=== PATIENT | male | born 1945 | race Two or more races ===

== ENCOUNTER 2020-04-22 12:43 | Inpatient (IN) | payer MEDICARE, OTHER ==
[~2020-04-22] VITALS: Ht 172.7 cm; Wt 71.2 kg
[2020-04-22 12:43] VITALS: BP 159/70
--- NOTE | 2020-04-22 12:43 | NUR ---
ED Nurse Note: Patient EVER [id number] from [facility] c/o SOB and low O2 level 85% started few hrs ago. Pt placed on nc @5L, 95%. Pt is tested positive for Covid, unk date. Pt is DNR. Pt is AAOx1, lethargic, non verbal. Covid isolation precaution observed. Pt placed on cardiac nurse specialist.
--- NOTE | 2020-04-22 13:14 | NUR ---
ED Nurse Note: ERMD at bedside. Pt satting at 98% on 5LPM via NC.
[2020-04-22] MEDS ORDERED: Acetaminophen 650 MG SUPP RECTAL ONE (13:45)
--- NOTE | 2020-04-22 13:49 | NUR ---
ED Nurse Note: latest rectal temp: 102.1F, notified ERMD.
[2020-04-22] MEDS ORDERED: ZINC SULFATE220 M1 ORAL (14:03)
[2020-04-22] MEDS ORDERED: METFORMIN HCL850 M1 ORAL (14:03)
[2020-04-22] MEDS ORDERED: VITAMIN D3 COM1 EACH PO (14:03)
[2020-04-22] MEDS ORDERED: DONEPEZIL HCL5 MG ORAL (14:03)
[2020-04-22] MEDS ORDERED: VITAMIN C500 M1 ORAL (14:03)
[2020-04-22] MEDS ORDERED: HEPARIN SO5000 UNIT2 SUBQ (14:03)
[2020-04-22] MEDS ORDERED: POTASSIUM CHLO20 ME2 ORAL (14:03)
[2020-04-22] MEDS ORDERED: KEPPRA500 M4 ORAL (14:03)
[2020-04-22 14:05] LABS: BASOPHILS % (AUTO) 0.9 % (0.0-2.0); HEMATOCRIT 43.5 % (42.0-52.0); HEMOGLOBIN 14.1 G/DL (14.2-18.0); LYMPHOCYTES % (AUTO) 9.8 % (20.0-45.0); MEAN CORPUSCULAR VOLUME 97 FL (80-99); MONOCYTES % (AUTO) 7.2 % (1.0-10.0); PLATELET COUNT 441 K/UL (150-450); RED CELL DISTRIBUTION WIDTH 12.4 % (11.6-14.8); WHITE BLOOD COUNT 9.9 K/UL (4.8-10.8)
[2020-04-22 14:11] LABS: ANION GAP 9 mmol/L (5-15); APPEARANCE,URINE CLEAR; BILIRUBIN, URINE NEGATIVE (NEGATIVE); BLOOD UREA NITROGEN 16 mg/dL (7-18); CALCIUM 9.2 MG/DL (8.5-10.1); CARBON DIOXIDE 31 MMOL/L (21-32); CHLORIDE 100 MMOL/L (98-107); CREATININE 0.9 MG/DL (0.55-1.30); GLUCOSE, URINE (UA) NEGATIVE (NEGATIVE); KETONES,URINE 2+ (NEGATIVE); LEUKOCYTE ESTERASE ,URINE NEGATIVE (NEGATIVE); NITRITE,URINE NEGATIVE (NEGATIVE); PH,URINE 6 (4.5-8.0); PROTEIN,URINE 2+ (NEGATIVE); SODIUM 140 MMOL/L (136-145); UROBILINOGEN,URINE 4 MG/DL (0.0-1.0)
[2020-04-22] MEDS ORDERED: Piperacillin/Tazobactam 3.375 GM in NS 110 ML IVPB ONE (14:15)
[2020-04-22 14:16] LABS: ALANINE AMINOTRANSFERASE 16 U/L (12-78); ALBUMIN 2.1 G/DL (3.4-5.0); ALBUMIN/GLOBULIN RATIO 0.3 (1.0-2.7); ALKALINE PHOSPHATASE 78 U/L (46-116); ASPARTATE AMINO TRANSFERASE 22 U/L (15-37); BILIRUBIN,TOTAL 0.5 MG/DL (0.2-1.0); COLOR,URINE YELLOW
--- NOTE | 2020-04-22 14:26 | NUR ---
ED Nurse Note: latest temp: 98.9F oral. Pt on bed, sleeping, VSS, now satting at 100% on 2LPM via NC.
[2020-04-22 14:47] VITALS: BP 145/64
--- NOTE | 2020-04-22 14:50 | Diagnostic Imaging Report ---
Indication: Chest pain Technique: One view of the chest Comparison: none Findings: There is bilateral interstitial and airspace disease in a bronchovascular distribution. The pleural spaces are clear. The heart size is normal. Impression: Bilateral infiltrates, likely pneumonia, possibly viral. Correlate with clinical findings
--- NOTE | 2020-04-22 15:02 | Emergency Room Report ---
History of Present Illness General Chief Complaint: Dyspnea/Respdistress Source: EMS Present Illness HPI Patient stays at a longterm. Patient was noted to be: Positive. Patient is DNR with selective interventions. Patient presents emergency department today with worsening shortness of breath. No other complaints are noted. Symptoms noted to be severe. Patient is unable to provide much history other history was obtained from medical records. Patient is from a longterm and patient's primary care physician does not for care at [facility] has never been admitted here before. No other modifying factors. No other associated signs and symptoms. No other complaints were noted. Allergies: Coded Allergies: No Known Allergies (Unverified , 04/22/20) COVID-19 Screening Contact w/high risk pt: Yes Experienced COVID-19 symptoms?: Yes COVID-19 Testing performed JUNIOR BUYER: Yes - unk date COVID-19 Screening: Positive COVID-19 COVID-19 Testing Source: SNF Patient History Past Medical History: DM, dementia, seizures Past Surgical History: none Pertinent Family History: none Social History Narrative Patient stays at a longterm. Reviewed Nursing Documentation: PMH: Agreed; PSxH: Agreed Nursing Documentation-PMH Hx Diabetes: Yes Review of Systems All Other Systems: negative except mentioned in HPI Physical Exam Vital Signs Date Time Temp Pulse Resp B/P (MAP) Pulse Ox O2 Delivery O2 Flow Rate FiO2 04/22/20 12:35 98.4 108 20 168/87 (114) 95 Nasal Cannula 5.0 Sp02 EP Interpretation: reviewed, normal General Appearance: moderate distress, cachetic, lethargic Head: atraumatic Eyes: bilateral eye normal inspection ENT: normal ENT inspection, moist mucus membranes Neck: normal inspection, no bony tend Respiratory: decreased breath sounds, accessory muscle use, wheezing, expiration Cardiovascular #1: regular rate, rhythm, no edema Gastrointestinal: normal inspection, normal bowel sounds, non tender, soft, no guarding, no hernia Genitourinary: deferred Musculoskeletal: normal inspection, back normal Neurologic: other - Limited due to patient's altered mental status Psychiatric: other - Limited due to altered mental status Skin: no rash Procedures Critical Care Time Critical Care Time Patient had a critical medical condition which untreated could potentially result in life or limb threatening injury. Total critical care time excluding procedures was approximately 45 minutes. Medical Decision Making Diagnostic Impression: Primary Impression: Respiratory distress Additional Impression: COVID-19 ER Course Patient presents emergency department today complaining of shortness of breath. Differential diagnoses include acute pneumonia, CHF, acute coronary syndrome, pneumothorax, asthma, COPD flare, just to name a few. Given the severity of the patient's presentation I felt this is a highly complex patient. This patient required extensive workup. Patient's laboratory work-up does not show any significant abnormality. However patient's chest x-ray shows evidence of bilateral infiltrates. Patient was hypoxic and required respiratory supplementation. Patient is DNR therefore we will not intubate the patient. However we will treat the patient aggressively still. Will admit the patient further evaluation. Patient will be admitted to telemetry. Case was discussed with Dr. Corral for admission. Labs Test 04/22/20 13:41 White Blood Count 9.9 K/UL (4.8-10.8) Red Blood Count 4.50 M/UL (4.70-6.10) Hemoglobin 14.1 G/DL (14.2-18.0) Hematocrit 43.5 % (42.0-52.0) Mean Corpuscular Volume 97 FL (80-99) Mean Corpuscular Hemoglobin 31.4 PG (27.0-31.0) Mean Corpuscular Hemoglobin Concent 32.5 G/DL (32.0-36.0) Red Cell Distribution Width 12.4 % (11.6-14.8) Platelet Count 441 K/UL (150-450) Mean Platelet Volume 5.0 FL (6.5-10.1) Neutrophils (%) (Auto) 82.0 % (45.0-75.0) Lymphocytes (%) (Auto) 9.8 % (20.0-45.0) Monocytes (%) (Auto) 7.2 % (1.0-10.0) Eosinophils (%) (Auto) 0.0 % (0.0-3.0) Basophils (%) (Auto) 0.9 % (0.0-2.0) Urine Color Yellow Urine Appearance Clear Urine pH 6 (4.5-8.0) Urine Specific [place] 1.020 (1.005-1.035) Urine Protein 2+ (NEGATIVE) Urine Glucose (UA) Negative (NEGATIVE) Urine Ketones 2+ (NEGATIVE) Urine Blood 3+ (NEGATIVE) Urine Nitrite Negative (NEGATIVE) Urine Bilirubin Negative (NEGATIVE) Urine Urobilinogen 4 MG/DL (0.0-1.0) Urine Leukocyte Esterase Negative (NEGATIVE) Urine RBC 5-10 /HPF (0 - 0) Urine WBC 0-2 /HPF (0 - 0) Urine Squamous Epithelial Cells Occasional /LPF Urine Bacteria Occasional /HPF (NONE) Sodium Level 140 MMOL/L (136-145) Potassium Level 4.0 MMOL/L (3.5-5.1) Chloride Level 100 MMOL/L (98-107) Carbon Dioxide Level 31 MMOL/L (21-32) Anion Gap 9 mmol/L (5-15) Blood Urea Nitrogen 16 mg/dL (7-18) Creatinine 0.9 MG/DL (0.55-1.30) Estimat Glomerular Filtration Rate > 60 mL/min (>60) Glucose Level 142 MG/DL (74-106) Lactic Acid Level 1.80 mmol/L (0.4-2.0) Calcium Level 9.2 MG/DL (8.5-10.1) Total Bilirubin 0.5 MG/DL (0.2-1.0) Aspartate Amino Transf (AST/SGOT) 22 U/L (15-37) Alanine Aminotransferase (ALT/SGPT) 16 U/L (12-78) Alkaline Phosphatase 78 U/L (46-116) Troponin I 0.001 ng/mL (0.000-0.056) Total Protein 8.2 G/DL (6.4-8.2) Albumin 2.1 G/DL (3.4-5.0) Globulin 6.1 g/dL Albumin/Globulin Ratio 0.3 (1.0-2.7) Lipase 47 U/L (73-393) EKG Diagnostic Results Rate: tachycardiac Rhythm: NSR ST Segments: no acute changes Rhythm Strip Diag. Results EP Interpretation: yes Rate: 120 Rhythm: NSR, no PVC's, no ectopy Chest X-Ray Diagnostic Results Chest X-Ray Diagnostic Results : Chest X-Ray Ordered: Yes # of Views/Limited/Complete: 1 View Indication: Shortness of Breath EP Interpretation: Yes Interpretation: no effusion, no pneumothorax, other - bilateral infiltrate Impression: Other Electronically Signed by: Electronically signed by Carlos Olivarez MD Last Vital Signs Date Time Temp Pulse Resp B/P (MAP) Pulse Ox O2 Delivery O2 Flow Rate FiO2 04/22/20 14:47 98.9 116 27 145/64 97 Nasal Cannula 2.0 Status: improved Disposition: ADMITTED INPATIENT Condition: Serious Referrals: NON PHYSICIAN (PCP) Carlos Olivarez MD Apr 22, 2020 15:02
[2020-04-22 15:56] VITALS: BP 124/62
--- NOTE | 2020-04-22 16:01 | NUR ---
ED Nurse Note: Report given to Sarai BOWLING.
--- NOTE | 2020-04-22 16:12 | NUR ---
TRANSFER TO FLOOR: Patient transferred to Tele as ordered via nabilroma with 1 tech and RN. Pt AAOx1, non verbal. Afebrile. IV line on left forearm 20g patent and intact. On 2L via nc. Med recon done. Swabs are sent. Pt does not have any belongings.
[2020-04-22] MEDS ORDERED: Promethazine/Codeine 5ml UD ORAL PRN (16:15)
[2020-04-22] MEDS ORDERED: Miralax 17gm pkt ORAL PRN (16:15)
[2020-04-22] MEDS ORDERED: Albuterol/Ipratropium 3ml neb HHN PRN (16:15)
--- NOTE | 2020-04-22 16:15 | NUR ---
NURSE NOTES: Patient transferred from ER to room 209-2, Asleep, non-verbal, On 2L nasal canula, saturating 93%-95%. cobol developer placed, IV on left FA patent. Patient has no belonging. Skin assessment done, Patient has Right heel DTI and Sacral stage 4, Picture taken. Fall precaution and seizure precaution measurement done. Bed in low position and locked with side rails x3. Call light within reach. Will continue plan of care.
[2020-04-22 16:25] VITALS: BP 146/68
[2020-04-22] MEDS: NovoLOG Insulin Flexpen SUBQ SCH ×2 (16:30→21:00)
[2020-04-22] MEDS ORDERED: cefTRIAXone 1 GM in D5W 55 ML IVPB SCH (18:00)
--- NOTE | 2020-04-22 19:15 | NUR ---
HAND-OFF: Report given to Chuyita/TAWNYA. Patient in stable condition. Endorsed plan of care .
--- NOTE | 2020-04-22 19:30 | NUR ---
NURSE NOTES: Received patient from TAWNYA Copeland. AOx0, nonverbal. IV site intact and flushed. On 2L nasal cannula, saturating well. With sacral stage IV and right heel DTI, will continue wound care plan. Breathing even and unlabored. Bed in lowest position, brakes engaged and bed alarm on. Call light placed within reach. Bed rails raised x2. Will continue to monitor.
[2020-04-22 20:00] VITALS: BP 120/58
[2020-04-22] MEDS: Azithromycin 250 MG in D5W 275 ML IV SCH (20:20)
[2020-04-22] MEDS: Heparin 5000 units/ml inj SUBQ SCH (20:22)
--- NOTE | 2020-04-22 21:14 | NUR ---
NURSE NOTES: Novolog not given because patient did not eat dinner nor bedtime snacks.
[2020-04-23] VITALS: BP 132/61
--- NOTE | 2020-04-23 02:50 | NUR ---
NURSE NOTES: Patient asleep, but arousable. Opens eyes spontaneously, but nonverbal. No pain per FLACC pain assessment. IV site intact and patent. Bed in lowest position, brakes engaged, bed alarm on. Bed rails raised x2. Call light placed within reach. Will continue to monitor.
[2020-04-23 04:00] VITALS: BP 109/55
[2020-04-23] MEDS: NovoLOG Insulin Flexpen SUBQ SCH ×4 (05:56→21:10)
[2020-04-23 06:35] LABS: BASOPHILS % (AUTO) 0.7 % (0.0-2.0); EOSINOPHILS % (AUTO) 0.2 % (0.0-3.0); HEMATOCRIT 34.8 % (42.0-52.0); HEMOGLOBIN 11.2 G/DL (14.2-18.0); LYMPHOCYTES % (AUTO) 12.8 % (20.0-45.0); MEAN CORPUSCULAR VOLUME 96 FL (80-99); MONOCYTES % (AUTO) 9.9 % (1.0-10.0); NEUTROPHILS % (AUTO) 76.4 % (45.0-75.0); PLATELET COUNT 442 K/UL (150-450); RED BLOOD COUNT 3.62 M/UL (4.70-6.10); RED CELL DISTRIBUTION WIDTH 12.4 % (11.6-14.8); WHITE BLOOD COUNT 8.9 K/UL (4.8-10.8)
[2020-04-23 07:18] LABS: ALANINE AMINOTRANSFERASE 15 U/L (12-78); ALBUMIN 1.9 G/DL (3.4-5.0); ALBUMIN/GLOBULIN RATIO 0.4 (1.0-2.7); ALKALINE PHOSPHATASE 75 U/L (46-116); ANION GAP 10 mmol/L (5-15); ASPARTATE AMINO TRANSFERASE 25 U/L (15-37); BILIRUBIN,TOTAL 0.3 MG/DL (0.2-1.0); BLOOD UREA NITROGEN 25 mg/dL (7-18); CALCIUM 8.3 MG/DL (8.5-10.1); CARBON DIOXIDE 29 MMOL/L (21-32); CHLORIDE 102 MMOL/L (98-107); CREATININE 0.9 MG/DL (0.55-1.30); PHOSPHORUS 3.8 MG/DL (2.5-4.9); SODIUM 141 MMOL/L (136-145)
--- NOTE | 2020-04-23 07:24 | NUR ---
HAND-OFF: Report given to TAWNYA Copeland. Plan of care endorsed. Patient stable.
--- NOTE | 2020-04-23 07:25 | NUR ---
NURSE NOTES: Received report from Chuyita/RN. Patient is sleeping, lying in bed resting comfortably. Patient is non-verbal, he is on 2L nasal cannula. No distress or SOB noted at this time. IV on left FA 20G, saline lock, clean and patent. Fall and seizures precautions measures done. Bed in lowest position and locked. Call light within reach, side rails up X3. Will continue plan of care.
[2020-04-23 08:00] VITALS: BP 123/50
[2020-04-23] MEDS: Heparin 5000 units/ml inj SUBQ SCH ×2 (08:18→21:09)
--- NOTE | 2020-04-23 10:44 | History and Physical ---
History of Present Illness General Date patient seen: Apr 23, 2020 Reason for Hospitalization: Dyspnea/Respdistress Present Illness HPI 74 year old male with hx of DM, Dementia, cachexia, brought in by paramedics with CC of worsening shortness of breath. Patient is unable to provide much history other history was obtained from medical records. His CXR showed extensive interstitial infiltrate typical for viral pneumonia. Pt is admitted for further management. Allergies: Coded Allergies: No Known Allergies (Unverified , 04/22/20) COVID-19 Screening Contact w/high risk pt: Yes Recent Travel to affected area: No Experienced COVID-19 symptoms?: Yes COVID-19 symptoms experienced: Shortness of Breath Medication History Scheduled Ascorbic Acid* (Vitamin C*), 500 MG ORAL DAILY, (Reported) Donepezil Hcl* (Donepezil Hcl*), 5 MG ORAL DAILY, (Reported) Heparin Sod (Porcine) (Heparin Sodium*), 5,000 UNITS SUBQ EVERY 12 HOURS, ( Reported) Levetiracetam (Keppra), 500 MG ORAL EVERY 12 HOURS, (Reported) Metformin Hcl* (Metformin Hcl*), 850 MG ORAL DAILY, (Reported) Mv-Mn/Iron/Fa/Herbal Cmplx#190 (Vitamin D3 Complete Caplet), 1 EACH PO DAILY, ( Reported) Potassium Chloride (Potassium Chloride), 40 MEQ ORAL DAILY, (Reported) Zinc Sulfate (Zinc Sulfate*), 220 MG ORAL DAILY, (Reported) Patient History Healthcare decision maker Resuscitation status Advanced Directive on File Past Medical/Surgical History Past Medical/Surgical History: (1) History of diabetes mellitus (2) Alzheimer's dementia Review of Systems All Other Systems: negative except mentioned in HPI Physical Exam General Appearance: cachetic, thin Lines, tubes and drains: peripheral HEENT: normocephalic, atraumatic Neck: non-tender, normal alignment, supple Respiratory/Chest: chest wall non-tender, rhonchi - left, rhonchi - right Cardiovascular/Chest: normal peripheral pulses, normal rate Abdomen: normal bowel sounds, non tender Genitourinary/Rectal: normal genital exam Extremities: normal range of motion, non-tender Skin Exam: normal pigmentation Neurologic: seo executive II-XII grossly normal Last 24 Hour Vital Signs Date Time Temp Pulse Resp B/P (MAP) Pulse Ox O2 Delivery O2 Flow Rate FiO2 04/23/20 09:00 Nasal Cannula 2.0 04/23/20 08:00 98.1 91 18 123/50 (74) 92 04/23/20 08:00 91 04/23/20 04:00 99 04/23/20 04:00 96.3 80 21 109/55 (73) 93 04/23/20 00:00 98.4 75 21 132/61 (84) 94 04/23/20 00:00 96 04/22/20 21:00 Nasal Cannula 2.0 04/22/20 20:00 98.2 62 21 120/58 (78) 94 04/22/20 20:00 107 04/22/20 16:48 Nasal Cannula 2.0 04/22/20 16:38 109 04/22/20 16:25 99.9 107 24 146/68 (94) 95 04/22/20 16:12 98.6 110 22 124/62 99 Nasal Cannula 2.0 04/22/20 15:56 98.9 110 22 124/62 99 Nasal Cannula 2.0 04/22/20 14:47 98.9 116 27 145/64 97 Nasal Cannula 2.0 04/22/20 14:21 98.9 04/22/20 12:43 98.4 129 27 159/70 98 Nasal Cannula 5.0 04/22/20 12:43 108 20 Nasal Cannula 5.0 04/22/20 12:35 98.4 108 20 168/87 (114) 95 Nasal Cannula 5.0 Intake and Output 04/22/20 04/23/20 19:00 07:00 Intake Total 110 ml 550 ml Balance 110 ml 550 ml Intake IV Total 110 ml 275 ml Other 275 ml # Voids 2 Laboratory Tests Test 04/22/20 13:41 04/22/20 17:20 04/23/20 05:15 White Blood Count 9.9 K/UL (4.8-10.8) 8.9 K/UL (4.8-10.8) Red Blood Count 4.50 M/UL (4.70-6.10) L 3.62 M/UL (4.70-6.10) L Hemoglobin 14.1 G/DL (14.2-18.0) L 11.2 G/DL (14.2-18.0) L Hematocrit 43.5 % (42.0-52.0) 34.8 % (42.0-52.0) L Mean Corpuscular Volume 97 FL (80-99) 96 FL (80-99) Mean Corpuscular Hemoglobin 31.4 PG (27.0-31.0) H 31.0 PG (27.0-31.0) Mean Corpuscular Hemoglobin Concent 32.5 G/DL (32.0-36.0) 32.3 G/DL (32.0-36.0) Red Cell Distribution Width 12.4 % (11.6-14.8) 12.4 % (11.6-14.8) Platelet Count 441 K/UL (150-450) 442 K/UL (150-450) Mean Platelet Volume 5.0 FL (6.5-10.1) L 5.1 FL (6.5-10.1) L Neutrophils (%) (Auto) 82.0 % (45.0-75.0) H 76.4 % (45.0-75.0) H Lymphocytes (%) (Auto) 9.8 % (20.0-45.0) L 12.8 % (20.0-45.0) L Monocytes (%) (Auto) 7.2 % (1.0-10.0) 9.9 % (1.0-10.0) Eosinophils (%) (Auto) 0.0 % (0.0-3.0) 0.2 % (0.0-3.0) Basophils (%) (Auto) 0.9 % (0.0-2.0) 0.7 % (0.0-2.0) Urine Color Yellow Urine Appearance Clear Urine pH 6 (4.5-8.0) Urine Specific [place] 1.020 (1.005-1.035) Urine Protein 2+ (NEGATIVE) H Urine Glucose (UA) Negative (NEGATIVE) Urine Ketones 2+ (NEGATIVE) H Urine Blood 3+ (NEGATIVE) H Urine Nitrite Negative (NEGATIVE) Urine Bilirubin Negative (NEGATIVE) Urine Urobilinogen 4 MG/DL (0.0-1.0) H Urine Leukocyte Esterase Negative (NEGATIVE) Urine RBC 5-10 /HPF (0 - 0) H Urine WBC 0-2 /HPF (0 - 0) Urine Squamous Epithelial Cells Occasional /LPF Urine Bacteria Occasional /HPF (NONE) Sodium Level 140 MMOL/L (136-145) 141 MMOL/L (136-145) Potassium Level 4.0 MMOL/L (3.5-5.1) 4.0 MMOL/L (3.5-5.1) Chloride Level 100 MMOL/L (98-107) 102 MMOL/L (98-107) Carbon Dioxide Level 31 MMOL/L (21-32) 29 MMOL/L (21-32) Anion Gap 9 mmol/L (5-15) 10 mmol/L (5-15) Blood Urea Nitrogen 16 mg/dL (7-18) 25 mg/dL (7-18) H Creatinine 0.9 MG/DL (0.55-1.30) 0.9 MG/DL (0.55-1.30) Estimat Glomerular Filtration Rate > 60 mL/min (>60) > 60 mL/min (>60) Glucose Level 142 MG/DL (74-106) H 118 MG/DL (74-106) H Lactic Acid Level 1.80 mmol/L (0.4-2.0) Calcium Level 9.2 MG/DL (8.5-10.1) 8.3 MG/DL (8.5-10.1) L Total Bilirubin 0.5 MG/DL (0.2-1.0) 0.3 MG/DL (0.2-1.0) Aspartate Amino Transf (AST/SGOT) 22 U/L (15-37) 25 U/L (15-37) Alanine Aminotransferase (ALT/SGPT) 16 U/L (12-78) 15 U/L (12-78) Alkaline Phosphatase 78 U/L (46-116) 75 U/L (46-116) Troponin I 0.001 ng/mL (0.000-0.056) Total Protein 8.2 G/DL (6.4-8.2) 6.4 G/DL (6.4-8.2) Albumin 2.1 G/DL (3.4-5.0) L 1.9 G/DL (3.4-5.0) L Globulin 6.1 g/dL 4.5 g/dL Albumin/Globulin Ratio 0.3 (1.0-2.7) L 0.4 (1.0-2.7) L Lipase 47 U/L (73-393) L POC Whole Blood Glucose 144 MG/DL (74-106) H Erythrocyte Sedimentation Rate 111 MM/HR (0-20) H Phosphorus Level 3.8 MG/DL (2.5-4.9) Magnesium Level 1.5 MG/DL (1.8-2.4) L C-Reactive Protein, Quantitative 34.7 mg/dL (0.00-0.90) H Microbiology Date/Time Source Procedure Growth Status 04/22/20 15:15 Nasopharynx SARS-CoV-2 RdRp Gene Assay - Final Complete 04/22/20 13:41 Rectum Received Height (Feet): 5 Height (Inches): 8.00 Weight (Pounds): 119 Medications Current Medications Medications (Trade) Dose Ordered Sig/Andrade Route PRN Reason Start Time Stop Time Status Last Admin Dose Admin Acetaminophen (Tylenol) 650 mg Q4H PRN ORAL FEVER 04/22/20 16:15 05/22/20 16:14 Albuterol/ Ipratropium (Combivent Respimat) 1 puff Q4H PRN INH Shortness of Breath 04/22/20 16:15 05/22/20 16:14 Azithromycin 250 mg/Dextrose 275 ml @ 275 mls/hr Q24HRS IV 04/22/20 20:00 04/27/20 19:59 04/22/20 20:20 Ceftriaxone Sodium 1 gm/ Dextrose 55 ml @ 110 mls/hr Q24H IVPB 04/22/20 18:00 04/29/20 17:59 04/22/20 18:26 Dexamethasone (Decadron) 4 mg DAILY ORAL 04/23/20 09:00 05/02/20 08:59 04/23/20 08:17 Dextrose (Dextrose 50%) 25 ml Q30M PRN IV Hypoglycemia 04/22/20 16:15 07/21/20 16:14 Dextrose (Dextrose 50%) 50 ml Q30M PRN IV Hypoglycemia 04/22/20 16:15 07/21/20 16:14 Heparin Sodium (Porcine) (Heparin 5000 units/ml) 5,000 units EVERY 12 HOURS SUBQ 04/22/20 21:00 06/06/20 20:59 04/23/20 08:18 Insulin Aspart (NovoLOG) BEFORE MEALS AND HS SUBQ 04/22/20 16:30 07/21/20 16:29 Levetiracetam (Keppra) 500 mg EVERY 12 HOURS ORAL 04/22/20 21:00 06/06/20 20:59 04/23/20 08:17 Ondansetron HCl (Zofran) 4 mg Q6H PRN IVP Nausea & Vomiting 04/22/20 16:15 05/22/20 16:14 Polyethylene Glycol (Miralax) 17 gm DAILYPRN PRN ORAL Constipation 04/22/20 16:15 05/22/20 16:14 Promethazine HCl/ Codeine (Phenergan with Codeine) 5 ml Q6H PRN ORAL cough 04/22/20 16:15 05/22/20 16:14 Assessment/Plan Problem List: (1) Pneumonia due to COVID-19 virus ICD Codes: U07.1 - COVID-19; J12.89 - Other viral pneumonia SNOMED: 209704934, 473258306 (2) At high risk for aspiration ICD Codes: Z91.89 - Other specified personal risk factors, not elsewhere classified SNOMED: 457645540 (3) Severe protein-calorie malnutrition ICD Codes: E43 - Unspecified severe protein-calorie malnutrition SNOMED: 876576276, 758206062, 061792133 (4) History of diabetes mellitus ICD Codes: Z86.39 - Personal history of other endocrine, nutritional and metabolic disease SNOMED: 132642864 (5) Alzheimer's dementia ICD Codes: G30.9 - Alzheimer's disease, unspecified; F02.80 - Dementia in other diseases classified elsewhere without behavioral disturbance SNOMED: 00447576 Assessment/Plan: COVID isolation respiratory treatment check sputum f/u inflammation markers swallow evaluation ID evaluation dvt prophylaxis Quincy Corral MD Apr 23, 2020 10:44
[2020-04-23 12:00] VITALS: BP 112/52
--- NOTE | 2020-04-23 12:55 | NUR ---
NURSE NOTES: Patient blood culture came back gram pos cocci in cluster. Dr Corral aware.
--- NOTE | 2020-04-23 13:31 | NUR ---
CASE MANAGEMENT:REVIEW 74 YR OLD MALE BIBA FROM [facility] CC: SOB. SATS 84% ON RA PMH: COVID POSITIVE SI: RESPIRATORY FAILURE. COVID 98.4 108 20 168/87 95% ON 5L/NC GLUCOSE+142 IS: IV ZOSYN TYLENOL [place] CHEST XRAY BLOOD CX RAPID COVID(+) : TO TELEMETRY DCP: FROM [facility] INTERQUAL CRITERIA MET
--- NOTE | 2020-04-23 14:24 | Consultation ---
History of Present Illness General Date patient seen: Apr 23, 2020 Chief Complaint: Dyspnea/Respdistress Present Illness HPI 74 y/o M with hx of Dementia, seizure disorder, Dm2, COVID19 positive (unknown date of diagnosis), DNR status, [place] resident ([facility]) presented to ED on 04/22/20 with worsening SOB Allergies: Coded Allergies: No Known Allergies (Unverified , 04/22/20) Medication History Scheduled Ascorbic Acid* (Vitamin C*), 500 MG ORAL DAILY, (Reported) Donepezil Hcl* (Donepezil Hcl*), 5 MG ORAL DAILY, (Reported) Heparin Sod (Porcine) (Heparin Sodium*), 5,000 UNITS SUBQ EVERY 12 HOURS, ( Reported) Levetiracetam (Keppra), 500 MG ORAL EVERY 12 HOURS, (Reported) Metformin Hcl* (Metformin Hcl*), 850 MG ORAL DAILY, (Reported) Mv-Mn/Iron/Fa/Herbal Cmplx#190 (Vitamin D3 Complete Caplet), 1 EACH PO DAILY, ( Reported) Potassium Chloride (Potassium Chloride), 40 MEQ ORAL DAILY, (Reported) Zinc Sulfate (Zinc Sulfate*), 220 MG ORAL DAILY, (Reported) Patient History Healthcare decision maker Resuscitation status Advanced Directive on File Patient History Narrative Pmhx: as above Shx: reviewed Fhx: non contributory Review of Systems All Other Systems: negative except mentioned in HPI Physical Exam Physical Exam Narrative General Appearance: cachetic, thin Lines, tubes and drains: peripheral HEENT: normocephalic, atraumatic Neck: non-tender, normal alignment, supple Respiratory/Chest: chest wall non-tender, rhonchi - left, rhonchi - right Cardiovascular/Chest: normal peripheral pulses, normal rate Abdomen: normal bowel sounds, non tender Last 24 Hour Vital Signs Date Time Temp Pulse Resp B/P (MAP) Pulse Ox O2 Delivery O2 Flow Rate FiO2 04/23/20 12:00 96 04/23/20 12:00 99.5 101 20 112/52 (72) 94 04/23/20 09:00 Nasal Cannula 2.0 04/23/20 08:00 98.1 91 18 123/50 (74) 92 04/23/20 08:00 91 04/23/20 04:00 99 04/23/20 04:00 96.3 80 21 109/55 (73) 93 04/23/20 00:00 98.4 75 21 132/61 (84) 94 04/23/20 00:00 96 04/22/20 21:00 Nasal Cannula 2.0 04/22/20 20:00 98.2 62 21 120/58 (78) 94 04/22/20 20:00 107 04/22/20 16:48 Nasal Cannula 2.0 04/22/20 16:38 109 04/22/20 16:25 99.9 107 24 146/68 (94) 95 04/22/20 16:12 98.6 110 22 124/62 99 Nasal Cannula 2.0 04/22/20 15:56 98.9 110 22 124/62 99 Nasal Cannula 2.0 04/22/20 14:47 98.9 116 27 145/64 97 Nasal Cannula 2.0 04/22/20 14:21 98.9 Intake and Output 04/22/20 04/23/20 19:00 07:00 Intake Total 110 ml 550 ml Balance 110 ml 550 ml Intake IV Total 110 ml 275 ml Other 275 ml # Voids 2 Laboratory Tests Test 04/22/20 17:20 04/23/20 05:15 POC Whole Blood Glucose 144 MG/DL (74-106) H White Blood Count 8.9 K/UL (4.8-10.8) Red Blood Count 3.62 M/UL (4.70-6.10) L Hemoglobin 11.2 G/DL (14.2-18.0) L Hematocrit 34.8 % (42.0-52.0) L Mean Corpuscular Volume 96 FL (80-99) Mean Corpuscular Hemoglobin 31.0 PG (27.0-31.0) Mean Corpuscular Hemoglobin Concent 32.3 G/DL (32.0-36.0) Red Cell Distribution Width 12.4 % (11.6-14.8) Platelet Count 442 K/UL (150-450) Mean Platelet Volume 5.1 FL (6.5-10.1) L Neutrophils (%) (Auto) 76.4 % (45.0-75.0) H Lymphocytes (%) (Auto) 12.8 % (20.0-45.0) L Monocytes (%) (Auto) 9.9 % (1.0-10.0) Eosinophils (%) (Auto) 0.2 % (0.0-3.0) Basophils (%) (Auto) 0.7 % (0.0-2.0) Erythrocyte Sedimentation Rate 111 MM/HR (0-20) H Sodium Level 141 MMOL/L (136-145) Potassium Level 4.0 MMOL/L (3.5-5.1) Chloride Level 102 MMOL/L (98-107) Carbon Dioxide Level 29 MMOL/L (21-32) Anion Gap 10 mmol/L (5-15) Blood Urea Nitrogen 25 mg/dL (7-18) H Creatinine 0.9 MG/DL (0.55-1.30) Estimat Glomerular Filtration Rate > 60 mL/min (>60) Glucose Level 118 MG/DL (74-106) H Calcium Level 8.3 MG/DL (8.5-10.1) L Phosphorus Level 3.8 MG/DL (2.5-4.9) Magnesium Level 1.5 MG/DL (1.8-2.4) L Total Bilirubin 0.3 MG/DL (0.2-1.0) Aspartate Amino Transf (AST/SGOT) 25 U/L (15-37) Alanine Aminotransferase (ALT/SGPT) 15 U/L (12-78) Alkaline Phosphatase 75 U/L (46-116) C-Reactive Protein, Quantitative 34.7 mg/dL (0.00-0.90) H Total Protein 6.4 G/DL (6.4-8.2) Albumin 1.9 G/DL (3.4-5.0) L Globulin 4.5 g/dL Albumin/Globulin Ratio 0.4 (1.0-2.7) L Microbiology Date/Time Source Procedure Growth Status 04/22/20 15:15 Nasopharynx SARS-CoV-2 RdRp Gene Assay - Final Complete Height (Feet): 5 Height (Inches): 8.00 Weight (Pounds): 119 Medications Current Medications Medications (Trade) Dose Ordered Sig/Andrade Route PRN Reason Start Time Stop Time Status Last Admin Dose Admin Acetaminophen (Tylenol) 650 mg Q4H PRN ORAL FEVER 04/22/20 16:15 05/22/20 16:14 Albuterol/ Ipratropium (Combivent Respimat) 1 puff Q4H PRN INH Shortness of Breath 04/22/20 16:15 05/22/20 16:14 Azithromycin 250 mg/Dextrose 275 ml @ 275 mls/hr Q24HRS IV 04/22/20 20:00 04/27/20 19:59 04/22/20 20:20 Ceftriaxone Sodium 1 gm/ Dextrose 55 ml @ 110 mls/hr Q24H IVPB 04/22/20 18:00 04/29/20 17:59 04/22/20 18:26 Dexamethasone (Decadron) 4 mg DAILY ORAL 04/23/20 09:00 05/02/20 08:59 04/23/20 08:17 Dextrose (Dextrose 50%) 25 ml Q30M PRN IV Hypoglycemia 04/22/20 16:15 07/21/20 16:14 Dextrose (Dextrose 50%) 50 ml Q30M PRN IV Hypoglycemia 04/22/20 16:15 07/21/20 16:14 Heparin Sodium (Porcine) (Heparin 5000 units/ml) 5,000 units EVERY 12 HOURS SUBQ 04/22/20 21:00 06/06/20 20:59 04/23/20 08:18 Insulin Aspart (NovoLOG) BEFORE MEALS AND HS SUBQ 04/22/20 16:30 07/21/20 16:29 Levetiracetam (Keppra) 500 mg EVERY 12 HOURS ORAL 04/22/20 21:00 06/06/20 20:59 04/23/20 08:17 Ondansetron HCl (Zofran) 4 mg Q6H PRN IVP Nausea & Vomiting 04/22/20 16:15 05/22/20 16:14 Polyethylene Glycol (Miralax) 17 gm DAILYPRN PRN ORAL Constipation 04/22/20 16:15 05/22/20 16:14 Promethazine HCl/ Codeine (Phenergan with Codeine) 5 ml Q6H PRN ORAL cough 04/22/20 16:15 05/22/20 16:14 Assessment/Plan Assessment/Plan: Abx: Ceftriaxone 04/22- Azithromycin 04/22- ZOsyn x 1 04/22 Assessment: Recent COVID19 positive (unknown date of diagnosis) Pneumonia -probable bacterial superimposed Acute hypoxic resp failure - s/p 5L NC- now down to 2L -04/22 Rapid COVID + CXR: Bilateral infiltrates, likely pneumonia, possibly viral. Correlate with clinical findings Gram positive bacteremia- real vs contaminant -04/22 Bcx 2/4 GPC clusters Afebrile- Tm 99.5 No leukocytosis -04/22 u/a neg Dementia seizure disorder Dm2 DNR status DC resident ([facility]) Plan: -Continue empiric Azithromycin #2 -Switch Empiric Ceftriaxone #2 to Cefepime -Add IV Vancomycin -On decadron -f/u cx -Monitor CBC/CMP, temperatures -Bcx x2, sp cx -COVID19 isolation -Will not give Remdesevir at this point given unclear date of diagnosis Thank you for this consultation. Will continue to follow along with you. Discussed with TAWNYA. Linsey Barry M.D. Apr 23, 2020 14:24
--- NOTE | 2020-04-23 15:01 | NUR ---
BEDSIDE SWALLOW EVALUATION ORDER RECEIVED, CHART REVIEWED, INTERVIEW WITH BREASTER AT [facility], CONVERSATION WITH DAUGHTER FOR BACKGROUND INFORMATION, AND RN SHANICE. DYSPHAGIA RISK FACTORS FOR THIS 74 YEAR OLD MALE: DECREASED MENTATION/DEMENTIA/DECREASED ATTENTION, RESPIRATORY DISTRESS, DECREASED STAMINA/LETHARGY/MALNUTRITION, OVERT S/S OF ASPIRATION WITH P.O. TRIALS, SWALLOW APRAXIA, DECREASED HYOLARYNGEAL ELEVATION. INITIAL IMPRESSIONS: THE PATIENT WAS POSITIONED UPRIGHT FOR P.O. TRIALS. PATIENT NON/VERBAL, NON/VISUAL TRACKING, NON/RESPONSIVE TO TACTILE/VERBAL CUES. HE IS MOUTH BREATHING, ORAL MUCOSA PRESENTS WITH XEROSTOMIA. HIS DECREASED MENTATION INCLUDED SENSORIMOTOR DEFICITS WHICH RESULTED IN POOR BOLUS ACCEPTANCE, DECREASED AWARENESS OF FOOD IN MOUTH. WHEN PRESENTED WITH 5ML OF NECTAR THICK WATER VIA SPOON, THE PATIENT DEMONSTRATED REPETITIVE LINGUAL PUMPING IN HIS ATTEMPT TO TRIGGER THE PHARYNGEAL PHASE OF THE SWALLOW. HYOLARYNGEAL ELEVATION WAS PALPATED AND DETERMINED TO BE INSUFFICIENT FOR AIRWAY PROTECTION. AFTER THE SECOND P.O. TRIAL WITH THE NTL, THE PATIENT DEMONSTRATED A PROLONGED NON/CLEARING, NON/PRODUCTIVE COUGH, WITH 3 TRIALS OF PUREE PRESENTED IN 5 ML AMOUNTS, THE PATIENT DEMONSTRATED ORAL STASIS, AND RESIDUE HAD TO BE SUCTIONED TO CLEAR HIS MOUTH. ORAL CARE WAS PROVIDED POST SUCTIONING. PHARYNGEAL PHASE OF SWALLOW SEVERELY DELAYED. CLEARLY, THIS GENTLEMAN PRESENTS WITH SEVERE OROPHARYNGEAL DYSPHAGIA, ALONG WITH A HISTORY OF SUBOPTIMAL P.O. INTAKE/LOSS OF APPETITE RECOMMENDATIONS 1. CONSIDER NON/ORAL FEEDING MANAGEMENT FOR INTERIM NUTRITION/HYDRATION 2. NPO 3. ORAL CARE TID TO REDUCE ORAL PATHOGENS 4. SKILLED ST INTERVENTION DOES NOT APPEAR TO BE NEEDED AT THIS TIME. THANK YOU FOR THIS REFERRAL.
--- NOTE | 2020-04-23 15:27 | Consultation ---
History of Present Illness General Date patient seen: Apr 23, 2020 Reason for Hospitalization: Dyspnea/Respdistress Present Illness HPI This is a very pleasant 74-year-old male multiple medical comorbidities who is a retirement resident that was identified to have shortness of breath respiratory insufficiency and presented to [facility] emergency department for evaluation. Was admitted further care and management. Abnormal labs noted with significant elevated ESR. Decubitus ulcers identified. Malnutrition. Low body weight BMI 18. Surgery called to evaluate assist with care management. Patient seen, patient evaluated, chart reviewed. Patient unable to participate examination or give history. Allergies: Coded Allergies: No Known Allergies (Unverified , 04/22/20) COVID-19 Screening Contact w/high risk pt: Yes Recent Travel to affected area: No Experienced COVID-19 symptoms?: Yes COVID-19 symptoms experienced: Shortness of Breath Medication History Scheduled Ascorbic Acid* (Vitamin C*), 500 MG ORAL DAILY, (Reported) Donepezil Hcl* (Donepezil Hcl*), 5 MG ORAL DAILY, (Reported) Heparin Sod (Porcine) (Heparin Sodium*), 5,000 UNITS SUBQ EVERY 12 HOURS, ( Reported) Levetiracetam (Keppra), 500 MG ORAL EVERY 12 HOURS, (Reported) Metformin Hcl* (Metformin Hcl*), 850 MG ORAL DAILY, (Reported) Mv-Mn/Iron/Fa/Herbal Cmplx#190 (Vitamin D3 Complete Caplet), 1 EACH PO DAILY, ( Reported) Potassium Chloride (Potassium Chloride), 40 MEQ ORAL DAILY, (Reported) Zinc Sulfate (Zinc Sulfate*), 220 MG ORAL DAILY, (Reported) Patient History Limited by: age, medical condition History Provided By: Medical Record, PMD Healthcare decision maker Resuscitation status Advanced Directive on File Past Medical/Surgical History Past Medical/Surgical History: (1) Pneumonia due to COVID-19 virus (2) Severe protein-calorie malnutrition (3) At high risk for aspiration (4) Respiratory distress (5) COVID-19 (6) History of diabetes mellitus (7) Alzheimer's dementia Review of Systems Review of Symptoms Limited given medical condition baseline general ROS: no weight loss or fever Psychological ROS: no depression or mood changes, no memory loss Ophthalmic ROS: no visual changes or eye irritation ENT ROS: no nasal congestion, hearing loss, dizziness Allergy and Immunology ROS: no allergic symptoms or urticaria Hematological and Lymphatic ROS: no swollen glands, unusual bleeding or bruising Endocrine ROS: no polyuria, polydipsia, weight changes, temperature intolerance Respiratory ROS: no cough, shortness of breath, or wheezing Cardiovascular ROS: no chest pain or dyspnea on exertion Gastrointestinal ROS: denies abdominal pain, bright red blood in stool. Musculoskeletal ROS: no myalgias or arthralgias Neurological ROS: no TIA or stroke symptoms Dermatological ROS: no new or changing skin lesions, rashes or pruritis Physical Exam Physical Exam General appearance: alert, cooperative, no distress, appears stated age Head: Normocephalic, without obvious abnormality, atraumatic Eyes: conjunctivae/corneas clear. PERRL, EOM's intact. Fundi benign Throat: Lips, mucosa, and tongue normal. Teeth and gums normal Neck: supple, symmetrical, trachea midline, no adenopathy, thyroid: not enlarged, symmetric, no tenderness/mass/nodules, no carotid bruit and no JVD Lungs: clear to auscultation bilaterally Heart: regular rate and rhythm, S1, S2 normal, no murmur, click, rub or gallop Abdomen: soft, non-tender. Bowel sounds normal. No masses, no organomegaly Extremities: extremities normal, atraumatic, no cyanosis or edema Pulses: 2+ and symmetric Skin: Skin c see below Neurologic: Grossly normal Last 24 Hour Vital Signs Date Time Temp Pulse Resp B/P (MAP) Pulse Ox O2 Delivery O2 Flow Rate FiO2 04/23/20 12:00 96 04/23/20 12:00 99.5 101 20 112/52 (72) 94 04/23/20 09:00 Nasal Cannula 2.0 04/23/20 08:00 98.1 91 18 123/50 (74) 92 04/23/20 08:00 91 04/23/20 04:00 99 04/23/20 04:00 96.3 80 21 109/55 (73) 93 04/23/20 00:00 98.4 75 21 132/61 (84) 94 04/23/20 00:00 96 04/22/20 21:00 Nasal Cannula 2.0 04/22/20 20:00 98.2 62 21 120/58 (78) 94 04/22/20 20:00 107 04/22/20 16:48 Nasal Cannula 2.0 04/22/20 16:38 109 04/22/20 16:25 99.9 107 24 146/68 (94) 95 04/22/20 16:12 98.6 110 22 124/62 99 Nasal Cannula 2.0 04/22/20 15:56 98.9 110 22 124/62 99 Nasal Cannula 2.0 Intake and Output 04/22/20 04/23/20 19:00 07:00 Intake Total 110 ml 550 ml Balance 110 ml 550 ml Intake IV Total 110 ml 275 ml Other 275 ml # Voids 2 Laboratory Tests Test 04/22/20 17:20 04/23/20 05:15 POC Whole Blood Glucose 144 MG/DL (74-106) H White Blood Count 8.9 K/UL (4.8-10.8) Red Blood Count 3.62 M/UL (4.70-6.10) L Hemoglobin 11.2 G/DL (14.2-18.0) L Hematocrit 34.8 % (42.0-52.0) L Mean Corpuscular Volume 96 FL (80-99) Mean Corpuscular Hemoglobin 31.0 PG (27.0-31.0) Mean Corpuscular Hemoglobin Concent 32.3 G/DL (32.0-36.0) Red Cell Distribution Width 12.4 % (11.6-14.8) Platelet Count 442 K/UL (150-450) Mean Platelet Volume 5.1 FL (6.5-10.1) L Neutrophils (%) (Auto) 76.4 % (45.0-75.0) H Lymphocytes (%) (Auto) 12.8 % (20.0-45.0) L Monocytes (%) (Auto) 9.9 % (1.0-10.0) Eosinophils (%) (Auto) 0.2 % (0.0-3.0) Basophils (%) (Auto) 0.7 % (0.0-2.0) Erythrocyte Sedimentation Rate 111 MM/HR (0-20) H Sodium Level 141 MMOL/L (136-145) Potassium Level 4.0 MMOL/L (3.5-5.1) Chloride Level 102 MMOL/L (98-107) Carbon Dioxide Level 29 MMOL/L (21-32) Anion Gap 10 mmol/L (5-15) Blood Urea Nitrogen 25 mg/dL (7-18) H Creatinine 0.9 MG/DL (0.55-1.30) Estimat Glomerular Filtration Rate > 60 mL/min (>60) Glucose Level 118 MG/DL (74-106) H Calcium Level 8.3 MG/DL (8.5-10.1) L Phosphorus Level 3.8 MG/DL (2.5-4.9) Magnesium Level 1.5 MG/DL (1.8-2.4) L Total Bilirubin 0.3 MG/DL (0.2-1.0) Aspartate Amino Transf (AST/SGOT) 25 U/L (15-37) Alanine Aminotransferase (ALT/SGPT) 15 U/L (12-78) Alkaline Phosphatase 75 U/L (46-116) C-Reactive Protein, Quantitative 34.7 mg/dL (0.00-0.90) H Total Protein 6.4 G/DL (6.4-8.2) Albumin 1.9 G/DL (3.4-5.0) L Globulin 4.5 g/dL Albumin/Globulin Ratio 0.4 (1.0-2.7) L Height (Feet): 5 Height (Inches): 8.00 Weight (Pounds): 119 Medications Current Medications Medications (Trade) Dose Ordered Sig/Andrade Route PRN Reason Start Time Stop Time Status Last Admin Dose Admin Acetaminophen (Tylenol) 650 mg Q4H PRN ORAL FEVER 04/22/20 16:15 05/22/20 16:14 Albuterol/ Ipratropium (Combivent Respimat) 1 puff Q4H PRN INH Shortness of Breath 04/22/20 16:15 05/22/20 16:14 Azithromycin 250 mg/Dextrose 275 ml @ 275 mls/hr Q24HRS IV 04/22/20 20:00 04/27/20 19:59 04/22/20 20:20 Cefepime HCl 1 gm/ Dextrose 55 ml @ 110 mls/hr Q24H IVPB 04/23/20 16:00 04/30/20 15:59 Dexamethasone (Decadron) 4 mg DAILY ORAL 04/23/20 09:00 05/02/20 08:59 04/23/20 08:17 Dextrose (Dextrose 50%) 25 ml Q30M PRN IV Hypoglycemia 04/22/20 16:15 07/21/20 16:14 Dextrose (Dextrose 50%) 50 ml Q30M PRN IV Hypoglycemia 04/22/20 16:15 07/21/20 16:14 Heparin Sodium (Porcine) (Heparin 5000 units/ml) 5,000 units EVERY 12 HOURS SUBQ 04/22/20 21:00 06/06/20 20:59 04/23/20 08:18 Insulin Aspart (NovoLOG) BEFORE MEALS AND HS SUBQ 04/22/20 16:30 07/21/20 16:29 Levetiracetam (Keppra) 500 mg EVERY 12 HOURS ORAL 04/22/20 21:00 06/06/20 20:59 04/23/20 08:17 Ondansetron HCl (Zofran) 4 mg Q6H PRN IVP Nausea & Vomiting 04/22/20 16:15 05/22/20 16:14 Polyethylene Glycol (Miralax) 17 gm DAILYPRN PRN ORAL Constipation 04/22/20 16:15 05/22/20 16:14 Promethazine HCl/ Codeine (Phenergan with Codeine) 5 ml Q6H PRN ORAL cough 04/22/20 16:15 05/22/20 16:14 Vancomycin HCl (Vanco pharmacy to dose) 1 ea DAILY PRN MISC Per rx protocol 04/23/20 14:45 05/23/20 14:44 Vancomycin HCl 1 gm/Sodium Chloride 275 ml @ 183.708 mls/hr Q24H IVPB 04/23/20 18:00 04/28/20 17:59 Assessment/Plan Problem List: (1) Pneumonia due to COVID-19 virus ICD Codes: U07.1 - COVID-19; J12.89 - Other viral pneumonia SNOMED: 059655953, 898955375 (2) Severe protein-calorie malnutrition Assessment & Plan: 74-year-old male with significant severe protein calorie malnutrition. BMI is 18. Albumin is low. Skin turgor is poor. On admission identified to have a deep tissue injury and decubitus skin ulcer. Air mattress ordered local wound care plan initiated. Speech therapy evaluation identified. High risk dysphasia aspiration Needs nutritional optimization to allow for wound healing and care plan. We will follow with recommendations thank you for let me participate in patient' s care Turn every 2 hours Offload pressure with pillows Wash sacral wound daily with normal saline apply Thera honey and foam dressing. Bilateral heel protectors THE PATIENT WAS POSITIONED UPRIGHT FOR P.O. TRIALS. PATIENT NON/VERBAL, NON/VISUAL TRACKING, NON/RESPONSIVE TO TACTILE/VERBAL CUES. HE IS MOUTH BREATHING, ORAL MUCOSA PRESENTS WITH XEROSTOMIA. HIS DECREASED MENTATION INCLUDED SENSORIMOTOR DEFICITS WHICH RESULTED IN POOR BOLUS ACCEPTANCE, DECREASED AWARENESS OF FOOD IN MOUTH. WHEN PRESENTED WITH 5ML OF NECTAR THICK WATER VIA SPOON, THE PATIENT DEMONSTRATED REPETITIVE LINGUAL PUMPING IN HIS ATTEMPT TO TRIGGER THE PHARYNGEAL PHASE OF THE SWALLOW. HYOLARYNGEAL ELEVATION WAS PALPATED AND DETERMINED TO BE INSUFFICIENT FOR AIRWAY PROTECTION. AFTER THE SECOND P.O. TRIAL WITH THE NTL, THE PATIENT DEMONSTRATED A PROLONGED NON/ CLEARING, NON/PRODUCTIVE COUGH, WITH 3 TRIALS OF PUREE PRESENTED IN 5 ML AMOUNTS , THE PATIENT DEMONSTRATED ORAL STASIS, AND RESIDUE HAD TO BE SUCTIONED TO CLEAR HIS MOUTH. ORAL CARE WAS PROVIDED POST SUCTIONING. PHARYNGEAL PHASE OF SWALLOW SEVERELY DELAYED. CLEARLY, THIS GENTLEMAN PRESENTS WITH SEVERE OROPHARYNGEAL DYSPHAGIA, ALONG WITH A HISTORY OF SUBOPTIMAL P.O. INTAKE/LOSS OF APPETITE RECOMMENDATIONS 1. CONSIDER NON/ORAL FEEDING MANAGEMENT FOR INTERIM NUTRITION/HYDRATION 2. NPO 3. ORAL CARE TID TO REDUCE ORAL PATHOGENS 4. SKILLED ST INTERVENTION DOES NOT APPEAR TO BE NEEDED AT THIS TIME. ICD Codes: E43 - Unspecified severe protein-calorie malnutrition SNOMED: 303567661, 822706735, 369116153 (3) At high risk for aspiration ICD Codes: Z91.89 - Other specified personal risk factors, not elsewhere classified SNOMED: 422521905 (4) Respiratory distress ICD Codes: R06.03 - Acute respiratory distress SNOMED: 832187212 (5) COVID-19 Assessment & Plan: + ICD Codes: U07.1 - COVID-19 SNOMED: 636396580 (6) History of diabetes mellitus ICD Codes: Z86.39 - Personal history of other endocrine, nutritional and metabolic disease SNOMED: 986849202 (7) Alzheimer's dementia ICD Codes: G30.9 - Alzheimer's disease, unspecified; F02.80 - Dementia in other diseases classified elsewhere without behavioral disturbance SNOMED: 84606869 Darian Ragsdale Apr 23, 2020 15:27
[2020-04-23 16:00] VITALS: BP 114/60
[2020-04-23] MEDS: Cefepime HCl 1 GM in D5W 55 ML IVPB SCH (16:00)
--- NOTE | 2020-04-23 17:00 | NUR ---
NURSE NOTES: Speech therapy suggested to have a NG tube feeding notified Dr Corral, no new order at this time.
--- NOTE | 2020-04-23 17:05 | NUR ---
NURSE NOTES: Patient has not been urinating well, output is 80ml for the past 9 hours. On a bladder scan patient only retaining 37ml. MD aware and received order for D5 1/2NS and carried out.
--- NOTE | 2020-04-23 17:18 | NUR ---
NURSE NOTES:WOUND CARE NOTES:Pt deconditioned and presents with multiple Pressure injuries on admission. Non-Blanchable erythema without fluctuance or induration noted to R elbow. Open DTPI Sacrum with full thickness Ulcer (L)9.5cm x (W)10.5cm.Wound is irregular shaped and extends to apex of anus. Base of wound is indurated and purpuric surrounding areas at base of wound with full thickness ulcer with scattered areas of soft necrosis (60%), 40% maldonado. Bony prominence is palpable at base of wound.Small amt sanguineous exudate noted . No odor noted . Periwound Skin is blanchable but Bilat trochanteric and iliac areas, including Ischial tuberosities are at high risks for pressure injuries secondary to bony protrusion and poor tissue perfusion. DTPI R Ischium. Base of pressure injury is maroon and indurated(L)3.4cm x (W)7cm. DTPI R Heel (L)4cm x (W)9cm. Base of Pressure injury is fluctuant, maroon with small purpuric area.No evidence of ski breakdown periwound. L heel is boggy with non-Blanchable erythema. Tx.Plan:Cleanse Sacral wound with Saline. Apply TheraHoney. Apply Moisture Barrier Paste periwound. Cover with Optifoam drsgs. Change Daily and prn. Apply Cavilon Skin Barrier to R ischium. Cover with Optifoam drsg. Change every 3 days and prn. Apply Cavilon Skin Barrier to At Risks Bony Prominences. Cover areas with Optifoam drsgs as needed. Apply Cavilon Skin Barrier to both heels and Malleoli. Cover each site with Optifoam drsg. Change every 7 days and Prn. Reposition at least every 2hours or as tolerated. Off-load heels with Pillow. Air Fluidized Mattress.
[2020-04-23] MEDS: Vancomycin 1 GM in NS 275 ML IVPB SCH (17:42)
[2020-04-23] MEDS: D5 1/2NS 1,000 ML IV SCH (17:43)
--- NOTE | 2020-04-23 19:15 | NUR ---
NURSE NOTES: Received report from TAWNYA Copeland. Patient AOx1, nonverbal. opens eyes spontaneously. IV site intact and asymptomatic; IVF running at a prescribed rate. 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 Wound care plan as noted. Bed locked in lowest position, brakes engaged, bed alarm on. Call light placed within reach. Bed rails raised x3. Will continue to monitor.
--- NOTE | 2020-04-23 19:15 | NUR ---
HAND-OFF: Report given to Chuyita/RN. Patient in stable condition, endorsed plan of care.
[2020-04-23 20:00] VITALS: BP 106/73
[2020-04-23] MEDS: Azithromycin 250 MG in D5W 275 ML IV SCH (21:08)
--- NOTE | 2020-04-23 22:54 | NUR ---
NURSE NOTES: Transferred patient on a RAJAT mattress. Patient stable with no injuries. Padded bed rails raised x2. SCDs on patient. Will continue to monitor.
[2020-04-24] VITALS: BP 106/56
--- NOTE | 2020-04-24 03:08 | NUR ---
NURSE NOTES: IV site noted to be leaking. New IV site inserted on left inner arm #[id number]. IVF running at a prescribed rate. Will continue t Addendum: 04/24/20 at 0309 by Chuyita Mendoza RN Will continue to monitor.
[2020-04-24 04:00] VITALS: BP 109/69
[2020-04-24] MEDS: NovoLOG Insulin Flexpen SUBQ SCH ×4 (06:07→21:13)
[2020-04-24] MEDS: D5 1/2NS 1,000 ML IV SCH ×2 (06:15→18:45)
--- NOTE | 2020-04-24 07:25 | NUR ---
HAND-OFF: Report given to TAWNYA Calhoun. Patient stable. Plan of care endorsed.
--- NOTE | 2020-04-24 07:30 | NUR ---
NURSE NOTES: Received report from Kerline BOWLING. Pt in bed awake, A&Ox0 COVID precautions/isolation in place. Bed locked and in lowest position. Call light within reach. Whiteboard updated. No signs distress at this time.
[2020-04-24 08:00] VITALS: BP 110/62
--- NOTE | 2020-04-24 09:55 | NUR ---
RD ASSESSMENT & RECOMMENDATIONS SEE CARE ACTIVITY FOR COMPLETE ASSESSMENT DAILY ESTIMATED NEEDS: Needs based on wound, underweight, 54kg 30-35 kcals/kg 5503-1628 total kcals 1.25-2 g protein/kg 68-108 g total protein 25-35ml/kcal mL/kg 5138-8381 total fluid mLs NUTRITION DIAGNOSIS: Swallowing difficulty r/t dysphagia as evidenced by [employer]SEM[employer] SUPERVISOR eval, pt not safe for oral diet, pending NGT feeds. CURRENT DIET:NPO ENTERAL NUTRITION RECOMMENDATIONS: Glucerna 1.5 goal of 45ml/hr x 24 hrs to provide 1080ml, 1620kcal, 89g pro, 820ml free H2O - Pt w/ pending NGT insertion, rec to initiate Glucerna 1.5 @25ml/hr for 6 hrs. - Advance as tolerated 10ml/hr q4-6 hrs to goal. - Flush per MD. HOB over 30 degrees. ADDITIONAL RECOMMENDATIONS: 1) Monitor BG closely w/ TF's; need for increased insulin coverage 2) wound care w/ NGT feeds: add LYNNE in 4oz H2O BID + Vit C500mg qdaily, MVI w/ min qdaily+ ZnSO4 220mg qd x10 days 3) Calibrated bed scale wts 4) Monitor lytes daily w/ TF, replete as needed
[2020-04-24 12:06] VITALS: BP 118/53
--- NOTE | 2020-04-24 12:58 | NUR ---
CASE MANAGEMENT:REVIEW 04/24/20 SI: RESPIRATORY FAILURE D/T COVID 19 97.5 76 24 110/62 94% ON 2L/NC GLUCOSE+220 IS: IV VANCOMYCIN Q24 IV CEFEPIME Q24 IV AZITHROMYCIN Q24 IVF@75/HR : TELEMETRY STATUS DCP: FROM EAST PLAN INSERT NG TUBE
--- NOTE | 2020-04-24 13:15 | Pulmonology Progress Note ---
Subjective ROS Limited/Unobtainable: No Constitutional: Reports: no symptoms HEENT: Repors: no symptoms Allergies: Coded Allergies: No Known Allergies (Unverified , 04/22/20) Objective Last 24 Hour Vital Signs Date Time Temp Pulse Resp B/P (MAP) Pulse Ox O2 Delivery O2 Flow Rate FiO2 04/24/20 12:06 97.5 76 22 118/53 (74) 93 04/24/20 12:00 75 04/24/20 08:00 97.5 77 24 110/62 (78) 94 04/24/20 08:00 76 04/24/20 04:00 80 04/24/20 04:00 96.9 84 19 109/69 (82) 96 04/24/20 00:00 86 04/24/20 00:00 97.7 89 18 106/56 (73) 95 04/23/20 21:00 Nasal Cannula 2.0 04/23/20 20:00 89 04/23/20 20:00 97.7 82 18 106/73 (84) 93 04/23/20 16:00 98.2 105 18 114/60 (78) 92 04/23/20 16:00 95 Intake and Output 04/23/20 04/24/20 19:00 07:00 Intake Total 110 ml Output Total 300 ml Balance 110 ml -300 ml Intake IV Total 110 ml Output Urine Total 300 ml General Appearance: cachetic HEENT: normocephalic, atraumatic Respiratory: chest wall non-tender, rhonchi - left, rhonchi - right Cardiovascular: normal peripheral pulses, normal rate Abdomen: normal bowel sounds, soft, non tender Genitourinary: normal external genitalia Neurologic: diagrammer II-XII grossly normal Microbiology Date/Time Source Procedure Growth Status 04/22/20 13:41 Blood Blood Culture - Preliminary Staphylococcus Sp Coag Neg Resulted 04/22/20 13:41 Blood Blood Culture - Preliminary Staphylococcus Sp Coag Neg Resulted 04/22/20 15:15 Nasopharynx SARS-CoV-2 RdRp Gene Assay - Final Complete 04/22/20 14:46 Nasal Nares MRSA Culture - Final Staphylococcus Aureus - Mrsa Complete 04/22/20 13:41 Rectum VRE Culture - Final NO VANCOMYCIN RESISTANT ENTEROCOCCUS ... Complete 04/22/20 13:41 Rectum Received Laboratory Tests 04/23/20 16:13: POC Whole Blood Glucose [Pending] 04/23/20 20:21: POC Whole Blood Glucose 173H 04/24/20 05:41: POC Whole Blood Glucose 220H Current Medications Medications (Trade) Dose Ordered Sig/Andrade Route PRN Reason Start Time Stop Time Status Last Admin Dose Admin Acetaminophen (Tylenol) 650 mg Q4H PRN ORAL FEVER 04/22/20 16:15 05/22/20 16:14 Albuterol/ Ipratropium (Combivent Respimat) 1 puff Q4H PRN INH Shortness of Breath 04/22/20 16:15 05/22/20 16:14 Azithromycin 250 mg/Dextrose 275 ml @ 275 mls/hr Q24HRS IV 04/22/20 20:00 04/27/20 19:59 04/23/20 21:08 Cefepime HCl 1 gm/ Dextrose 55 ml @ 110 mls/hr Q24H IVPB 04/23/20 16:00 04/30/20 15:59 04/23/20 16:00 Dexamethasone (Decadron) 4 mg DAILY ORAL 04/23/20 09:00 05/02/20 08:59 04/23/20 08:17 Dextrose (Dextrose 50%) 25 ml Q30M PRN IV Hypoglycemia 04/22/20 16:15 07/21/20 16:14 Dextrose (Dextrose 50%) 50 ml Q30M PRN IV Hypoglycemia 04/22/20 16:15 07/21/20 16:14 Dextrose/Sodium Chloride 1,000 ml @ 75 mls/hr [id number] IV 04/23/20 17:30 05/23/20 17:29 04/23/20 17:43 Heparin Sodium (Porcine) (Heparin 5000 units/ml) 5,000 units EVERY 12 HOURS SUBQ 04/22/20 21:00 06/06/20 20:59 04/23/20 21:09 Insulin Aspart (NovoLOG) BEFORE MEALS AND HS SUBQ 04/22/20 16:30 07/21/20 16:29 04/24/20 06:07 Levetiracetam (Keppra) 500 mg EVERY 12 HOURS ORAL 04/22/20 21:00 06/06/20 20:59 04/23/20 21:08 Ondansetron HCl (Zofran) 4 mg Q6H PRN IVP Nausea & Vomiting 04/22/20 16:15 05/22/20 16:14 Polyethylene Glycol (Miralax) 17 gm DAILYPRN PRN ORAL Constipation 04/22/20 16:15 05/22/20 16:14 Promethazine HCl/ Codeine (Phenergan with Codeine) 5 ml Q6H PRN ORAL cough 04/22/20 16:15 05/22/20 16:14 Vancomycin HCl (Vanco pharmacy to dose) 1 ea DAILY PRN MISC Per rx protocol 04/23/20 14:45 05/23/20 14:44 Vancomycin HCl 1 gm/Sodium Chloride 275 ml @ 183.708 mls/hr Q24H IVPB 04/23/20 18:00 04/28/20 17:59 04/23/20 17:42 Assessment/Plan Problems: (1) Pneumonia due to COVID-19 virus (2) At high risk for aspiration (3) Severe protein-calorie malnutrition (4) History of diabetes mellitus (5) Alzheimer's dementia Assessment/Plan continue abx NG tube for feeding respiratory treatment titrate fio2 to sat of 92% swallow study reviewed: RECOMMENDATIONS 1. CONSIDER NON/ORAL FEEDING MANAGEMENT FOR INTERIM NUTRITION/HYDRATION 2. NPO 3. ORAL CARE TID TO REDUCE ORAL PATHOGENS 4. SKILLED ST INTERVENTION DOES NOT APPEAR TO BE NEEDED AT THIS TIME. Quincy Corral MD Apr 24, 2020 13:15
--- NOTE | 2020-04-24 13:58 | Infectious Diseases Prog Note ---
Assessment/Plan Assessment: Recent COVID19 positive (unknown date of diagnosis) Pneumonia -probable bacterial superimposed Acute hypoxic resp failure - s/p 5L NC- now down to 2L -04/22 Rapid COVID + CXR: Bilateral infiltrates, likely pneumonia, possibly viral. Correlate with clinical findings Gram positive bacteremia- real vs contaminant -04/22 Bcx 2/4 CONS; 04/23 Bcx p Afebrile- Tm 99.5 No leukocytosis -04/22 u/a neg Dementia seizure disorder Dm2 DNR status [address] resident ([facility]) Plan: -Continue empiric Azithromycin #3 and Cefepime #2 (abx d #3) -COnt IV Vancomycin #2 -On decadron -04/23 SP Ceftriaxone #2 -04/22 SP ZOsyn x1 -f/u cx -Monitor CBC/CMP, temperatures -f/u Bcx x2, sp cx -COVID19 isolation -Will not give Remdesevir at this point given unclear date of diagnosis -CXR am Thank you for this consultation. Will continue to follow along with you. Discussed with RN. Subjective Allergies: Coded Allergies: No Known Allergies (Unverified , 04/22/20) afebrile at 2l NC repeast Bcx p Objective Last 24 Hour Vital Signs Date Time Temp Pulse Resp B/P (MAP) Pulse Ox O2 Delivery O2 Flow Rate FiO2 04/24/20 12:06 97.5 76 22 118/53 (74) 93 04/24/20 12:00 75 04/24/20 08:00 97.5 77 24 110/62 (78) 94 04/24/20 08:00 76 04/24/20 04:00 80 04/24/20 04:00 96.9 84 19 109/69 (82) 96 04/24/20 00:00 86 04/24/20 00:00 97.7 89 18 106/56 (73) 95 04/23/20 21:00 Nasal Cannula 2.0 04/23/20 20:00 89 04/23/20 20:00 97.7 82 18 106/73 (84) 93 04/23/20 16:00 98.2 105 18 114/60 (78) 92 04/23/20 16:00 95 Height (Feet): 5 Height (Inches): 8.00 Weight (Pounds): 119 General Appearance: cachetic, thin HEENT: normocephalic, atraumatic Neck: non-tender, normal alignment, supple Respiratory/Chest: chest wall non-tender, rhonchi - left, rhonchi - right Cardiovascular/Chest: normal peripheral pulses, normal rate Abdomen: normal bowel sounds, non tender Microbiology Date/Time Source Procedure Growth Status 04/22/20 13:41 Blood Blood Culture - Preliminary Staphylococcus Sp Coag Neg Resulted 04/22/20 13:41 Blood Blood Culture - Preliminary Staphylococcus Sp Coag Neg Resulted 04/22/20 15:15 Nasopharynx SARS-CoV-2 RdRp Gene Assay - Final Complete 04/22/20 14:46 Nasal Nares MRSA Culture - Final Staphylococcus Aureus - Mrsa Complete 04/22/20 13:41 Rectum VRE Culture - Final NO VANCOMYCIN RESISTANT ENTEROCOCCUS ... Complete 04/22/20 13:41 Rectum Received Laboratory Tests Test 04/23/20 16:13 04/23/20 20:21 04/24/20 05:41 POC Whole Blood Glucose Pending 173 MG/DL (74-106) H 220 MG/DL (74-106) H Current Medications Medications (Trade) Dose Ordered Sig/Andrade Route PRN Reason Start Time Stop Time Status Last Admin Dose Admin Acetaminophen (Tylenol) 650 mg Q4H PRN ORAL FEVER 04/22/20 16:15 05/22/20 16:14 Albuterol/ Ipratropium (Combivent Respimat) 1 puff Q4H PRN INH Shortness of Breath 04/22/20 16:15 05/22/20 16:14 Azithromycin 250 mg/Dextrose 275 ml @ 275 mls/hr Q24HRS IV 04/22/20 20:00 04/27/20 19:59 04/23/20 21:08 Cefepime HCl 1 gm/ Dextrose 55 ml @ 110 mls/hr Q24H IVPB 04/23/20 16:00 04/30/20 15:59 04/23/20 16:00 Dexamethasone (Decadron) 4 mg DAILY ORAL 04/23/20 09:00 05/02/20 08:59 04/23/20 08:17 Dextrose (Dextrose 50%) 25 ml Q30M PRN IV Hypoglycemia 04/22/20 16:15 07/21/20 16:14 Dextrose (Dextrose 50%) 50 ml Q30M PRN IV Hypoglycemia 04/22/20 16:15 07/21/20 16:14 Dextrose/Sodium Chloride 1,000 ml @ 75 mls/hr [id number] IV 04/23/20 17:30 05/23/20 17:29 04/23/20 17:43 Heparin Sodium (Porcine) (Heparin 5000 units/ml) 5,000 units EVERY 12 HOURS SUBQ 04/22/20 21:00 06/06/20 20:59 04/23/20 21:09 Insulin Aspart (NovoLOG) BEFORE MEALS AND HS SUBQ 04/22/20 16:30 07/21/20 16:29 04/24/20 06:07 Levetiracetam (Keppra) 500 mg EVERY 12 HOURS ORAL 04/22/20 21:00 06/06/20 20:59 04/23/20 21:08 Ondansetron HCl (Zofran) 4 mg Q6H PRN IVP Nausea & Vomiting 04/22/20 16:15 05/22/20 16:14 Polyethylene Glycol (Miralax) 17 gm DAILYPRN PRN ORAL Constipation 04/22/20 16:15 05/22/20 16:14 Promethazine HCl/ Codeine (Phenergan with Codeine) 5 ml Q6H PRN ORAL cough 04/22/20 16:15 05/22/20 16:14 Vancomycin HCl (Vanco pharmacy to dose) 1 ea DAILY PRN MISC Per rx protocol 04/23/20 14:45 05/23/20 14:44 Vancomycin HCl 1 gm/Sodium Chloride 275 ml @ 183.708 mls/hr Q24H IVPB 04/23/20 18:00 04/28/20 17:59 04/23/20 17:42 Linsey Barry M.D. Apr 24, 2020 13:58
--- NOTE | 2020-04-24 14:04 | Surgery Progress Note ---
Surgery Progress Note Subjective Additional Comments no acute events NG tube placed by myself at bedside kub pending comfortable Objective Last 24 Hour Vital Signs Date Time Temp Pulse Resp B/P (MAP) Pulse Ox O2 Delivery O2 Flow Rate FiO2 04/24/20 12:06 97.5 76 22 118/53 (74) 93 04/24/20 12:00 75 04/24/20 08:00 97.5 77 24 110/62 (78) 94 04/24/20 08:00 76 04/24/20 04:00 80 04/24/20 04:00 96.9 84 19 109/69 (82) 96 04/24/20 00:00 86 04/24/20 00:00 97.7 89 18 106/56 (73) 95 04/23/20 21:00 Nasal Cannula 2.0 04/23/20 20:00 89 04/23/20 20:00 97.7 82 18 106/73 (84) 93 04/23/20 16:00 98.2 105 18 114/60 (78) 92 04/23/20 16:00 95 I&O Intake and Output 04/23/20 04/24/20 19:00 07:00 Intake Total 110 ml Output Total 300 ml Balance 110 ml -300 ml Intake IV Total 110 ml Output Urine Total 300 ml Dressing: other Wound: other Drains: none Cardiovascular: RSR Respiratory: decreased breath sounds Abdomen: soft, non-tender, present bowel sounds, non-distended Extremities: no edema, no tenderness, no cyanosis Laboratory Tests Test 04/23/20 16:13 04/23/20 20:21 04/24/20 05:41 POC Whole Blood Glucose Pending 173 MG/DL (74-106) H 220 MG/DL (74-106) H Plan Problems: (1) Pneumonia due to COVID-19 virus (2) Severe protein-calorie malnutrition Assessment & Plan: 74-year-old male with significant severe protein calorie malnutrition. BMI is 18. Albumin is low. Skin turgor is poor. On admission identified to have a deep tissue injury and decubitus skin ulcer. Air mattress ordered local wound care plan initiated. Speech therapy evaluation identified. High risk dysphasia aspiration Needs nutritional optimization to allow for wound healing and care plan. We will follow with recommendations thank you for let me participate in patient' s care Turn every 2 hours Offload pressure with pillows Wash sacral wound daily with normal saline apply Thera honey and foam dressing. Bilateral heel protectors THE PATIENT WAS POSITIONED UPRIGHT FOR P.O. TRIALS. PATIENT NON/VERBAL, NON/VISUAL TRACKING, NON/RESPONSIVE TO TACTILE/VERBAL CUES. HE IS MOUTH BREATHING, ORAL MUCOSA PRESENTS WITH XEROSTOMIA. HIS DECREASED MENTATION INCLUDED SENSORIMOTOR DEFICITS WHICH RESULTED IN POOR BOLUS ACCEPTANCE, DECREASED AWARENESS OF FOOD IN MOUTH. WHEN PRESENTED WITH 5ML OF NECTAR THICK WATER VIA SPOON, THE PATIENT DEMONSTRATED REPETITIVE LINGUAL PUMPING IN HIS ATTEMPT TO TRIGGER THE PHARYNGEAL PHASE OF THE SWALLOW. HYOLARYNGEAL ELEVATION WAS PALPATED AND DETERMINED TO BE INSUFFICIENT FOR AIRWAY PROTECTION. AFTER THE SECOND P.O. TRIAL WITH THE NTL, THE PATIENT DEMONSTRATED A PROLONGED NON/ CLEARING, NON/PRODUCTIVE COUGH, WITH 3 TRIALS OF PUREE PRESENTED IN 5 ML AMOUNTS , THE PATIENT DEMONSTRATED ORAL STASIS, AND RESIDUE HAD TO BE SUCTIONED TO CLEAR HIS MOUTH. ORAL CARE WAS PROVIDED POST SUCTIONING. PHARYNGEAL PHASE OF SWALLOW SEVERELY DELAYED. CLEARLY, THIS GENTLEMAN PRESENTS WITH SEVERE OROPHARYNGEAL DYSPHAGIA, ALONG WITH A HISTORY OF SUBOPTIMAL P.O. INTAKE/LOSS OF APPETITE RECOMMENDATIONS 1. CONSIDER NON/ORAL FEEDING MANAGEMENT FOR INTERIM NUTRITION/HYDRATION 2. NPO 3. ORAL CARE TID TO REDUCE ORAL PATHOGENS 4. SKILLED ST INTERVENTION DOES NOT APPEAR TO BE NEEDED AT THIS TIME. (3) At high risk for aspiration (4) Respiratory distress (5) COVID-19 Assessment & Plan: + (6) History of diabetes mellitus (7) Alzheimer's dementia (8) Decubitus skin ulcer Assessment & Plan: Pt deconditioned and presents with multiple Pressure injuries on admission. Non-Blanchable erythema without fluctuance or induration noted to R elbow. Open DTPI Sacrum with full thickness Ulcer (L)9.5cm x (W)10.5cm.Wound is irregular shaped and extends to apex of anus. Base of wound is indurated and purpuric surrounding areas at base of wound with full thickness ulcer with scattered areas of soft necrosis (60%), 40% maldonado. Bony prominence is palpable at base of wound.Small amt sanguineous exudate noted . No odor noted . Periwound Skin is blanchable but Bilat trochanteric and iliac areas, including Ischial tuberosities are at high risks for pressure injuries secondary to bony protrusion and poor tissue perfusion. DTPI R Ischium. Base of pressure injury is maroon and indurated(L)3.4cm x (W) 7cm. DTPI R Heel (L)4cm x (W)9cm. Base of Pressure injury is fluctuant, maroon with small purpuric area.No evidence of ski breakdown periwound. L heel is boggy with non-Blanchable erythema. Tx.Plan: Cleanse Sacral wound with Saline. Apply TheraHoney. Apply Moisture Barrier Paste periwound. Cover with Optifoam drsgs. Change Daily and prn. Apply Cavilon Skin Barrier to R ischium. Cover with Optifoam drsg. Change every 3 days and prn. Apply Cavilon Skin Barrier to At Risks Bony Prominences. Cover areas with Optifoam drsgs as needed. Apply Cavilon Skin Barrier to both heels and Malleoli. Cover each site with Optifoam drsg. Change every 7 days and Prn. Reposition at least every 2hours or as tolerated. Off-load heels with Pillow. Air Fluidized Mattress. (9) Dysphagia Assessment & Plan: ng placed unlikey to pass swallow eval low bmi consider peg polst noted Darian Ragsdale Apr 24, 2020 14:04
--- NOTE | 2020-04-24 14:05 | NUR ---
NURSE NOTES: NGT placed by Dr. Ragsdale at 60cm, auscultated to confirm placement and gastric contents also present. CXR ordered stat for further confirmation.
[2020-04-24] MEDS: Heparin 5000 units/ml inj SUBQ SCH ×2 (14:14→21:14)
--- NOTE | 2020-04-24 15:57 | Diagnostic Imaging Report ---
Indication: Shortness of breath Technique: One view of the chest Comparison: 04/22/2020 Findings: Bilateral infiltrates are extensive, but appears slightly improved. The heart size is normal. Interim placement of a nasogastric tube, tip which projects at the level gastric fundus. Impression: Slightly improved bilateral infiltrates, over 2 days Interim satisfactory nasogastric intubation
[2020-04-24 16:00] VITALS: BP 128/60
[2020-04-24] MEDS: Cefepime HCl 1 GM in D5W 55 ML IVPB SCH (16:51)
[2020-04-24] MEDS: Vancomycin 1 GM in NS 275 ML IVPB SCH (17:30)
--- NOTE | 2020-04-24 17:40 | NUR ---
NURSE NOTES: Spoke to daughter Jenny, informed her about NG tube and transfer to Medsurg unit. Demonstrated understanding.
--- NOTE | 2020-04-24 18:26 | NUR ---
TRANSFER TO FLOOR: Patient transferred to . Report given to Rebeca BOWLING. No Belongings and medications. Family previously informed of transfer. Patient stable with Vancomycin running through peripheral IV and NGT feed started at 25mL/hr as ordered. No residual at this time.
[2020-04-24] MEDS ORDERED: Miralax 17gm pkt ORAL PRN (18:30)
[2020-04-24] MEDS ORDERED: Promethazine/Codeine 5ml UD ORAL PRN (18:30)
--- NOTE | 2020-04-24 18:30 | NUR ---
nurse notes received patient from tele via bed, patient resting comfortably in bed, awake, nonverbal, no sign of distress, on O2at 4 LPM via nc, on going IV atb, via left FA, dyer assistant just started the NG tube feeding Glucerna at 25ml/hour no residual noted, HOB elevated , on condom cath on special matress, wound on the sacral and right heel noted picture taken , repositioned patient for comfort and god circulation, kept clean dry and comfortable, needs met and anticipated, will endorsed to next shift nory andrade
--- NOTE | 2020-04-24 19:20 | NUR ---
HAND-OFF: Report given to TAWNYA Khalil RSTING COMFORTABLY IN BED, NO SIGN OF DISTRESS TAWNYA ORLANDO.
--- NOTE | 2020-04-24 19:40 | NUR ---
NURSE NOTES: Pt is in bed, non-verbal. Pt is on 4l n/c, no SOB noted. HOB elevated. Glucerna 1.5 running via NG-tube. Pt will be repositioned frequently. Wound dressing on the sacrum is dry and intact. Bed locked low in position,side rails up and call light within reach. Pt will be monitored.
[2020-04-24 20:00] VITALS: BP 140/69
[2020-04-24] MEDS: Azithromycin 250 MG in D5W 275 ML IV SCH (21:12)
[2020-04-25] VITALS: BP 134/70
[2020-04-25 04:00] VITALS: BP 129/70
--- NOTE | 2020-04-25 04:13 | NUR ---
NURSE NOTES: Pt is in bed, HOB elevated. No acute distress noted. NG-tube in place. No residua, NG-tube flushed. Pt is tolerating feeding well. Pt is repositioned and cleaned.
[2020-04-25] MEDS: D5 1/2NS 1,000 ML IV SCH ×2 (06:39→15:42)
[2020-04-25] MEDS: NovoLOG Insulin Flexpen SUBQ SCH ×4 (06:39→20:47)
--- NOTE | 2020-04-25 07:15 | NUR ---
HAND-OFF: Report given to Paul Desir RN.Pt is awake, non-verbal. Vitals stable.
[2020-04-25 08:00] VITALS: BP 167/76
--- NOTE | 2020-04-25 08:30 | NUR ---
NURSE NOTES: PT IS NON-VERBAL, RESTING IN BED, CALM AND IN NO APPARENT DISTRESS AT THIS TIME. NGT IN LEFT NARES AT 60CM. RUNNING GTUBE FEEDING GLUCERNA 1.5 AT GOAL RATE 45ML/HR. RESIDUAL 30ML NOTED. PT IN HIGH ESTEVES'S POSITION WITH BED IN LOWEST POSITION. BEDSIDE RAILS X3 RAISED. BED ALARM ON. WILL CONTINUE TO MONITOR.
[2020-04-25] MEDS: Heparin 5000 units/ml inj SUBQ SCH ×2 (08:54→20:46)
[2020-04-25 10:21] LABS: BASOPHILS % (AUTO) 0.7 % (0.0-2.0); EOSINOPHILS % (AUTO) 0.1 % (0.0-3.0); HEMOGLOBIN 11.5 G/DL (14.2-18.0); LYMPHOCYTES % (AUTO) 13.1 % (20.0-45.0); MEAN CORPUSCULAR VOLUME 97 FL (80-99); MONOCYTES % (AUTO) 7.2 % (1.0-10.0); NEUTROPHILS % (AUTO) 78.9 % (45.0-75.0); PLATELET COUNT 436 K/UL (150-450); RED BLOOD COUNT 3.71 M/UL (4.70-6.10); RED CELL DISTRIBUTION WIDTH 12.4 % (11.6-14.8); WHITE BLOOD COUNT 8.8 K/UL (4.8-10.8)
[2020-04-25 10:44] LABS: ALANINE AMINOTRANSFERASE 10 U/L (12-78); ALBUMIN 1.9 G/DL (3.4-5.0); ALBUMIN/GLOBULIN RATIO 0.4 (1.0-2.7); ALKALINE PHOSPHATASE 93 U/L (46-116); ANION GAP 3 mmol/L (5-15); ASPARTATE AMINO TRANSFERASE 15 U/L (15-37); BILIRUBIN,TOTAL 0.2 MG/DL (0.2-1.0); BLOOD UREA NITROGEN 22 mg/dL (7-18); CALCIUM 8.9 MG/DL (8.5-10.1); CARBON DIOXIDE 33 MMOL/L (21-32); CHLORIDE 103 MMOL/L (98-107); CREATININE 0.8 MG/DL (0.55-1.30); FERRITIN 447 NG/ML (8-388); LACTATE DEHYDROGENASE 186 U/L (81-234); PHOSPHORUS 2.6 MG/DL (2.5-4.9); POTASSIUM 3.6 MMOL/L (3.5-5.1); SODIUM 139 MMOL/L (136-145)
[2020-04-25 11:35] VITALS: BP 127/65
--- NOTE | 2020-04-25 12:34 | Surgery Progress Note ---
Surgery Progress Note Subjective Additional Comments no acute events ng in place tolerating tf nc 4L Objective Last 24 Hour Vital Signs Date Time Temp Pulse Resp B/P (MAP) Pulse Ox O2 Delivery O2 Flow Rate FiO2 04/25/20 11:35 98.2 88 20 127/65 (85) 93 04/25/20 09:00 Nasal Cannula 4.0 04/25/20 08:00 97.9 87 18 167/76 (106) 94 04/25/20 04:00 97.7 93 22 129/70 (89) 92 04/25/20 00:00 97.9 90 22 134/70 (91) 94 04/24/20 21:00 Nasal Cannula 4.0 04/24/20 20:00 97.3 91 22 140/69 (92) 97 04/24/20 16:00 97.8 91 22 128/60 (82) 94 I&O Intake and Output 04/24/20 04/25/20 19:00 07:00 Intake Total 20 ml 1475 ml Balance 20 ml 1475 ml Intake Free Water 120 ml IV Total 950 ml Tube Feeding 20 ml 405 ml Dressing: dry Wound: clean Cardiovascular: RSR Respiratory: decreased breath sounds Abdomen: soft, non-tender, present bowel sounds, other Extremities: no tenderness, no cyanosis Laboratory Tests Test 04/24/20 17:34 04/24/20 20:49 04/25/20 05:39 04/25/20 10:05 POC Whole Blood Glucose 169 MG/DL (74-106) H 161 MG/DL (74-106) H 197 MG/DL (74-106) H White Blood Count 8.8 K/UL (4.8-10.8) Red Blood Count 3.71 M/UL (4.70-6.10) L Hemoglobin 11.5 G/DL (14.2-18.0) L Hematocrit 36.0 % (42.0-52.0) L Mean Corpuscular Volume 97 FL (80-99) Mean Corpuscular Hemoglobin 31.0 PG (27.0-31.0) Mean Corpuscular Hemoglobin Concent 32.0 G/DL (32.0-36.0) Red Cell Distribution Width 12.4 % (11.6-14.8) Platelet Count 436 K/UL (150-450) Mean Platelet Volume 5.2 FL (6.5-10.1) L Neutrophils (%) (Auto) 78.9 % (45.0-75.0) H Lymphocytes (%) (Auto) 13.1 % (20.0-45.0) L Monocytes (%) (Auto) 7.2 % (1.0-10.0) Eosinophils (%) (Auto) 0.1 % (0.0-3.0) Basophils (%) (Auto) 0.7 % (0.0-2.0) Erythrocyte Sedimentation Rate 98 MM/HR (0-20) H Sodium Level 139 MMOL/L (136-145) Potassium Level 3.6 MMOL/L (3.5-5.1) Chloride Level 103 MMOL/L (98-107) Carbon Dioxide Level 33 MMOL/L (21-32) H Anion Gap 3 mmol/L (5-15) L Blood Urea Nitrogen 22 mg/dL (7-18) H Creatinine 0.8 MG/DL (0.55-1.30) Estimat Glomerular Filtration Rate > 60 mL/min (>60) Glucose Level 209 MG/DL (74-106) H Calcium Level 8.9 MG/DL (8.5-10.1) Phosphorus Level 2.6 MG/DL (2.5-4.9) Magnesium Level 1.6 MG/DL (1.8-2.4) L Ferritin 447 NG/ML (8-388) H Total Bilirubin 0.2 MG/DL (0.2-1.0) Aspartate Amino Transf (AST/SGOT) 15 U/L (15-37) Alanine Aminotransferase (ALT/SGPT) 10 U/L (12-78) L Alkaline Phosphatase 93 U/L (46-116) Lactate Dehydrogenase 186 U/L (81-234) C-Reactive Protein, Quantitative 13.2 mg/dL (0.00-0.90) H Total Protein 7.3 G/DL (6.4-8.2) Albumin 1.9 G/DL (3.4-5.0) L Globulin 5.4 g/dL Albumin/Globulin Ratio 0.4 (1.0-2.7) L Test 04/25/20 11:15 04/25/20 11:20 POC Whole Blood Glucose 191 MG/DL (74-106) H Fibrinogen 723 mg/dL (200-400) H D-Dimer 1.78 mg/L FEU (0.00-0.49) H Plan Problems: (1) Pneumonia due to COVID-19 virus (2) Severe protein-calorie malnutrition Assessment & Plan: 74-year-old male with significant severe protein calorie malnutrition. BMI is 18. Albumin is low. Skin turgor is poor. On admission identified to have a deep tissue injury and decubitus skin ulcer. Air mattress ordered local wound care plan initiated. Speech therapy evaluation identified. High risk dysphasia aspiration Needs nutritional optimization to allow for wound healing and care plan. We will follow with recommendations thank you for let me participate in patient' s care Turn every 2 hours Offload pressure with pillows Wash sacral wound daily with normal saline apply Thera honey and foam dressing. Bilateral heel protectors THE PATIENT WAS POSITIONED UPRIGHT FOR P.O. TRIALS. PATIENT NON/VERBAL, NON/VISUAL TRACKING, NON/RESPONSIVE TO TACTILE/VERBAL CUES. HE IS MOUTH BREATHING, ORAL MUCOSA PRESENTS WITH XEROSTOMIA. HIS DECREASED MENTATION INCLUDED SENSORIMOTOR DEFICITS WHICH RESULTED IN POOR BOLUS ACCEPTANCE, DECREASED AWARENESS OF FOOD IN MOUTH. WHEN PRESENTED WITH 5ML OF NECTAR THICK WATER VIA SPOON, THE PATIENT DEMONSTRATED REPETITIVE LINGUAL PUMPING IN HIS ATTEMPT TO TRIGGER THE PHARYNGEAL PHASE OF THE SWALLOW. HYOLARYNGEAL ELEVATION WAS PALPATED AND DETERMINED TO BE INSUFFICIENT FOR AIRWAY PROTECTION. AFTER THE SECOND P.O. TRIAL WITH THE NTL, THE PATIENT DEMONSTRATED A PROLONGED NON/ CLEARING, NON/PRODUCTIVE COUGH, WITH 3 TRIALS OF PUREE PRESENTED IN 5 ML AMOUNTS , THE PATIENT DEMONSTRATED ORAL STASIS, AND RESIDUE HAD TO BE SUCTIONED TO CLEAR HIS MOUTH. ORAL CARE WAS PROVIDED POST SUCTIONING. PHARYNGEAL PHASE OF SWALLOW SEVERELY DELAYED. CLEARLY, THIS GENTLEMAN PRESENTS WITH SEVERE OROPHARYNGEAL DYSPHAGIA, ALONG WITH A HISTORY OF SUBOPTIMAL P.O. INTAKE/LOSS OF APPETITE RECOMMENDATIONS 1. CONSIDER NON/ORAL FEEDING MANAGEMENT FOR INTERIM NUTRITION/HYDRATION 2. NPO 3. ORAL CARE TID TO REDUCE ORAL PATHOGENS 4. SKILLED ST INTERVENTION DOES NOT APPEAR TO BE NEEDED AT THIS TIME. (3) At high risk for aspiration (4) Respiratory distress (5) COVID-19 Assessment & Plan: + (6) History of diabetes mellitus (7) Alzheimer's dementia (8) Decubitus skin ulcer Assessment & Plan: Pt deconditioned and presents with multiple Pressure injuries on admission. Non-Blanchable erythema without fluctuance or induration noted to R elbow. Open DTPI Sacrum with full thickness Ulcer (L)9.5cm x (W)10.5cm.Wound is irregular shaped and extends to apex of anus. Base of wound is indurated and purpuric surrounding areas at base of wound with full thickness ulcer with scattered areas of soft necrosis (60%), 40% maldonado. Bony prominence is palpable at base of wound.Small amt sanguineous exudate noted . No odor noted . Periwound Skin is blanchable but Bilat trochanteric and iliac areas, including Ischial tuberosities are at high risks for pressure injuries secondary to bony protrusion and poor tissue perfusion. DTPI R Ischium. Base of pressure injury is maroon and indurated(L)3.4cm x (W) 7cm. DTPI R Heel (L)4cm x (W)9cm. Base of Pressure injury is fluctuant, maroon with small purpuric area.No evidence of ski breakdown periwound. L heel is boggy with non-Blanchable erythema. Tx.Plan: Cleanse Sacral wound with Saline. Apply TheraHoney. Apply Moisture Barrier Paste periwound. Cover with Optifoam drsgs. Change Daily and prn. Apply Cavilon Skin Barrier to R ischium. Cover with Optifoam drsg. Change every 3 days and prn. Apply Cavilon Skin Barrier to At Risks Bony Prominences. Cover areas with Optifoam drsgs as needed. Apply Cavilon Skin Barrier to both heels and Malleoli. Cover each site with Optifoam drsg. Change every 7 days and Prn. Reposition at least every 2hours or as tolerated. Off-load heels with Pillow. Air Fluidized Mattress. (9) Dysphagia Assessment & Plan: ng placed unlikey to pass swallow eval low bmi consider peg polst noted Darian Ragsdale Apr 25, 2020 12:34
--- NOTE | 2020-04-25 14:22 | NUR ---
CHARGE NURSE NOTE: Mag.1.6. notified.
[2020-04-25] MEDS: Cefepime HCl 1 GM in D5W 55 ML IVPB SCH (15:42)
[2020-04-25 16:00] VITALS: BP 153/95
[2020-04-25] MEDS: Vancomycin 1 GM in NS 275 ML IVPB SCH (17:15)
--- NOTE | 2020-04-25 19:16 | Infectious Diseases Prog Note ---
Assessment/Plan Assessment: Recent COVID19 positive (unknown date of diagnosis) Pneumonia -probable bacterial superimposed Acute hypoxic resp failure - s/p 5L NC- now down to 2L -04/22 Rapid COVID + CXR: Bilateral infiltrates, likely pneumonia, possibly viral. Correlate with clinical findings Gram positive bacteremia- real vs contaminant -04/22 Bcx 2/4 CONS; 04/23 Bcx GPC Afebrile- Tm 99.5 No leukocytosis -04/22 u/a neg Dementia seizure disorder Dm2 DNR status [place] resident ([facility]) Plan: -Continue empiric Azithromycin #4 and Cefepime #3 (abx d #4) -Cont IV Vancomycin #3 -On decadron -04/23 SP Ceftriaxone #2 -04/22 SP ZOsyn x1 -f/u cx -Monitor CBC/CMP, temperatures -f/u Bcx x2, sp cx -COVID19 isolation -Will not give Remdesevir at this point given unclear date of diagnosis -CXR am - 2DEcho Thank you for this consultation. Will continue to follow along with you. Discussed with RN. Subjective Constitutional: Denies: no symptoms, fever, chills, fatigue, anorexia, drenching sweats, other Allergies: Coded Allergies: No Known Allergies (Unverified , 04/22/20) +ve blood cx Objective Last 24 Hour Vital Signs Date Time Temp Pulse Resp B/P (MAP) Pulse Ox O2 Delivery O2 Flow Rate FiO2 04/25/20 16:00 98.2 103 20 153/95 (114) 97 04/25/20 11:35 98.2 88 20 127/65 (85) 93 04/25/20 09:00 Nasal Cannula 4.0 04/25/20 08:00 97.9 87 18 167/76 (106) 94 04/25/20 04:00 97.7 93 22 129/70 (89) 92 04/25/20 00:00 97.9 90 22 134/70 (91) 94 04/24/20 21:00 Nasal Cannula 4.0 04/24/20 20:00 97.3 91 22 140/69 (92) 97 Height (Feet): 5 Height (Inches): 8.00 Weight (Pounds): 119 HEENT: atraumatic Respiratory/Chest: normal breath sounds Cardiovascular: normal rate Abdomen: no organomegaly Microbiology Date/Time Source Procedure Growth Status 04/23/20 23:30 Blood Blood Culture - Preliminary Resulted 04/23/20 23:25 Blood Blood Culture - Preliminary Resulted Laboratory Tests Test 04/24/20 20:49 04/25/20 05:39 04/25/20 10:05 04/25/20 11:15 POC Whole Blood Glucose 161 MG/DL (74-106) H 197 MG/DL (74-106) H 191 MG/DL (74-106) H White Blood Count 8.8 K/UL (4.8-10.8) Red Blood Count 3.71 M/UL (4.70-6.10) L Hemoglobin 11.5 G/DL (14.2-18.0) L Hematocrit 36.0 % (42.0-52.0) L Mean Corpuscular Volume 97 FL (80-99) Mean Corpuscular Hemoglobin 31.0 PG (27.0-31.0) Mean Corpuscular Hemoglobin Concent 32.0 G/DL (32.0-36.0) Red Cell Distribution Width 12.4 % (11.6-14.8) Platelet Count 436 K/UL (150-450) Mean Platelet Volume 5.2 FL (6.5-10.1) L Neutrophils (%) (Auto) 78.9 % (45.0-75.0) H Lymphocytes (%) (Auto) 13.1 % (20.0-45.0) L Monocytes (%) (Auto) 7.2 % (1.0-10.0) Eosinophils (%) (Auto) 0.1 % (0.0-3.0) Basophils (%) (Auto) 0.7 % (0.0-2.0) Erythrocyte Sedimentation Rate 98 MM/HR (0-20) H Sodium Level 139 MMOL/L (136-145) Potassium Level 3.6 MMOL/L (3.5-5.1) Chloride Level 103 MMOL/L (98-107) Carbon Dioxide Level 33 MMOL/L (21-32) H Anion Gap 3 mmol/L (5-15) L Blood Urea Nitrogen 22 mg/dL (7-18) H Creatinine 0.8 MG/DL (0.55-1.30) Estimat Glomerular Filtration Rate > 60 mL/min (>60) Glucose Level 209 MG/DL (74-106) H Calcium Level 8.9 MG/DL (8.5-10.1) Phosphorus Level 2.6 MG/DL (2.5-4.9) Magnesium Level 1.6 MG/DL (1.8-2.4) L Ferritin 447 NG/ML (8-388) H Total Bilirubin 0.2 MG/DL (0.2-1.0) Aspartate Amino Transf (AST/SGOT) 15 U/L (15-37) Alanine Aminotransferase (ALT/SGPT) 10 U/L (12-78) L Alkaline Phosphatase 93 U/L (46-116) Lactate Dehydrogenase 186 U/L (81-234) C-Reactive Protein, Quantitative 13.2 mg/dL (0.00-0.90) H Total Protein 7.3 G/DL (6.4-8.2) Albumin 1.9 G/DL (3.4-5.0) L Globulin 5.4 g/dL Albumin/Globulin Ratio 0.4 (1.0-2.7) L Test 04/25/20 11:20 Fibrinogen 723 mg/dL (200-400) H D-Dimer 1.78 mg/L FEU (0.00-0.49) H Current Medications Medications (Trade) Dose Ordered Sig/Andrade Route PRN Reason Start Time Stop Time Status Last Admin Dose Admin Acetaminophen (Tylenol) 650 mg Q4H PRN ORAL FEVER 04/24/20 18:30 05/22/20 18:29 Albuterol/ Ipratropium (Combivent Respimat) 1 puff Q4H PRN INH Shortness of Breath 04/24/20 18:30 05/22/20 18:29 Azithromycin 250 mg/Dextrose 275 ml @ 275 mls/hr Q24HRS IV 04/24/20 20:00 04/27/20 19:59 04/24/20 21:12 Cefepime HCl 1 gm/ Dextrose 55 ml @ 110 mls/hr Q24H IVPB 04/25/20 16:00 04/30/20 15:59 04/25/20 15:42 Dexamethasone (Decadron) 4 mg DAILY ORAL 04/25/20 09:00 05/02/20 08:59 04/25/20 08:51 Dextrose (Dextrose 50%) 25 ml Q30M PRN IV Hypoglycemia 04/24/20 18:15 07/21/20 16:14 Dextrose (Dextrose 50%) 50 ml Q30M PRN IV Hypoglycemia 04/24/20 18:15 07/21/20 16:14 Dextrose/Sodium Chloride 1,000 ml @ 75 mls/hr [id number] IV 04/24/20 18:15 05/23/20 17:29 04/25/20 15:42 Heparin Sodium (Porcine) (Heparin 5000 units/ml) 5,000 units EVERY 12 HOURS SUBQ 04/24/20 21:00 06/06/20 20:59 04/25/20 08:54 Insulin Aspart (NovoLOG) BEFORE MEALS AND HS SUBQ 04/24/20 21:00 07/21/20 16:29 04/25/20 17:25 Levetiracetam (Keppra) 500 mg EVERY 12 HOURS ORAL 04/24/20 21:00 06/06/20 20:59 04/25/20 08:51 Ondansetron HCl (Zofran) 4 mg Q6H PRN IVP Nausea & Vomiting 04/24/20 18:30 05/22/20 18:29 Polyethylene Glycol (Miralax) 17 gm DAILYPRN PRN ORAL Constipation 04/24/20 18:30 05/24/20 18:29 Promethazine HCl/ Codeine (Phenergan with Codeine) 5 ml Q6H PRN ORAL cough 04/24/20 18:30 05/22/20 18:29 Vancomycin HCl (Vanco pharmacy to dose) 1 ea DAILY PRN MISC Per rx protocol 04/25/20 09:00 05/23/20 14:44 Vancomycin HCl 1 gm/Sodium Chloride 275 ml @ 183.708 mls/hr Q24H IVPB 04/25/20 18:00 04/28/20 17:59 04/25/20 17:15 Dominic Mireles MD Apr 25, 2020 19:16
--- NOTE | 2020-04-25 19:21 | NUR ---
HAND-OFF: Report given to Christina AMIN RN.
--- NOTE | 2020-04-25 19:40 | Pulmonology Progress Note ---
Subjective ROS Limited/Unobtainable: No Constitutional: Denies: no symptoms, fever, chills, fatigue, anorexia, drenching sweats, other HEENT: Repors: no symptoms Allergies: Coded Allergies: No Known Allergies (Unverified , 04/22/20) Objective Last 24 Hour Vital Signs Date Time Temp Pulse Resp B/P (MAP) Pulse Ox O2 Delivery O2 Flow Rate FiO2 04/25/20 16:00 98.2 103 20 153/95 (114) 97 04/25/20 11:35 98.2 88 20 127/65 (85) 93 04/25/20 09:00 Nasal Cannula 4.0 04/25/20 08:00 97.9 87 18 167/76 (106) 94 04/25/20 04:00 97.7 93 22 129/70 (89) 92 04/25/20 00:00 97.9 90 22 134/70 (91) 94 04/24/20 21:00 Nasal Cannula 4.0 04/24/20 20:00 97.3 91 22 140/69 (92) 97 Intake and Output 04/24/20 04/25/20 19:00 07:00 Intake Total 20 ml 1475 ml Balance 20 ml 1475 ml Intake Free Water 120 ml IV Total 950 ml Tube Feeding 20 ml 405 ml General Appearance: cachetic HEENT: normocephalic, atraumatic, anicteric, mucous membranes moist Respiratory: chest wall non-tender, rhonchi - left, rhonchi - right Cardiovascular: normal peripheral pulses, normal rate, regular rhythm Abdomen: normal bowel sounds, soft, non tender Genitourinary: normal external genitalia Skin: no rash 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 II-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 grossly normal Microbiology Date/Time Source Procedure Growth Status 04/23/20 23:30 Blood Blood Culture - Preliminary Resulted 04/23/20 23:25 Blood Blood Culture - Preliminary Resulted Laboratory Tests 04/24/20 20:49: POC Whole Blood Glucose 161H 04/25/20 05:39: POC Whole Blood Glucose 197H 04/25/20 10:05: White Blood Count 8.8, Red Blood Count 3.71L, Hemoglobin 11.5L, Hematocrit 36.0L , Mean Corpuscular Volume 97, Mean Corpuscular Hemoglobin 31.0, Mean Corpuscular Hemoglobin Concent 32.0, Red Cell Distribution Width 12.4, Platelet Count 436, Mean Platelet Volume 5.2L, Neutrophils (%) (Auto) 78.9H, Lymphocytes (%) (Auto) 13.1L, Monocytes (%) (Auto) 7.2, Eosinophils (%) (Auto) 0.1, Basophils (%) (Auto) 0.7, Erythrocyte Sedimentation Rate 98H, Sodium Level 139, Potassium Level 3.6, Chloride Level 103, Carbon Dioxide Level 33H, Anion Gap 3L , Blood Urea Nitrogen 22H, Creatinine 0.8, Estimat Glomerular Filtration Rate > 60, Glucose Level 209H, Calcium Level 8.9, Phosphorus Level 2.6, Magnesium Level 1.6L, Ferritin 447H, Total Bilirubin 0.2, Aspartate Amino Transf (AST/SGOT ) 15, Alanine Aminotransferase (ALT/SGPT) 10L, Alkaline Phosphatase 93, Lactate Dehydrogenase 186, C-Reactive Protein, Quantitative 13.2H, Total Protein 7.3, Albumin 1.9L, Globulin 5.4, Albumin/Globulin Ratio 0.4L 04/25/20 11:15: POC Whole Blood Glucose 191H 04/25/20 11:20: Fibrinogen 723H, D-Dimer 1.78H Current Medications Medications (Trade) Dose Ordered Sig/Andrade Route PRN Reason Start Time Stop Time Status Last Admin Dose Admin Acetaminophen (Tylenol) 650 mg Q4H PRN ORAL FEVER 04/24/20 18:30 05/22/20 18:29 Albuterol/ Ipratropium (Combivent Respimat) 1 puff Q4H PRN INH Shortness of Breath 04/24/20 18:30 05/22/20 18:29 Azithromycin 250 mg/Dextrose 275 ml @ 275 mls/hr Q24HRS IV 04/24/20 20:00 04/27/20 19:59 04/24/20 21:12 Cefepime HCl 1 gm/ Dextrose 55 ml @ 110 mls/hr Q24H IVPB 04/25/20 16:00 04/30/20 15:59 04/25/20 15:42 Dexamethasone (Decadron) 4 mg DAILY ORAL 04/25/20 09:00 05/02/20 08:59 04/25/20 08:51 Dextrose (Dextrose 50%) 25 ml Q30M PRN IV Hypoglycemia 04/24/20 18:15 07/21/20 16:14 Dextrose (Dextrose 50%) 50 ml Q30M PRN IV Hypoglycemia 04/24/20 18:15 07/21/20 16:14 Dextrose/Sodium Chloride 1,000 ml @ 75 mls/hr [id number] IV 04/24/20 18:15 05/23/20 17:29 04/25/20 15:42 Heparin Sodium (Porcine) (Heparin 5000 units/ml) 5,000 units EVERY 12 HOURS SUBQ 04/24/20 21:00 06/06/20 20:59 04/25/20 08:54 Insulin Aspart (NovoLOG) BEFORE MEALS AND HS SUBQ 04/24/20 21:00 07/21/20 16:29 04/25/20 17:25 Levetiracetam (Keppra) 500 mg EVERY 12 HOURS ORAL 04/24/20 21:00 06/06/20 20:59 04/25/20 08:51 Ondansetron HCl (Zofran) 4 mg Q6H PRN IVP Nausea & Vomiting 04/24/20 18:30 05/22/20 18:29 Polyethylene Glycol (Miralax) 17 gm DAILYPRN PRN ORAL Constipation 04/24/20 18:30 05/24/20 18:29 Promethazine HCl/ Codeine (Phenergan with Codeine) 5 ml Q6H PRN ORAL cough 04/24/20 18:30 05/22/20 18:29 Vancomycin HCl (Vanco pharmacy to dose) 1 ea DAILY PRN MISC Per rx protocol 04/25/20 09:00 05/23/20 14:44 Vancomycin HCl 1 gm/Sodium Chloride 275 ml @ 183.708 mls/hr Q24H IVPB 04/25/20 18:00 04/28/20 17:59 04/25/20 17:15 Assessment/Plan Problems: (1) Pneumonia due to COVID-19 virus (2) At high risk for aspiration (3) Severe protein-calorie malnutrition (4) History of diabetes mellitus (5) Alzheimer's dementia Assessment/Plan comfortable continue abx NG tube for feeding respiratory treatment titrate fio2 to sat of 92% swallow study reviewed: RECOMMENDATIONS 1. CONSIDER NON/ORAL FEEDING MANAGEMENT FOR INTERIM NUTRITION/HYDRATION 2. NPO 3. ORAL CARE TID TO REDUCE ORAL PATHOGENS 4. SKILLED ST INTERVENTION DOES NOT APPEAR TO BE NEEDED AT THIS TIME. Quincy Corral MD Apr 25, 2020 19:40
[2020-04-25 20:00] VITALS: BP 168/78
--- NOTE | 2020-04-25 20:18 | NUR ---
NURSE NOTES: Report received from Paul BOWLING. Patient is non verbal and not alert. This is not a new mental status for the patient. Patient is noted to be on 3 liters of oxygen via nasal canula with an oxygen saturation of 94 %. Patient does not appear to be in respiratory distress at this time. Patient is noted to have NG tube via left nare at approximately 60 cm with Glucerna 1.5 running at 30 cc / hr. This is the goal rate. Patient is noted to have left forearm 24 heriberto IV access with fluids running per MD orders. Patient was noted to have low magnesium laboratory value today. Second bag of two was hung by Tk BOWLING per MD orders. Patient is noted to be on contact and droplet isolation due to testing positive for covid 19. Most recent positive covid 19 test was on April 22, 2020. Bed is locked, alarmed, and in lowest position. Will continue to follow plan of care.
[2020-04-25] MEDS: Azithromycin 250 MG in D5W 275 ML IV SCH (20:45)
[2020-04-26] VITALS (7 sets, daily range): BP systolic 120–150; BP diastolic 65–95
[2020-04-26 05:38] LABS: ANION GAP 4 mmol/L (5-15); BLOOD UREA NITROGEN 19 mg/dL (7-18); CARBON DIOXIDE 33 MMOL/L (21-32); CHLORIDE 102 MMOL/L (98-107); CREATININE 0.7 MG/DL (0.55-1.30); SODIUM 139 MMOL/L (136-145)
[2020-04-26 05:42] LABS: BASOPHILS % (AUTO) 0.3 % (0.0-2.0); EOSINOPHILS % (AUTO) 0.1 % (0.0-3.0); HEMATOCRIT 37.2 % (42.0-52.0); HEMOGLOBIN 11.8 G/DL (14.2-18.0); LYMPHOCYTES % (AUTO) 17.7 % (20.0-45.0); MEAN CORPUSCULAR VOLUME 97 FL (80-99); MONOCYTES % (AUTO) 3.9 % (1.0-10.0); PLATELET COUNT 452 K/UL (150-450); RED BLOOD COUNT 3.83 M/UL (4.70-6.10); WHITE BLOOD COUNT 9.5 K/UL (4.8-10.8)
[2020-04-26] MEDS: NovoLOG Insulin Flexpen SUBQ SCH ×4 (06:32→23:36)
--- NOTE | 2020-04-26 07:00 | NUR ---
HAND-OFF: Report given to Paul BOWLING. Endorsed that patient is continuing to tolerate feedings well. Endorsed that wound care was done and pictures were obtained. Patient is currently in stable condition.
[2020-04-26] MEDS ORDERED: Tubing IV Secondary IV ONE (08:34)
[2020-04-26] MEDS: Heparin 5000 units/ml inj SUBQ SCH ×2 (08:35→20:42)
[2020-04-26] MEDS: D5 1/2NS 1,000 ML IV SCH (08:35)
--- NOTE | 2020-04-26 08:58 | Diagnostic Imaging Report ---
EXAM: XR Abdomen, 1 View CLINICAL HISTORY: F/U TECHNIQUE: Frontal supine view of the abdomen/pelvis. COMPARISON: No relevant prior studies available. FINDINGS: Gastrointestinal tract: Unremarkable. No dilation. Bones/joints: Degenerative changes of the spine. Soft tissues: Surgical clips left midabdomen. Tubes, lines and devices: NG tube tip in the proximal stomach. Proximal side-port is just past the GE junction. IMPRESSION: 1. NG tube tip in the proximal stomach. Proximal side-port is just past the GE junction. 2. No bowel obstruction.
--- NOTE | 2020-04-26 10:30 | NUR ---
NURSE NOTES: ON INITIAL ROUNDING, PT'S OXYGEN SATURATION AT 83-85% ON NASAL CANNULA 3-4L. RN PLACED PT ON 10L SIMPLE FACE MASK WITH OXYGEN SATURATION AT 90-91%. RN PLACED NON-REBREATHER MASK AT 15ML AND NOW SATURATION IS AT 94-96%. IN NO APPARENT DISTRESS AT THIS TIME. CRN WAS MADE AWARE. NGT IS IN PLACE AT 60CM, RUNNING GLUCERNA 1.5 AT 45ML/HR. ABD XR THIS MORNING SHOW NGT IN PROXIMAL STOMACH. PT IN HIGH ESTEVES'S POSITION WITH BED IN LOWEST POSITION. BEDSIDE RAILS X3 RAISED. BEDSIDE RAILS PADDED FOR SEIZURE PRECAUTIONS. 2D ECHO WAS DONE AT BEDSIDE, PENDING RESULTS. NO S/S PAIN USING FLACC PAIN SCALE D/T PT NON-VERBAL. WILL CONTINUE TO MONITOR.
--- NOTE | 2020-04-26 11:00 | NUR ---
NURSE NOTES: DR MCKINNON AT BEDSIDE AND MADE AWARE PT CHANGE OF CONDITION AND NOW ON NON-REBREATHER AT 15L, OXYGEN SATURATION AT 95-97%. OTHERWISE STABLE AT THIS TIME. ALSO MADE AWARE PT HAD 1 NORMAL BM TODAY. NO NEW ORDERS.
--- NOTE | 2020-04-26 12:21 | Surgery Progress Note ---
Surgery Progress Note Subjective Additional Comments kub noted comfortable tube in place tf okay Objective Last 24 Hour Vital Signs Date Time Temp Pulse Resp B/P (MAP) Pulse Ox O2 Delivery O2 Flow Rate FiO2 04/26/20 09:00 Non-Rebreather 15.0 04/26/20 08:00 22 96 04/26/20 07:30 97.9 83 20 137/69 (91) 83 04/26/20 04:00 97.9 80 20 120/66 (84) 94 04/26/20 00:00 98.1 87 20 127/65 (85) 94 04/25/20 21:00 Nasal Cannula 4.0 04/25/20 20:00 98.5 91 20 168/78 (108) 94 04/25/20 16:00 98.2 103 20 153/95 (114) 97 I&O Intake and Output 04/25/20 04/26/20 19:00 07:00 Intake Total 1740.000 ml 1710 ml Output Total 600 ml Balance 1140.000 ml 1710 ml Intake Free Water 120 ml 120 ml IV Total 1080.000 ml 1050 ml Tube Feeding 540 ml 540 ml Output Urine Total 600 ml Dressing: dry Wound: clean, dry Cardiovascular: RSR Respiratory: clear, decreased breath sounds Abdomen: soft, non-tender, present bowel sounds Extremities: no edema, no tenderness, no cyanosis Laboratory Tests Test 04/26/20 04:10 04/26/20 05:53 White Blood Count 9.5 K/UL (4.8-10.8) Red Blood Count 3.83 M/UL (4.70-6.10) L Hemoglobin 11.8 G/DL (14.2-18.0) L Hematocrit 37.2 % (42.0-52.0) L Mean Corpuscular Volume 97 FL (80-99) Mean Corpuscular Hemoglobin 30.9 PG (27.0-31.0) Mean Corpuscular Hemoglobin Concent 31.8 G/DL (32.0-36.0) L Red Cell Distribution Width 12.0 % (11.6-14.8) Platelet Count 452 K/UL (150-450) H Mean Platelet Volume 5.2 FL (6.5-10.1) L Neutrophils (%) (Auto) 78.0 % (45.0-75.0) H Lymphocytes (%) (Auto) 17.7 % (20.0-45.0) L Monocytes (%) (Auto) 3.9 % (1.0-10.0) Eosinophils (%) (Auto) 0.1 % (0.0-3.0) Basophils (%) (Auto) 0.3 % (0.0-2.0) Sodium Level 139 MMOL/L (136-145) Potassium Level 4.0 MMOL/L (3.5-5.1) Chloride Level 102 MMOL/L (98-107) Carbon Dioxide Level 33 MMOL/L (21-32) H Anion Gap 4 mmol/L (5-15) L Blood Urea Nitrogen 19 mg/dL (7-18) H Creatinine 0.7 MG/DL (0.55-1.30) Estimat Glomerular Filtration Rate > 60 mL/min (>60) Glucose Level 259 MG/DL (74-106) H Calcium Level 9.0 MG/DL (8.5-10.1) POC Whole Blood Glucose 251 MG/DL (74-106) H Plan Problems: (1) Pneumonia due to COVID-19 virus (2) Severe protein-calorie malnutrition Assessment & Plan: 74-year-old male with significant severe protein calorie malnutrition. BMI is 18. Albumin is low. Skin turgor is poor. On admission identified to have a deep tissue injury and decubitus skin ulcer. Air mattress ordered local wound care plan initiated. Speech therapy evaluation identified. High risk dysphasia aspiration Needs nutritional optimization to allow for wound healing and care plan. We will follow with recommendations thank you for let me participate in patient' s care Turn every 2 hours Offload pressure with pillows Wash sacral wound daily with normal saline apply Thera honey and foam dressing. Bilateral heel protectors THE PATIENT WAS POSITIONED UPRIGHT FOR P.O. TRIALS. PATIENT NON/VERBAL, NON/VISUAL TRACKING, NON/RESPONSIVE TO TACTILE/VERBAL CUES. HE IS MOUTH BREATHING, ORAL MUCOSA PRESENTS WITH XEROSTOMIA. HIS DECREASED MENTATION INCLUDED SENSORIMOTOR DEFICITS WHICH RESULTED IN POOR BOLUS ACCEPTANCE, DECREASED AWARENESS OF FOOD IN MOUTH. WHEN PRESENTED WITH 5ML OF NECTAR THICK WATER VIA SPOON, THE PATIENT DEMONSTRATED REPETITIVE LINGUAL PUMPING IN HIS ATTEMPT TO TRIGGER THE PHARYNGEAL PHASE OF THE SWALLOW. HYOLARYNGEAL ELEVATION WAS PALPATED AND DETERMINED TO BE INSUFFICIENT FOR AIRWAY PROTECTION. AFTER THE SECOND P.O. TRIAL WITH THE NTL, THE PATIENT DEMONSTRATED A PROLONGED NON/ CLEARING, NON/PRODUCTIVE COUGH, WITH 3 TRIALS OF PUREE PRESENTED IN 5 ML AMOUNTS , THE PATIENT DEMONSTRATED ORAL STASIS, AND RESIDUE HAD TO BE SUCTIONED TO CLEAR HIS MOUTH. ORAL CARE WAS PROVIDED POST SUCTIONING. PHARYNGEAL PHASE OF SWALLOW SEVERELY DELAYED. CLEARLY, THIS GENTLEMAN PRESENTS WITH SEVERE OROPHARYNGEAL DYSPHAGIA, ALONG WITH A HISTORY OF SUBOPTIMAL P.O. INTAKE/LOSS OF APPETITE RECOMMENDATIONS 1. CONSIDER NON/ORAL FEEDING MANAGEMENT FOR INTERIM NUTRITION/HYDRATION 2. NPO 3. ORAL CARE TID TO REDUCE ORAL PATHOGENS 4. SKILLED ST INTERVENTION DOES NOT APPEAR TO BE NEEDED AT THIS TIME. (3) At high risk for aspiration (4) Respiratory distress (5) COVID-19 Assessment & Plan: + (6) History of diabetes mellitus (7) Alzheimer's dementia (8) Decubitus skin ulcer Assessment & Plan: Pt deconditioned and presents with multiple Pressure injuries on admission. Non-Blanchable erythema without fluctuance or induration noted to R elbow. Open DTPI Sacrum with full thickness Ulcer (L)9.5cm x (W)10.5cm.Wound is irregular shaped and extends to apex of anus. Base of wound is indurated and purpuric surrounding areas at base of wound with full thickness ulcer with scattered areas of soft necrosis (60%), 40% maldonado. Bony prominence is palpable at base of wound.Small amt sanguineous exudate noted . No odor noted . Periwound Skin is blanchable but Bilat trochanteric and iliac areas, including Ischial tuberosities are at high risks for pressure injuries secondary to bony protrusion and poor tissue perfusion. DTPI R Ischium. Base of pressure injury is maroon and indurated(L)3.4cm x (W) 7cm. DTPI R Heel (L)4cm x (W)9cm. Base of Pressure injury is fluctuant, maroon with small purpuric area.No evidence of ski breakdown periwound. L heel is boggy with non-Blanchable erythema. Tx.Plan: Cleanse Sacral wound with Saline. Apply TheraHoney. Apply Moisture Barrier Paste periwound. Cover with Optifoam drsgs. Change Daily and prn. Apply Cavilon Skin Barrier to R ischium. Cover with Optifoam drsg. Change every 3 days and prn. Apply Cavilon Skin Barrier to At Risks Bony Prominences. Cover areas with Optifoam drsgs as needed. Apply Cavilon Skin Barrier to both heels and Malleoli. Cover each site with Optifoam drsg. Change every 7 days and Prn. Reposition at least every 2hours or as tolerated. Off-load heels with Pillow. Air Fluidized Mattress. (9) Dysphagia Assessment & Plan: ng placed unlikey to pass swallow eval low bmi consider peg polst noted Darian Ragsdale Apr 26, 2020 12:21
[2020-04-26] MEDS: Cefepime HCl 1 GM in D5W 55 ML IVPB SCH (15:19)
--- NOTE | 2020-04-26 16:15 | NUR ---
NURSE NOTES: PT'S OXYGENATION CONTINUES TO BE STABLE ON NON-REBREATHER MASK AT 15L. NGT IN PLACE AND TOLERATING WELL. NO NAUSEA/VOMITING. IN NO APPARENT DISTRESS AT THIS TIME. PT IN HIGH-ESTEVES'S POSITION FOR ASPIRATION PRECAUTIONS. BED IN LOWEST POSITION WITH BEDSIDE RAILS X3 RAISED. WILL CONTINUE TO MONITOR.
[2020-04-26] MEDS: Vancomycin 1 GM in NS 275 ML IVPB SCH (17:56)
--- NOTE | 2020-04-26 18:30 | NUR ---
NURSE NOTES: DR HU MADE AWARE OF ELEVATED BLOOD GLUCOSE LEVELS. PT ON GLUCERNA 1.5 CONTINUOUS FEEDINGS AND IVF D5 1/2NS. PER MD, CHANGE IVF TO 1/2NS AT 50ML/HR. ORDER ENTERED.
--- NOTE | 2020-04-26 19:34 | NUR ---
HAND-OFF: Report given to Junaid WATTS RN.
--- NOTE | 2020-04-26 19:53 | Pulmonology Progress Note ---
Subjective ROS Limited/Unobtainable: No Constitutional: Denies: no symptoms, fever, chills, fatigue, anorexia, drenching sweats, other HEENT: Repors: no symptoms Allergies: Coded Allergies: No Known Allergies (Unverified , 04/22/20) Objective Last 24 Hour Vital Signs Date Time Temp Pulse Resp B/P (MAP) Pulse Ox O2 Delivery O2 Flow Rate FiO2 04/26/20 16:00 98.1 96 20 150/95 (113) 99 04/26/20 12:00 97.9 89 19 146/82 (103) 96 04/26/20 09:00 Non-Rebreather 15.0 04/26/20 08:00 22 96 04/26/20 07:30 97.9 83 20 137/69 (91) 83 04/26/20 04:00 97.9 80 20 120/66 (84) 94 04/26/20 00:00 98.1 87 20 127/65 (85) 94 04/25/20 21:00 Nasal Cannula 4.0 04/25/20 20:00 98.5 91 20 168/78 (108) 94 Intake and Output 04/25/20 04/26/20 19:00 07:00 Intake Total 1740.000 ml 1710 ml Output Total 600 ml Balance 1140.000 ml 1710 ml Intake Free Water 120 ml 120 ml IV Total 1080.000 ml 1050 ml Tube Feeding 540 ml 540 ml Output Urine Total 600 ml General Appearance: cachetic HEENT: normocephalic, atraumatic Respiratory: chest wall non-tender, rhonchi - left, rhonchi - right Cardiovascular: normal peripheral pulses, normal rate Abdomen: normal bowel sounds, soft, non tender Genitourinary: normal external genitalia Neurologic: vice president regulatory II-XII grossly normal Microbiology Date/Time Source Procedure Growth Status 04/23/20 23:30 Blood Blood Culture - Preliminary Gram Positive Cocci Resulted 04/23/20 23:25 Blood Blood Culture - Preliminary Gram Positive Cocci Resulted Laboratory Tests 04/26/20 04:10: White Blood Count 9.5, Red Blood Count 3.83L, Hemoglobin 11.8L, Hematocrit 37.2L , Mean Corpuscular Volume 97, Mean Corpuscular Hemoglobin 30.9, Mean Corpuscular Hemoglobin Concent 31.8L, Red Cell Distribution Width 12.0, Platelet Count 452H, Mean Platelet Volume 5.2L, Neutrophils (%) (Auto) 78.0H, Lymphocytes (%) (Auto) 17.7L, Monocytes (%) (Auto) 3.9, Eosinophils (%) (Auto) 0.1, Basophils (%) (Auto) 0.3, Sodium Level 139, Potassium Level 4.0, Chloride Level 102, Carbon Dioxide Level 33H, Anion Gap 4L, Blood Urea Nitrogen 19H, Creatinine 0.7, Estimat Glomerular Filtration Rate > 60, Glucose Level 259H, Calcium Level 9.0 04/26/20 05:53: POC Whole Blood Glucose 251H 04/26/20 17:00: Vancomycin Level Trough 4.5L Current Medications Medications (Trade) Dose Ordered Sig/Andrade Route PRN Reason Start Time Stop Time Status Last Admin Dose Admin Acetaminophen (Tylenol) 650 mg Q4H PRN ORAL FEVER 04/24/20 18:30 05/22/20 18:29 Albuterol/ Ipratropium (Combivent Respimat) 1 puff Q4H PRN INH Shortness of Breath 04/24/20 18:30 05/22/20 18:29 Azithromycin 250 mg/Dextrose 275 ml @ 275 mls/hr Q24HRS IV 04/24/20 20:00 04/27/20 19:59 04/25/20 20:45 Cefepime HCl 1 gm/ Dextrose 55 ml @ 110 mls/hr Q24H IVPB 04/25/20 16:00 04/30/20 15:59 04/26/20 15:19 Dexamethasone (Decadron) 4 mg DAILY ORAL 04/25/20 09:00 05/02/20 08:59 04/26/20 08:32 Dextrose (Dextrose 50%) 25 ml Q30M PRN IV Hypoglycemia 04/24/20 18:15 07/21/20 16:14 Dextrose (Dextrose 50%) 50 ml Q30M PRN IV Hypoglycemia 04/24/20 18:15 07/21/20 16:14 Heparin Sodium (Porcine) (Heparin 5000 units/ml) 5,000 units EVERY 12 HOURS SUBQ 04/24/20 21:00 06/06/20 20:59 04/26/20 08:35 Insulin Aspart (NovoLOG) Q6HR SUBQ 04/26/20 18:00 07/21/20 16:29 04/26/20 17:54 Levetiracetam (Keppra) 500 mg EVERY 12 HOURS ORAL 04/24/20 21:00 06/06/20 20:59 04/26/20 08:32 Ondansetron HCl (Zofran) 4 mg Q6H PRN IVP Nausea & Vomiting 04/24/20 18:30 05/22/20 18:29 Polyethylene Glycol (Miralax) 17 gm DAILYPRN PRN ORAL Constipation 04/24/20 18:30 05/24/20 18:29 Promethazine HCl/ Codeine (Phenergan with Codeine) 5 ml Q6H PRN ORAL cough 04/24/20 18:30 05/22/20 18:29 Sodium Chloride 1,000 ml @ 50 mls/hr Q20H IV 04/26/20 18:22 05/26/20 18:21 04/26/20 18:24 Vancomycin HCl (Vanco pharmacy to dose) 1 ea DAILY PRN MISC Per rx protocol 04/25/20 09:00 05/23/20 14:44 Vancomycin HCl 750 mg/Dextrose 275 ml @ 183.333 mls/hr Q12H IVPB 04/27/20 06:00 05/02/20 05:59 Vancomycin HCl 1 gm/Sodium Chloride 275 ml @ 183.708 mls/hr Q24H IVPB 04/25/20 18:00 04/26/20 23:59 04/26/20 17:56 Assessment/Plan Problems: (1) Pneumonia due to COVID-19 virus (2) At high risk for aspiration (3) Severe protein-calorie malnutrition (4) History of diabetes mellitus (5) Alzheimer's dementia Assessment/Plan continue abx NG tube for feeding respiratory treatment titrate fio2 to sat of 92% swallow study reviewed: RECOMMENDATIONS 1. CONSIDER NON/ORAL FEEDING MANAGEMENT FOR INTERIM NUTRITION/HYDRATION 2. NPO 3. ORAL CARE TID TO REDUCE ORAL PATHOGENS 4. SKILLED ST INTERVENTION DOES NOT APPEAR TO BE NEEDED AT THIS TIME. Quincy Corral MD Apr 26, 2020 19:53
--- NOTE | 2020-04-26 20:00 | NUR ---
NURSE NOTES: Patient received in bed, aox3-4, Swedish speaking. IV is intact. Assisted to ambulate to the restroom .Patient had BM, and assisted back to bed safely. Call light in reach. Will continue to monitor. Addendum: 04/26/20 at 2310 by RODRICK WATTS RN RN Disregard note. Wrong patient.
--- NOTE | 2020-04-26 20:00 | NUR ---
NURSE NOTES: Patient received in bed, obtunded,nonverbal. On 100% Fio2 15L NRB mask, continuous o2 monitoring 97-100%. IV is intact and patent. NGT feeding tolerating with 30cc residual. HOB elevated, aspiration precautions. Will continue plan of care.
[2020-04-26] MEDS: Azithromycin 250 MG in D5W 275 ML IV SCH (20:33)
[2020-04-27 03:10] VITALS: BP 134/82
--- NOTE | 2020-04-27 04:55 | NUR ---
NURSE NOTES: Patient had BM. Wound care done. Blood drawn for today's labs.
[2020-04-27] MEDS: Vancomycin 750mg/D5W 275ml IVPB SCH ×4 (05:09→17:48)
[2020-04-27] MEDS: NovoLOG Insulin Flexpen SUBQ SCH ×3 (05:09→18:09)
--- NOTE | 2020-04-27 07:32 | NUR ---
HAND-OFF: Report given to Sharyn BOWLING.
[2020-04-27 07:34] LABS: BASOPHILS % (AUTO) 0.6 % (0.0-2.0); EOSINOPHILS % (AUTO) 0.1 % (0.0-3.0); HEMATOCRIT 38.8 % (42.0-52.0); HEMOGLOBIN 12.5 G/DL (14.2-18.0); LYMPHOCYTES % (AUTO) 16.2 % (20.0-45.0); MEAN CORPUSCULAR VOLUME 97 FL (80-99); MONOCYTES % (AUTO) 7.8 % (1.0-10.0); NEUTROPHILS % (AUTO) 75.3 % (45.0-75.0); PLATELET COUNT 419 K/UL (150-450); RED CELL DISTRIBUTION WIDTH 12.2 % (11.6-14.8); WHITE BLOOD COUNT 10.2 K/UL (4.8-10.8)
--- NOTE | 2020-04-27 07:51 | NUR ---
NURSE NOTES: Report received from TAWNYA Peres. Patient in bed, responsive to verbal and tactile stimuli, non verbal, no SOB, bed in lowest position with alarm on and breaks engaged, IV line on right hand patent and intact, GT feeding in place Glucerna 1.5 @ 45 cc/hr, non rebreather mask in place, on droplet and contact isolation for COVID 19, denies any pain or discomfort at this time, will continue to monitor and proceed with plan of care, call light within reach.
[2020-04-27 07:54] LABS: ALANINE AMINOTRANSFERASE 16 U/L (12-78); ALBUMIN 1.8 G/DL (3.4-5.0); ALBUMIN/GLOBULIN RATIO 0.3 (1.0-2.7); ALKALINE PHOSPHATASE 85 U/L (46-116); ANION GAP 4 mmol/L (5-15); ASPARTATE AMINO TRANSFERASE 24 U/L (15-37); BILIRUBIN,TOTAL 0.3 MG/DL (0.2-1.0); BLOOD UREA NITROGEN 16 mg/dL (7-18); CARBON DIOXIDE 34 MMOL/L (21-32); CHLORIDE 99 MMOL/L (98-107); CREATININE 0.7 MG/DL (0.55-1.30); POTASSIUM 4.7 MMOL/L (3.5-5.1); SODIUM 137 MMOL/L (136-145)
[2020-04-27 08:00] VITALS: BP 130/85
[2020-04-27] MEDS: Heparin 5000 units/ml inj SUBQ SCH ×2 (09:03→21:18)
--- NOTE | 2020-04-27 10:55 | NUR ---
RD ASSESSMENT & RECOMMENDATIONS SEE CARE ACTIVITY FOR COMPLETE ASSESSMENT DAILY ESTIMATED NEEDS: Needs based on wound, underweight, 54kg 30-35 kcals/kg 7841-0131 total kcals 1.25-2 g protein/kg 68-108 g total protein 25-35ml/kcal mL/kg 4207-5590 total fluid mLs NUTRITION DIAGNOSIS: Swallowing difficulty r/t dysphagia as evidenced by AUTOMOBILE MECHANIC ASSISTANT eval, pt not safe for oral diet, now on NGT feeds. CURRENT TF:Glucerna 1.5 @45ml/hr ENTERAL NUTRITION RECOMMENDATIONS: Glucerna 1.5 goal of 45ml/hr x 24 hrs to provide 1080ml, 1620kcal, 89g pro, 820ml free H2O - Maintain Glucerna 1.5 @45ml/hr as tolerated - Advance as tolerated 10ml/hr q4-6 hrs to goal. - Flush per MD. HOB over 30 degrees. ADDITIONAL RECOMMENDATIONS: 1) Monitor BG closely w/ TF's; need for increased insulin coverage 2) wound care w/ NGT feeds: add LYNNE in 4oz H2O BID + Vit C500mg qdaily, MVI w/ min qdaily+ ZnSO4 220mg qd x10 days 3) Calibrated bed scale wts 4) Monitor lytes daily w/ TF, replete as needed
[2020-04-27 12:00] VITALS: BP 150/87
--- NOTE | 2020-04-27 12:30 | Surgery Progress Note ---
Surgery Progress Note Subjective Additional Comments no acute events comfortable stable Objective Last 24 Hour Vital Signs Date Time Temp Pulse Resp B/P (MAP) Pulse Ox O2 Delivery O2 Flow Rate FiO2 04/27/20 09:00 Non-Rebreather 15.0 04/27/20 08:00 98.2 85 18 130/85 (100) 95 04/27/20 03:10 96.6 88 20 134/82 (99) 99 04/26/20 23:34 97.0 91 22 150/81 (104) 100 04/26/20 21:00 Non-Rebreather 15.0 04/26/20 20:00 97.5 92 24 127/69 (88) 100 04/26/20 16:00 98.1 96 20 150/95 (113) 99 I&O Intake and Output 04/26/20 04/27/20 19:00 07:00 Intake Total 1373.708 ml 1646.292 ml Output Total 1250 ml Balance 1373.708 ml 396.292 ml Intake Free Water 70 ml 90 ml IV Total 763.708 ml 1016.292 ml Tube Feeding 540 ml 540 ml Output Urine Total 1250 ml # Bowel Movements 1 1 Dressing: saturated Wound: clean Cardiovascular: RSR Respiratory: clear, decreased breath sounds Abdomen: soft, non-tender, present bowel sounds Extremities: no tenderness, no cyanosis Laboratory Tests Test 04/26/20 17:00 04/26/20 23:31 04/27/20 04:50 Vancomycin Level Trough 4.5 ug/mL (5.0-12.0) L POC Whole Blood Glucose 245 MG/DL (74-106) H White Blood Count 10.2 K/UL (4.8-10.8) Red Blood Count 4.00 M/UL (4.70-6.10) L Hemoglobin 12.5 G/DL (14.2-18.0) L Hematocrit 38.8 % (42.0-52.0) L Mean Corpuscular Volume 97 FL (80-99) Mean Corpuscular Hemoglobin 31.1 PG (27.0-31.0) H Mean Corpuscular Hemoglobin Concent 32.1 G/DL (32.0-36.0) Red Cell Distribution Width 12.2 % (11.6-14.8) Platelet Count 419 K/UL (150-450) Mean Platelet Volume 5.0 FL (6.5-10.1) L Neutrophils (%) (Auto) 75.3 % (45.0-75.0) H Lymphocytes (%) (Auto) 16.2 % (20.0-45.0) L Monocytes (%) (Auto) 7.8 % (1.0-10.0) Eosinophils (%) (Auto) 0.1 % (0.0-3.0) Basophils (%) (Auto) 0.6 % (0.0-2.0) Sodium Level 137 MMOL/L (136-145) Potassium Level 4.7 MMOL/L (3.5-5.1) Chloride Level 99 MMOL/L (98-107) Carbon Dioxide Level 34 MMOL/L (21-32) H Anion Gap 4 mmol/L (5-15) L Blood Urea Nitrogen 16 mg/dL (7-18) Creatinine 0.7 MG/DL (0.55-1.30) Estimat Glomerular Filtration Rate > 60 mL/min (>60) Glucose Level 145 MG/DL (74-106) #H Calcium Level 9.0 MG/DL (8.5-10.1) Total Bilirubin 0.3 MG/DL (0.2-1.0) Aspartate Amino Transf (AST/SGOT) 24 U/L (15-37) Alanine Aminotransferase (ALT/SGPT) 16 U/L (12-78) Alkaline Phosphatase 85 U/L (46-116) Total Protein 7.3 G/DL (6.4-8.2) Albumin 1.8 G/DL (3.4-5.0) L Globulin 5.5 g/dL Albumin/Globulin Ratio 0.3 (1.0-2.7) L Plan Problems: (1) Pneumonia due to COVID-19 virus (2) Severe protein-calorie malnutrition Assessment & Plan: 74-year-old male with significant severe protein calorie malnutrition. BMI is 18. Albumin is low. Skin turgor is poor. On admission identified to have a deep tissue injury and decubitus skin ulcer. Air mattress ordered local wound care plan initiated. Speech therapy evaluation identified. High risk dysphasia aspiration Needs nutritional optimization to allow for wound healing and care plan. We will follow with recommendations thank you for let me participate in patient' s care Turn every 2 hours Offload pressure with pillows Wash sacral wound daily with normal saline apply Thera honey and foam dressing. Bilateral heel protectors DAILY ESTIMATED NEEDS: Needs based on wound, underweight, 54kg 30-35 kcals/kg 8586-8980 total kcals 1.25-2 g protein/kg 68-108 g total protein 25-35ml/kcal mL/kg 6010-7234 total fluid mLs NUTRITION DIAGNOSIS: Swallowing difficulty r/t dysphagia as evidenced by SOFTWARE LEAD marj, pt not safe for oral diet, now on NGT feeds. CURRENT TF:Glucerna 1.5 @45ml/hr ENTERAL NUTRITION RECOMMENDATIONS: Glucerna 1.5 goal of 45ml/hr x 24 hrs to provide 1080ml, 1620kcal, 89g pro, 820ml free H2O - Maintain Glucerna 1.5 @45ml/hr as tolerated - Advance as tolerated 10ml/hr q4-6 hrs to goal. - Flush per MD. HOB over 30 degrees. ADDITIONAL RECOMMENDATIONS: 1) Monitor BG closely w/ TF's; need for increased insulin coverage 2) wound care w/ NGT feeds: add LYNNE in 4oz H2O BID + Vit C500mg qdaily, MVI w/ min qdaily+ ZnSO4 220mg qd x10 days 3) Calibrated bed scale wts 4) Monitor lytes daily w/ TF, replete as needed THE PATIENT WAS POSITIONED UPRIGHT FOR P.O. TRIALS. PATIENT NON/VERBAL, NON/VISUAL TRACKING, NON/RESPONSIVE TO TACTILE/VERBAL CUES. HE IS MOUTH BREATHING, ORAL MUCOSA PRESENTS WITH XEROSTOMIA. HIS DECREASED MENTATION INCLUDED SENSORIMOTOR DEFICITS WHICH RESULTED IN POOR BOLUS ACCEPTANCE, DECREASED AWARENESS OF FOOD IN MOUTH. WHEN PRESENTED WITH 5ML OF NECTAR THICK WATER VIA SPOON, THE PATIENT DEMONSTRATED REPETITIVE LINGUAL PUMPING IN HIS ATTEMPT TO TRIGGER THE PHARYNGEAL PHASE OF THE SWALLOW. HYOLARYNGEAL ELEVATION WAS PALPATED AND DETERMINED TO BE INSUFFICIENT FOR AIRWAY PROTECTION. AFTER THE SECOND P.O. TRIAL WITH THE NTL, THE PATIENT DEMONSTRATED A PROLONGED NON/ CLEARING, NON/PRODUCTIVE COUGH, WITH 3 TRIALS OF PUREE PRESENTED IN 5 ML AMOUNTS , THE PATIENT DEMONSTRATED ORAL STASIS, AND RESIDUE HAD TO BE SUCTIONED TO CLEAR HIS MOUTH. ORAL CARE WAS PROVIDED POST SUCTIONING. PHARYNGEAL PHASE OF SWALLOW SEVERELY DELAYED. CLEARLY, THIS GENTLEMAN PRESENTS WITH SEVERE OROPHARYNGEAL DYSPHAGIA, ALONG WITH A HISTORY OF SUBOPTIMAL P.O. INTAKE/LOSS OF APPETITE RECOMMENDATIONS 1. CONSIDER NON/ORAL FEEDING MANAGEMENT FOR INTERIM NUTRITION/HYDRATION 2. NPO 3. ORAL CARE TID TO REDUCE ORAL PATHOGENS 4. SKILLED ST INTERVENTION DOES NOT APPEAR TO BE NEEDED AT THIS TIME. (3) At high risk for aspiration (4) Respiratory distress (5) COVID-19 Assessment & Plan: + (6) History of diabetes mellitus (7) Alzheimer's dementia (8) Decubitus skin ulcer Assessment & Plan: Pt deconditioned and presents with multiple Pressure injuries on admission. Non-Blanchable erythema without fluctuance or induration noted to R elbow. Open DTPI Sacrum with full thickness Ulcer (L)9.5cm x (W)10.5cm.Wound is irregular shaped and extends to apex of anus. Base of wound is indurated and purpuric surrounding areas at base of wound with full thickness ulcer with scattered areas of soft necrosis (60%), 40% maldonado. Bony prominence is palpable at base of wound.Small amt sanguineous exudate noted . No odor noted . Periwound Skin is blanchable but Bilat trochanteric and iliac areas, including Ischial tuberosities are at high risks for pressure injuries secondary to bony protrusion and poor tissue perfusion. DTPI R Ischium. Base of pressure injury is maroon and indurated(L)3.4cm x (W) 7cm. DTPI R Heel (L)4cm x (W)9cm. Base of Pressure injury is fluctuant, maroon with small purpuric area.No evidence of ski breakdown periwound. L heel is boggy with non-Blanchable erythema. Tx.Plan: Cleanse Sacral wound with Saline. Apply TheraHoney. Apply Moisture Barrier Paste periwound. Cover with Optifoam drsgs. Change Daily and prn. Apply Cavilon Skin Barrier to R ischium. Cover with Optifoam drsg. Change every 3 days and prn. Apply Cavilon Skin Barrier to At Risks Bony Prominences. Cover areas with Optifoam drsgs as needed. Apply Cavilon Skin Barrier to both heels and Malleoli. Cover each site with Optifoam drsg. Change every 7 days and Prn. Reposition at least every 2hours or as tolerated. Off-load heels with Pillow. Air Fluidized Mattress. (9) Dysphagia Assessment & Plan: ng placed unlikey to pass swallow eval low bmi consider peg polst noted Darian Ragsdale Apr 27, 2020 12:30
--- NOTE | 2020-04-27 12:59 | Infectious Diseases Prog Note ---
Assessment/Plan Assessment: Recent COVID19 positive (unknown date of diagnosis) Pneumonia -bacterial superimposed w MRSA (pt bacteremic) Acute hypoxic resp failure - s/p NC, now on NRB -04/24 CXR: Slightly improved bilateral infiltrates, over 2 days -04/22 Rapid COVID + CXR: Bilateral infiltrates, likely pneumonia, possibly viral. Correlate with clinical findings MRSA and CONS bacteremia -04/26 2d echo(limited study): no vegetations seen -04/22 Bcx 2/4 S. epi; 04/23 Bcx 2/4 MRSA; 04/26 Bcx 1/2 GPC clusters Afebrile- Tm 99.5 No leukocytosis -04/22 u/a neg Dementia seizure disorder Dm2 DNR status [place] resident ([facility]) Plan: -empiric Cefepime #5(abx d #6/7) -Cont IV Vancomycin #5; will need mininum of 14 days from 1st neg Bcx -will dc decadron as bacteremic -04/26 SP Azithromcin #5 -04/23 SP Ceftriaxone #2 -04/22 SP ZOsyn x1 -f/u cx -Monitor CBC/CMP, temperatures -COVID19 isolation -Will not give Remdesevir at this point given unclear date of diagnosis -If improved respiratory status may need AN -Bcx x 2, Sp cx Thank you for this consultation. Will continue to follow along with you. Discussed with RN. Subjective Allergies: Coded Allergies: No Known Allergies (Unverified , 04/22/20) afebrile now on NRB remains bacteremic no leukcoytosis Objective Last 24 Hour Vital Signs Date Time Temp Pulse Resp B/P (MAP) Pulse Ox O2 Delivery O2 Flow Rate FiO2 04/27/20 09:00 Non-Rebreather 15.0 04/27/20 08:00 98.2 85 18 130/85 (100) 95 04/27/20 03:10 96.6 88 20 134/82 (99) 99 04/26/20 23:34 97.0 91 22 150/81 (104) 100 04/26/20 21:00 Non-Rebreather 15.0 04/26/20 20:00 97.5 92 24 127/69 (88) 100 04/26/20 16:00 98.1 96 20 150/95 (113) 99 Height (Feet): 5 Height (Inches): 8.00 Weight (Pounds): 119 General Appearance: cachetic, thin HEENT: normocephalic, atraumatic Neck: non-tender, normal alignment, supple Respiratory/Chest: chest wall non-tender, rhonchi - left, rhonchi - right Cardiovascular/Chest: normal peripheral pulses, normal rate Abdomen: normal bowel sounds, non tender Microbiology Date/Time Source Procedure Growth Status 04/26/20 05:30 Blood Blood Culture - Preliminary Resulted Laboratory Tests Test 04/26/20 17:00 04/26/20 23:31 04/27/20 04:50 Vancomycin Level Trough 4.5 ug/mL (5.0-12.0) L POC Whole Blood Glucose 245 MG/DL (74-106) H White Blood Count 10.2 K/UL (4.8-10.8) Red Blood Count 4.00 M/UL (4.70-6.10) L Hemoglobin 12.5 G/DL (14.2-18.0) L Hematocrit 38.8 % (42.0-52.0) L Mean Corpuscular Volume 97 FL (80-99) Mean Corpuscular Hemoglobin 31.1 PG (27.0-31.0) H Mean Corpuscular Hemoglobin Concent 32.1 G/DL (32.0-36.0) Red Cell Distribution Width 12.2 % (11.6-14.8) Platelet Count 419 K/UL (150-450) Mean Platelet Volume 5.0 FL (6.5-10.1) L Neutrophils (%) (Auto) 75.3 % (45.0-75.0) H Lymphocytes (%) (Auto) 16.2 % (20.0-45.0) L Monocytes (%) (Auto) 7.8 % (1.0-10.0) Eosinophils (%) (Auto) 0.1 % (0.0-3.0) Basophils (%) (Auto) 0.6 % (0.0-2.0) Sodium Level 137 MMOL/L (136-145) Potassium Level 4.7 MMOL/L (3.5-5.1) Chloride Level 99 MMOL/L (98-107) Carbon Dioxide Level 34 MMOL/L (21-32) H Anion Gap 4 mmol/L (5-15) L Blood Urea Nitrogen 16 mg/dL (7-18) Creatinine 0.7 MG/DL (0.55-1.30) Estimat Glomerular Filtration Rate > 60 mL/min (>60) Glucose Level 145 MG/DL (74-106) #H Calcium Level 9.0 MG/DL (8.5-10.1) Total Bilirubin 0.3 MG/DL (0.2-1.0) Aspartate Amino Transf (AST/SGOT) 24 U/L (15-37) Alanine Aminotransferase (ALT/SGPT) 16 U/L (12-78) Alkaline Phosphatase 85 U/L (46-116) Total Protein 7.3 G/DL (6.4-8.2) Albumin 1.8 G/DL (3.4-5.0) L Globulin 5.5 g/dL Albumin/Globulin Ratio 0.3 (1.0-2.7) L Current Medications Medications (Trade) Dose Ordered Sig/Andrade Route PRN Reason Start Time Stop Time Status Last Admin Dose Admin Acetaminophen (Tylenol) 650 mg Q4H PRN ORAL FEVER 04/24/20 18:30 05/22/20 18:29 Albuterol/ Ipratropium (Combivent Respimat) 1 puff Q4H PRN INH Shortness of Breath 04/24/20 18:30 05/22/20 18:29 Ascorbic Acid (Vitamin C) 500 mg DAILY ORAL 04/28/20 09:00 05/28/20 08:59 Azithromycin 250 mg/Dextrose 275 ml @ 275 mls/hr Q24HRS IV 04/24/20 20:00 04/27/20 19:59 04/26/20 20:33 Cefepime HCl 1 gm/ Dextrose 55 ml @ 110 mls/hr Q24H IVPB 04/25/20 16:00 04/30/20 15:59 04/26/20 15:19 Dexamethasone (Decadron) 4 mg DAILY ORAL 04/25/20 09:00 05/02/20 08:59 04/27/20 09:01 Dextrose (Dextrose 50%) 25 ml Q30M PRN IV Hypoglycemia 04/24/20 18:15 07/21/20 16:14 Dextrose (Dextrose 50%) 50 ml Q30M PRN IV Hypoglycemia 04/24/20 18:15 07/21/20 16:14 Heparin Sodium (Porcine) (Heparin 5000 units/ml) 5,000 units EVERY 12 HOURS SUBQ 04/24/20 21:00 06/06/20 20:59 04/27/20 09:03 Insulin Aspart (NovoLOG) Q6HR SUBQ 04/26/20 18:00 07/21/20 16:29 04/27/20 11:50 Levetiracetam (Keppra) 500 mg EVERY 12 HOURS ORAL 04/24/20 21:00 06/06/20 20:59 04/27/20 09:00 Multivitamins (Multivitamins) 1 tab DAILY ORAL 04/28/20 09:00 05/28/20 08:59 Ondansetron HCl (Zofran) 4 mg Q6H PRN IVP Nausea & Vomiting 04/24/20 18:30 05/22/20 18:29 Polyethylene Glycol (Miralax) 17 gm DAILYPRN PRN ORAL Constipation 04/24/20 18:30 05/24/20 18:29 Promethazine HCl/ Codeine (Phenergan with Codeine) 5 ml Q6H PRN ORAL cough 04/24/20 18:30 05/22/20 18:29 Sodium Chloride 1,000 ml @ 50 mls/hr Q20H IV 04/26/20 18:22 05/26/20 18:21 04/26/20 18:24 Vancomycin HCl (Vanco pharmacy to dose) 1 ea DAILY PRN MISC Per rx protocol 04/25/20 09:00 05/23/20 14:44 Vancomycin HCl 750 mg/Dextrose 275 ml @ 183.333 mls/hr Q12H IVPB 04/27/20 06:00 05/02/20 05:59 04/27/20 05:09 Zinc Sulfate (Zinc Sulfate) 220 mg DAILY ORAL 04/28/20 09:00 07/27/20 08:59 Linsey Barry M.D. Apr 27, 2020 12:59
--- NOTE | 2020-04-27 13:49 | Pulmonology Progress Note ---
Subjective ROS Limited/Unobtainable: No Constitutional: Denies: no symptoms, fever, chills, fatigue, anorexia, drenching sweats, other HEENT: Repors: no symptoms Allergies: Coded Allergies: No Known Allergies (Unverified , 04/22/20) Objective Last 24 Hour Vital Signs Date Time Temp Pulse Resp B/P (MAP) Pulse Ox O2 Delivery O2 Flow Rate FiO2 04/27/20 12:00 97.5 100 18 150/87 (108) 100 04/27/20 09:00 Non-Rebreather 15.0 04/27/20 08:00 98.2 85 18 130/85 (100) 95 04/27/20 03:10 96.6 88 20 134/82 (99) 99 04/26/20 23:34 97.0 91 22 150/81 (104) 100 04/26/20 21:00 Non-Rebreather 15.0 04/26/20 20:00 97.5 92 24 127/69 (88) 100 04/26/20 16:00 98.1 96 20 150/95 (113) 99 Intake and Output 04/26/20 04/27/20 19:00 07:00 Intake Total 1373.708 ml 1646.292 ml Output Total 1250 ml Balance 1373.708 ml 396.292 ml Intake Free Water 70 ml 90 ml IV Total 763.708 ml 1016.292 ml Tube Feeding 540 ml 540 ml Output Urine Total 1250 ml # Bowel Movements 1 1 General Appearance: cachetic HEENT: normocephalic, atraumatic, anicteric, mucous membranes moist Respiratory: chest wall non-tender, rhonchi - left, rhonchi - right Cardiovascular: normal peripheral pulses, normal rate, regular rhythm Abdomen: normal bowel sounds, soft, non tender Genitourinary: normal external genitalia Skin: no rash 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 normal Microbiology Date/Time Source Procedure Growth Status 04/26/20 05:30 Blood Blood Culture - Preliminary Resulted Laboratory Tests 04/26/20 17:00: Vancomycin Level Trough 4.5L 04/26/20 23:31: POC Whole Blood Glucose 245H 04/27/20 04:50: White Blood Count 10.2, Red Blood Count 4.00L, Hemoglobin 12.5L, Hematocrit 38.8L, Mean Corpuscular Volume 97, Mean Corpuscular Hemoglobin 31.1H, Mean Corpuscular Hemoglobin Concent 32.1, Red Cell Distribution Width 12.2, Platelet Count 419, Mean Platelet Volume 5.0L, Neutrophils (%) (Auto) 75.3H, Lymphocytes (%) (Auto) 16.2L, Monocytes (%) (Auto) 7.8, Eosinophils (%) (Auto) 0.1, Basophils (%) (Auto) 0.6, Sodium Level 137, Potassium Level 4.7, Chloride Level 99, Carbon Dioxide Level 34H, Anion Gap 4L, Blood Urea Nitrogen 16, Creatinine 0.7, Estimat Glomerular Filtration Rate > 60, Glucose Level 145#H, Calcium Level 9.0, Total Bilirubin 0.3, Aspartate Amino Transf (AST/SGOT) 24, Alanine Aminotransferase (ALT/SGPT) 16, Alkaline Phosphatase 85, Total Protein 7.3, Albumin 1.8L, Globulin 5.5, Albumin/Globulin Ratio 0.3L Current Medications Medications (Trade) Dose Ordered Sig/Andrade Route PRN Reason Start Time Stop Time Status Last Admin Dose Admin Acetaminophen (Tylenol) 650 mg Q4H PRN ORAL FEVER 04/24/20 18:30 05/22/20 18:29 Albuterol/ Ipratropium (Combivent Respimat) 1 puff Q4H PRN INH Shortness of Breath 04/24/20 18:30 05/22/20 18:29 Ascorbic Acid (Vitamin C) 500 mg DAILY ORAL 04/28/20 09:00 05/28/20 08:59 Cefepime HCl 1 gm/ Dextrose 55 ml @ 110 mls/hr Q24H IVPB 04/25/20 16:00 04/30/20 15:59 04/26/20 15:19 Dextrose (Dextrose 50%) 25 ml Q30M PRN IV Hypoglycemia 04/24/20 18:15 07/21/20 16:14 Dextrose (Dextrose 50%) 50 ml Q30M PRN IV Hypoglycemia 04/24/20 18:15 07/21/20 16:14 Heparin Sodium (Porcine) (Heparin 5000 units/ml) 5,000 units EVERY 12 HOURS SUBQ 04/24/20 21:00 06/06/20 20:59 04/27/20 09:03 Insulin Aspart (NovoLOG) Q6HR SUBQ 04/26/20 18:00 07/21/20 16:29 04/27/20 11:50 Levetiracetam (Keppra) 500 mg EVERY 12 HOURS ORAL 04/24/20 21:00 06/06/20 20:59 04/27/20 09:00 Multivitamins (Multivitamins) 1 tab DAILY ORAL 04/28/20 09:00 05/28/20 08:59 Ondansetron HCl (Zofran) 4 mg Q6H PRN IVP Nausea & Vomiting 04/24/20 18:30 05/22/20 18:29 Polyethylene Glycol (Miralax) 17 gm DAILYPRN PRN ORAL Constipation 04/24/20 18:30 05/24/20 18:29 Promethazine HCl/ Codeine (Phenergan with Codeine) 5 ml Q6H PRN ORAL cough 04/24/20 18:30 05/22/20 18:29 Sodium Chloride 1,000 ml @ 50 mls/hr Q20H IV 04/26/20 18:22 05/26/20 18:21 04/26/20 18:24 Vancomycin HCl (Vanco pharmacy to dose) 1 ea DAILY PRN MISC Per rx protocol 04/25/20 09:00 05/23/20 14:44 Vancomycin HCl 750 mg/Dextrose 275 ml @ 183.333 mls/hr Q12H IVPB 04/27/20 06:00 05/02/20 05:59 04/27/20 05:09 Zinc Sulfate (Zinc Sulfate) 220 mg DAILY ORAL 04/28/20 09:00 07/27/20 08:59 Assessment/Plan Problems: (1) Pneumonia due to COVID-19 virus (2) Bacteremia (3) At high risk for aspiration (4) Severe protein-calorie malnutrition (5) History of diabetes mellitus (6) Alzheimer's dementia Assessment/Plan all cultures reviewed. BC positive continue abx NG tube for feeding respiratory treatment titrate fio2 to sat of 92% swallow study reviewed: RECOMMENDATIONS 1. CONSIDER NON/ORAL FEEDING MANAGEMENT FOR INTERIM NUTRITION/HYDRATION 2. NPO 3. ORAL CARE TID TO REDUCE ORAL PATHOGENS 4. SKILLED ST INTERVENTION DOES NOT APPEAR TO BE NEEDED AT THIS TIME. Quincy Corral MD Apr 27, 2020 13:49
--- NOTE | 2020-04-27 14:32 | NUR ---
Social Work This SW received a consult to assist with end of life discussion. Patient is currently DNR. This SW left a message with Daughter, Priya @ [phone] (awaiting call return at this time). SW to follow.
--- NOTE | 2020-04-27 15:33 | NUR ---
CASE MANAGEMENT: REVIEW SI: COVID-19 PNA T 96.6 HR 100 RR 18 BP 150/87 SAT 95% NON-REBREATHER FLOW RATE 15.0 GLUCOSE 145 IS: NS IVF @ 50ML/HR CEFEPIME IV Q24HR VANCOMYCIN IV Q12HR NG TUBE FEEDING END OF LIFE DISCUSSION WITH FAMILY MED/SURG STATUS DCP: PATIENT IS FROM [facility]
[2020-04-27] MEDS: Cefepime HCl 1 GM in D5W 55 ML IVPB SCH (15:59)
[2020-04-27 16:00] VITALS: BP 155/82
--- NOTE | 2020-04-27 16:04 | NUR ---
Social Work This SW received call back from daughter, Priya who is confirmed DNR for patient. Daughter requesting more information from the MD regarding prognosis before making any further decisions regarding Hospice at this time. Dr. Keller informed to contact daughter at work tomorrow AM @ [phone]. After hours, daughter to be reached at [phone].
--- NOTE | 2020-04-27 19:45 | NUR ---
HAND-OFF: Report given to TAWNYA Melendez.
[2020-04-27 20:00] VITALS: BP 147/78
--- NOTE | 2020-04-27 20:00 | NUR ---
NURSE NOTES: Patient received in bed, obtunded,nonverbal, On 15L NRB mask, O2 monitoring 97 % NGT feeding tolerating with 30 ml residual, flushed, HOB elevated, aspiration precautions in place, suction at bedside. Will continue plan of care. Addendum: 04/28/20 at 0831 by Nora Valle RN Bed is locked in lowest position, locked, bed alarm on
[2020-04-28] VITALS: BP 145/78
[2020-04-28] MEDS: NovoLOG Insulin Flexpen SUBQ SCH ×4 (01:30→16:53)
[2020-04-28 04:17] VITALS: BP 140/78
[2020-04-28 08:00] VITALS: BP 155/86
[2020-04-28] MEDS: Vancomycin 1gm/D5W 275ml IVPB SCH ×4 (08:00→12:23)
--- NOTE | 2020-04-28 08:17 | NUR ---
NURSE NOTES: Received report from deandre Sheldon RN. Patient is in stable condition.
--- NOTE | 2020-04-28 08:35 | NUR ---
RADIOLOGY DEPT., CHEST X-RAY DONE.-P.DYE
[2020-04-28] MEDS: Zinc Sulfate 220mg ORAL SCH (09:36)
[2020-04-28] MEDS: Ascorbic Acid 500mg tab ORAL SCH (09:36)
[2020-04-28] MEDS: Heparin 5000 units/ml inj SUBQ SCH ×2 (09:40→21:24)
--- NOTE | 2020-04-28 11:00 | Surgery Progress Note ---
Surgery Progress Note Subjective Additional Comments ill appearing no n/v/f/c On 15L NRB mask, NGT feeding tolerating Objective Last 24 Hour Vital Signs Date Time Temp Pulse Resp B/P (MAP) Pulse Ox O2 Delivery O2 Flow Rate FiO2 04/28/20 04:17 98.1 113 26 140/78 (98) 98 04/28/20 00:00 98.2 100 28 145/78 (100) 100 04/27/20 21:00 Non-Rebreather 15.0 04/27/20 20:00 98.2 96 28 147/78 (101) 99 04/27/20 16:00 98.0 99 18 155/82 (106) 100 04/27/20 12:00 97.5 100 18 150/87 (108) 100 I&O Intake and Output 04/27/20 04/28/20 19:00 07:00 Intake Total 615 ml Output Total 701 ml Balance 615 ml -701 ml Intake Free Water 10 ml IV Total 110 ml Tube Feeding 495 ml Output Urine Total 700 ml Stool Total 1 ml # Voids 3 # Bowel Movements 1 Dressing: saturated Cardiovascular: RSR Respiratory: decreased breath sounds Abdomen: soft, non-tender, present bowel sounds Extremities: no tenderness, no cyanosis, other Laboratory Tests Test 04/28/20 04:50 Vancomycin Level Trough 12.4 ug/mL (5.0-12.0) H Plan Problems: (1) Pneumonia due to COVID-19 virus (2) Severe protein-calorie malnutrition Assessment & Plan: 74-year-old male with significant severe protein calorie malnutrition. BMI is 18. Albumin is low. Skin turgor is poor. On admission identified to have a deep tissue injury and decubitus skin ulcer. Air mattress ordered local wound care plan initiated. Speech therapy evaluation identified. High risk dysphasia aspiration Needs nutritional optimization to allow for wound healing and care plan. We will follow with recommendations thank you for let me participate in patient' s care Turn every 2 hours Offload pressure with pillows Wash sacral wound daily with normal saline apply Thera honey and foam dressing. Bilateral heel protectors DAILY ESTIMATED NEEDS: Needs based on wound, underweight, 54kg 30-35 kcals/kg 4995-6278 total kcals 1.25-2 g protein/kg 68-108 g total protein 25-35ml/kcal mL/kg 4763-0271 total fluid mLs NUTRITION DIAGNOSIS: Swallowing difficulty r/t dysphagia as evidenced by BOILER CLEANER marj pt not safe for oral diet, now on NGT feeds. CURRENT TF:Glucerna 1.5 @45ml/hr ENTERAL NUTRITION RECOMMENDATIONS: Glucerna 1.5 goal of 45ml/hr x 24 hrs to provide 1080ml, 1620kcal, 89g pro, 820ml free H2O - Maintain Glucerna 1.5 @45ml/hr as tolerated - Advance as tolerated 10ml/hr q4-6 hrs to goal. - Flush per MD. HOB over 30 degrees. ADDITIONAL RECOMMENDATIONS: 1) Monitor BG closely w/ TF's; need for increased insulin coverage 2) wound care w/ NGT feeds: add LYNNE in 4oz H2O BID + Vit C500mg qdaily, MVI w/ min qdaily+ ZnSO4 220mg qd x10 days 3) Calibrated bed scale wts 4) Monitor lytes daily w/ TF, replete as needed THE PATIENT WAS POSITIONED UPRIGHT FOR P.O. TRIALS. PATIENT NON/VERBAL, NON/VISUAL TRACKING, NON/RESPONSIVE TO TACTILE/VERBAL CUES. HE IS MOUTH BREATHING, ORAL MUCOSA PRESENTS WITH XEROSTOMIA. HIS DECREASED MENTATION INCLUDED SENSORIMOTOR DEFICITS WHICH RESULTED IN POOR BOLUS ACCEPTANCE, DECREASED AWARENESS OF FOOD IN MOUTH. WHEN PRESENTED WITH 5ML OF NECTAR THICK WATER VIA SPOON, THE PATIENT DEMONSTRATED REPETITIVE LINGUAL PUMPING IN HIS ATTEMPT TO TRIGGER THE PHARYNGEAL PHASE OF THE SWALLOW. HYOLARYNGEAL ELEVATION WAS PALPATED AND DETERMINED TO BE INSUFFICIENT FOR AIRWAY PROTECTION. AFTER THE SECOND P.O. TRIAL WITH THE NTL, THE PATIENT DEMONSTRATED A PROLONGED NON/ CLEARING, NON/PRODUCTIVE COUGH, WITH 3 TRIALS OF PUREE PRESENTED IN 5 ML AMOUNTS , THE PATIENT DEMONSTRATED ORAL STASIS, AND RESIDUE HAD TO BE SUCTIONED TO CLEAR HIS MOUTH. ORAL CARE WAS PROVIDED POST SUCTIONING. PHARYNGEAL PHASE OF SWALLOW SEVERELY DELAYED. CLEARLY, THIS GENTLEMAN PRESENTS WITH SEVERE OROPHARYNGEAL DYSPHAGIA, ALONG WITH A HISTORY OF SUBOPTIMAL P.O. INTAKE/LOSS OF APPETITE RECOMMENDATIONS 1. CONSIDER NON/ORAL FEEDING MANAGEMENT FOR INTERIM NUTRITION/HYDRATION 2. NPO 3. ORAL CARE TID TO REDUCE ORAL PATHOGENS 4. SKILLED ST INTERVENTION DOES NOT APPEAR TO BE NEEDED AT THIS TIME. (3) At high risk for aspiration (4) Respiratory distress (5) COVID-19 Assessment & Plan: + (6) History of diabetes mellitus (7) Alzheimer's dementia (8) Decubitus skin ulcer Assessment & Plan: Pt deconditioned and presents with multiple Pressure injuries on admission. Non-Blanchable erythema without fluctuance or induration noted to R elbow. Open DTPI Sacrum with full thickness Ulcer (L)9.5cm x (W)10.5cm.Wound is irregular shaped and extends to apex of anus. Base of wound is indurated and purpuric surrounding areas at base of wound with full thickness ulcer with scattered areas of soft necrosis (60%), 40% maldonado. Bony prominence is palpable at base of wound.Small amt sanguineous exudate noted . No odor noted . Periwound Skin is blanchable but Bilat trochanteric and iliac areas, including Ischial tuberosities are at high risks for pressure injuries secondary to bony protrusion and poor tissue perfusion. DTPI R Ischium. Base of pressure injury is maroon and indurated(L)3.4cm x (W) 7cm. DTPI R Heel (L)4cm x (W)9cm. Base of Pressure injury is fluctuant, maroon with small purpuric area.No evidence of ski breakdown periwound. L heel is boggy with non-Blanchable erythema. Tx.Plan: Cleanse Sacral wound with Saline. Apply TheraHoney. Apply Moisture Barrier Paste periwound. Cover with Optifoam drsgs. Change Daily and prn. Apply Cavilon Skin Barrier to R ischium. Cover with Optifoam drsg. Change every 3 days and prn. Apply Cavilon Skin Barrier to At Risks Bony Prominences. Cover areas with Optifoam drsgs as needed. Apply Cavilon Skin Barrier to both heels and Malleoli. Cover each site with Optifoam drsg. Change every 7 days and Prn. Reposition at least every 2hours or as tolerated. Off-load heels with Pillow. Air Fluidized Mattress. (9) Dysphagia Assessment & Plan: ng placed unlikey to pass swallow eval low bmi consider peg polst noted Darian Ragsdale Apr 28, 2020 11:00
--- NOTE | 2020-04-28 11:05 | Pulmonology Progress Note ---
Subjective ROS Limited/Unobtainable: No Constitutional: Denies: no symptoms, fever, chills, fatigue, anorexia, drenching sweats, other HEENT: Repors: no symptoms Allergies: Coded Allergies: No Known Allergies (Unverified , 04/22/20) Subjective on 100% NRM afebrile Objective Last 24 Hour Vital Signs Date Time Temp Pulse Resp B/P (MAP) Pulse Ox O2 Delivery O2 Flow Rate FiO2 04/28/20 04:17 98.1 113 26 140/78 (98) 98 04/28/20 00:00 98.2 100 28 145/78 (100) 100 04/27/20 21:00 Non-Rebreather 15.0 04/27/20 20:00 98.2 96 28 147/78 (101) 99 04/27/20 16:00 98.0 99 18 155/82 (106) 100 04/27/20 12:00 97.5 100 18 150/87 (108) 100 Intake and Output 04/27/20 04/28/20 19:00 07:00 Intake Total 615 ml Output Total 701 ml Balance 615 ml -701 ml Intake Free Water 10 ml IV Total 110 ml Tube Feeding 495 ml Output Urine Total 700 ml Stool Total 1 ml # Voids 3 # Bowel Movements 1 General Appearance: no acute distress, cachetic - bedridden, poorly responsive , other HEENT: normocephalic, atraumatic, anicteric, other - OP with 100% NRM, NGT Respiratory: rhonchi - left, rhonchi - right Cardiovascular: normal peripheral pulses, normal rate Abdomen: normal bowel sounds, soft, non tender Genitourinary: normal external genitalia Skin: no rash Neurologic: abnormal gait, other - poorly responsive Musculoskeletal: atrophy - BLE Microbiology Date/Time Source Procedure Growth Status 04/26/20 05:30 Blood Blood Culture - Preliminary NO GROWTH AFTER 24 HOURS Resulted 04/26/20 05:30 Blood Blood Culture - Preliminary Resulted Laboratory Tests 04/28/20 04:50: Vancomycin Level Trough 12.4H Current Medications Medications (Trade) Dose Ordered Sig/Andrade Route PRN Reason Start Time Stop Time Status Last Admin Dose Admin Acetaminophen (Tylenol) 650 mg Q4H PRN ORAL FEVER 04/24/20 18:30 05/22/20 18:29 Albuterol/ Ipratropium (Combivent Respimat) 1 puff Q4H PRN INH Shortness of Breath 04/24/20 18:30 05/22/20 18:29 Ascorbic Acid (Vitamin C) 500 mg DAILY ORAL 04/28/20 09:00 05/28/20 08:59 04/28/20 09:36 Cefepime HCl 1 gm/ Dextrose 55 ml @ 110 mls/hr Q24H IVPB 04/25/20 16:00 04/30/20 15:59 04/27/20 15:59 Dextrose (Dextrose 50%) 25 ml Q30M PRN IV Hypoglycemia 04/24/20 18:15 07/21/20 16:14 Dextrose (Dextrose 50%) 50 ml Q30M PRN IV Hypoglycemia 04/24/20 18:15 07/21/20 16:14 Heparin Sodium (Porcine) (Heparin 5000 units/ml) 5,000 units EVERY 12 HOURS SUBQ 04/24/20 21:00 06/06/20 20:59 04/28/20 09:40 Insulin Aspart (NovoLOG) Q6HR SUBQ 04/26/20 18:00 07/21/20 16:29 04/28/20 08:03 Levetiracetam (Keppra) 500 mg EVERY 12 HOURS ORAL 04/24/20 21:00 06/06/20 20:59 04/28/20 09:36 Multivitamins (Multivitamins) 1 tab DAILY ORAL 04/28/20 09:00 05/28/20 08:59 04/28/20 09:36 Ondansetron HCl (Zofran) 4 mg Q6H PRN IVP Nausea & Vomiting 04/24/20 18:30 05/22/20 18:29 Polyethylene Glycol (Miralax) 17 gm DAILYPRN PRN ORAL Constipation 04/24/20 18:30 05/24/20 18:29 Promethazine HCl/ Codeine (Phenergan with Codeine) 5 ml Q6H PRN ORAL cough 04/24/20 18:30 05/22/20 18:29 Sodium Chloride 1,000 ml @ 50 mls/hr Q20H IV 04/26/20 18:22 05/26/20 18:21 04/27/20 15:10 Vancomycin HCl (Vanco pharmacy to dose) 1 ea DAILY PRN MISC Per rx protocol 04/25/20 09:00 05/23/20 14:44 Vancomycin HCl 1 gm/Dextrose 275 ml @ 183.708 mls/hr Q12H IVPB 04/28/20 08:00 05/03/20 07:59 Zinc Sulfate (Zinc Sulfate) 220 mg DAILY ORAL 04/28/20 09:00 07/27/20 08:59 04/28/20 09:36 Assessment/Plan Assessment/Plan ASSESSMENT Acute hypoxemic respiratory failure requiring 100% NRM Pneumonia Recent diagnosis of COVID-19 / unknown date MRSA and CONS bacteremia Seizure disorder Diabetes mellitus Dementia DNR status PLAN OF CARE MS floor isolation ( although date of diagnosis unknown) O2 titrate to keep sat above 92%, currently on 100% NRM MDI s/p steroids BCX + persistent MRSA ( and initial CONS) last BCX 04/26 10/03 [facility] fup with BCX for clearance -per ID abx as per ID recs, will need at least 14 days of Vanco after 1 st NGT BCX ECHO with limited study, no vegetation CXR for this am pending a/tussive prn supportive care , vit C, Zn gentle IVF DVT prophylaxis asp precautions, NGT feeding seizure precautions, continue Keppra BS management with SSI DNR/DNI status discussed with dr Powers patient's condition this am , all questions answered , possible hospice services explained case discussed and evaluated by supervising physician Sarai Rod NP Apr 28, 2020 11:05
[2020-04-28 12:00] VITALS: BP 131/74
--- NOTE | 2020-04-28 12:52 | Infectious Diseases Prog Note ---
Assessment/Plan Assessment: Recent COVID19 positive (unknown date of diagnosis) Pneumonia -bacterial superimposed w MRSA (pt bacteremic) Acute hypoxic resp failure - s/p NC, now on NRB -04/24 CXR: Slightly improved bilateral infiltrates, over 2 days -04/22 Rapid COVID + CXR: Bilateral infiltrates, likely pneumonia, possibly viral. Correlate with clinical findings MRSA and CONS bacteremia; persistent bacteremia -04/26 2d echo(limited study): no vegetations seen -04/22 Bcx 2/4 S. epi; 04/23 Bcx 2/4 MRSA; 04/26 Bcx 1/2 GPC clusters Afebrile- Tm 99.5 No leukocytosis -04/22 u/a neg Dementia seizure disorder Dm2 DNR status [facility] resident ([facility]) Plan: -empiric Cefepime #6(abx d #04/07) -Cont IV Vancomycin #6; will need mininum of 14 days from 1st neg Bcx -04/27 SP Decadron #5 -04/26 SP Azithromcin #5 -04/23 SP Ceftriaxone #2 -04/22 SP ZOsyn x1 -f/u cx -Monitor CBC/CMP, temperatures -COVID19 isolation -Will not give Remdesevir at this point given unclear date of diagnosis -If improved respiratory status may need AN -f/u Bcx x 2, Sp cx -f/u CXR Thank you for this consultation. Will continue to follow along with you. Discussed with RN. Subjective Allergies: Coded Allergies: No Known Allergies (Unverified , 04/22/20) afebrile remains on NRB remains bacteremic no leukcoytosis Objective Last 24 Hour Vital Signs Date Time Temp Pulse Resp B/P (MAP) Pulse Ox O2 Delivery O2 Flow Rate FiO2 04/28/20 09:00 Non-Rebreather 15.0 04/28/20 08:00 98.2 96 18 155/86 (109) 98 04/28/20 04:17 98.1 113 26 140/78 (98) 98 04/28/20 00:00 98.2 100 28 145/78 (100) 100 04/27/20 21:00 Non-Rebreather 15.0 04/27/20 20:00 98.2 96 28 147/78 (101) 99 04/27/20 16:00 98.0 99 18 155/82 (106) 100 Height (Feet): 5 Height (Inches): 8.00 Weight (Pounds): 119 General Appearance: cachetic, thin HEENT: normocephalic, atraumatic Neck: non-tender, normal alignment, supple Respiratory/Chest: chest wall non-tender, rhonchi - left, rhonchi - right Cardiovascular/Chest: normal peripheral pulses, normal rate Abdomen: normal bowel sounds, non tender Microbiology Date/Time Source Procedure Growth Status 04/26/20 05:30 Blood Blood Culture - Preliminary NO GROWTH AFTER 24 HOURS Resulted 04/26/20 05:30 Blood Blood Culture - Preliminary Resulted Laboratory Tests Test 04/28/20 04:50 Vancomycin Level Trough 12.4 ug/mL (5.0-12.0) H Current Medications Medications (Trade) Dose Ordered Sig/Andrade Route PRN Reason Start Time Stop Time Status Last Admin Dose Admin Acetaminophen (Tylenol) 650 mg Q4H PRN ORAL FEVER 04/24/20 18:30 05/22/20 18:29 Albuterol/ Ipratropium (Combivent Respimat) 1 puff Q4H PRN INH Shortness of Breath 04/24/20 18:30 05/22/20 18:29 Ascorbic Acid (Vitamin C) 500 mg DAILY ORAL 04/28/20 09:00 05/28/20 08:59 04/28/20 09:36 Cefepime HCl 1 gm/ Dextrose 55 ml @ 110 mls/hr Q24H IVPB 04/25/20 16:00 04/30/20 15:59 04/27/20 15:59 Dextrose (Dextrose 50%) 25 ml Q30M PRN IV Hypoglycemia 04/24/20 18:15 07/21/20 16:14 Dextrose (Dextrose 50%) 50 ml Q30M PRN IV Hypoglycemia 04/24/20 18:15 07/21/20 16:14 Heparin Sodium (Porcine) (Heparin 5000 units/ml) 5,000 units EVERY 12 HOURS SUBQ 04/24/20 21:00 06/06/20 20:59 04/28/20 09:40 Insulin Aspart (NovoLOG) Q6HR SUBQ 04/26/20 18:00 07/21/20 16:29 04/28/20 12:28 Levetiracetam (Keppra) 500 mg EVERY 12 HOURS ORAL 04/24/20 21:00 06/06/20 20:59 04/28/20 09:36 Multivitamins (Multivitamins) 1 tab DAILY ORAL 04/28/20 09:00 05/28/20 08:59 04/28/20 09:36 Ondansetron HCl (Zofran) 4 mg Q6H PRN IVP Nausea & Vomiting 04/24/20 18:30 05/22/20 18:29 Polyethylene Glycol (Miralax) 17 gm DAILYPRN PRN ORAL Constipation 04/24/20 18:30 05/24/20 18:29 Promethazine HCl/ Codeine (Phenergan with Codeine) 5 ml Q6H PRN ORAL cough 04/24/20 18:30 05/22/20 18:29 Sodium Chloride 1,000 ml @ 50 mls/hr Q20H IV 04/26/20 18:22 05/26/20 18:21 04/28/20 12:24 Vancomycin HCl (Vanco pharmacy to dose) 1 ea DAILY PRN MISC Per rx protocol 04/25/20 09:00 05/23/20 14:44 Vancomycin HCl 1 gm/Dextrose 275 ml @ 183.708 mls/hr Q12H IVPB 04/28/20 08:00 05/03/20 07:59 04/28/20 12:23 Zinc Sulfate (Zinc Sulfate) 220 mg DAILY ORAL 04/28/20 09:00 07/27/20 08:59 04/28/20 09:36 Linsey Barry M.D. Apr 28, 2020 12:52
--- NOTE | 2020-04-28 14:03 | Diagnostic Imaging Report ---
Procedure: XRAY Chest 1v Reason for study: Reason For Exam: COUGH Comparison films: 04/24/2020. FINDINGS: NG tube remains in place. Vascularity is normal. There are bibasilar infiltrates again noted. Slight worsening noted in the right medial lung base. Cardiac and mediastinal silhouette are within normal limits. CP angles are sharp. The bony thorax appear unremarkable. IMPRESSION: Bibasilar infiltrates with slight worsening on right side.
--- NOTE | 2020-04-28 14:43 | NUR ---
MANAGER GAMES NOTE SW F/U'ed w/ the daughter, Priya Stewart [phone] (office number). Priya informed this SW that she spoke w/ HEMMER CHAINSTITCH and discussed the prognosis. Priya will relay all information and discuss w/ her two brothers and the sister, Jenny Medrano [phone] who is POA. Priya will let the team know of the decision.
--- NOTE | 2020-04-28 15:15 | NUR ---
CASE MANAGEMENT: REVIEW SI: COVID-19 PNA T 96.6 HR 85 RR 28 BP 155/86 SAT 97% NON-REBREATHER FLOW RATE 15.0 VANCOMYCIN TROUGH 12.4 IS: NS IVF @ 50ML/HR CEFEPIME IV Q24HR VANCOMYCIN IV Q12HR NG TUBE FEEDING END OF LIFE DISCUSSION WITH FAMILY PENDING MED/SURG STATUS DCP: PATIENT IS FROM [facility]
--- NOTE | 2020-04-28 15:35 | NUR ---
NURSE NOTES: Unable to collect sputum, patient is not coughing. Md aware.
[2020-04-28 16:00] VITALS: BP 115/74
[2020-04-28] MEDS: Cefepime HCl 1 GM in D5W 55 ML IVPB SCH (16:47)
--- NOTE | 2020-04-28 19:39 | NUR ---
HAND-OFF: Report given to TAWNYA Gutierrez. Patient is in stable condition.
[2020-04-28 20:00] VITALS: BP 118/64
[2020-04-29] VITALS: BP 144/82
[2020-04-29] MEDS: NovoLOG Insulin Flexpen SUBQ SCH ×4 (00:05→19:32)
[2020-04-29 04:00] VITALS: BP 109/61
[2020-04-29 06:09] LABS: BASOPHILS % (AUTO) 0.7 % (0.0-2.0); EOSINOPHILS % (AUTO) 0.2 % (0.0-3.0); HEMATOCRIT 38.5 % (42.0-52.0); HEMOGLOBIN 12.2 G/DL (14.2-18.0); LYMPHOCYTES % (AUTO) 15.6 % (20.0-45.0); MEAN CORPUSCULAR VOLUME 97 FL (80-99); MONOCYTES % (AUTO) 6.9 % (1.0-10.0); NEUTROPHILS % (AUTO) 76.6 % (45.0-75.0); PLATELET COUNT 391 K/UL (150-450); RED BLOOD COUNT 3.98 M/UL (4.70-6.10); RED CELL DISTRIBUTION WIDTH 12.4 % (11.6-14.8); WHITE BLOOD COUNT 12.5 K/UL (4.8-10.8)
[2020-04-29 06:42] LABS: BLOOD UREA NITROGEN 26 mg/dL (7-18); CALCIUM 9.7 MG/DL (8.5-10.1); CREATININE 0.7 MG/DL (0.55-1.30)
[2020-04-29 07:17] LABS: ANION GAP 4 mmol/L (5-15); CARBON DIOXIDE 35 MMOL/L (21-32); CHLORIDE 97 MMOL/L (98-107); POTASSIUM 4.3 MMOL/L (3.5-5.1); SODIUM 136 MMOL/L (136-145)
--- NOTE | 2020-04-29 07:50 | NUR ---
NURSE NOTES: Patient attempts to open eyes ,responds to touch,02 on via Nonrebreather [id number],respirations unlabored.IV fluids infusing as ordered.N/G tube feedings as ordered.checked for placements through auscultation,not heard,noted N/G tube not at the 60 jessica . checked with charge NursePito to verify N/G should be at the 60 jessica,N/G tube advanced to the 60 marked,Now able to hear through ausculation .feedings stopped,will notify DR Nuno greenberg verify N/G tube placement .HOB is elevted.Call light within reach.
[2020-04-29 08:00] VITALS: BP 110/62
--- NOTE | 2020-04-29 08:05 | NUR ---
NURSE NOTES: Patient's ng tube appeared to be at less than 60 which ws the original palcement. Feeding stopped and MD Corral notified. Stat chest Xray ordered.
[2020-04-29] MEDS: Vancomycin 1gm/D5W 275ml IVPB SCH ×2 (08:58)
--- NOTE | 2020-04-29 11:06 | NUR ---
RADIOLOGY DEPT., ABDOMEN X-RAY FOR N/GT PLCMT DONE.-P.DYE
[2020-04-29] MEDS: Heparin 5000 units/ml inj SUBQ SCH ×2 (11:15→20:32)
--- NOTE | 2020-04-29 11:40 | NUR ---
NURSE NOTES: Waiting on results regarding N/G tube placement.
[2020-04-29 12:00] VITALS: BP 115/65
--- NOTE | 2020-04-29 12:00 | NUR ---
NURSE NOTES: DR Mendoza called and verified that N/G tube is in place after being advanced this morning ,Dr tan can advance another 5cm,no need ot get another X-ray.
--- NOTE | 2020-04-29 12:01 | Diagnostic Imaging Report ---
Indication: Post nasogastric tube placement Technique: One view of the upper abdomen Comparison: none Findings: There is a nasogastric tube in place, tip projected at the level gastric fundus, proximal port just beyond the expected level of the gastroesophageal junction. The included lung bases demonstrate bilateral infiltrates. The bowel gas pattern is unremarkable. Impression: Satisfactory nasogastric intubation. Is nurse notified at the time of interpretation Other findings as noted
--- NOTE | 2020-04-29 12:04 | Pulmonology Progress Note ---
Subjective ROS Limited/Unobtainable: No Constitutional: Denies: no symptoms, fever, chills, fatigue, anorexia, drenching sweats, other HEENT: Repors: no symptoms Allergies: Coded Allergies: No Known Allergies (Unverified , 04/22/20) Subjective on 100% NRM afebrile mild leukocytosis today CXR 04/28 -> Bibasilar infiltrates with slight worsening on right side. Objective Last 24 Hour Vital Signs Date Time Temp Pulse Resp B/P (MAP) Pulse Ox O2 Delivery O2 Flow Rate FiO2 04/29/20 08:00 98.2 65 18 110/62 (78) 97 04/29/20 04:00 98.2 107 22 109/61 (77) 97 04/29/20 00:00 98.2 106 20 144/82 (102) 99 04/28/20 21:00 Non-Rebreather 15.0 04/28/20 20:00 98.4 106 20 118/64 (82) 98 04/28/20 16:00 98.4 62 20 115/74 (88) 100 Intake and Output 04/28/20 04/29/20 19:00 07:00 Output Total 600 ml 700 ml Balance -600 ml -700 ml Output Urine Total 600 ml 700 ml # Bowel Movements 2 2 General Appearance: no acute distress, cachetic - bedridden, poorly responsive , other HEENT: normocephalic, atraumatic, anicteric, other - OP with 100% NRM, NGT Respiratory: rhonchi - left, rhonchi - right Cardiovascular: normal peripheral pulses, normal rate Abdomen: normal bowel sounds, soft, non tender Genitourinary: normal external genitalia Skin: no rash Neurologic: abnormal gait, other - poorly responsive Musculoskeletal: atrophy - BLE Microbiology Date/Time Source Procedure Growth Status 04/27/20 15:30 Blood Blood Culture - Preliminary NO GROWTH AFTER 24 HOURS Resulted 04/27/20 15:15 Blood Blood Culture - Preliminary NO GROWTH AFTER 24 HOURS Resulted Laboratory Tests 04/28/20 12:25: POC Whole Blood Glucose [Pending] 04/28/20 16:50: POC Whole Blood Glucose [Pending] 04/29/20 05:27: White Blood Count 12.5H, Red Blood Count 3.98L, Hemoglobin 12.2L, Hematocrit 38.5L, Mean Corpuscular Volume 97, Mean Corpuscular Hemoglobin 30.7, Mean Corpuscular Hemoglobin Concent 31.6L, Red Cell Distribution Width 12.4, Platelet Count 391, Mean Platelet Volume 5.8L, Neutrophils (%) (Auto) 76.6H, Lymphocytes (%) (Auto) 15.6L, Monocytes (%) (Auto) 6.9, Eosinophils (%) (Auto) 0.2, Basophils (%) (Auto) 0.7, Sodium Level 136, Potassium Level 4.3, Chloride Level 97L, Carbon Dioxide Level 35H, Anion Gap 4L, Blood Urea Nitrogen 26H, Creatinine 0.7, Estimat Glomerular Filtration Rate > 60, Glucose Level 175H, Calcium Level 9.7 Current Medications Medications (Trade) Dose Ordered Sig/Andrade Route PRN Reason Start Time Stop Time Status Last Admin Dose Admin Acetaminophen (Tylenol) 650 mg Q4H PRN ORAL FEVER 04/24/20 18:30 05/22/20 18:29 Albuterol/ Ipratropium (Combivent Respimat) 1 puff Q4H PRN INH Shortness of Breath 04/24/20 18:30 05/22/20 18:29 Ascorbic Acid (Vitamin C) 500 mg DAILY ORAL 04/28/20 09:00 05/28/20 08:59 04/28/20 09:36 Cefepime HCl 1 gm/ Dextrose 55 ml @ 110 mls/hr Q24H IVPB 04/25/20 16:00 04/30/20 15:59 04/28/20 16:47 Dextrose (Dextrose 50%) 25 ml Q30M PRN IV Hypoglycemia 04/24/20 18:15 07/21/20 16:14 Dextrose (Dextrose 50%) 50 ml Q30M PRN IV Hypoglycemia 04/24/20 18:15 07/21/20 16:14 Heparin Sodium (Porcine) (Heparin 5000 units/ml) 5,000 units EVERY 12 HOURS SUBQ 04/24/20 21:00 06/06/20 20:59 04/29/20 11:15 Insulin Aspart (NovoLOG) Q6HR SUBQ 04/26/20 18:00 07/21/20 16:29 04/29/20 06:03 Levetiracetam (Keppra) 500 mg EVERY 12 HOURS ORAL 04/24/20 21:00 06/06/20 20:59 04/28/20 21:17 Multivitamins (Multivitamins) 1 tab DAILY ORAL 04/28/20 09:00 05/28/20 08:59 04/28/20 09:36 Ondansetron HCl (Zofran) 4 mg Q6H PRN IVP Nausea & Vomiting 04/24/20 18:30 05/22/20 18:29 Polyethylene Glycol (Miralax) 17 gm DAILYPRN PRN ORAL Constipation 04/24/20 18:30 05/24/20 18:29 Promethazine HCl/ Codeine (Phenergan with Codeine) 5 ml Q6H PRN ORAL cough 04/24/20 18:30 05/22/20 18:29 Sodium Chloride 1,000 ml @ 50 mls/hr Q20H IV 04/26/20 18:22 05/26/20 18:21 04/29/20 06:05 Vancomycin HCl (Vanco pharmacy to dose) 1 ea DAILY PRN MISC Per rx protocol 04/25/20 09:00 05/23/20 14:44 Vancomycin HCl 1 gm/Dextrose 275 ml @ 183.708 mls/hr Q12H IVPB 04/28/20 08:00 05/03/20 07:59 04/29/20 08:58 Zinc Sulfate (Zinc Sulfate) 220 mg DAILY ORAL 04/28/20 09:00 07/27/20 08:59 04/28/20 09:36 Assessment/Plan Assessment/Plan ASSESSMENT Acute hypoxemic respiratory failure requiring 100% NRM mask Pneumonia Recent diagnosis of COVID-19 r/unknown date MRSA and cons bacteremia Seizure disorder Diabetes mellitus Dementia DNR status PLAN OF CARE MS floor isolation ( although date of diagnosis unknown) O2 titrate to keep sat above 92%, currently on 100% NRM MDI s/p steroids BCX + persistent MRSA ( and initial CONS) last BCX 04/26 10/03 [facility], BCX 04/27 NGTD fup with BCX for clearance -per ID abx as per ID recs, will need at least 14 days of Vanco after 1 st NGT BCX ECHO with limited study, no vegetation CXR 04/28 -> Bibasilar infiltrates with slight worsening on right side. a/tussive prn supportive care , vit C, Zn gentle IVF DVT prophylaxis asp precautions, NGT feeding seizure precautions, continue Keppra BS management with SSI DNR/DNI status discussed with dr Powers on 04/28 about patient's condition ; all questions answered , possible hospice services explained case discussed and evaluated by supervising physician Sarai Rod NP Apr 29, 2020 12:04
--- NOTE | 2020-04-29 14:02 | Infectious Diseases Prog Note ---
Assessment/Plan Assessment: Recent COVID19 positive (unknown date of diagnosis) Pneumonia -bacterial superimposed w MRSA (pt bacteremic) Acute hypoxic resp failure - s/p NC, now on NRB -04/28 CXR: Bibasilar infiltrates with slight worsening on right side. -04/24 CXR: Slightly improved bilateral infiltrates, over 2 days -04/22 Rapid COVID + CXR: Bilateral infiltrates, likely pneumonia, possibly viral. Correlate with clinical findings MRSA and CONS bacteremia; persistent bacteremia -04/26 2d echo(limited study): no vegetations seen -04/22 Bcx 2/4 S. epi; 04/23 Bcx 2/4 MRSA; 04/26 Bcx 1/2 GPC clusters; 04/27 Bcx NTD Afebrile- Tm 99.5 Mild leukocytosis -04/22 u/a neg Dementia seizure disorder Dm2 DNR status [place] ([facility]) Plan: -empiric Cefepime 7(abx d #05/11) -Cont IV Vancomycin #6; will need mininum of 14 days from 1st neg Bcx -04/27 SP Decadron #5 -04/26 SP Azithromcin #5 -04/23 SP Ceftriaxone #2 -04/22 SP ZOsyn x1 -f/u cx -Monitor CBC/CMP, temperatures -COVID19 isolation -Will not give Remdesevir at this point given unclear date of diagnosis -If improved respiratory status may need AN -f/u Bcx x 2, Sp cx Thank you for this consultation. Will continue to follow along with you. Discussed with RN. Subjective Allergies: Coded Allergies: No Known Allergies (Unverified , 04/22/20) afebrile remains on NRB latest Bcx NTD mild leukocytosis Objective Last 24 Hour Vital Signs Date Time Temp Pulse Resp B/P (MAP) Pulse Ox O2 Delivery O2 Flow Rate FiO2 04/29/20 08:00 98.2 65 18 110/62 (78) 97 04/29/20 04:00 98.2 107 22 109/61 (77) 97 04/29/20 00:00 98.2 106 20 144/82 (102) 99 04/28/20 21:00 Non-Rebreather 15.0 04/28/20 20:00 98.4 106 20 118/64 (82) 98 04/28/20 16:00 98.4 62 20 115/74 (88) 100 Height (Feet): 5 Height (Inches): 8.00 Weight (Pounds): 120 General Appearance: cachetic, thin HEENT: normocephalic, atraumatic, NRB mask in place Neck: non-tender, normal alignment, supple Respiratory/Chest: chest wall non-tender, rhonchi - left, rhonchi - right Cardiovascular/Chest: normal peripheral pulses, normal rate Abdomen: normal bowel sounds, non tender Microbiology Date/Time Source Procedure Growth Status 04/27/20 15:30 Blood Blood Culture - Preliminary NO GROWTH AFTER 24 HOURS Resulted 04/27/20 15:15 Blood Blood Culture - Preliminary NO GROWTH AFTER 24 HOURS Resulted Laboratory Tests Test 04/28/20 16:50 04/29/20 05:27 04/29/20 12:47 POC Whole Blood Glucose Pending Pending White Blood Count 12.5 K/UL (4.8-10.8) H Red Blood Count 3.98 M/UL (4.70-6.10) L Hemoglobin 12.2 G/DL (14.2-18.0) L Hematocrit 38.5 % (42.0-52.0) L Mean Corpuscular Volume 97 FL (80-99) Mean Corpuscular Hemoglobin 30.7 PG (27.0-31.0) Mean Corpuscular Hemoglobin Concent 31.6 G/DL (32.0-36.0) L Red Cell Distribution Width 12.4 % (11.6-14.8) Platelet Count 391 K/UL (150-450) Mean Platelet Volume 5.8 FL (6.5-10.1) L Neutrophils (%) (Auto) 76.6 % (45.0-75.0) H Lymphocytes (%) (Auto) 15.6 % (20.0-45.0) L Monocytes (%) (Auto) 6.9 % (1.0-10.0) Eosinophils (%) (Auto) 0.2 % (0.0-3.0) Basophils (%) (Auto) 0.7 % (0.0-2.0) Sodium Level 136 MMOL/L (136-145) Potassium Level 4.3 MMOL/L (3.5-5.1) Chloride Level 97 MMOL/L (98-107) L Carbon Dioxide Level 35 MMOL/L (21-32) H Anion Gap 4 mmol/L (5-15) L Blood Urea Nitrogen 26 mg/dL (7-18) H Creatinine 0.7 MG/DL (0.55-1.30) Estimat Glomerular Filtration Rate > 60 mL/min (>60) Glucose Level 175 MG/DL (74-106) H Calcium Level 9.7 MG/DL (8.5-10.1) Current Medications Medications (Trade) Dose Ordered Sig/Andrade Route PRN Reason Start Time Stop Time Status Last Admin Dose Admin Acetaminophen (Tylenol) 650 mg Q4H PRN ORAL FEVER 04/24/20 18:30 05/22/20 18:29 Albuterol/ Ipratropium (Combivent Respimat) 1 puff Q4H PRN INH Shortness of Breath 04/24/20 18:30 05/22/20 18:29 Ascorbic Acid (Vitamin C) 500 mg DAILY ORAL 04/28/20 09:00 05/28/20 08:59 04/28/20 09:36 Cefepime HCl 1 gm/ Dextrose 55 ml @ 110 mls/hr Q24H IVPB 04/25/20 16:00 04/30/20 15:59 04/28/20 16:47 Dextrose (Dextrose 50%) 25 ml Q30M PRN IV Hypoglycemia 04/24/20 18:15 07/21/20 16:14 Dextrose (Dextrose 50%) 50 ml Q30M PRN IV Hypoglycemia 04/24/20 18:15 07/21/20 16:14 Heparin Sodium (Porcine) (Heparin 5000 units/ml) 5,000 units EVERY 12 HOURS SUBQ 04/24/20 21:00 06/06/20 20:59 04/29/20 11:15 Insulin Aspart (NovoLOG) Q6HR SUBQ 04/26/20 18:00 07/21/20 16:29 04/29/20 13:30 Levetiracetam (Keppra) 500 mg EVERY 12 HOURS ORAL 04/24/20 21:00 06/06/20 20:59 04/28/20 21:17 Multivitamins (Multivitamins) 1 tab DAILY ORAL 04/28/20 09:00 05/28/20 08:59 04/28/20 09:36 Ondansetron HCl (Zofran) 4 mg Q6H PRN IVP Nausea & Vomiting 04/24/20 18:30 05/22/20 18:29 Polyethylene Glycol (Miralax) 17 gm DAILYPRN PRN ORAL Constipation 04/24/20 18:30 05/24/20 18:29 Promethazine HCl/ Codeine (Phenergan with Codeine) 5 ml Q6H PRN ORAL cough 04/24/20 18:30 05/22/20 18:29 Sodium Chloride 1,000 ml @ 50 mls/hr Q20H IV 04/26/20 18:22 05/26/20 18:21 04/29/20 06:05 Vancomycin HCl (Vanco pharmacy to dose) 1 ea DAILY PRN MISC Per rx protocol 04/25/20 09:00 05/23/20 14:44 Vancomycin HCl 1 gm/Dextrose 275 ml @ 183.708 mls/hr Q12H IVPB 04/28/20 08:00 05/03/20 07:59 04/29/20 08:58 Zinc Sulfate (Zinc Sulfate) 220 mg DAILY ORAL 04/28/20 09:00 07/27/20 08:59 04/28/20 09:36 Linsey Barry M.D. Apr 29, 2020 14:02
--- NOTE | 2020-04-29 14:04 | Surgery Progress Note ---
Surgery Progress Note Subjective Additional Comments ng tube in good position no n/v/f/c tolerating feeds kub noted Objective Last 24 Hour Vital Signs Date Time Temp Pulse Resp B/P (MAP) Pulse Ox O2 Delivery O2 Flow Rate FiO2 04/29/20 08:00 98.2 65 18 110/62 (78) 97 04/29/20 04:00 98.2 107 22 109/61 (77) 97 04/29/20 00:00 98.2 106 20 144/82 (102) 99 04/28/20 21:00 Non-Rebreather 15.0 04/28/20 20:00 98.4 106 20 118/64 (82) 98 04/28/20 16:00 98.4 62 20 115/74 (88) 100 I&O Intake and Output 04/28/20 04/29/20 19:00 07:00 Output Total 600 ml 700 ml Balance -600 ml -700 ml Output Urine Total 600 ml 700 ml # Bowel Movements 2 2 Dressing: other Wound: other Cardiovascular: RSR Respiratory: decreased breath sounds Abdomen: soft, non-tender, present bowel sounds Extremities: no tenderness, no cyanosis Laboratory Tests Test 04/28/20 16:50 04/29/20 05:27 04/29/20 12:47 POC Whole Blood Glucose Pending Pending White Blood Count 12.5 K/UL (4.8-10.8) H Red Blood Count 3.98 M/UL (4.70-6.10) L Hemoglobin 12.2 G/DL (14.2-18.0) L Hematocrit 38.5 % (42.0-52.0) L Mean Corpuscular Volume 97 FL (80-99) Mean Corpuscular Hemoglobin 30.7 PG (27.0-31.0) Mean Corpuscular Hemoglobin Concent 31.6 G/DL (32.0-36.0) L Red Cell Distribution Width 12.4 % (11.6-14.8) Platelet Count 391 K/UL (150-450) Mean Platelet Volume 5.8 FL (6.5-10.1) L Neutrophils (%) (Auto) 76.6 % (45.0-75.0) H Lymphocytes (%) (Auto) 15.6 % (20.0-45.0) L Monocytes (%) (Auto) 6.9 % (1.0-10.0) Eosinophils (%) (Auto) 0.2 % (0.0-3.0) Basophils (%) (Auto) 0.7 % (0.0-2.0) Sodium Level 136 MMOL/L (136-145) Potassium Level 4.3 MMOL/L (3.5-5.1) Chloride Level 97 MMOL/L (98-107) L Carbon Dioxide Level 35 MMOL/L (21-32) H Anion Gap 4 mmol/L (5-15) L Blood Urea Nitrogen 26 mg/dL (7-18) H Creatinine 0.7 MG/DL (0.55-1.30) Estimat Glomerular Filtration Rate > 60 mL/min (>60) Glucose Level 175 MG/DL (74-106) H Calcium Level 9.7 MG/DL (8.5-10.1) Plan Problems: (1) Pneumonia due to COVID-19 virus (2) Severe protein-calorie malnutrition Assessment & Plan: 74-year-old male with significant severe protein calorie malnutrition. BMI is 18. Albumin is low. Skin turgor is poor. On admission identified to have a deep tissue injury and decubitus skin ulcer. Air mattress ordered local wound care plan initiated. Speech therapy evaluation identified. High risk dysphasia aspiration Needs nutritional optimization to allow for wound healing and care plan. We will follow with recommendations thank you for let me participate in patient' s care Turn every 2 hours Offload pressure with pillows Wash sacral wound daily with normal saline apply Thera honey and foam dressing. Bilateral heel protectors DAILY ESTIMATED NEEDS: Needs based on wound, underweight, 54kg 30-35 kcals/kg 4455-4088 total kcals 1.25-2 g protein/kg 68-108 g total protein 25-35ml/kcal mL/kg 8064-0471 total fluid mLs NUTRITION DIAGNOSIS: Swallowing difficulty r/t dysphagia as evidenced by STOCK FITTER marj pt not safe for oral diet, now on NGT feeds. CURRENT TF:Glucerna 1.5 @45ml/hr ENTERAL NUTRITION RECOMMENDATIONS: Glucerna 1.5 goal of 45ml/hr x 24 hrs to provide 1080ml, 1620kcal, 89g pro, 820ml free H2O - Maintain Glucerna 1.5 @45ml/hr as tolerated - Advance as tolerated 10ml/hr q4-6 hrs to goal. - Flush per MD. HOB over 30 degrees. ADDITIONAL RECOMMENDATIONS: 1) Monitor BG closely w/ TF's; need for increased insulin coverage 2) wound care w/ NGT feeds: add LYNNE in 4oz H2O BID + Vit C500mg qdaily, MVI w/ min qdaily+ ZnSO4 220mg qd x10 days 3) Calibrated bed scale wts 4) Monitor lytes daily w/ TF, replete as needed THE PATIENT WAS POSITIONED UPRIGHT FOR P.O. TRIALS. PATIENT NON/VERBAL, NON/VISUAL TRACKING, NON/RESPONSIVE TO TACTILE/VERBAL CUES. HE IS MOUTH BREATHING, ORAL MUCOSA PRESENTS WITH XEROSTOMIA. HIS DECREASED MENTATION INCLUDED SENSORIMOTOR DEFICITS WHICH RESULTED IN POOR BOLUS ACCEPTANCE, DECREASED AWARENESS OF FOOD IN MOUTH. WHEN PRESENTED WITH 5ML OF NECTAR THICK WATER VIA SPOON, THE PATIENT DEMONSTRATED REPETITIVE LINGUAL PUMPING IN HIS ATTEMPT TO TRIGGER THE PHARYNGEAL PHASE OF THE SWALLOW. HYOLARYNGEAL ELEVATION WAS PALPATED AND DETERMINED TO BE INSUFFICIENT FOR AIRWAY PROTECTION. AFTER THE SECOND P.O. TRIAL WITH THE NTL, THE PATIENT DEMONSTRATED A PROLONGED NON/ CLEARING, NON/PRODUCTIVE COUGH, WITH 3 TRIALS OF PUREE PRESENTED IN 5 ML AMOUNTS , THE PATIENT DEMONSTRATED ORAL STASIS, AND RESIDUE HAD TO BE SUCTIONED TO CLEAR HIS MOUTH. ORAL CARE WAS PROVIDED POST SUCTIONING. PHARYNGEAL PHASE OF SWALLOW SEVERELY DELAYED. CLEARLY, THIS GENTLEMAN PRESENTS WITH SEVERE OROPHARYNGEAL DYSPHAGIA, ALONG WITH A HISTORY OF SUBOPTIMAL P.O. INTAKE/LOSS OF APPETITE RECOMMENDATIONS 1. CONSIDER NON/ORAL FEEDING MANAGEMENT FOR INTERIM NUTRITION/HYDRATION 2. NPO 3. ORAL CARE TID TO REDUCE ORAL PATHOGENS 4. SKILLED ST INTERVENTION DOES NOT APPEAR TO BE NEEDED AT THIS TIME. (3) At high risk for aspiration (4) Respiratory distress (5) COVID-19 Assessment & Plan: + (6) History of diabetes mellitus (7) Alzheimer's dementia (8) Decubitus skin ulcer Assessment & Plan: Pt deconditioned and presents with multiple Pressure injuries on admission. Non-Blanchable erythema without fluctuance or induration noted to R elbow. Open DTPI Sacrum with full thickness Ulcer (L)9.5cm x (W)10.5cm.Wound is irregular shaped and extends to apex of anus. Base of wound is indurated and purpuric surrounding areas at base of wound with full thickness ulcer with scattered areas of soft necrosis (60%), 40% maldonado. Bony prominence is palpable at base of wound.Small amt sanguineous exudate noted . No odor noted . Periwound Skin is blanchable but Bilat trochanteric and iliac areas, including Ischial tuberosities are at high risks for pressure injuries secondary to bony protrusion and poor tissue perfusion. DTPI R Ischium. Base of pressure injury is maroon and indurated(L)3.4cm x (W) 7cm. DTPI R Heel (L)4cm x (W)9cm. Base of Pressure injury is fluctuant, maroon with small purpuric area.No evidence of ski breakdown periwound. L heel is boggy with non-Blanchable erythema. Tx.Plan: Cleanse Sacral wound with Saline. Apply TheraHoney. Apply Moisture Barrier Paste periwound. Cover with Optifoam drsgs. Change Daily and prn. Apply Cavilon Skin Barrier to R ischium. Cover with Optifoam drsg. Change every 3 days and prn. Apply Cavilon Skin Barrier to At Risks Bony Prominences. Cover areas with Optifoam drsgs as needed. Apply Cavilon Skin Barrier to both heels and Malleoli. Cover each site with Optifoam drsg. Change every 7 days and Prn. Reposition at least every 2hours or as tolerated. Off-load heels with Pillow. Air Fluidized Mattress. (9) Dysphagia Assessment & Plan: ng placed unlikey to pass swallow eval low bmi consider peg polst noted Darian Ragsdale Apr 29, 2020 14:04
[2020-04-29] MEDS: Ascorbic Acid 500mg tab ORAL SCH (15:19)
[2020-04-29] MEDS: Zinc Sulfate 220mg ORAL SCH (15:20)
[2020-04-29 16:00] VITALS: BP 130/67
[2020-04-29] MEDS: Cefepime HCl 1 GM in D5W 55 ML IVPB SCH (16:18)
--- NOTE | 2020-04-29 17:02 | NUR ---
CASE MANAGEMENT: REVIEW SI: COVID-19 PNA T 98.2 HR 107 RR 22 BP 144/82 SAT 97% NON-REBREATHER 15.0 WBC 12.5 GLUCOSE 175 IS: NS IVF @ 50ML/HR CEFEPIME IV Q24HR VANCOMYCIN IV Q12HR NG TUBE FEEDING END OF LIFE DISCUSSION WITH FAMILY PENDING MED/SURG STATUS DCP: PATIENT IS FROM [facility]
--- NOTE | 2020-04-29 17:07 | NUR ---
CASE MANAGEMENT: DCP PATIENT IS FROM [facility]. PATIENT CANNOT RETURN TO THE FACILITY WITH NGT. PENDING FAMILY MEETING TO DISCUSS GOALS OF CARE
--- NOTE | 2020-04-29 18:23 | NUR ---
NURSE NOTES: I spoke with the pharmacist Kennedy regarding Vitamin C tablets ,the count for vitamin c,count was 20,I took out 2 .but only needed 1 ,medication was crushed in the packet ,unable to return the one packet,Pito charge nurse verify Medication in the packet and the cycle count verified.Vitamin C extra packet waste.Charge Nurse witness.
--- NOTE | 2020-04-29 19:00 | NUR ---
NURSE NOTES: Patient tolerating N/ G tube feeding,N/G tube in place ,checked by auscultation HOB is elevated.Bed alarm on. .
--- NOTE | 2020-04-29 19:30 | NUR ---
HAND-OFF: Report given to Siri BOWLING. Addendum: 04/29/20 at 2016 by SULEMA MURPHY RN RN aware of fall risk
--- NOTE | 2020-04-29 19:40 | NUR ---
NURSE NOTES: Patient in bed, on 15LPM via non rebreather mask, with IV access on right arm. With NGT intact and connected to feeding. Call light in reach. Bed in lowest position, lock engaged and alarm on. Will continue plan of care.
[2020-04-29 20:00] VITALS: BP 132/74
[2020-04-29] MEDS: Vancomycin 1.25gm/NS Premix q24h IVPB SCH (20:17)
[2020-04-30] VITALS: BP 156/83
[2020-04-30] MEDS: NovoLOG Insulin Flexpen SUBQ SCH ×4 (00:04→17:43)
[2020-04-30 04:00] VITALS: BP 155/70
[2020-04-30 06:45] LABS: ANION GAP 3 mmol/L (5-15); BLOOD UREA NITROGEN 22 mg/dL (7-18); CALCIUM 9.6 MG/DL (8.5-10.1); CARBON DIOXIDE 36 MMOL/L (21-32); CHLORIDE 100 MMOL/L (98-107); CREATININE 0.8 MG/DL (0.55-1.30); POTASSIUM 4.5 MMOL/L (3.5-5.1); SODIUM 139 MMOL/L (136-145)
[2020-04-30 06:56] LABS: BASOPHILS % (AUTO) 0.4 % (0.0-2.0); EOSINOPHILS % (AUTO) 0.5 % (0.0-3.0); HEMATOCRIT 40.3 % (42.0-52.0); HEMOGLOBIN 12.6 G/DL (14.2-18.0); LYMPHOCYTES % (AUTO) 15.7 % (20.0-45.0); MEAN CORPUSCULAR VOLUME 98 FL (80-99); MONOCYTES % (AUTO) 7.4 % (1.0-10.0); PLATELET COUNT 399 K/UL (150-450); RED BLOOD COUNT 4.13 M/UL (4.70-6.10); RED CELL DISTRIBUTION WIDTH 12.8 % (11.6-14.8); WHITE BLOOD COUNT 11.5 K/UL (4.8-10.8)
--- NOTE | 2020-04-30 07:19 | NUR ---
RD ASSESSMENT & RECOMMENDATIONS SEE CARE ACTIVITY FOR COMPLETE ASSESSMENT DAILY ESTIMATED NEEDS: Needs based on wound, underweight, 54kg 30-35 kcals/kg 2140-9897 total kcals 1.25-2 g protein/kg 68-108 g total protein 25-35ml/kcal mL/kg 0530-2941 total fluid mLs NUTRITION DIAGNOSIS: Swallowing difficulty r/t dysphagia as evidenced by RESIDENCE DIRECTOR eval, pt not safe for oral diet, now on NGT feeds. CURRENT TF:Glucerna 1.5 @45ml/hr ENTERAL NUTRITION RECOMMENDATIONS: Glucerna 1.5 @ 45ml/hr x 24 hrs to provide 1080ml, 1620kcal, 89g pro, 820ml free H2O - Maintain Glucerna 1.5 @45ml/hr as tolerated - Flush per MD. HOB over 30 degrees. ADDITIONAL RECOMMENDATIONS: 1) Monitor BG closely w/ TF's; need for increased insulin coverage 2) wound care w/ NGT feeds: add LYNNE in 4oz H2O BID continue Vit C, ZnSO4 3) Calibrated bed scale wts 4) Monitor lytes daily w/ TF, replete as needed
--- NOTE | 2020-04-30 07:38 | NUR ---
HAND-OFF: Report given to Papo Valdivia RN.
--- NOTE | 2020-04-30 07:42 | NUR ---
NURSE NOTES: Received report from Siri Rubio RN. Patients eyes open, television on for stimulation, bed in lowest position, call light within reach, side rails up x 3, rails padded for seizure precautions, 1/2NS at 50cc/hr running into right forearm, non-rebreather mask at 15 liters oxygen, NG tube in place running Glucerna 1.5@45cc/hour, in no apparent distress.
[2020-04-30 08:00] VITALS: BP 155/87
[2020-04-30] MEDS: Zinc Sulfate 220mg ORAL SCH (09:39)
[2020-04-30] MEDS: Ascorbic Acid 500mg tab ORAL SCH (09:40)
[2020-04-30] MEDS: Heparin 5000 units/ml inj SUBQ SCH ×2 (09:41→21:11)
[2020-04-30] MEDS: Vancomycin 1.25gm/NS Premix q24h IVPB SCH ×2 (09:44→21:09)
--- NOTE | 2020-04-30 11:18 | Pulmonology Progress Note ---
Subjective ROS Limited/Unobtainable: No Allergies: Coded Allergies: No Known Allergies (Unverified , 04/22/20) Subjective on 100% NRM afebrile mild leukocytosis today CXR 04/28 -> Bibasilar infiltrates with slight worsening on right side. Objective Last 24 Hour Vital Signs Date Time Temp Pulse Resp B/P (MAP) Pulse Ox O2 Delivery O2 Flow Rate FiO2 04/30/20 08:00 97.9 104 17 155/87 (109) 92 04/30/20 04:00 97.9 82 24 155/70 (98) 99 04/30/20 00:00 97.9 28 156/83 (107) 100 04/29/20 21:00 Non-Rebreather 15.0 04/29/20 20:00 98.4 101 32 132/74 (93) 99 04/29/20 16:00 98.2 98 18 130/67 (88) 100 04/29/20 12:00 98.0 66 18 115/65 (82) 93 Intake and Output 04/29/20 04/30/20 19:00 07:00 Intake Total 870 ml 1220.000 ml Output Total 400 ml Balance 470 ml 1220.000 ml Intake Free Water 30 ml IV Total 525 ml 725.000 ml Tube Feeding 315 ml 495 ml Output Urine Total 400 ml # Voids 1 2 # Bowel Movements 1 General Appearance: no acute distress, cachetic - bedridden, poorly responsive , other HEENT: normocephalic, atraumatic, anicteric, other - OP with 100% NRM, NGT Respiratory: rhonchi - left, rhonchi - right Cardiovascular: normal peripheral pulses, normal rate Abdomen: normal bowel sounds, soft, non tender Genitourinary: normal external genitalia Skin: no rash Neurologic: abnormal gait, other - poorly responsive Musculoskeletal: atrophy - BLE Microbiology Date/Time Source Procedure Growth Status 04/27/20 15:30 Blood Blood Culture - Preliminary NO GROWTH AFTER 48 HOURS Resulted 04/27/20 15:15 Blood Blood Culture - Preliminary NO GROWTH AFTER 48 HOURS Resulted Laboratory Tests 04/29/20 12:47: POC Whole Blood Glucose [Pending] 04/29/20 18:50: Vancomycin Level Trough 12.9H 04/29/20 19:26: POC Whole Blood Glucose [Pending] 04/29/20 23:46: POC Whole Blood Glucose [Pending] 04/30/20 05:20: White Blood Count 11.5H, Red Blood Count 4.13L, Hemoglobin 12.6L, Hematocrit 40.3L, Mean Corpuscular Volume 98, Mean Corpuscular Hemoglobin 30.5, Mean Corpuscular Hemoglobin Concent 31.3L, Red Cell Distribution Width 12.8, Platelet Count 399, Mean Platelet Volume 5.7L, Neutrophils (%) (Auto) 76.0H, Lymphocytes (%) (Auto) 15.7L, Monocytes (%) (Auto) 7.4, Eosinophils (%) (Auto) 0.5, Basophils (%) (Auto) 0.4, Sodium Level 139, Potassium Level 4.5, Chloride Level 100, Carbon Dioxide Level 36H, Anion Gap 3L, Blood Urea Nitrogen 22H, Creatinine 0.8, Estimat Glomerular Filtration Rate > 60, Glucose Level 180H, Calcium Level 9.6 Current Medications Medications (Trade) Dose Ordered Sig/Andrade Route PRN Reason Start Time Stop Time Status Last Admin Dose Admin Acetaminophen (Tylenol) 650 mg Q4H PRN ORAL FEVER 04/24/20 18:30 05/22/20 18:29 Albuterol/ Ipratropium (Combivent Respimat) 1 puff Q4H PRN INH Shortness of Breath 04/24/20 18:30 05/22/20 18:29 Ascorbic Acid (Vitamin C) 500 mg DAILY ORAL 04/28/20 09:00 05/28/20 08:59 04/30/20 09:40 Cefepime HCl 1 gm/ Dextrose 55 ml @ 110 mls/hr Q24H IVPB 04/25/20 16:00 05/01/20 23:59 04/29/20 16:18 Dextrose (Dextrose 50%) 25 ml Q30M PRN IV Hypoglycemia 04/24/20 18:15 07/21/20 16:14 Dextrose (Dextrose 50%) 50 ml Q30M PRN IV Hypoglycemia 04/24/20 18:15 07/21/20 16:14 Heparin Sodium (Porcine) (Heparin 5000 units/ml) 5,000 units EVERY 12 HOURS SUBQ 04/24/20 21:00 06/06/20 20:59 04/30/20 09:41 Insulin Aspart (NovoLOG) Q6HR SUBQ 04/26/20 18:00 07/21/20 16:29 04/30/20 05:43 Levetiracetam (Keppra) 500 mg EVERY 12 HOURS ORAL 04/24/20 21:00 06/06/20 20:59 04/30/20 09:40 Multivitamins (Multivitamins) 1 tab DAILY ORAL 04/28/20 09:00 05/28/20 08:59 04/30/20 09:40 Ondansetron HCl (Zofran) 4 mg Q6H PRN IVP Nausea & Vomiting 04/24/20 18:30 05/22/20 18:29 Polyethylene Glycol (Miralax) 17 gm DAILYPRN PRN ORAL Constipation 04/24/20 18:30 05/24/20 18:29 Promethazine HCl/ Codeine (Phenergan with Codeine) 5 ml Q6H PRN ORAL cough 04/24/20 18:30 05/22/20 18:29 Sodium Chloride 1,000 ml @ 50 mls/hr Q20H IV 04/26/20 18:22 05/26/20 18:21 04/30/20 04:55 Vancomycin HCl (Vanco pharmacy to dose) 1 ea DAILY PRN MISC Per rx protocol 04/25/20 09:00 05/23/20 14:44 Vancomycin/Sodium Chloride 275 ml @ 183.333 mls/hr Q12HR IVPB 04/29/20 21:00 05/04/20 20:59 04/30/20 09:44 Zinc Sulfate (Zinc Sulfate) 220 mg DAILY ORAL 04/28/20 09:00 07/27/20 08:59 04/30/20 09:39 Assessment/Plan Assessment/Plan ASSESSMENT Acute hypoxemic respiratory failure requiring 100% NRM Pneumonia Recent diagnosis of COVID-19 / unknown date MRSA and CONS bacteremia Seizure disorder Diabetes mellitus Dementia DNR status PLAN OF CARE MS floor isolation ( although date of diagnosis unknown) O2 titrate to keep sat above 92%, currently on 100% NRM MDI s/p steroids BCX + persistent MRSA ( and initial CONS) BCX 04/26 1/2 Staph hominis BCX 04/27 NGTD fup with BCX for clearance -per ID abx as per ID recs, will need at least 14 days of Vanco after 1 st NGT BCX ECHO with limited study, no vegetation fup with CXR repeat inflamm markers in am a/tussive prn supportive care , vit C, Zn gentle IVF DVT prophylaxis asp precautions, NGT feeding seizure precautions, continue Keppra BS management with SSI DNR/DNI status discussed with daughter Priya patient's condition 04/28 , all questions answered , possible hospice services explained case discussed and evaluated by supervising physician Sarai Rod NP Apr 30, 2020 11:18
[2020-04-30 12:00] VITALS: BP 153/93
--- NOTE | 2020-04-30 13:42 | Surgery Progress Note ---
Surgery Progress Note Subjective Additional Comments ill appearing prognosis guarded comfort Objective Last 24 Hour Vital Signs Date Time Temp Pulse Resp B/P (MAP) Pulse Ox O2 Delivery O2 Flow Rate FiO2 04/30/20 12:00 97.2 99 19 153/93 (113) 98 04/30/20 09:00 Non-Rebreather 15.0 04/30/20 08:00 97.9 104 17 155/87 (109) 92 04/30/20 04:00 97.9 82 24 155/70 (98) 99 04/30/20 00:00 97.9 28 156/83 (107) 100 04/29/20 21:00 Non-Rebreather 15.0 04/29/20 20:00 98.4 101 32 132/74 (93) 99 04/29/20 16:00 98.2 98 18 130/67 (88) 100 I&O Intake and Output 04/29/20 04/30/20 19:00 07:00 Intake Total 870 ml 1220.000 ml Output Total 400 ml Balance 470 ml 1220.000 ml Intake Free Water 30 ml IV Total 525 ml 725.000 ml Tube Feeding 315 ml 495 ml Output Urine Total 400 ml # Voids 1 2 # Bowel Movements 1 Dressing: saturated Cardiovascular: RSR Respiratory: decreased breath sounds Abdomen: soft, non-tender, present bowel sounds Extremities: no cyanosis Laboratory Tests Test 04/29/20 18:50 04/29/20 19:26 04/29/20 23:46 04/30/20 05:20 Vancomycin Level Trough 12.9 ug/mL (5.0-12.0) H POC Whole Blood Glucose Pending Pending White Blood Count 11.5 K/UL (4.8-10.8) H Red Blood Count 4.13 M/UL (4.70-6.10) L Hemoglobin 12.6 G/DL (14.2-18.0) L Hematocrit 40.3 % (42.0-52.0) L Mean Corpuscular Volume 98 FL (80-99) Mean Corpuscular Hemoglobin 30.5 PG (27.0-31.0) Mean Corpuscular Hemoglobin Concent 31.3 G/DL (32.0-36.0) L Red Cell Distribution Width 12.8 % (11.6-14.8) Platelet Count 399 K/UL (150-450) Mean Platelet Volume 5.7 FL (6.5-10.1) L Neutrophils (%) (Auto) 76.0 % (45.0-75.0) H Lymphocytes (%) (Auto) 15.7 % (20.0-45.0) L Monocytes (%) (Auto) 7.4 % (1.0-10.0) Eosinophils (%) (Auto) 0.5 % (0.0-3.0) Basophils (%) (Auto) 0.4 % (0.0-2.0) Sodium Level 139 MMOL/L (136-145) Potassium Level 4.5 MMOL/L (3.5-5.1) Chloride Level 100 MMOL/L (98-107) Carbon Dioxide Level 36 MMOL/L (21-32) H Anion Gap 3 mmol/L (5-15) L Blood Urea Nitrogen 22 mg/dL (7-18) H Creatinine 0.8 MG/DL (0.55-1.30) Estimat Glomerular Filtration Rate > 60 mL/min (>60) Glucose Level 180 MG/DL (74-106) H Calcium Level 9.6 MG/DL (8.5-10.1) Test 04/30/20 11:52 POC Whole Blood Glucose 219 MG/DL (74-106) H Plan Problems: (1) Pneumonia due to COVID-19 virus (2) Severe protein-calorie malnutrition Assessment & Plan: 74-year-old male with significant severe protein calorie malnutrition. BMI is 18. Albumin is low. Skin turgor is poor. On admission identified to have a deep tissue injury and decubitus skin ulcer. Air mattress ordered local wound care plan initiated. Speech therapy evaluation identified. High risk dysphasia aspiration Needs nutritional optimization to allow for wound healing and care plan. We will follow with recommendations thank you for let me participate in patient' s care Turn every 2 hours Offload pressure with pillows Wash sacral wound daily with normal saline apply Thera honey and foam dressing. Bilateral heel protectors DAILY ESTIMATED NEEDS: Needs based on wound, underweight, 54kg 30-35 kcals/kg 9425-4556 total kcals 1.25-2 g protein/kg 68-108 g total protein 25-35ml/kcal mL/kg 5378-2656 total fluid mLs NUTRITION DIAGNOSIS: Swallowing difficulty r/t dysphagia as evidenced by TELECOMMUNICATION ENGINEER marj pt not safe for oral diet, now on NGT feeds. CURRENT TF:Glucerna 1.5 @45ml/hr ENTERAL NUTRITION RECOMMENDATIONS: Glucerna 1.5 goal of 45ml/hr x 24 hrs to provide 1080ml, 1620kcal, 89g pro, 820ml free H2O - Maintain Glucerna 1.5 @45ml/hr as tolerated - Advance as tolerated 10ml/hr q4-6 hrs to goal. - Flush per MD. HOB over 30 degrees. ADDITIONAL RECOMMENDATIONS: 1) Monitor BG closely w/ TF's; need for increased insulin coverage 2) wound care w/ NGT feeds: add LYNNE in 4oz H2O BID + Vit C500mg qdaily, MVI w/ min qdaily+ ZnSO4 220mg qd x10 days 3) Calibrated bed scale wts 4) Monitor lytes daily w/ TF, replete as needed THE PATIENT WAS POSITIONED UPRIGHT FOR P.O. TRIALS. PATIENT NON/VERBAL, NON/VISUAL TRACKING, NON/RESPONSIVE TO TACTILE/VERBAL CUES. HE IS MOUTH BREATHING, ORAL MUCOSA PRESENTS WITH XEROSTOMIA. HIS DECREASED MENTATION INCLUDED SENSORIMOTOR DEFICITS WHICH RESULTED IN POOR BOLUS ACCEPTANCE, DECREASED AWARENESS OF FOOD IN MOUTH. WHEN PRESENTED WITH 5ML OF NECTAR THICK WATER VIA SPOON, THE PATIENT DEMONSTRATED REPETITIVE LINGUAL PUMPING IN HIS ATTEMPT TO TRIGGER THE PHARYNGEAL PHASE OF THE SWALLOW. HYOLARYNGEAL ELEVATION WAS PALPATED AND DETERMINED TO BE INSUFFICIENT FOR AIRWAY PROTECTION. AFTER THE SECOND P.O. TRIAL WITH THE NTL, THE PATIENT DEMONSTRATED A PROLONGED NON/ CLEARING, NON/PRODUCTIVE COUGH, WITH 3 TRIALS OF PUREE PRESENTED IN 5 ML AMOUNTS , THE PATIENT DEMONSTRATED ORAL STASIS, AND RESIDUE HAD TO BE SUCTIONED TO CLEAR HIS MOUTH. ORAL CARE WAS PROVIDED POST SUCTIONING. PHARYNGEAL PHASE OF SWALLOW SEVERELY DELAYED. CLEARLY, THIS GENTLEMAN PRESENTS WITH SEVERE OROPHARYNGEAL DYSPHAGIA, ALONG WITH A HISTORY OF SUBOPTIMAL P.O. INTAKE/LOSS OF APPETITE RECOMMENDATIONS 1. CONSIDER NON/ORAL FEEDING MANAGEMENT FOR INTERIM NUTRITION/HYDRATION 2. NPO 3. ORAL CARE TID TO REDUCE ORAL PATHOGENS 4. SKILLED ST INTERVENTION DOES NOT APPEAR TO BE NEEDED AT THIS TIME. (3) At high risk for aspiration (4) Respiratory distress (5) COVID-19 Assessment & Plan: + (6) History of diabetes mellitus (7) Alzheimer's dementia (8) Decubitus skin ulcer Assessment & Plan: Pt deconditioned and presents with multiple Pressure injuries on admission. Non-Blanchable erythema without fluctuance or induration noted to R elbow. Open DTPI Sacrum with full thickness Ulcer (L)9.5cm x (W)10.5cm.Wound is irregular shaped and extends to apex of anus. Base of wound is indurated and purpuric surrounding areas at base of wound with full thickness ulcer with scattered areas of soft necrosis (60%), 40% maldonado. Bony prominence is palpable at base of wound.Small amt sanguineous exudate noted . No odor noted . Periwound Skin is blanchable but Bilat trochanteric and iliac areas, including Ischial tuberosities are at high risks for pressure injuries secondary to bony protrusion and poor tissue perfusion. DTPI R Ischium. Base of pressure injury is maroon and indurated(L)3.4cm x (W) 7cm. DTPI R Heel (L)4cm x (W)9cm. Base of Pressure injury is fluctuant, maroon with small purpuric area.No evidence of ski breakdown periwound. L heel is boggy with non-Blanchable erythema. Tx.Plan: Cleanse Sacral wound with Saline. Apply TheraHoney. Apply Moisture Barrier Paste periwound. Cover with Optifoam drsgs. Change Daily and prn. Apply Cavilon Skin Barrier to R ischium. Cover with Optifoam drsg. Change every 3 days and prn. Apply Cavilon Skin Barrier to At Risks Bony Prominences. Cover areas with Optifoam drsgs as needed. Apply Cavilon Skin Barrier to both heels and Malleoli. Cover each site with Optifoam drsg. Change every 7 days and Prn. Reposition at least every 2hours or as tolerated. Off-load heels with Pillow. Air Fluidized Mattress. (9) Dysphagia Assessment & Plan: ng placed unlikey to pass swallow eval low bmi consider peg polst noted Darian Ragsdale Apr 30, 2020 13:42
--- NOTE | 2020-04-30 14:09 | Infectious Diseases Prog Note ---
Assessment/Plan Assessment: Recent COVID19 positive (unknown date of diagnosis) Pneumonia -bacterial superimposed w MRSA (pt bacteremic) Acute hypoxic resp failure - s/p NC, now on NRB -04/28 CXR: Bibasilar infiltrates with slight worsening on right side. -04/24 CXR: Slightly improved bilateral infiltrates, over 2 days -04/22 Rapid COVID + CXR: Bilateral infiltrates, likely pneumonia, possibly viral. Correlate with clinical findings MRSA and CONS bacteremia; persistent bacteremia -04/26 2d echo(limited study): no vegetations seen -04/22 Bcx 2/4 S. epi; 04/23 Bcx 2/4 MRSA; 04/26 Bcx 1/2 S. hominis; 04/27 Bcx NTD Afebrile- Tm 99.5 Mild leukocytosis; improving -04/22 u/a neg Dementia seizure disorder Dm2 DNR status [place] resident ([facility]) Plan: -empiric Cefepime #8(abx d #9/10) -Cont IV Vancomycin #7; will need mininum of 14 days from 1st neg Bcx -04/27 SP Decadron #5 -04/26 SP Azithromcin #5 -04/23 SP Ceftriaxone #2 -04/22 SP ZOsyn x1 -f/u cx -Monitor CBC/CMP, temperatures -COVID19 isolation -Will not give Remdesevir at this point given unclear date of diagnosis -If improved respiratory status may need AN -f/u Bcx x 2, Sp cx Thank you for this consultation. Will continue to follow along with you. Discussed with RN. Subjective Allergies: Coded Allergies: No Known Allergies (Unverified , 04/22/20) afebrile remains on NRB latest Bcx NTD mild leukocytosis improving Objective Last 24 Hour Vital Signs Date Time Temp Pulse Resp B/P (MAP) Pulse Ox O2 Delivery O2 Flow Rate FiO2 04/30/20 12:00 97.2 99 19 153/93 (113) 98 04/30/20 09:00 Non-Rebreather 15.0 04/30/20 08:00 97.9 104 17 155/87 (109) 92 04/30/20 04:00 97.9 82 24 155/70 (98) 99 04/30/20 00:00 97.9 28 156/83 (107) 100 04/29/20 21:00 Non-Rebreather 15.0 04/29/20 20:00 98.4 101 32 132/74 (93) 99 04/29/20 16:00 98.2 98 18 130/67 (88) 100 Height (Feet): 5 Height (Inches): 8.00 Weight (Pounds): 120 General Appearance: cachetic, thin HEENT: normocephalic, atraumatic, NRB mask in place Neck: supple Respiratory/Chest: chest wall non-tender, rhonchi - left, rhonchi - right Cardiovascular/Chest: normal peripheral pulses, normal rate Abdomen: normal bowel sounds, non tender Microbiology Date/Time Source Procedure Growth Status 04/27/20 15:30 Blood Blood Culture - Preliminary NO GROWTH AFTER 48 HOURS Resulted 04/27/20 15:15 Blood Blood Culture - Preliminary NO GROWTH AFTER 48 HOURS Resulted Laboratory Tests Test 04/29/20 18:50 04/29/20 19:26 04/29/20 23:46 04/30/20 05:20 Vancomycin Level Trough 12.9 ug/mL (5.0-12.0) H POC Whole Blood Glucose Pending Pending White Blood Count 11.5 K/UL (4.8-10.8) H Red Blood Count 4.13 M/UL (4.70-6.10) L Hemoglobin 12.6 G/DL (14.2-18.0) L Hematocrit 40.3 % (42.0-52.0) L Mean Corpuscular Volume 98 FL (80-99) Mean Corpuscular Hemoglobin 30.5 PG (27.0-31.0) Mean Corpuscular Hemoglobin Concent 31.3 G/DL (32.0-36.0) L Red Cell Distribution Width 12.8 % (11.6-14.8) Platelet Count 399 K/UL (150-450) Mean Platelet Volume 5.7 FL (6.5-10.1) L Neutrophils (%) (Auto) 76.0 % (45.0-75.0) H Lymphocytes (%) (Auto) 15.7 % (20.0-45.0) L Monocytes (%) (Auto) 7.4 % (1.0-10.0) Eosinophils (%) (Auto) 0.5 % (0.0-3.0) Basophils (%) (Auto) 0.4 % (0.0-2.0) Sodium Level 139 MMOL/L (136-145) Potassium Level 4.5 MMOL/L (3.5-5.1) Chloride Level 100 MMOL/L (98-107) Carbon Dioxide Level 36 MMOL/L (21-32) H Anion Gap 3 mmol/L (5-15) L Blood Urea Nitrogen 22 mg/dL (7-18) H Creatinine 0.8 MG/DL (0.55-1.30) Estimat Glomerular Filtration Rate > 60 mL/min (>60) Glucose Level 180 MG/DL (74-106) H Calcium Level 9.6 MG/DL (8.5-10.1) Test 04/30/20 11:52 POC Whole Blood Glucose 219 MG/DL (74-106) H Current Medications Medications (Trade) Dose Ordered Sig/Andrade Route PRN Reason Start Time Stop Time Status Last Admin Dose Admin Acetaminophen (Tylenol) 650 mg Q4H PRN ORAL FEVER 04/24/20 18:30 05/22/20 18:29 Albuterol/ Ipratropium (Combivent Respimat) 1 puff Q4H PRN INH Shortness of Breath 04/24/20 18:30 05/22/20 18:29 Ascorbic Acid (Vitamin C) 500 mg DAILY ORAL 04/28/20 09:00 05/28/20 08:59 04/30/20 09:40 Cefepime HCl 1 gm/ Dextrose 55 ml @ 110 mls/hr Q24H IVPB 04/25/20 16:00 05/01/20 23:59 04/29/20 16:18 Dextrose (Dextrose 50%) 25 ml Q30M PRN IV Hypoglycemia 04/24/20 18:15 07/21/20 16:14 Dextrose (Dextrose 50%) 50 ml Q30M PRN IV Hypoglycemia 04/24/20 18:15 07/21/20 16:14 Heparin Sodium (Porcine) (Heparin 5000 units/ml) 5,000 units EVERY 12 HOURS SUBQ 04/24/20 21:00 06/06/20 20:59 04/30/20 09:41 Insulin Aspart (NovoLOG) Q6HR SUBQ 04/26/20 18:00 07/21/20 16:29 04/30/20 13:13 Levetiracetam (Keppra) 500 mg EVERY 12 HOURS ORAL 04/24/20 21:00 06/06/20 20:59 04/30/20 09:40 Multivitamins (Multivitamins) 1 tab DAILY ORAL 04/28/20 09:00 05/28/20 08:59 04/30/20 09:40 Ondansetron HCl (Zofran) 4 mg Q6H PRN IVP Nausea & Vomiting 04/24/20 18:30 05/22/20 18:29 Polyethylene Glycol (Miralax) 17 gm DAILYPRN PRN ORAL Constipation 04/24/20 18:30 05/24/20 18:29 Promethazine HCl/ Codeine (Phenergan with Codeine) 5 ml Q6H PRN ORAL cough 04/24/20 18:30 05/22/20 18:29 Sodium Chloride 1,000 ml @ 50 mls/hr Q20H IV 04/26/20 18:22 05/26/20 18:21 04/30/20 04:55 Vancomycin HCl (Vanco pharmacy to dose) 1 ea DAILY PRN MISC Per rx protocol 04/25/20 09:00 05/23/20 14:44 Vancomycin/Sodium Chloride 275 ml @ 183.333 mls/hr Q12HR IVPB 04/29/20 21:00 05/04/20 20:59 04/30/20 09:44 Zinc Sulfate (Zinc Sulfate) 220 mg DAILY ORAL 04/28/20 09:00 07/27/20 08:59 04/30/20 09:39 Linsey Barry M.D. Apr 30, 2020 14:09
[2020-04-30 16:00] VITALS: BP 120/101
[2020-04-30] MEDS: Cefepime HCl 1 GM in D5W 55 ML IVPB SCH (17:00)
--- NOTE | 2020-04-30 19:02 | NUR ---
HAND-OFF: Report given to Gordon Blum RN. Patients eyes closed, television on for stimulation, bed in lowest position, call light within reach, side rails up x 3, rails padded for seizure precautions, 1/2NS at 50cc/hr running into right forearm, non-rebreather mask at 15 liters oxygen, NG tube in place running Glucerna 1.5@45cc/hour, in no apparent distress.
--- NOTE | 2020-04-30 19:30 | NUR ---
NURSE NOTES: Received patient in bed. A&OX0, non verbal. On 15L with non rebreather mask, 100% o2sat. IV site patent and intact. NGT in place, running Glucerna 1.5, 45cc/hr, 0cc residual noted. flushed, elevated HOB. Bed in lowest position. Call light within reach. Will continue to monitor.
[2020-04-30 20:00] VITALS: BP 130/69
[2020-05-01] VITALS: BP 148/73
[2020-05-01] MEDS: NovoLOG Insulin Flexpen SUBQ SCH ×4 (00:18→18:33)
[2020-05-01 04:00] VITALS: BP 139/70
--- NOTE | 2020-05-01 05:30 | NUR ---
NURSE NOTES: Sacral dressing was changed as ordered.
[2020-05-01 06:33] LABS: HEMATOCRIT 36.9 % (42.0-52.0); HEMOGLOBIN 11.7 G/DL (14.2-18.0); MEAN CORPUSCULAR VOLUME 98 FL (80-99); PLATELET COUNT 361 K/UL (150-450); RED BLOOD COUNT 3.77 M/UL (4.70-6.10); RED CELL DISTRIBUTION WIDTH 12.9 % (11.6-14.8); WHITE BLOOD COUNT 15.2 K/UL (4.8-10.8)
--- NOTE | 2020-05-01 07:17 | NUR ---
HAND-OFF: Report given to Jos BOWLING. Endorse collect [phone] blood lab draw. Patient remain stable. Will continue to monitor.
--- NOTE | 2020-05-01 07:17 | NUR ---
NURSE NOTES: Received report from TAWNYA Leyva. Received patient lying in hospital bed in p200 mattress with side rails padded on high dixon position. Pt is arousable to name, nonverbal, unable to make needs known, and bedbound. Pt is on 15L O2 via NRB mask, open mouth breathing, using accessory muscles for support. Pt has a NGT via L nostril receiving feeding of Glucerna 1.5 at goal rate of 45 ml/hr. LBM on 04/30/20. Condom catheter in place. Incontinent to bowel fx. Sacral pressure injury dressing was changed this AM as ordered. Bony prominences with optifoam for protection. Pt has pIV to R FA 22g running 1/2 NS at 50ml/hr. Pending discussion of GOC with family. Bed on lowest position, alarm on. Will continue POC.
[2020-05-01 08:00] VITALS: BP 108/56
[2020-05-01] MEDS: Ascorbic Acid 500mg tab ORAL SCH (09:17)
[2020-05-01] MEDS: Zinc Sulfate 220mg ORAL SCH (09:17)
[2020-05-01] MEDS: Heparin 5000 units/ml inj SUBQ SCH ×2 (09:19→20:31)
--- NOTE | 2020-05-01 09:39 | NUR ---
RADIOLOGY DEPT., CHEST X-RAY DONE-P.DYE
--- NOTE | 2020-05-01 11:04 | Surgery Progress Note ---
Surgery Progress Note Subjective Additional Comments leukocytosis 15k exam stable ill appearing respiratory Objective Last 24 Hour Vital Signs Date Time Temp Pulse Resp B/P (MAP) Pulse Ox O2 Delivery O2 Flow Rate FiO2 05/01/20 09:00 Non-Rebreather 15.0 05/01/20 08:00 98.2 102 21 108/56 (73) 96 05/01/20 04:00 98.1 104 22 139/70 (93) 99 05/01/20 00:00 98.4 101 22 148/73 (98) 98 04/30/20 20:23 Non-Rebreather 15.0 04/30/20 20:00 98.2 100 22 130/69 (89) 100 04/30/20 16:00 98.1 100 20 120/101 (107) 100 04/30/20 12:00 97.2 99 19 153/93 (113) 98 I&O Intake and Output 04/30/20 05/01/20 19:00 07:00 Intake Total 1370 ml 1420.000 ml Balance 1370 ml 1420.000 ml Intake Free Water 150 ml IV Total 830 ml 775.000 ml Tube Feeding 540 ml 495 ml # Voids 2 # Bowel Movements 1 Dressing: saturated Cardiovascular: RSR Respiratory: decreased breath sounds Abdomen: soft, non-tender, present bowel sounds Extremities: no cyanosis Laboratory Tests Test 04/30/20 11:52 05/01/20 05:30 05/01/20 08:00 POC Whole Blood Glucose 219 MG/DL (74-106) H White Blood Count 15.2 K/UL (4.8-10.8) H Red Blood Count 3.77 M/UL (4.70-6.10) L Hemoglobin 11.7 G/DL (14.2-18.0) L Hematocrit 36.9 % (42.0-52.0) L Mean Corpuscular Volume 98 FL (80-99) Mean Corpuscular Hemoglobin 30.9 PG (27.0-31.0) Mean Corpuscular Hemoglobin Concent 31.6 G/DL (32.0-36.0) L Red Cell Distribution Width 12.9 % (11.6-14.8) Platelet Count 361 K/UL (150-450) Mean Platelet Volume 6.1 FL (6.5-10.1) L Neutrophils (%) (Auto) % (45.0-75.0) Lymphocytes (%) (Auto) % (20.0-45.0) Monocytes (%) (Auto) % (1.0-10.0) Eosinophils (%) (Auto) % (0.0-3.0) Basophils (%) (Auto) % (0.0-2.0) Differential Total Cells Counted 100 Neutrophils % (Manual) 87 % (45-75) H Lymphocytes % (Manual) 11 % (20-45) L Monocytes % (Manual) 2 % (1-10) Eosinophils % (Manual) 0 % (0-3) Basophils % (Manual) 0 % (0-2) Band Neutrophils 0 % (0-8) Platelet Estimate Adequate Platelet Morphology Normal Red Blood Cell Morphology Normal Ferritin 293 NG/ML (8-388) Lactate Dehydrogenase 315 U/L (81-234) H C-Reactive Protein, Quantitative 8.7 mg/dL (0.00-0.90) H Vancomycin Level Trough 24.8 ug/mL (5.0-12.0) H Plan Problems: (1) Pneumonia due to COVID-19 virus (2) Severe protein-calorie malnutrition Assessment & Plan: 74-year-old male with significant severe protein calorie malnutrition. BMI is 18. Albumin is low. Skin turgor is poor. On admission identified to have a deep tissue injury and decubitus skin ulcer. Air mattress ordered local wound care plan initiated. Speech therapy evaluation identified. High risk dysphasia aspiration Needs nutritional optimization to allow for wound healing and care plan. We will follow with recommendations thank you for let me participate in patient' s care Turn every 2 hours Offload pressure with pillows Wash sacral wound daily with normal saline apply Thera honey and foam dressing. Bilateral heel protectors DAILY ESTIMATED NEEDS: Needs based on wound, underweight, 54kg 30-35 kcals/kg 7860-0677 total kcals 1.25-2 g protein/kg 68-108 g total protein 25-35ml/kcal mL/kg 0478-2598 total fluid mLs NUTRITION DIAGNOSIS: Swallowing difficulty r/t dysphagia as evidenced by PROGRAMMING DIRECTOR eval, pt not safe for oral diet, now on NGT feeds. CURRENT TF:Glucerna 1.5 @45ml/hr ENTERAL NUTRITION RECOMMENDATIONS: Glucerna 1.5 goal of 45ml/hr x 24 hrs to provide 1080ml, 1620kcal, 89g pro, 820ml free H2O - Maintain Glucerna 1.5 @45ml/hr as tolerated - Advance as tolerated 10ml/hr q4-6 hrs to goal. - Flush per MD. HOB over 30 degrees. ADDITIONAL RECOMMENDATIONS: 1) Monitor BG closely w/ TF's; need for increased insulin coverage 2) wound care w/ NGT feeds: add LYNNE in 4oz H2O BID + Vit C500mg qdaily, MVI w/ min qdaily+ ZnSO4 220mg qd x10 days 3) Calibrated bed scale wts 4) Monitor lytes daily w/ TF, replete as needed THE PATIENT WAS POSITIONED UPRIGHT FOR P.O. TRIALS. PATIENT NON/VERBAL, NON/VISUAL TRACKING, NON/RESPONSIVE TO TACTILE/VERBAL CUES. HE IS MOUTH BREATHING, ORAL MUCOSA PRESENTS WITH XEROSTOMIA. HIS DECREASED MENTATION INCLUDED SENSORIMOTOR DEFICITS WHICH RESULTED IN POOR BOLUS ACCEPTANCE, DECREASED AWARENESS OF FOOD IN MOUTH. WHEN PRESENTED WITH 5ML OF NECTAR THICK WATER VIA SPOON, THE PATIENT DEMONSTRATED REPETITIVE LINGUAL PUMPING IN HIS ATTEMPT TO TRIGGER THE PHARYNGEAL PHASE OF THE SWALLOW. HYOLARYNGEAL ELEVATION WAS PALPATED AND DETERMINED TO BE INSUFFICIENT FOR AIRWAY PROTECTION. AFTER THE SECOND P.O. TRIAL WITH THE NTL, THE PATIENT DEMONSTRATED A PROLONGED NON/ CLEARING, NON/PRODUCTIVE COUGH, WITH 3 TRIALS OF PUREE PRESENTED IN 5 ML AMOUNTS , THE PATIENT DEMONSTRATED ORAL STASIS, AND RESIDUE HAD TO BE SUCTIONED TO CLEAR HIS MOUTH. ORAL CARE WAS PROVIDED POST SUCTIONING. PHARYNGEAL PHASE OF SWALLOW SEVERELY DELAYED. CLEARLY, THIS GENTLEMAN PRESENTS WITH SEVERE OROPHARYNGEAL DYSPHAGIA, ALONG WITH A HISTORY OF SUBOPTIMAL P.O. INTAKE/LOSS OF APPETITE RECOMMENDATIONS 1. CONSIDER NON/ORAL FEEDING MANAGEMENT FOR INTERIM NUTRITION/HYDRATION 2. NPO 3. ORAL CARE TID TO REDUCE ORAL PATHOGENS 4. SKILLED ST INTERVENTION DOES NOT APPEAR TO BE NEEDED AT THIS TIME. (3) At high risk for aspiration (4) Respiratory distress (5) COVID-19 Assessment & Plan: + (6) History of diabetes mellitus (7) Alzheimer's dementia (8) Decubitus skin ulcer Assessment & Plan: Pt deconditioned and presents with multiple Pressure injuries on admission. Non-Blanchable erythema without fluctuance or induration noted to R elbow. Open DTPI Sacrum with full thickness Ulcer (L)9.5cm x (W)10.5cm.Wound is irregular shaped and extends to apex of anus. Base of wound is indurated and purpuric surrounding areas at base of wound with full thickness ulcer with scattered areas of soft necrosis (60%), 40% maldonado. Bony prominence is palpable at base of wound.Small amt sanguineous exudate noted . No odor noted . Periwound Skin is blanchable but Bilat trochanteric and iliac areas, including Ischial tuberosities are at high risks for pressure injuries secondary to bony protrusion and poor tissue perfusion. DTPI R Ischium. Base of pressure injury is maroon and indurated(L)3.4cm x (W) 7cm. DTPI R Heel (L)4cm x (W)9cm. Base of Pressure injury is fluctuant, maroon with small purpuric area.No evidence of ski breakdown periwound. L heel is boggy with non-Blanchable erythema. Tx.Plan: Cleanse Sacral wound with Saline. Apply TheraHoney. Apply Moisture Barrier Paste periwound. Cover with Optifoam drsgs. Change Daily and prn. Apply Cavilon Skin Barrier to R ischium. Cover with Optifoam drsg. Change every 3 days and prn. Apply Cavilon Skin Barrier to At Risks Bony Prominences. Cover areas with Optifoam drsgs as needed. Apply Cavilon Skin Barrier to both heels and Malleoli. Cover each site with Optifoam drsg. Change every 7 days and Prn. Reposition at least every 2hours or as tolerated. Off-load heels with Pillow. Air Fluidized Mattress. (9) Dysphagia Assessment & Plan: ng placed unlikey to pass swallow eval low bmi consider peg polst noted Darian Ragsdale May 01, 2020 11:04
[2020-05-01 12:00] VITALS: BP 138/68
--- NOTE | 2020-05-01 12:09 | Infectious Diseases Prog Note ---
Assessment/Plan Assessment: Recent COVID19 positive (unknown date of diagnosis) Pneumonia -bacterial superimposed w MRSA (pt bacteremic) Acute hypoxic resp failure - s/p NC, now on NRB -04/28 CXR: Bibasilar infiltrates with slight worsening on right side. -04/24 CXR: Slightly improved bilateral infiltrates, over 2 days -04/22 Rapid COVID + CXR: Bilateral infiltrates, likely pneumonia, possibly viral. Correlate with clinical findings MRSA and CONS bacteremia; persistent bacteremia -04/26 2d echo(limited study): no vegetations seen -04/22 Bcx 2/4 S. epi; 04/23 Bcx 2/4 MRSA; 04/26 Bcx 1/2 S. hominis; 04/27 Bcx NTD Afebrile- Tm 99.5 Mild leukocytosis; increased -04/22 u/a neg Dementia seizure disorder Dm2 DNR status [place] resident ([facility]) Plan: -empiric Cefepime #9(abx d #07/11) -Cont IV Vancomycin #8; will need mininum of 14 days from 1st neg Bcx -04/27 SP Decadron #5 -04/26 SP Azithromcin #5 -04/23 SP Ceftriaxone #2 -04/22 SP ZOsyn x1 -f/u cx -Monitor CBC/CMP, temperatures -COVID19 isolation -Will not give Remdesevir at this point given unclear date of diagnosis -If improved respiratory status may need AN -f/u Bcx x 2, -Cdiff if diarreha -u/a w/ reflex , CXR Thank you for this consultation. Will continue to follow along with you. Discussed with RN. Subjective Allergies: Coded Allergies: No Known Allergies (Unverified , 04/22/20) afebrile remains on NRB latest Bcx NTD leukocytosis increasing Objective Last 24 Hour Vital Signs Date Time Temp Pulse Resp B/P (MAP) Pulse Ox O2 Delivery O2 Flow Rate FiO2 05/01/20 09:00 Non-Rebreather 15.0 05/01/20 08:00 98.2 102 21 108/56 (73) 96 05/01/20 04:00 98.1 104 22 139/70 (93) 99 05/01/20 00:00 98.4 101 22 148/73 (98) 98 04/30/20 20:23 Non-Rebreather 15.0 04/30/20 20:00 98.2 100 22 130/69 (89) 100 04/30/20 16:00 98.1 100 20 120/101 (107) 100 04/30/20 12:00 97.2 99 19 153/93 (113) 98 Height (Feet): 5 Height (Inches): 8.00 Weight (Pounds): 120 General Appearance: cachetic, thin HEENT: normocephalic, atraumatic, NRB mask in place Neck: supple Respiratory/Chest: chest wall non-tender, rhonchi - left, rhonchi - right Cardiovascular/Chest: normal peripheral pulses, normal rate Abdomen: normal bowel sounds, non tender Laboratory Tests Test 04/30/20 11:52 05/01/20 05:30 05/01/20 08:00 POC Whole Blood Glucose 219 MG/DL (74-106) H White Blood Count 15.2 K/UL (4.8-10.8) H Red Blood Count 3.77 M/UL (4.70-6.10) L Hemoglobin 11.7 G/DL (14.2-18.0) L Hematocrit 36.9 % (42.0-52.0) L Mean Corpuscular Volume 98 FL (80-99) Mean Corpuscular Hemoglobin 30.9 PG (27.0-31.0) Mean Corpuscular Hemoglobin Concent 31.6 G/DL (32.0-36.0) L Red Cell Distribution Width 12.9 % (11.6-14.8) Platelet Count 361 K/UL (150-450) Mean Platelet Volume 6.1 FL (6.5-10.1) L Neutrophils (%) (Auto) % (45.0-75.0) Lymphocytes (%) (Auto) % (20.0-45.0) Monocytes (%) (Auto) % (1.0-10.0) Eosinophils (%) (Auto) % (0.0-3.0) Basophils (%) (Auto) % (0.0-2.0) Differential Total Cells Counted 100 Neutrophils % (Manual) 87 % (45-75) H Lymphocytes % (Manual) 11 % (20-45) L Monocytes % (Manual) 2 % (1-10) Eosinophils % (Manual) 0 % (0-3) Basophils % (Manual) 0 % (0-2) Band Neutrophils 0 % (0-8) Platelet Estimate Adequate Platelet Morphology Normal Red Blood Cell Morphology Normal Ferritin 293 NG/ML (8-388) Lactate Dehydrogenase 315 U/L (81-234) H C-Reactive Protein, Quantitative 8.7 mg/dL (0.00-0.90) H Vancomycin Level Trough 24.8 ug/mL (5.0-12.0) H Current Medications Medications (Trade) Dose Ordered Sig/Andrade Route PRN Reason Start Time Stop Time Status Last Admin Dose Admin Acetaminophen (Tylenol) 650 mg Q4H PRN ORAL FEVER 04/24/20 18:30 05/22/20 18:29 Albuterol/ Ipratropium (Combivent Respimat) 1 puff Q4H PRN INH Shortness of Breath 04/24/20 18:30 05/22/20 18:29 Ascorbic Acid (Vitamin C) 500 mg DAILY ORAL 04/28/20 09:00 05/28/20 08:59 05/01/20 09:17 Cefepime HCl 1 gm/ Dextrose 55 ml @ 110 mls/hr Q24H IVPB 04/25/20 16:00 05/01/20 23:59 04/30/20 17:00 Dextrose (Dextrose 50%) 25 ml Q30M PRN IV Hypoglycemia 04/24/20 18:15 07/21/20 16:14 Dextrose (Dextrose 50%) 50 ml Q30M PRN IV Hypoglycemia 04/24/20 18:15 07/21/20 16:14 Heparin Sodium (Porcine) (Heparin 5000 units/ml) 5,000 units EVERY 12 HOURS SUBQ 04/24/20 21:00 06/06/20 20:59 05/01/20 09:19 Insulin Aspart (NovoLOG) Q6HR SUBQ 04/26/20 18:00 07/21/20 16:29 05/01/20 05:40 Levetiracetam (Keppra) 500 mg EVERY 12 HOURS ORAL 04/24/20 21:00 06/06/20 20:59 05/01/20 09:17 Multivitamins (Multivitamins) 1 tab DAILY ORAL 04/28/20 09:00 8/27/20 08:59 05/01/20 09:17 Ondansetron HCl (Zofran) 4 mg Q6H PRN IVP Nausea & Vomiting 04/24/20 18:30 05/22/20 18:29 Polyethylene Glycol (Miralax) 17 gm DAILYPRN PRN ORAL Constipation 04/24/20 18:30 05/24/20 18:29 Promethazine HCl/ Codeine (Phenergan with Codeine) 5 ml Q6H PRN ORAL cough 04/24/20 18:30 05/22/20 18:29 Sodium Chloride 1,000 ml @ 50 mls/hr Q20H IV 04/26/20 18:22 05/26/20 18:21 04/30/20 21:09 Vancomycin HCl (Vanco pharmacy to dose) 1 ea DAILY PRN MISC Per rx protocol 04/25/20 09:00 05/23/20 14:44 Vancomycin HCl 1 gm/Dextrose 275 ml @ 183.708 mls/hr Q12HR@0100,1300 IVPB 05/01/20 13:00 05/06/20 12:59 Zinc Sulfate (Zinc Sulfate) 220 mg DAILY ORAL 04/28/20 09:00 07/27/20 08:59 05/01/20 09:17 Linsey Barry M.D. May 01, 2020 12:09
[2020-05-01] MEDS: Vancomycin 1gm/D5W 275ml IVPB SCH ×2 (12:57)
--- NOTE | 2020-05-01 13:17 | NUR ---
CASE MANAGEMENT:REVIEW SI;COVID-19 PNA. RESPIRATORY FAILURE. BACTEREMIA. 98.6 104 22 148/73 96% 15L NRBM WBC 15.2 LDH 315 CRP 8.7 IS;VANCOMYCIN IV Q12 IVF NS @ 50 ML/HR CEFEPIME IV Q24 KEPPRA NGT Q12 HEPARIN SUBQ Q12 MED SURG STATUS DCP;FROM CV EAST PLAN; TITRATE O2 SUPPORTIVE CARE
--- NOTE | 2020-05-01 13:24 | Diagnostic Imaging Report ---
Procedure: XRAY Chest 1v Reason for study: Reason For Exam: SOB Comparison films: 04/28/2020. FINDINGS: NG tube remains in place. Bilateral alveolar infiltrates not significantly changed. Cardiac and mediastinal silhouette are within normal limits. CP angles are sharp. The bony thorax appear unremarkable. IMPRESSION: NO SIGNIFICANT CHANGE COMPARED TO PREVIOUS EXAM.
--- NOTE | 2020-05-01 13:43 | NUR ---
NURSE NOTES: Called RT to ask for sputum collection per MD order. Per RT department, they need patient to be in a negative pressure room in order to induce sputum collection as procedure is considered aerosolizing procedure.
--- NOTE | 2020-05-01 14:20 | Pulmonology Progress Note ---
Subjective ROS Limited/Unobtainable: No Constitutional: Reports: no symptoms HEENT: Repors: no symptoms Respiratory: Reports: no symptoms Allergies: Coded Allergies: No Known Allergies (Unverified , 04/22/20) Objective Last 24 Hour Vital Signs Date Time Temp Pulse Resp B/P (MAP) Pulse Ox O2 Delivery O2 Flow Rate FiO2 05/01/20 12:00 98.6 97 20 138/68 (91) 99 05/01/20 09:00 Non-Rebreather 15.0 05/01/20 08:00 98.2 102 21 108/56 (73) 96 05/01/20 04:00 98.1 104 22 139/70 (93) 99 05/01/20 00:00 98.4 101 22 148/73 (98) 98 04/30/20 20:23 Non-Rebreather 15.0 04/30/20 20:00 98.2 100 22 130/69 (89) 100 04/30/20 16:00 98.1 100 20 120/101 (107) 100 Intake and Output 04/30/20 05/01/20 19:00 07:00 Intake Total 1370 ml 1420.000 ml Balance 1370 ml 1420.000 ml Intake Free Water 150 ml IV Total 830 ml 775.000 ml Tube Feeding 540 ml 495 ml # Voids 2 # Bowel Movements 1 General Appearance: no acute distress, cachetic - bedridden, poorly responsive , other HEENT: normocephalic, atraumatic, anicteric, other - OP with 100% NRM, NGT Respiratory: rhonchi - left, rhonchi - right Cardiovascular: normal peripheral pulses, normal rate Abdomen: normal bowel sounds, soft, non tender Genitourinary: normal external genitalia Skin: no rash Neurologic: abnormal gait, other - poorly responsive Musculoskeletal: atrophy - BLE Laboratory Tests 05/01/20 05:30: White Blood Count 15.2H, Red Blood Count 3.77L, Hemoglobin 11.7L, Hematocrit 36.9L, Mean Corpuscular Volume 98, Mean Corpuscular Hemoglobin 30.9, Mean Corpuscular Hemoglobin Concent 31.6L, Red Cell Distribution Width 12.9, Platelet Count 361, Mean Platelet Volume 6.1L, Neutrophils (%) (Auto) , Lymphocytes (%) (Auto) , Monocytes (%) (Auto) , Eosinophils (%) (Auto) , Basophils (%) (Auto) , Differential Total Cells Counted 100, Neutrophils % ( Manual) 87H, Lymphocytes % (Manual) 11L, Monocytes % (Manual) 2, Eosinophils % ( Manual) 0, Basophils % (Manual) 0, Band Neutrophils 0, Platelet Estimate Adequate, Platelet Morphology Normal, Red Blood Cell Morphology Normal, Ferritin 293, Lactate Dehydrogenase 315H, C-Reactive Protein, Quantitative 8.7H 05/01/20 08:00: Vancomycin Level Trough 24.8H Current Medications Medications (Trade) Dose Ordered Sig/Andrade Route PRN Reason Start Time Stop Time Status Last Admin Dose Admin Acetaminophen (Tylenol) 650 mg Q4H PRN ORAL FEVER 04/24/20 18:30 05/22/20 18:29 Albuterol/ Ipratropium (Combivent Respimat) 1 puff Q4H PRN INH Shortness of Breath 04/24/20 18:30 05/22/20 18:29 Ascorbic Acid (Vitamin C) 500 mg DAILY ORAL 04/28/20 09:00 05/28/20 08:59 05/01/20 09:17 Cefepime HCl 1 gm/ Dextrose 55 ml @ 110 mls/hr Q24H IVPB 04/25/20 16:00 05/01/20 23:59 04/30/20 17:00 Dextrose (Dextrose 50%) 25 ml Q30M PRN IV Hypoglycemia 04/24/20 18:15 07/21/20 16:14 Dextrose (Dextrose 50%) 50 ml Q30M PRN IV Hypoglycemia 04/24/20 18:15 07/21/20 16:14 Heparin Sodium (Porcine) (Heparin 5000 units/ml) 5,000 units EVERY 12 HOURS SUBQ 04/24/20 21:00 06/06/20 20:59 05/01/20 09:19 Insulin Aspart (NovoLOG) Q6HR SUBQ 04/26/20 18:00 07/21/20 16:29 05/01/20 13:04 Levetiracetam (Keppra) 500 mg EVERY 12 HOURS ORAL 04/24/20 21:00 06/06/20 20:59 05/01/20 09:17 Multivitamins (Multivitamins) 1 tab DAILY ORAL 04/28/20 09:00 05/28/20 08:59 05/01/20 09:17 Ondansetron HCl (Zofran) 4 mg Q6H PRN IVP Nausea & Vomiting 04/24/20 18:30 05/22/20 18:29 Polyethylene Glycol (Miralax) 17 gm DAILYPRN PRN ORAL Constipation 04/24/20 18:30 05/24/20 18:29 Promethazine HCl/ Codeine (Phenergan with Codeine) 5 ml Q6H PRN ORAL cough 04/24/20 18:30 05/22/20 18:29 Sodium Chloride 1,000 ml @ 50 mls/hr Q20H IV 04/26/20 18:22 05/26/20 18:21 04/30/20 21:09 Vancomycin HCl (Vanco pharmacy to dose) 1 ea DAILY PRN MISC Per rx protocol 04/25/20 09:00 05/23/20 14:44 Vancomycin HCl 1 gm/Dextrose 275 ml @ 183.708 mls/hr Q12HR@0100,1300 IVPB 05/01/20 13:00 05/06/20 12:59 05/01/20 12:57 Zinc Sulfate (Zinc Sulfate) 220 mg DAILY ORAL 04/28/20 09:00 07/27/20 08:59 05/01/20 09:17 Assessment/Plan Problems: (1) Pneumonia due to COVID-19 virus (2) Bacteremia (3) At high risk for aspiration (4) Severe protein-calorie malnutrition (5) History of diabetes mellitus (6) Alzheimer's dementia Assessment/Plan on 100% NRM, all cultures reviewed. continue abx NG tube for feeding, tolerating well respiratory treatment titrate fio2 to sat of 92% family members will make a decision soon about plan and goal of care. Quincy Corral MD May 01, 2020 14:20
[2020-05-01 16:00] VITALS: BP 129/72
[2020-05-01] MEDS: Cefepime HCl 1 GM in D5W 55 ML IVPB SCH (16:20)
--- NOTE | 2020-05-01 19:10 | NUR ---
HAND-OFF: Report given to TAWNYA Leyva. Endorsed POC.
[2020-05-01 20:00] VITALS: BP 139/64
[2020-05-01 20:35] LABS: APPEARANCE,URINE SLIGHTLY CLOUDY; BILIRUBIN, URINE NEGATIVE (NEGATIVE); GLUCOSE, URINE (UA) NEGATIVE (NEGATIVE); KETONES,URINE NEGATIVE (NEGATIVE); LEUKOCYTE ESTERASE ,URINE 1+ (NEGATIVE); NITRITE,URINE NEGATIVE (NEGATIVE); PH,URINE 6 (4.5-8.0); PROTEIN,URINE 2+ (NEGATIVE); UROBILINOGEN,URINE NORMAL MG/DL (0.0-1.0)
[2020-05-01 20:36] LABS: COLOR,URINE YELLOW
[2020-05-02] VITALS: BP 110/49
[2020-05-02] MEDS: Vancomycin 1gm/D5W 275ml IVPB SCH ×2 (00:18)
[2020-05-02] MEDS: NovoLOG Insulin Flexpen SUBQ SCH ×5 (00:27→23:50)
[2020-05-02 04:00] VITALS: BP 127/59
--- NOTE | 2020-05-02 05:41 | NUR ---
NURSE NOTES: Sacral dressing was changed as ordered.
[2020-05-02 07:05] LABS: HEMATOCRIT 35.8 % (42.0-52.0); HEMOGLOBIN 11.7 G/DL (14.2-18.0); MEAN CORPUSCULAR VOLUME 96 FL (80-99); PLATELET COUNT 364 K/UL (150-450); RED BLOOD COUNT 3.72 M/UL (4.70-6.10); RED CELL DISTRIBUTION WIDTH 13.3 % (11.6-14.8)
--- NOTE | 2020-05-02 07:17 | NUR ---
HAND-OFF: Report given to Jos BOWLING. Bed in lowest position. Call light within reach. Will continue to monitor.
--- NOTE | 2020-05-02 07:17 | NUR ---
NURSE NOTES: Received report from TAWNYA Leyva. Received patient lying in hospital bed in p200 mattress with side rails padded on high dixon position. Pt is arousable to shaking, nonverbal, unable to make needs known, and bedbound. Pt is on 15L O2 via NRB mask, open mouth breathing, using accessory muscles for support. Pt has a NGT via L nostril receiving feeding of Glucerna 1.5 at goal rate of 45 ml/hr. LBM on 04/30/20. Condom catheter in place. Incontinent to bowel fx. Sacral pressure injury dressing was changed this AM per report as ordered. Bony prominences with optifoam for protection. Pt has pIV to L FA 22g running 1/2 NS at 50ml/hr. Vanco trough to be drawn at 1200. Pending discussion of GOC with family. Bed on lowest position, alarm on. Will continue POC.
[2020-05-02 07:20] LABS: WHITE BLOOD COUNT 25.9 K/UL (4.8-10.8)
[2020-05-02 07:31] LABS: PHOSPHORUS 3.2 MG/DL (2.5-4.9)
[2020-05-02 07:56] LABS: ALANINE AMINOTRANSFERASE 14 U/L (12-78); ALBUMIN/GLOBULIN RATIO 0.3 (1.0-2.7); ALKALINE PHOSPHATASE 88 U/L (46-116); ANION GAP 6 mmol/L (5-15); ASPARTATE AMINO TRANSFERASE 23 U/L (15-37); BILIRUBIN,TOTAL 0.3 MG/DL (0.2-1.0); BLOOD UREA NITROGEN 29 mg/dL (7-18); CALCIUM 9.8 MG/DL (8.5-10.1); CARBON DIOXIDE 33 MMOL/L (21-32); CHLORIDE 99 MMOL/L (98-107); CREATININE 0.9 MG/DL (0.55-1.30); POTASSIUM 4.2 MMOL/L (3.5-5.1); SODIUM 138 MMOL/L (136-145)
[2020-05-02 08:00] VITALS: BP 121/57
[2020-05-02] MEDS: Ascorbic Acid 500mg tab ORAL SCH (08:46)
[2020-05-02] MEDS: Zinc Sulfate 220mg ORAL SCH (08:46)
[2020-05-02] MEDS: Heparin 5000 units/ml inj SUBQ SCH ×2 (08:48→21:35)
--- NOTE | 2020-05-02 08:50 | NUR ---
NURSE NOTES: Notified Dr. Corral re patient's current VS. Pt is rapid breathing using accessory muscles. Low grade fever. Desatting to between 83-88% on 15L NRB mask. Awaiting further orders. Will continue to f/u.
--- NOTE | 2020-05-02 09:12 | Surgery Progress Note ---
Surgery Progress Note Subjective Symptoms: tolerating diet, passing flatus, BM Objective Last 24 Hour Vital Signs Date Time Temp Pulse Resp B/P (MAP) Pulse Ox O2 Delivery O2 Flow Rate FiO2 05/02/20 04:00 98.9 104 25 127/59 (81) 95 05/02/20 00:00 99.0 106 24 110/49 (69) 96 05/01/20 21:00 Non-Rebreather 15.0 05/01/20 20:00 98.9 99 22 139/64 (89) 97 05/01/20 16:00 98.2 95 20 129/72 (91) 99 05/01/20 12:00 98.6 97 20 138/68 (91) 99 I&O Intake and Output 05/01/20 05/02/20 19:00 07:00 Intake Total 1470.000 ml 1420.000 ml Output Total 700 ml 500 ml Balance 770.000 ml 920.000 ml Intake Free Water 150 ml IV Total 930.000 ml 775.000 ml Tube Feeding 540 ml 495 ml Output Urine Total 700 ml 500 ml # Voids 1 Dressing: saturated Cardiovascular: RSR Respiratory: decreased breath sounds Abdomen: soft, non-tender, present bowel sounds Extremities: edema, no cyanosis Laboratory Tests Test 05/01/20 19:30 05/02/20 05:20 Urine Color Yellow Urine Appearance Slightly cloudy Urine pH 6 (4.5-8.0) Urine Specific [place] 1.020 (1.005-1.035) Urine Protein 2+ (NEGATIVE) H Urine Glucose (UA) Negative (NEGATIVE) Urine Ketones Negative (NEGATIVE) Urine Blood Negative (NEGATIVE) Urine Nitrite Negative (NEGATIVE) Urine Bilirubin Negative (NEGATIVE) Urine Urobilinogen Normal MG/DL (0.0-1.0) Urine Leukocyte Esterase 1+ (NEGATIVE) H Urine RBC 0-2 /HPF (0 - 0) H Urine WBC 2-4 /HPF (0 - 0) Urine Squamous Epithelial Cells Few /LPF (NONE/OCC) Urine Bacteria Few /HPF (NONE) Urine Yeast Moderate /HPF (NONE) H White Blood Count 25.9 K/UL (4.8-10.8) #*H Red Blood Count 3.72 M/UL (4.70-6.10) L Hemoglobin 11.7 G/DL (14.2-18.0) L Hematocrit 35.8 % (42.0-52.0) L Mean Corpuscular Volume 96 FL (80-99) Mean Corpuscular Hemoglobin 31.4 PG (27.0-31.0) H Mean Corpuscular Hemoglobin Concent 32.6 G/DL (32.0-36.0) Red Cell Distribution Width 13.3 % (11.6-14.8) Platelet Count 364 K/UL (150-450) Mean Platelet Volume 6.3 FL (6.5-10.1) L Neutrophils (%) (Auto) % (45.0-75.0) Lymphocytes (%) (Auto) % (20.0-45.0) Monocytes (%) (Auto) % (1.0-10.0) Eosinophils (%) (Auto) % (0.0-3.0) Basophils (%) (Auto) % (0.0-2.0) Neutrophils % (Manual) Pending Lymphocytes % (Manual) Pending Platelet Estimate Pending Platelet Morphology Pending Erythrocyte Sedimentation Rate 104 MM/HR (0-20) H Sodium Level 138 MMOL/L (136-145) Potassium Level 4.2 MMOL/L (3.5-5.1) Chloride Level 99 MMOL/L (98-107) Carbon Dioxide Level 33 MMOL/L (21-32) H Anion Gap 6 mmol/L (5-15) Blood Urea Nitrogen 29 mg/dL (7-18) H Creatinine 0.9 MG/DL (0.55-1.30) Estimat Glomerular Filtration Rate > 60 mL/min (>60) Glucose Level 229 MG/DL (74-106) H Calcium Level 9.8 MG/DL (8.5-10.1) Phosphorus Level 3.2 MG/DL (2.5-4.9) Magnesium Level 2.0 MG/DL (1.8-2.4) Total Bilirubin 0.3 MG/DL (0.2-1.0) Aspartate Amino Transf (AST/SGOT) 23 U/L (15-37) Alanine Aminotransferase (ALT/SGPT) 14 U/L (12-78) Alkaline Phosphatase 88 U/L (46-116) C-Reactive Protein, Quantitative 13.9 mg/dL (0.00-0.90) H Total Protein 7.8 G/DL (6.4-8.2) Albumin 2.0 G/DL (3.4-5.0) L Globulin 5.8 g/dL Albumin/Globulin Ratio 0.3 (1.0-2.7) L Plan Problems: (1) Pneumonia due to COVID-19 virus (2) Severe protein-calorie malnutrition Assessment & Plan: 74-year-old male with significant severe protein calorie malnutrition. BMI is 18. Albumin is low. Skin turgor is poor. On admission identified to have a deep tissue injury and decubitus skin ulcer. Air mattress ordered local wound care plan initiated. Speech therapy evaluation identified. High risk dysphasia aspiration Needs nutritional optimization to allow for wound healing and care plan. We will follow with recommendations thank you for let me participate in patient' s care Turn every 2 hours Offload pressure with pillows Wash sacral wound daily with normal saline apply Thera honey and foam dressing. Bilateral heel protectors DAILY ESTIMATED NEEDS: Needs based on wound, underweight, 54kg 30-35 kcals/kg 6490-8208 total kcals 1.25-2 g protein/kg 68-108 g total protein 25-35ml/kcal mL/kg 8118-5766 total fluid mLs NUTRITION DIAGNOSIS: Swallowing difficulty r/t dysphagia as evidenced by FORMULA BOTTLER marj, pt not safe for oral diet, now on NGT feeds. CURRENT TF:Glucerna 1.5 @45ml/hr ENTERAL NUTRITION RECOMMENDATIONS: Glucerna 1.5 goal of 45ml/hr x 24 hrs to provide 1080ml, 1620kcal, 89g pro, 820ml free H2O - Maintain Glucerna 1.5 @45ml/hr as tolerated - Advance as tolerated 10ml/hr q4-6 hrs to goal. - Flush per . HOB over 30 degrees. ADDITIONAL RECOMMENDATIONS: 1) Monitor BG closely w/ TF's; need for increased insulin coverage 2) wound care w/ NGT feeds: add LYNNE in 4oz H2O BID + Vit C500mg qdaily, MVI w/ min qdaily+ ZnSO4 220mg qd x10 days 3) Calibrated bed scale wts 4) Monitor lytes daily w/ TF, replete as needed THE PATIENT WAS POSITIONED UPRIGHT FOR P.O. TRIALS. PATIENT NON/VERBAL, NON/VISUAL TRACKING, NON/RESPONSIVE TO TACTILE/VERBAL CUES. HE IS MOUTH BREATHING, ORAL MUCOSA PRESENTS WITH XEROSTOMIA. HIS DECREASED MENTATION INCLUDED SENSORIMOTOR DEFICITS WHICH RESULTED IN POOR BOLUS ACCEPTANCE, DECREASED AWARENESS OF FOOD IN MOUTH. WHEN PRESENTED WITH 5ML OF NECTAR THICK WATER VIA SPOON, THE PATIENT DEMONSTRATED REPETITIVE LINGUAL PUMPING IN HIS ATTEMPT TO TRIGGER THE PHARYNGEAL PHASE OF THE SWALLOW. HYOLARYNGEAL ELEVATION WAS PALPATED AND DETERMINED TO BE INSUFFICIENT FOR AIRWAY PROTECTION. AFTER THE SECOND P.O. TRIAL WITH THE NTL, THE PATIENT DEMONSTRATED A PROLONGED NON/ CLEARING, NON/PRODUCTIVE COUGH, WITH 3 TRIALS OF PUREE PRESENTED IN 5 ML AMOUNTS , THE PATIENT DEMONSTRATED ORAL STASIS, AND RESIDUE HAD TO BE SUCTIONED TO CLEAR HIS MOUTH. ORAL CARE WAS PROVIDED POST SUCTIONING. PHARYNGEAL PHASE OF SWALLOW SEVERELY DELAYED. CLEARLY, THIS GENTLEMAN PRESENTS WITH SEVERE OROPHARYNGEAL DYSPHAGIA, ALONG WITH A HISTORY OF SUBOPTIMAL P.O. INTAKE/LOSS OF APPETITE RECOMMENDATIONS 1. CONSIDER NON/ORAL FEEDING MANAGEMENT FOR INTERIM NUTRITION/HYDRATION 2. NPO 3. ORAL CARE TID TO REDUCE ORAL PATHOGENS 4. SKILLED ST INTERVENTION DOES NOT APPEAR TO BE NEEDED AT THIS TIME. (3) At high risk for aspiration (4) Respiratory distress (5) COVID-19 Assessment & Plan: + (6) History of diabetes mellitus (7) Alzheimer's dementia (8) Decubitus skin ulcer Assessment & Plan: Pt deconditioned and presents with multiple Pressure injuries on admission. Non-Blanchable erythema without fluctuance or induration noted to R elbow. Open DTPI Sacrum with full thickness Ulcer (L)9.5cm x (W)10.5cm.Wound is irregular shaped and extends to apex of anus. Base of wound is indurated and purpuric surrounding areas at base of wound with full thickness ulcer with scattered areas of soft necrosis (60%), 40% maldonado. Bony prominence is palpable at base of wound.Small amt sanguineous exudate noted . No odor noted . Periwound Skin is blanchable but Bilat trochanteric and iliac areas, including Ischial tuberosities are at high risks for pressure injuries secondary to bony protrusion and poor tissue perfusion. DTPI R Ischium. Base of pressure injury is maroon and indurated(L)3.4cm x (W) 7cm. DTPI R Heel (L)4cm x (W)9cm. Base of Pressure injury is fluctuant, maroon with small purpuric area.No evidence of ski breakdown periwound. L heel is boggy with non-Blanchable erythema. Tx.Plan: Cleanse Sacral wound with Saline. Apply TheraHoney. Apply Moisture Barrier Paste periwound. Cover with Optifoam drsgs. Change Daily and prn. Apply Cavilon Skin Barrier to R ischium. Cover with Optifoam drsg. Change every 3 days and prn. Apply Cavilon Skin Barrier to At Risks Bony Prominences. Cover areas with Optifoam drsgs as needed. Apply Cavilon Skin Barrier to both heels and Malleoli. Cover each site with Optifoam drsg. Change every 7 days and Prn. Reposition at least every 2hours or as tolerated. Off-load heels with Pillow. Air Fluidized Mattress. (9) Dysphagia Assessment & Plan: ng placed unlikey to pass swallow eval low bmi consider peg polst noted Darian Ragsdale May 02, 2020 09:12
--- NOTE | 2020-05-02 11:25 | NUR ---
HAND-OFF: Report given to TAWNYA Stanton for patient's transfer to SDU. Endorsed POC.
--- NOTE | 2020-05-02 11:31 | NUR ---
NURSE NOTES: Received report from Jos BOWLING from [facility]E. Pt. (+) Covid19.
[2020-05-02 12:00] VITALS: BP 115/57
[2020-05-02] MEDS ORDERED: Miralax 17gm pkt ORAL PRN (13:00)
[2020-05-02] MEDS ORDERED: Promethazine/Codeine 5ml UD ORAL PRN (13:00)
[2020-05-02] MEDS ORDERED: Vancomycin 1 GM in D5W 275 ML IVPB SCH (13:00)
--- NOTE | 2020-05-02 14:51 | Pulmonolgy Critical Care Note ---
Critical Care - Asmt/Plan Problems: (1) Acute respiratory failure due to COVID-19 (2) Pneumonia due to COVID-19 virus (3) Severe protein-calorie malnutrition (4) At high risk for aspiration (5) History of diabetes mellitus (6) Alzheimer's dementia Respiratory: monitor respiratory rate, adjust FIO2, CXR Cardiac: continue to monitor HR/BP Renal: F/U I&O, keep IV fluid, check electrolytes Infectious Disease: check cultures, continue antibiotics Gastrointestinal: continue feedings/current rate Endocrine: monitor blood sugar, continue sliding scale insulin Hematologic: monitor H/H, transfuse if hgb<8.5 Neurologic: keep patient comfortable Affect: PRN ativan Prophylaxis: Protonix Notes Reviewed: supervisor last model department, cardio Discussed with: nurses, consultants, spring encaserqual field manager - Objective Last 24 Hour Vital Signs Date Time Temp Pulse Resp B/P (MAP) Pulse Ox O2 Delivery O2 Flow Rate FiO2 05/02/20 09:00 Non-Rebreather 15.0 05/02/20 08:00 99.5 124 37 121/57 (78) 88 05/02/20 04:00 98.9 104 25 127/59 (81) 95 05/02/20 00:00 99.0 106 24 110/49 (69) 96 05/01/20 21:00 Non-Rebreather 15.0 05/01/20 20:00 98.9 99 22 139/64 (89) 97 05/01/20 16:00 98.2 95 20 129/72 (91) 99 Status: sedated Condition: critical HEENT: normocephalic Lungs: rales, rhonchi Heart: HR/BP stable Abdomen: soft, non-tender Extremities: no C/C/E Micro: Microbiology Date/Time Source Procedure Growth Status 05/01/20 19:30 Urine,Clean Catch Urine Culture - Preliminary NO GROWTH Resulted Accucheck: 269 Critical Care - Subjective Interval Events: pt transferred to [facility] because of desaturation. on NRM saturating at88 % Tube Feeding Amount: 45 I&O: Intake and Output 05/01/20 05/02/20 19:00 07:00 Intake Total 1470.000 ml 1420.000 ml Output Total 700 ml 500 ml Balance 770.000 ml 920.000 ml Intake Free Water 150 ml IV Total 930.000 ml 775.000 ml Tube Feeding 540 ml 495 ml Output Urine Total 700 ml 500 ml # Voids 1 Labs: Laboratory Tests Test 05/01/20 19:30 05/02/20 05:20 05/02/20 11:50 05/02/20 12:11 Urine Color Yellow Urine Appearance Slightly cloudy Urine pH 6 (4.5-8.0) Urine Specific [place] 1.020 (1.005-1.035) Urine Protein 2+ (NEGATIVE) H Urine Glucose (UA) Negative (NEGATIVE) Urine Ketones Negative (NEGATIVE) Urine Blood Negative (NEGATIVE) Urine Nitrite Negative (NEGATIVE) Urine Bilirubin Negative (NEGATIVE) Urine Urobilinogen Normal MG/DL (0.0-1.0) Urine Leukocyte Esterase 1+ (NEGATIVE) H Urine RBC 0-2 /HPF (0 - 0) H Urine WBC 2-4 /HPF (0 - 0) Urine Squamous Epithelial Cells Few /LPF (NONE/OCC) Urine Bacteria Few /HPF (NONE) Urine Yeast Moderate /HPF (NONE) H White Blood Count 25.9 K/UL (4.8-10.8) #*H Red Blood Count 3.72 M/UL (4.70-6.10) L Hemoglobin 11.7 G/DL (14.2-18.0) L Hematocrit 35.8 % (42.0-52.0) L Mean Corpuscular Volume 96 FL (80-99) Mean Corpuscular Hemoglobin 31.4 PG (27.0-31.0) H Mean Corpuscular Hemoglobin Concent 32.6 G/DL (32.0-36.0) Red Cell Distribution Width 13.3 % (11.6-14.8) Platelet Count 364 K/UL (150-450) Mean Platelet Volume 6.3 FL (6.5-10.1) L Neutrophils (%) (Auto) % (45.0-75.0) Lymphocytes (%) (Auto) % (20.0-45.0) Monocytes (%) (Auto) % (1.0-10.0) Eosinophils (%) (Auto) % (0.0-3.0) Basophils (%) (Auto) % (0.0-2.0) Differential Total Cells Counted 100 Neutrophils % (Manual) 91 % (45-75) H Lymphocytes % (Manual) 3 % (20-45) L Monocytes % (Manual) 6 % (1-10) Eosinophils % (Manual) 0 % (0-3) Basophils % (Manual) 0 % (0-2) Band Neutrophils 0 % (0-8) Platelet Estimate Adequate Platelet Morphology Normal Red Blood Cell Morphology Normal Erythrocyte Sedimentation Rate 104 MM/HR (0-20) H Sodium Level 138 MMOL/L (136-145) Potassium Level 4.2 MMOL/L (3.5-5.1) Chloride Level 99 MMOL/L (98-107) Carbon Dioxide Level 33 MMOL/L (21-32) H Anion Gap 6 mmol/L (5-15) Blood Urea Nitrogen 29 mg/dL (7-18) H Creatinine 0.9 MG/DL (0.55-1.30) Estimat Glomerular Filtration Rate > 60 mL/min (>60) Glucose Level 229 MG/DL (74-106) H Calcium Level 9.8 MG/DL (8.5-10.1) Phosphorus Level 3.2 MG/DL (2.5-4.9) Magnesium Level 2.0 MG/DL (1.8-2.4) Total Bilirubin 0.3 MG/DL (0.2-1.0) Aspartate Amino Transf (AST/SGOT) 23 U/L (15-37) Alanine Aminotransferase (ALT/SGPT) 14 U/L (12-78) Alkaline Phosphatase 88 U/L (46-116) C-Reactive Protein, Quantitative 13.9 mg/dL (0.00-0.90) H Total Protein 7.8 G/DL (6.4-8.2) Albumin 2.0 G/DL (3.4-5.0) L Globulin 5.8 g/dL Albumin/Globulin Ratio 0.3 (1.0-2.7) L Vancomycin Level Trough 20.9 ug/mL (5.0-12.0) H POC Whole Blood Glucose 269 MG/DL (74-106) H Quincy Corral MD May 02, 2020 14:51
[2020-05-02] MEDS ORDERED: Vancomycin 750mg/NS 275ml IVPB SCH ×2 (15:00)
--- NOTE | 2020-05-02 15:44 | NUR ---
NURSE NOTES:WOUND CARE FOLLOW-UP NOTES:Pt deconditioned . Receiving Oxygen via Non-rebreather mask. Both ears assessed for skin breakdown and no erythema noted. Elastic band wrapped with Gauze to minimize friction. Poor skin perfusion noted, pt develops erythema on bony prominence after being positioned on bony prominences for short periods Pt Bony Prominences such as shoulders Spine. Both shoulders, both elbows, Spine, Both hips and both knees covered with Optifoam drsgs to minimize friction. Full Thickness sacral Pressure with irregular borders that extends into L ischial tuberosity. Base of wound is maldonado with scattered slough. Marginal erythema along borders which are adherent to base of wound. No odor or exudate noted. Periwound without erythema or further skin breakdown. Both heels are boggy but blanchable. No new skin concerns noted. Wound Tx are effective and continued as ordered. All wound preventions protocols continued as care-planned. Pt has an APM/RAJAT Mattress overlay on his bed and is being positioned as per tolerance ,and within protocols.
[2020-05-02 16:00] VITALS: BP 110/72
--- NOTE | 2020-05-02 19:30 | NUR ---
NURSE NOTES: Received report from TAWNYA Stanton Patient obtunded On Non rebreather mask 15L, O2 Sat 97% No IV. Per AMRN, 1830, IV malfunction and couldn't get new IV. 1/2 NS and Jaleno need to re-start JERRY NGT in place, running Glucerna 1.5, 45mL/hr, no residual Safety measure observed Will continue to monitor
--- NOTE | 2020-05-02 19:31 | NUR ---
HAND-OFF: Report given to Sharmin BOWLING. Pt. remain stable.
[2020-05-02 20:00] VITALS: BP 124/71
--- NOTE | 2020-05-02 22:00 | NUR ---
NURSE NOTES: Pt remains obtunded and contracted 3 RNs tried IV, not successful. Notified to battery charger conveyor line. Non breather mask remains 15L Feeding remains Glucerna 1.5 45mL/hr via NGT, no residual PM meds given Safety measure observed Will continue to monitor
--- NOTE | 2020-05-02 22:53 | NUR ---
NURSE NOTES: IV successful inserted. Vanco resumed. Pt is afebrile and VSS Safety measure observed Will continue to monitor
--- NOTE | 2020-05-02 23:30 | NUR ---
NURSE NOTES: Repositioned and turned Oral care provided Will continue to monitor
[2020-05-03] VITALS: BP 129/77
--- NOTE | 2020-05-03 | NUR ---
NURSE NOTES: Since Vanco delayed, 0300 order needs to be adjusted. Notified to [employer].
--- NOTE | 2020-05-03 02:00 | NUR ---
NURSE NOTES: Pt remains obtunded IV site is CDI; 1/2 NS 50mL/hr is running Non rebreather remains 15L O2 Sats above 97% Repositioned and turned Oral care provided Safety measure observed Will continue to monitor
[2020-05-03 04:00] VITALS: BP 125/61
--- NOTE | 2020-05-03 04:00 | NUR ---
NURSE NOTES: AM care given Changed soiled gown, linen, and slider Afebrile and VSS IV site CDI Safety measure observed Will continue to monitor
[2020-05-03] MEDS: NovoLOG Insulin Flexpen SUBQ SCH ×3 (05:09→18:37)
[2020-05-03 06:15] LABS: HEMOGLOBIN 11.8 G/DL (14.2-18.0); MEAN CORPUSCULAR VOLUME 99 FL (80-99); PLATELET COUNT 321 K/UL (150-450); RED BLOOD COUNT 3.83 M/UL (4.70-6.10); RED CELL DISTRIBUTION WIDTH 13.6 % (11.6-14.8)
[2020-05-03 06:33] LABS: WHITE BLOOD COUNT 23.6 K/UL (4.8-10.8)
--- NOTE | 2020-05-03 06:43 | NUR ---
NURSE NOTES: WBC 23.6 also Vanco couldn't start until 2300. Called Dr. Barry's office ([phone]) and left a message with service secretary.
--- NOTE | 2020-05-03 07:00 | NUR ---
NURSE NOTES: Received report from TAWNYA Finney. The patient is resting on the bed but has mild facial grimacing. The patient is responding to tactile stimuli. Communication made by facial expression and body movement. ST with HR of 100s on the service and repair supervisor. The patient is on 15L non-rebreather and oxygen saturation is 88%. Adjusted non-rebreather mask and oxygen saturation upto 100%. L NGT @ 65 that is intact and patent and running Glucerna 1.5 @ 45mL/hr but was turned off upon initial rounding. Rechecked the residual, and residual of 50mL noted. Resumed the tube feeding per order. The patient's condom cath intact and draining per gravity. The patient has L FA 22G that is intact and patent and running 1/2NS @50mL/hr. Skin issue noted and dressing intact. History of seizure noted but no side rail padded and no suction at the bedside. The primary nurse immediately applied seizure precaution with side rail pad and application of suction. The patient's bed in the lowest position, call light in reach, and fall, aspiration, and seizure precaution reinforced. Will follow up the order and lab. Will closely monitor the patient. Will continue plan of care.
[2020-05-03 07:20] VITALS: BP 120/66
--- NOTE | 2020-05-03 07:30 | NUR ---
NURSE NOTES: Initial vital signs taken. Vital signs stable. Initial nursing assessment done. Will closely monitor the patient. Will continue plan of care.
--- NOTE | 2020-05-03 08:00 | NUR ---
NURSE NOTES: Dr. Barry was notified regarding abnormal lab including elevated WBC. Dr. Corral was notified regarding abnormal lab. No new order yet. Will closely monitor the patient. Will continue plan of care.
[2020-05-03 08:08] LABS: ALANINE AMINOTRANSFERASE 14 U/L (12-78); ALBUMIN 1.8 G/DL (3.4-5.0); ALBUMIN/GLOBULIN RATIO 0.3 (1.0-2.7); ALKALINE PHOSPHATASE 92 U/L (46-116); ANION GAP 5 mmol/L (5-15); ASPARTATE AMINO TRANSFERASE 24 U/L (15-37); BILIRUBIN,TOTAL 0.3 MG/DL (0.2-1.0); BLOOD UREA NITROGEN 32 mg/dL (7-18); CALCIUM 9.9 MG/DL (8.5-10.1); CARBON DIOXIDE 34 MMOL/L (21-32); CHLORIDE 101 MMOL/L (98-107); PHOSPHORUS 3.5 MG/DL (2.5-4.9); POTASSIUM 4.9 MMOL/L (3.5-5.1); SODIUM 140 MMOL/L (136-145)
[2020-05-03] MEDS: Heparin 5000 units/ml inj SUBQ SCH ×2 (08:33→20:52)
[2020-05-03] MEDS: Zinc Sulfate 220mg ORAL SCH (08:43)
[2020-05-03] MEDS: Ascorbic Acid 500mg tab ORAL SCH (08:43)
--- NOTE | 2020-05-03 09:00 | NUR ---
NURSE NOTES: Morning medications administered per order. Tolerated well. Will closely monitor the patient. Will continue plan of care.
--- NOTE | 2020-05-03 09:45 | Infectious Diseases Prog Note ---
Assessment/Plan Assessment: Recent COVID19 positive (unknown date of diagnosis) Pneumonia -bacterial superimposed w MRSA (pt bacteremic) Acute hypoxic resp failure - s/p NC, now on NRB -04/28 CXR: Bibasilar infiltrates with slight worsening on right side. -04/24 CXR: Slightly improved bilateral infiltrates, over 2 days -04/22 Rapid COVID + CXR: Bilateral infiltrates, likely pneumonia, possibly viral. Correlate with clinical findings MRSA and CONS bacteremia; persistent bacteremia -04/26 2d echo(limited study): no vegetations seen -04/22 Bcx 2/4 S. epi; 04/23 Bcx 2/4 MRSA; 04/26 Bcx 1/2 S. hominis; 04/27 Bcx NTD Afebrile- Tm 99.5 Mild leukocytosis; increased -04/22 u/a neg Dementia Seizure disorder Dm2 DNR status [facility] resident ([facility]) Plan: -Cont IV Vancomycin #10; will need minimum of 14 days from 1st neg Bcx -05/01 SP cefepime #10 -04/27 SP Decadron #5 -04/26 SP Azithromcin #5 -04/23 SP Ceftriaxone #2 -04/22 SP ZOsyn x1 Trend WBC, improving -f/u cx -Monitor CBC/CMP, temperatures -COVID19 isolation -Will not give Remdesevir at this point given unclear date of diagnosis -If improved respiratory status may need AN Thank you for this consultation. Will continue to follow along with you. Discussed with RN. Subjective Allergies: Coded Allergies: No Known Allergies (Unverified , 04/22/20) AF Remains on 15L NRB Calm WBC 23 from 25 Objective Last 24 Hour Vital Signs Date Time Temp Pulse Resp B/P (MAP) Pulse Ox O2 Delivery O2 Flow Rate FiO2 05/03/20 09:09 112 05/03/20 07:20 98.3 106 23 120/66 (84) 93 05/03/20 04:00 97.6 106 27 125/61 (82) 95 05/03/20 04:00 106 05/03/20 03:31 103 05/03/20 00:00 97.6 108 27 129/77 (94) 95 05/03/20 00:00 107 05/02/20 21:00 Non-Rebreather 15.0 05/02/20 20:00 86 05/02/20 20:00 97.6 86 27 124/71 (88) 98 05/02/20 16:00 116 05/02/20 16:00 97.7 120 27 110/72 (85) 99 05/02/20 12:00 97.6 119 30 115/57 (76) 91 05/02/20 12:00 123 05/02/20 11:40 123 Height (Feet): 5 Height (Inches): 8.00 Weight (Pounds): 120 Gen: Older man, laying in bed, NAD Pulm: BL chest rise on NRB Abd: Non-distended Ext: No c/c/e Microbiology Date/Time Source Procedure Growth Status 05/01/20 19:30 Urine,Clean Catch Urine Culture - Preliminary YEAST Resulted Laboratory Tests Test 05/02/20 11:50 05/02/20 12:11 05/03/20 03:47 Vancomycin Level Trough 20.9 ug/mL (5.0-12.0) H POC Whole Blood Glucose 269 MG/DL (74-106) H White Blood Count 23.6 K/UL (4.8-10.8) *H Red Blood Count 3.83 M/UL (4.70-6.10) L Hemoglobin 11.8 G/DL (14.2-18.0) L Hematocrit 38.0 % (42.0-52.0) L Mean Corpuscular Volume 99 FL (80-99) Mean Corpuscular Hemoglobin 30.6 PG (27.0-31.0) Mean Corpuscular Hemoglobin Concent 31.0 G/DL (32.0-36.0) L Red Cell Distribution Width 13.6 % (11.6-14.8) Platelet Count 321 K/UL (150-450) Mean Platelet Volume 6.1 FL (6.5-10.1) L Neutrophils (%) (Auto) % (45.0-75.0) Lymphocytes (%) (Auto) % (20.0-45.0) Monocytes (%) (Auto) % (1.0-10.0) Eosinophils (%) (Auto) % (0.0-3.0) Basophils (%) (Auto) % (0.0-2.0) Neutrophils % (Manual) Pending Lymphocytes % (Manual) Pending Platelet Estimate Pending Platelet Morphology Pending Erythrocyte Sedimentation Rate 54 MM/HR (0-20) H Sodium Level 140 MMOL/L (136-145) Potassium Level 4.9 MMOL/L (3.5-5.1) Chloride Level 101 MMOL/L (98-107) Carbon Dioxide Level 34 MMOL/L (21-32) H Anion Gap 5 mmol/L (5-15) Blood Urea Nitrogen 32 mg/dL (7-18) H Creatinine 1.0 MG/DL (0.55-1.30) Estimat Glomerular Filtration Rate > 60 mL/min (>60) Glucose Level 237 MG/DL (74-106) H Calcium Level 9.9 MG/DL (8.5-10.1) Phosphorus Level 3.5 MG/DL (2.5-4.9) Magnesium Level 2.0 MG/DL (1.8-2.4) Total Bilirubin 0.3 MG/DL (0.2-1.0) Aspartate Amino Transf (AST/SGOT) 24 U/L (15-37) Alanine Aminotransferase (ALT/SGPT) 14 U/L (12-78) Alkaline Phosphatase 92 U/L (46-116) C-Reactive Protein, Quantitative 31.6 mg/dL (0.00-0.90) H Total Protein 7.7 G/DL (6.4-8.2) Albumin 1.8 G/DL (3.4-5.0) L Globulin 5.9 g/dL Albumin/Globulin Ratio 0.3 (1.0-2.7) L Current Medications Medications (Trade) Dose Ordered Sig/Andrade Route PRN Reason Start Time Stop Time Status Last Admin Dose Admin Acetaminophen (Tylenol) 650 mg Q4H PRN ORAL FEVER 05/02/20 13:00 05/22/20 12:59 Albuterol/ Ipratropium (Combivent Respimat) 1 puff Q4H PRN INH Shortness of Breath 05/02/20 13:00 05/22/20 12:59 Ascorbic Acid (Vitamin C) 500 mg DAILY ORAL 05/03/20 09:00 05/28/20 08:59 05/03/20 08:43 Dextrose (Dextrose 50%) 25 ml Q30M PRN IV Hypoglycemia 05/02/20 12:45 07/21/20 16:14 Dextrose (Dextrose 50%) 50 ml Q30M PRN IV Hypoglycemia 05/02/20 12:45 07/21/20 16:14 Heparin Sodium (Porcine) (Heparin 5000 units/ml) 5,000 units EVERY 12 HOURS SUBQ 05/02/20 21:00 06/06/20 20:59 05/03/20 08:33 Insulin Aspart (NovoLOG) Q6HR SUBQ 05/02/20 18:00 07/21/20 16:29 05/03/20 05:09 Levetiracetam (Keppra) 500 mg EVERY 12 HOURS ORAL 05/02/20 21:00 06/06/20 20:59 05/03/20 08:43 Multivitamins (Multivitamins) 1 tab DAILY ORAL 05/03/20 09:00 05/28/20 08:59 05/03/20 08:43 Ondansetron HCl (Zofran) 4 mg Q6H PRN IVP Nausea & Vomiting 05/02/20 13:00 05/22/20 12:59 Polyethylene Glycol (Miralax) 17 gm DAILYPRN PRN ORAL Constipation 05/02/20 13:00 05/24/20 12:59 Promethazine HCl/ Codeine (Phenergan with Codeine) 5 ml Q6H PRN ORAL cough 05/02/20 13:00 05/22/20 12:59 Sodium Chloride 1,000 ml @ 50 mls/hr Q20H IV 05/02/20 12:30 05/26/20 18:21 05/03/20 07:38 Vancomycin HCl (Vanco pharmacy to dose) 1 ea DAILY PRN MISC Per rx protocol 05/03/20 09:00 05/23/20 14:44 Vancomycin HCl 750 mg/Sodium Chloride 275 ml @ 183.333 mls/hr Q12HR@1100,2300 IVPB 05/03/20 11:00 05/08/20 10:59 Zinc Sulfate (Zinc Sulfate) 220 mg DAILY ORAL 05/03/20 09:00 07/27/20 08:59 05/03/20 08:43 Juliet Shah M.D. May 03, 2020 09:45
--- NOTE | 2020-05-03 10:31 | Diagnostic Imaging Report ---
EXAM: XR Chest, 1 View CLINICAL HISTORY: DYSPNEA TECHNIQUE: Frontal view of the chest. COMPARISON: Chest radiograph on 05/01/2020 FINDINGS: Hardware: Enteric tube terminates in the region of the proximal stomach. Lungs/pleura: Significantly increased consolidation throughout the left lung. Probable left pleural effusion as well. Similar right basilar opacity. Elevation of left hemidiaphragm. Heart/mediastinum: Atherosclerotic calcifications aorta. Cardiac silhouette is partially obscured by the left lung consolidations. Soft tissues: Unremarkable. Bones: No acute fracture. Degenerative changes of the spine and glenohumeral joints. Upper abdomen: Postsurgical material in the left upper quadrant. IMPRESSION: 1. Enteric tube terminates in the region of the proximal stomach. 2. Significantly increased complete consolidation throughout the left lung. Probable left pleural effusion as well. Similar right basilar opacity.
[2020-05-03 11:00] VITALS: BP 110/63
--- NOTE | 2020-05-03 11:00 | NUR ---
NURSE NOTES: The patient is stable without acute distress or shortness of breath. NGT TF residual of 50mL noted. The patient is still on 15L non-rebreather. Will closely monitor the patient. Will continue plan of care.
[2020-05-03] MEDS: Vancomycin 750mg/NS 275ml IVPB SCH ×4 (11:31→23:00)
--- NOTE | 2020-05-03 12:30 | NUR ---
NURSE NOTES: Administered medications per order. BS of 195 noted. Novolog administered per order. Will closely monitor the patient. Will continue plan of care.
--- NOTE | 2020-05-03 12:47 | Surgery Progress Note ---
Surgery Progress Note Subjective Additional Comments no acute events ill appearing lab noted NGT TF residual of 50mL noted. 15L non-rebreather. Objective Last 24 Hour Vital Signs Date Time Temp Pulse Resp B/P (MAP) Pulse Ox O2 Delivery O2 Flow Rate FiO2 05/03/20 12:26 106 05/03/20 12:00 Non-Rebreather 15.0 05/03/20 11:00 99.0 107 22 110/63 (79) 97 05/03/20 09:09 112 05/03/20 08:00 Non-Rebreather 15.0 05/03/20 07:20 98.3 106 23 120/66 (84) 93 05/03/20 04:00 97.6 106 27 125/61 (82) 95 05/03/20 04:00 106 05/03/20 03:31 103 05/03/20 00:00 97.6 108 27 129/77 (94) 95 05/03/20 00:00 107 05/02/20 21:00 Non-Rebreather 15.0 05/02/20 20:00 86 05/02/20 20:00 97.6 86 27 124/71 (88) 98 05/02/20 16:00 116 05/02/20 16:00 97.7 120 27 110/72 (85) 99 I&O Intake and Output 05/02/20 05/03/20 19:00 07:00 Intake Total 505 ml 845 ml Output Total 250 ml 400 ml Balance 255 ml 445 ml Intake Free Water 100 ml IV Total 350 ml Tube Feeding 405 ml 495 ml Output Urine Total 250 ml 400 ml # Voids 1 Dressing: saturated Cardiovascular: RSR Respiratory: decreased breath sounds Abdomen: soft, non-tender, present bowel sounds Extremities: no tenderness, no cyanosis, other Laboratory Tests Test 05/03/20 03:47 05/03/20 11:30 White Blood Count 23.6 K/UL (4.8-10.8) *H Red Blood Count 3.83 M/UL (4.70-6.10) L Hemoglobin 11.8 G/DL (14.2-18.0) L Hematocrit 38.0 % (42.0-52.0) L Mean Corpuscular Volume 99 FL (80-99) Mean Corpuscular Hemoglobin 30.6 PG (27.0-31.0) Mean Corpuscular Hemoglobin Concent 31.0 G/DL (32.0-36.0) L Red Cell Distribution Width 13.6 % (11.6-14.8) Platelet Count 321 K/UL (150-450) Mean Platelet Volume 6.1 FL (6.5-10.1) L Neutrophils (%) (Auto) % (45.0-75.0) Lymphocytes (%) (Auto) % (20.0-45.0) Monocytes (%) (Auto) % (1.0-10.0) Eosinophils (%) (Auto) % (0.0-3.0) Basophils (%) (Auto) % (0.0-2.0) Differential Total Cells Counted 100 Neutrophils % (Manual) 98 % (45-75) H Lymphocytes % (Manual) 1 % (20-45) L Monocytes % (Manual) 1 % (1-10) Eosinophils % (Manual) 0 % (0-3) Basophils % (Manual) 0 % (0-2) Band Neutrophils 0 % (0-8) Platelet Estimate Adequate Platelet Morphology Normal Hypochromasia 1+ Anisocytosis 1+ Erythrocyte Sedimentation Rate 54 MM/HR (0-20) H Sodium Level 140 MMOL/L (136-145) Potassium Level 4.9 MMOL/L (3.5-5.1) Chloride Level 101 MMOL/L (98-107) Carbon Dioxide Level 34 MMOL/L (21-32) H Anion Gap 5 mmol/L (5-15) Blood Urea Nitrogen 32 mg/dL (7-18) H Creatinine 1.0 MG/DL (0.55-1.30) Estimat Glomerular Filtration Rate > 60 mL/min (>60) Glucose Level 237 MG/DL (74-106) H Calcium Level 9.9 MG/DL (8.5-10.1) Phosphorus Level 3.5 MG/DL (2.5-4.9) Magnesium Level 2.0 MG/DL (1.8-2.4) Total Bilirubin 0.3 MG/DL (0.2-1.0) Aspartate Amino Transf (AST/SGOT) 24 U/L (15-37) Alanine Aminotransferase (ALT/SGPT) 14 U/L (12-78) Alkaline Phosphatase 92 U/L (46-116) C-Reactive Protein, Quantitative 31.6 mg/dL (0.00-0.90) H Total Protein 7.7 G/DL (6.4-8.2) Albumin 1.8 G/DL (3.4-5.0) L Globulin 5.9 g/dL Albumin/Globulin Ratio 0.3 (1.0-2.7) L POC Whole Blood Glucose Pending Plan Problems: (1) Pneumonia due to COVID-19 virus (2) Severe protein-calorie malnutrition Assessment & Plan: 74-year-old male with significant severe protein calorie malnutrition. BMI is 18. Albumin is low. Skin turgor is poor. On admission identified to have a deep tissue injury and decubitus skin ulcer. Air mattress ordered local wound care plan initiated. Speech therapy evaluation identified. High risk dysphasia aspiration Needs nutritional optimization to allow for wound healing and care plan. We will follow with recommendations thank you for let me participate in patient' s care Turn every 2 hours Offload pressure with pillows Wash sacral wound daily with normal saline apply Thera honey and foam dressing. Bilateral heel protectors DAILY ESTIMATED NEEDS: Needs based on wound, underweight, 54kg 30-35 kcals/kg 7552-4700 total kcals 1.25-2 g protein/kg 68-108 g total protein 25-35ml/kcal mL/kg 8516-2911 total fluid mLs NUTRITION DIAGNOSIS: Swallowing difficulty r/t dysphagia as evidenced by TRAFFIC OPERATIONS ENGINEER eval, pt not safe for oral diet, now on NGT feeds. CURRENT TF:Glucerna 1.5 @45ml/hr ENTERAL NUTRITION RECOMMENDATIONS: Glucerna 1.5 goal of 45ml/hr x 24 hrs to provide 1080ml, 1620kcal, 89g pro, 820ml free H2O - Maintain Glucerna 1.5 @45ml/hr as tolerated - Advance as tolerated 10ml/hr q4-6 hrs to goal. - Flush per . HOB over 30 degrees. ADDITIONAL RECOMMENDATIONS: 1) Monitor BG closely w/ TF's; need for increased insulin coverage 2) wound care w/ NGT feeds: add LYNNE in 4oz H2O BID + Vit C500mg qdaily, MVI w/ min qdaily+ ZnSO4 220mg qd x10 days 3) Calibrated bed scale wts 4) Monitor lytes daily w/ TF, replete as needed THE PATIENT WAS POSITIONED UPRIGHT FOR P.O. TRIALS. PATIENT NON/VERBAL, NON/VISUAL TRACKING, NON/RESPONSIVE TO TACTILE/VERBAL CUES. HE IS MOUTH BREATHING, ORAL MUCOSA PRESENTS WITH XEROSTOMIA. HIS DECREASED MENTATION INCLUDED SENSORIMOTOR DEFICITS WHICH RESULTED IN POOR BOLUS ACCEPTANCE, DECREASED AWARENESS OF FOOD IN MOUTH. WHEN PRESENTED WITH 5ML OF NECTAR THICK WATER VIA SPOON, THE PATIENT DEMONSTRATED REPETITIVE LINGUAL PUMPING IN HIS ATTEMPT TO TRIGGER THE PHARYNGEAL PHASE OF THE SWALLOW. HYOLARYNGEAL ELEVATION WAS PALPATED AND DETERMINED TO BE INSUFFICIENT FOR AIRWAY PROTECTION. AFTER THE SECOND P.O. TRIAL WITH THE NTL, THE PATIENT DEMONSTRATED A PROLONGED NON/ CLEARING, NON/PRODUCTIVE COUGH, WITH 3 TRIALS OF PUREE PRESENTED IN 5 ML AMOUNTS , THE PATIENT DEMONSTRATED ORAL STASIS, AND RESIDUE HAD TO BE SUCTIONED TO CLEAR HIS MOUTH. ORAL CARE WAS PROVIDED POST SUCTIONING. PHARYNGEAL PHASE OF SWALLOW SEVERELY DELAYED. CLEARLY, THIS GENTLEMAN PRESENTS WITH SEVERE OROPHARYNGEAL DYSPHAGIA, ALONG WITH A HISTORY OF SUBOPTIMAL P.O. INTAKE/LOSS OF APPETITE RECOMMENDATIONS 1. CONSIDER NON/ORAL FEEDING MANAGEMENT FOR INTERIM NUTRITION/HYDRATION 2. NPO 3. ORAL CARE TID TO REDUCE ORAL PATHOGENS 4. SKILLED ST INTERVENTION DOES NOT APPEAR TO BE NEEDED AT THIS TIME. (3) At high risk for aspiration (4) Respiratory distress (5) COVID-19 Assessment & Plan: + (6) History of diabetes mellitus (7) Alzheimer's dementia (8) Decubitus skin ulcer Assessment & Plan: Pt deconditioned and presents with multiple Pressure injuries on admission. Non-Blanchable erythema without fluctuance or induration noted to R elbow. Open DTPI Sacrum with full thickness Ulcer (L)9.5cm x (W)10.5cm.Wound is irregular shaped and extends to apex of anus. Base of wound is indurated and purpuric surrounding areas at base of wound with full thickness ulcer with scattered areas of soft necrosis (60%), 40% maldonado. Bony prominence is palpable at base of wound.Small amt sanguineous exudate noted . No odor noted . Periwound Skin is blanchable but Bilat trochanteric and iliac areas, including Ischial tuberosities are at high risks for pressure injuries secondary to bony protrusion and poor tissue perfusion. DTPI R Ischium. Base of pressure injury is maroon and indurated(L)3.4cm x (W) 7cm. DTPI R Heel (L)4cm x (W)9cm. Base of Pressure injury is fluctuant, maroon with small purpuric area.No evidence of ski breakdown periwound. L heel is boggy with non-Blanchable erythema. Tx.Plan: Cleanse Sacral wound with Saline. Apply TheraHoney. Apply Moisture Barrier Paste periwound. Cover with Optifoam drsgs. Change Daily and prn. Apply Cavilon Skin Barrier to R ischium. Cover with Optifoam drsg. Change every 3 days and prn. Apply Cavilon Skin Barrier to At Risks Bony Prominences. Cover areas with Optifoam drsgs as needed. Apply Cavilon Skin Barrier to both heels and Malleoli. Cover each site with Optifoam drsg. Change every 7 days and Prn. Reposition at least every 2hours or as tolerated. Off-load heels with Pillow. Air Fluidized Mattress. (9) Dysphagia Assessment & Plan: ng placed unlikey to pass swallow eval low bmi consider peg polst noted Darian Ragsdale May 03, 2020 12:47
[2020-05-03] MEDS ORDERED: LORazepam Inj 2mg/ml 1ml IM SCH (13:45)
--- NOTE | 2020-05-03 14:00 | NUR ---
NURSE NOTES: The patient is stable without acute distress or shortness of breath. Tolerating TF and NRBM well. Will closely monitor the patient. Will continue plan of care.
--- NOTE | 2020-05-03 15:10 | Pulmonolgy Critical Care Note ---
Critical Care - Asmt/Plan Problems: (1) Acute respiratory failure due to COVID-19 (2) Pneumonia due to COVID-19 virus (3) Severe protein-calorie malnutrition (4) At high risk for aspiration (5) History of diabetes mellitus (6) Alzheimer's dementia Respiratory: monitor respiratory rate, adjust FIO2 Cardiac: continue to monitor HR/BP Renal: F/U I&O, keep IV fluid, check electrolytes Infectious Disease: check cultures, continue antibiotics Gastrointestinal: continue feedings/current rate Endocrine: monitor blood sugar, continue sliding scale insulin Hematologic: monitor H/H, transfuse if hgb<8.5 Neurologic: keep patient comfortable Affect: PRN ativan Prophylaxis: Protonix, Heparin Time Spent (Minutes): 40 Notes Reviewed: survey research professor, cardio, renal Discussed with: nurses, consultants, foster care case managersenior online marketing manager - Objective Last 24 Hour Vital Signs Date Time Temp Pulse Resp B/P (MAP) Pulse Ox O2 Delivery O2 Flow Rate FiO2 05/03/20 12:26 106 05/03/20 12:00 Non-Rebreather 15.0 05/03/20 11:00 99.0 107 22 110/63 (79) 97 05/03/20 09:09 112 05/03/20 08:00 Non-Rebreather 15.0 05/03/20 07:20 98.3 106 23 120/66 (84) 93 05/03/20 04:00 97.6 106 27 125/61 (82) 95 05/03/20 04:00 106 05/03/20 03:31 103 05/03/20 00:00 97.6 108 27 129/77 (94) 95 05/03/20 00:00 107 05/02/20 21:00 Non-Rebreather 15.0 05/02/20 20:00 86 05/02/20 20:00 97.6 86 27 124/71 (88) 98 05/02/20 16:00 116 05/02/20 16:00 97.7 120 27 110/72 (85) 99 Status: sedated Condition: critical HEENT: atraumatic Neck: full ROM Lungs: rales, rhonchi Heart: HR/BP stable Abdomen: soft, non-tender, feeding tube Extremities: edema Decubiti: location Micro: Microbiology Date/Time Source Procedure Growth Status 05/01/20 19:30 Urine,Clean Catch Urine Culture - Preliminary YEAST Resulted Accucheck: 195 Critical Care - Subjective ROS Limited/Unobtainable: Yes Condition: critical EKG Rhythm: Sinus Rhythm Tube Feeding Amount: 45 I&O: Intake and Output 05/02/20 05/03/20 19:00 07:00 Intake Total 505 ml 845 ml Output Total 250 ml 400 ml Balance 255 ml 445 ml Intake Free Water 100 ml IV Total 350 ml Tube Feeding 405 ml 495 ml Output Urine Total 250 ml 400 ml # Voids 1 CXR: left lung collapse Labs: Laboratory Tests Test 05/03/20 03:47 05/03/20 11:30 White Blood Count 23.6 K/UL (4.8-10.8) *H Red Blood Count 3.83 M/UL (4.70-6.10) L Hemoglobin 11.8 G/DL (14.2-18.0) L Hematocrit 38.0 % (42.0-52.0) L Mean Corpuscular Volume 99 FL (80-99) Mean Corpuscular Hemoglobin 30.6 PG (27.0-31.0) Mean Corpuscular Hemoglobin Concent 31.0 G/DL (32.0-36.0) L Red Cell Distribution Width 13.6 % (11.6-14.8) Platelet Count 321 K/UL (150-450) Mean Platelet Volume 6.1 FL (6.5-10.1) L Neutrophils (%) (Auto) % (45.0-75.0) Lymphocytes (%) (Auto) % (20.0-45.0) Monocytes (%) (Auto) % (1.0-10.0) Eosinophils (%) (Auto) % (0.0-3.0) Basophils (%) (Auto) % (0.0-2.0) Differential Total Cells Counted 100 Neutrophils % (Manual) 98 % (45-75) H Lymphocytes % (Manual) 1 % (20-45) L Monocytes % (Manual) 1 % (1-10) Eosinophils % (Manual) 0 % (0-3) Basophils % (Manual) 0 % (0-2) Band Neutrophils 0 % (0-8) Platelet Estimate Adequate Platelet Morphology Normal Hypochromasia 1+ Anisocytosis 1+ Erythrocyte Sedimentation Rate 54 MM/HR (0-20) H Sodium Level 140 MMOL/L (136-145) Potassium Level 4.9 MMOL/L (3.5-5.1) Chloride Level 101 MMOL/L (98-107) Carbon Dioxide Level 34 MMOL/L (21-32) H Anion Gap 5 mmol/L (5-15) Blood Urea Nitrogen 32 mg/dL (7-18) H Creatinine 1.0 MG/DL (0.55-1.30) Estimat Glomerular Filtration Rate > 60 mL/min (>60) Glucose Level 237 MG/DL (74-106) H Calcium Level 9.9 MG/DL (8.5-10.1) Phosphorus Level 3.5 MG/DL (2.5-4.9) Magnesium Level 2.0 MG/DL (1.8-2.4) Total Bilirubin 0.3 MG/DL (0.2-1.0) Aspartate Amino Transf (AST/SGOT) 24 U/L (15-37) Alanine Aminotransferase (ALT/SGPT) 14 U/L (12-78) Alkaline Phosphatase 92 U/L (46-116) C-Reactive Protein, Quantitative 31.6 mg/dL (0.00-0.90) H Total Protein 7.7 G/DL (6.4-8.2) Albumin 1.8 G/DL (3.4-5.0) L Globulin 5.9 g/dL Albumin/Globulin Ratio 0.3 (1.0-2.7) L POC Whole Blood Glucose Pending Quincy Corral MD May 03, 2020 15:10
[2020-05-03 15:30] VITALS: BP 129/62
--- NOTE | 2020-05-03 16:00 | NUR ---
NURSE NOTES: Bed bath given. Tolerated well. L lung elevated position per Dr. Corral's order. Will continue plan of care.
--- NOTE | 2020-05-03 18:00 | NUR ---
NURSE NOTES: The patient is stable without acute distress or shortness of breath. BL lung sound diminished and has crackles. Will closely monitor the patient. Will continue plan of care.
[2020-05-03] MEDS ORDERED: 1/2 NS 1000ml IV ONE (18:31)
--- NOTE | 2020-05-03 18:40 | NUR ---
NURSE NOTES: BS 215 noted. Novolog administered per order. The patient is on 15L non-rebreather and tolerating well. The patient's tube feeing infusing @ 25mL/hr due to residual. Will closely monitor the patient. Will continue plan of care.
--- NOTE | 2020-05-03 19:30 | NUR ---
HAND-OFF: Report given to TAWNYA Leon. The patient is stable at this time. Endorsed plan of care.
--- NOTE | 2020-05-03 19:32 | NUR ---
NURSE NOTES: Received report from Meme BOWLING. Pt resting in bed but has mild facial grimacing noted and responds to touch. Facial expression and body movement noted. Pt running ST on the monitor (low 100s). The patient is on 15L non-rebreather and sating 97%. NGT at 65 intact running Glucerna 1.5 @ 25mL/hr. Residual of 40mL noted. Pt has condom cath intact and draining by gravity. Pt has L FA 22g intact and running 1/2NS @50mL/hr. Skin issue noted and dressing intact. History of seizure noted siderails padded and suction at bedside noted. Bed in low and locked position, call light within reach. Fall, aspiration, and seizure precaution noted. Continue to monitor and continue plan of care.
[2020-05-03 20:00] VITALS: BP 140/68
[2020-05-04] VITALS: BP 146/60
[2020-05-04] MEDS: NovoLOG Insulin Flexpen SUBQ SCH ×5 (00:17→23:46)
[2020-05-04 04:00] VITALS: BP 148/61
[2020-05-04 06:03] LABS: HEMATOCRIT 34.3 % (42.0-52.0); MEAN CORPUSCULAR VOLUME 98 FL (80-99); PLATELET COUNT 324 K/UL (150-450); RED CELL DISTRIBUTION WIDTH 13.4 % (11.6-14.8); WHITE BLOOD COUNT 17.1 K/UL (4.8-10.8)
[2020-05-04 06:22] LABS: ALANINE AMINOTRANSFERASE 18 U/L (12-78); ALBUMIN 1.5 G/DL (3.4-5.0); ALBUMIN/GLOBULIN RATIO 0.2 (1.0-2.7); ALKALINE PHOSPHATASE 89 U/L (46-116); ANION GAP 1 mmol/L (5-15); ASPARTATE AMINO TRANSFERASE 21 U/L (15-37); BILIRUBIN,TOTAL 0.4 MG/DL (0.2-1.0); BLOOD UREA NITROGEN 26 mg/dL (7-18); CALCIUM 9.1 MG/DL (8.5-10.1); CARBON DIOXIDE 36 MMOL/L (21-32); CHLORIDE 105 MMOL/L (98-107); CREATININE 0.9 MG/DL (0.55-1.30); PHOSPHORUS 3.1 MG/DL (2.5-4.9); POTASSIUM 4.1 MMOL/L (3.5-5.1); SODIUM 142 MMOL/L (136-145)
--- NOTE | 2020-05-04 07:15 | NUR ---
HAND-OFF: Report given to Ilene Mckinley RN.
[2020-05-04 08:00] VITALS: BP 145/75
[2020-05-04] MEDS: Ascorbic Acid 500mg tab ORAL SCH (08:17)
[2020-05-04] MEDS: Zinc Sulfate 220mg ORAL SCH (08:17)
[2020-05-04] MEDS: Heparin 5000 units/ml inj SUBQ SCH ×2 (08:18→21:06)
--- NOTE | 2020-05-04 11:37 | Pulmonolgy Critical Care Note ---
Critical Care - Asmt/Plan Problems: (1) Collapse of left lung (2) Acute respiratory failure due to COVID-19 (3) Pneumonia due to COVID-19 virus (4) Severe protein-calorie malnutrition (5) At high risk for aspiration (6) History of diabetes mellitus (7) Alzheimer's dementia Respiratory: monitor respiratory rate, adjust FIO2, CXR, other - keep left chest elevated Renal: F/U I&O, keep IV fluid, check electrolytes Infectious Disease: check cultures, continue antibiotics Gastrointestinal: continue feedings/current rate Endocrine: monitor blood sugar, continue sliding scale insulin Hematologic: monitor H/H, transfuse if hgb<8.5 Neurologic: PRN Ativan, keep patient comfortable Affect: PRN ativan Prophylaxis: Protonix Disposition: keep in ICU Time Spent (Minutes): 40 Notes Reviewed: vulcan crewmember, cardio, renal Discussed with: nurses, consultants, outsole caserclub manager - Objective Last 24 Hour Vital Signs Date Time Temp Pulse Resp B/P (MAP) Pulse Ox O2 Delivery O2 Flow Rate FiO2 05/04/20 09:00 Non-Rebreather 15.0 05/04/20 08:00 98.1 99 23 145/75 (98) 100 05/04/20 08:00 103 05/04/20 04:00 97.7 101 20 148/61 (90) 100 05/04/20 04:00 103 05/04/20 00:00 98.1 100 20 146/60 (88) 100 05/04/20 00:00 102 05/03/20 21:00 Non-Rebreather 15.0 05/03/20 20:00 107 05/03/20 20:00 98.2 104 20 140/68 (92) 97 05/03/20 17:00 101 05/03/20 16:00 Non-Rebreather 15.0 05/03/20 15:30 98.7 104 20 129/62 (84) 99 05/03/20 12:26 106 05/03/20 12:00 Non-Rebreather 15.0 Status: somnolent Condition: critical HEENT: atraumatic Neck: full ROM Lungs: chest wall tender Heart: HR/BP stable Abdomen: soft, active bowel sounds Extremities: no C/C/E Micro: Microbiology Date/Time Source Procedure Growth Status 05/01/20 19:30 Urine,Clean Catch Urine Culture - Final Atmi Famata Complete Accucheck: 169 Critical Care - Subjective ROS Limited/Unobtainable: Yes Condition: critical EKG Rhythm: Sinus Rhythm Tube Feeding Amount: 25 I&O: Intake and Output 05/03/20 05/04/20 19:00 07:00 Intake Total 365 ml 725.000 ml Output Total 500 ml 350 ml Balance -135 ml 375.000 ml Intake Free Water 40 ml IV Total 50 ml 725.000 ml Tube Feeding 275 ml Output Urine Total 500 ml 350 ml CXR: cxr pending Labs: Laboratory Tests Test 05/03/20 18:25 05/04/20 04:00 POC Whole Blood Glucose Pending White Blood Count 17.1 K/UL (4.8-10.8) H Red Blood Count 3.50 M/UL (4.70-6.10) L Hemoglobin 11.0 G/DL (14.2-18.0) L Hematocrit 34.3 % (42.0-52.0) L Mean Corpuscular Volume 98 FL (80-99) Mean Corpuscular Hemoglobin 31.4 PG (27.0-31.0) H Mean Corpuscular Hemoglobin Concent 32.1 G/DL (32.0-36.0) Red Cell Distribution Width 13.4 % (11.6-14.8) Platelet Count 324 K/UL (150-450) Mean Platelet Volume 6.9 FL (6.5-10.1) Neutrophils (%) (Auto) % (45.0-75.0) Lymphocytes (%) (Auto) % (20.0-45.0) Monocytes (%) (Auto) % (1.0-10.0) Eosinophils (%) (Auto) % (0.0-3.0) Basophils (%) (Auto) % (0.0-2.0) Differential Total Cells Counted 100 Neutrophils % (Manual) 84 % (45-75) H Lymphocytes % (Manual) 11 % (20-45) L Monocytes % (Manual) 4 % (1-10) Eosinophils % (Manual) 0 % (0-3) Basophils % (Manual) 1 % (0-2) Band Neutrophils 0 % (0-8) Platelet Estimate Adequate Platelet Morphology Normal Hypochromasia 1+ Anisocytosis 1+ Erythrocyte Sedimentation Rate 70 MM/HR (0-20) H Sodium Level 142 MMOL/L (136-145) Potassium Level 4.1 MMOL/L (3.5-5.1) Chloride Level 105 MMOL/L (98-107) Carbon Dioxide Level 36 MMOL/L (21-32) H Anion Gap 1 mmol/L (5-15) L Blood Urea Nitrogen 26 mg/dL (7-18) H Creatinine 0.9 MG/DL (0.55-1.30) Estimat Glomerular Filtration Rate > 60 mL/min (>60) Glucose Level 166 MG/DL (74-106) H Calcium Level 9.1 MG/DL (8.5-10.1) Phosphorus Level 3.1 MG/DL (2.5-4.9) Magnesium Level 1.8 MG/DL (1.8-2.4) Total Bilirubin 0.4 MG/DL (0.2-1.0) Aspartate Amino Transf (AST/SGOT) 21 U/L (15-37) Alanine Aminotransferase (ALT/SGPT) 18 U/L (12-78) Alkaline Phosphatase 89 U/L (46-116) C-Reactive Protein, Quantitative 31.2 mg/dL (0.00-0.90) H Total Protein 7.8 G/DL (6.4-8.2) Albumin 1.5 G/DL (3.4-5.0) L Globulin 6.3 g/dL Albumin/Globulin Ratio 0.2 (1.0-2.7) L Quincy Corral MD May 04, 2020 11:36
[2020-05-04] MEDS: Vancomycin 750mg/NS 275ml IVPB SCH ×4 (11:52→22:37)
--- NOTE | 2020-05-04 11:58 | Surgery Progress Note ---
Surgery Progress Note Subjective Additional Comments tolerating tf at 25cc will plan adv as tolerated labs noted grimacing face residuals low Objective Last 24 Hour Vital Signs Date Time Temp Pulse Resp B/P (MAP) Pulse Ox O2 Delivery O2 Flow Rate FiO2 05/04/20 09:00 Non-Rebreather 15.0 05/04/20 08:00 98.1 99 23 145/75 (98) 100 05/04/20 08:00 103 05/04/20 04:00 97.7 101 20 148/61 (90) 100 05/04/20 04:00 103 05/04/20 00:00 98.1 100 20 146/60 (88) 100 05/04/20 00:00 102 05/03/20 21:00 Non-Rebreather 15.0 05/03/20 20:00 107 05/03/20 20:00 98.2 104 20 140/68 (92) 97 05/03/20 17:00 101 05/03/20 16:00 Non-Rebreather 15.0 05/03/20 15:30 98.7 104 20 129/62 (84) 99 05/03/20 12:26 106 05/03/20 12:00 Non-Rebreather 15.0 I&O Intake and Output 05/03/20 05/04/20 19:00 07:00 Intake Total 365 ml 725.000 ml Output Total 500 ml 350 ml Balance -135 ml 375.000 ml Intake Free Water 40 ml IV Total 50 ml 725.000 ml Tube Feeding 275 ml Output Urine Total 500 ml 350 ml Dressing: other Wound: other Drains: other Cardiovascular: RSR Respiratory: decreased breath sounds Abdomen: soft, non-tender, present bowel sounds Extremities: no edema, no tenderness, no cyanosis Laboratory Tests Test 05/03/20 18:25 05/04/20 04:00 05/04/20 11:38 POC Whole Blood Glucose Pending 145 MG/DL (74-106) H White Blood Count 17.1 K/UL (4.8-10.8) H Red Blood Count 3.50 M/UL (4.70-6.10) L Hemoglobin 11.0 G/DL (14.2-18.0) L Hematocrit 34.3 % (42.0-52.0) L Mean Corpuscular Volume 98 FL (80-99) Mean Corpuscular Hemoglobin 31.4 PG (27.0-31.0) H Mean Corpuscular Hemoglobin Concent 32.1 G/DL (32.0-36.0) Red Cell Distribution Width 13.4 % (11.6-14.8) Platelet Count 324 K/UL (150-450) Mean Platelet Volume 6.9 FL (6.5-10.1) Neutrophils (%) (Auto) % (45.0-75.0) Lymphocytes (%) (Auto) % (20.0-45.0) Monocytes (%) (Auto) % (1.0-10.0) Eosinophils (%) (Auto) % (0.0-3.0) Basophils (%) (Auto) % (0.0-2.0) Differential Total Cells Counted 100 Neutrophils % (Manual) 84 % (45-75) H Lymphocytes % (Manual) 11 % (20-45) L Monocytes % (Manual) 4 % (1-10) Eosinophils % (Manual) 0 % (0-3) Basophils % (Manual) 1 % (0-2) Band Neutrophils 0 % (0-8) Platelet Estimate Adequate Platelet Morphology Normal Hypochromasia 1+ Anisocytosis 1+ Erythrocyte Sedimentation Rate 70 MM/HR (0-20) H Sodium Level 142 MMOL/L (136-145) Potassium Level 4.1 MMOL/L (3.5-5.1) Chloride Level 105 MMOL/L (98-107) Carbon Dioxide Level 36 MMOL/L (21-32) H Anion Gap 1 mmol/L (5-15) L Blood Urea Nitrogen 26 mg/dL (7-18) H Creatinine 0.9 MG/DL (0.55-1.30) Estimat Glomerular Filtration Rate > 60 mL/min (>60) Glucose Level 166 MG/DL (74-106) H Calcium Level 9.1 MG/DL (8.5-10.1) Phosphorus Level 3.1 MG/DL (2.5-4.9) Magnesium Level 1.8 MG/DL (1.8-2.4) Total Bilirubin 0.4 MG/DL (0.2-1.0) Aspartate Amino Transf (AST/SGOT) 21 U/L (15-37) Alanine Aminotransferase (ALT/SGPT) 18 U/L (12-78) Alkaline Phosphatase 89 U/L (46-116) C-Reactive Protein, Quantitative 31.2 mg/dL (0.00-0.90) H Total Protein 7.8 G/DL (6.4-8.2) Albumin 1.5 G/DL (3.4-5.0) L Globulin 6.3 g/dL Albumin/Globulin Ratio 0.2 (1.0-2.7) L Plan Problems: (1) Pneumonia due to COVID-19 virus (2) Severe protein-calorie malnutrition Assessment & Plan: 74-year-old male with significant severe protein calorie malnutrition. BMI is 18. Albumin is low. Skin turgor is poor. On admission identified to have a deep tissue injury and decubitus skin ulcer. Air mattress ordered local wound care plan initiated. Speech therapy evaluation identified. High risk dysphasia aspiration Needs nutritional optimization to allow for wound healing and care plan. We will follow with recommendations thank you for let me participate in patient' s care Turn every 2 hours Offload pressure with pillows Wash sacral wound daily with normal saline apply Thera honey and foam dressing. Bilateral heel protectors DAILY ESTIMATED NEEDS: Needs based on wound, underweight, 54kg 30-35 kcals/kg 7773-4666 total kcals 1.25-2 g protein/kg 68-108 g total protein 25-35ml/kcal mL/kg 6240-9259 total fluid mLs NUTRITION DIAGNOSIS: Swallowing difficulty r/t dysphagia as evidenced by DIRECTOR OF MEDICAL EDUCATION evulises, pt not safe for oral diet, now on NGT feeds. CURRENT TF:Glucerna 1.5 @45ml/hr ENTERAL NUTRITION RECOMMENDATIONS: Glucerna 1.5 goal of 45ml/hr x 24 hrs to provide 1080ml, 1620kcal, 89g pro, 820ml free H2O - Maintain Glucerna 1.5 @45ml/hr as tolerated - Advance as tolerated 10ml/hr q4-6 hrs to goal. - Flush per MD. ENGLE over 30 degrees. ADDITIONAL RECOMMENDATIONS: 1) Monitor BG closely w/ TF's; need for increased insulin coverage 2) wound care w/ NGT feeds: add LYNNE in 4oz H2O BID + Vit C500mg qdaily, MVI w/ min qdaily+ ZnSO4 220mg qd x10 days 3) Calibrated bed scale wts 4) Monitor lytes daily w/ TF, replete as needed THE PATIENT WAS POSITIONED UPRIGHT FOR P.O. TRIALS. PATIENT NON/VERBAL, NON/VISUAL TRACKING, NON/RESPONSIVE TO TACTILE/VERBAL CUES. HE IS MOUTH BREATHING, ORAL MUCOSA PRESENTS WITH XEROSTOMIA. HIS DECREASED MENTATION INCLUDED SENSORIMOTOR DEFICITS WHICH RESULTED IN POOR BOLUS ACCEPTANCE, DECREASED AWARENESS OF FOOD IN MOUTH. WHEN PRESENTED WITH 5ML OF NECTAR THICK WATER VIA SPOON, THE PATIENT DEMONSTRATED REPETITIVE LINGUAL PUMPING IN HIS ATTEMPT TO TRIGGER THE PHARYNGEAL PHASE OF THE SWALLOW. HYOLARYNGEAL ELEVATION WAS PALPATED AND DETERMINED TO BE INSUFFICIENT FOR AIRWAY PROTECTION. AFTER THE SECOND P.O. TRIAL WITH THE NTL, THE PATIENT DEMONSTRATED A PROLONGED NON/ CLEARING, NON/PRODUCTIVE COUGH, WITH 3 TRIALS OF PUREE PRESENTED IN 5 ML AMOUNTS , THE PATIENT DEMONSTRATED ORAL STASIS, AND RESIDUE HAD TO BE SUCTIONED TO CLEAR HIS MOUTH. ORAL CARE WAS PROVIDED POST SUCTIONING. PHARYNGEAL PHASE OF SWALLOW SEVERELY DELAYED. CLEARLY, THIS GENTLEMAN PRESENTS WITH SEVERE OROPHARYNGEAL DYSPHAGIA, ALONG WITH A HISTORY OF SUBOPTIMAL P.O. INTAKE/LOSS OF APPETITE RECOMMENDATIONS 1. CONSIDER NON/ORAL FEEDING MANAGEMENT FOR INTERIM NUTRITION/HYDRATION 2. NPO 3. ORAL CARE TID TO REDUCE ORAL PATHOGENS 4. SKILLED ST INTERVENTION DOES NOT APPEAR TO BE NEEDED AT THIS TIME. (3) At high risk for aspiration (4) Respiratory distress (5) COVID-19 Assessment & Plan: + (6) History of diabetes mellitus (7) Alzheimer's dementia (8) Decubitus skin ulcer Assessment & Plan: Pt deconditioned and presents with multiple Pressure injuries on admission. Non-Blanchable erythema without fluctuance or induration noted to R elbow. Open DTPI Sacrum with full thickness Ulcer (L)9.5cm x (W)10.5cm.Wound is irregular shaped and extends to apex of anus. Base of wound is indurated and purpuric surrounding areas at base of wound with full thickness ulcer with scattered areas of soft necrosis (60%), 40% maldonado. Bony prominence is palpable at base of wound.Small amt sanguineous exudate noted . No odor noted . Periwound Skin is blanchable but Bilat trochanteric and iliac areas, including Ischial tuberosities are at high risks for pressure injuries secondary to bony protrusion and poor tissue perfusion. DTPI R Ischium. Base of pressure injury is maroon and indurated(L)3.4cm x (W) 7cm. DTPI R Heel (L)4cm x (W)9cm. Base of Pressure injury is fluctuant, maroon with small purpuric area.No evidence of ski breakdown periwound. L heel is boggy with non-Blanchable erythema. Tx.Plan: Cleanse Sacral wound with Saline. Apply TheraHoney. Apply Moisture Barrier Paste periwound. Cover with Optifoam drsgs. Change Daily and prn. Apply Cavilon Skin Barrier to R ischium. Cover with Optifoam drsg. Change every 3 days and prn. Apply Cavilon Skin Barrier to At Risks Bony Prominences. Cover areas with Optifoam drsgs as needed. Apply Cavilon Skin Barrier to both heels and Malleoli. Cover each site with Optifoam drsg. Change every 7 days and Prn. Reposition at least every 2hours or as tolerated. Off-load heels with Pillow. Air Fluidized Mattress. (9) Dysphagia Assessment & Plan: ng placed unlikey to pass swallow eval low bmi consider peg polst noted Darian Ragsdale May 04, 2020 11:58
[2020-05-04 12:00] VITALS: BP 145/67
--- NOTE | 2020-05-04 12:21 | NUR ---
RD ASSESSMENT & RECOMMENDATIONS SEE CARE ACTIVITY FOR COMPLETE ASSESSMENT DAILY ESTIMATED NEEDS: Needs based on wound, underweight, 54kg 30-35 kcals/kg 2842-0552 total kcals 1.25-2 g protein/kg 68-108 g total protein 25-35ml/kcal mL/kg 1860-5385 total fluid mLs NUTRITION DIAGNOSIS: Swallowing difficulty r/t dysphagia as evidenced by INVESTMENT OFFICER eval, pt not safe for oral diet, now on NGT feeds. (CURRENT TF: Glucerna 1.5 @45ml/hr) ENTERAL NUTRITION RECOMMENDATIONS: Glucerna 1.5 @45ml/hr x 24 hrs to provide 1080ml, 1620kcal, 89g pro, 820ml free H2O - Maintain Glucerna 1.5 @45ml/hr as tolerated - Flush per MD. HOB over 30 degrees. ADDITIONAL RECOMMENDATIONS: 1) Monitor BG closely w/ TF's; need for increased insulin coverage 2) wound care w/ NGT feeds: add LYNNE in 4oz H2O BID continue Vit C, ZnSO4 3) Calibrated bed scale wts 4) Monitor lytes daily w/ TF, replete as needed 5) Add Prokinetic agent for improved TF tolerance
--- NOTE | 2020-05-04 13:00 | NUR ---
NURSE NOTES: Radiology in room. Chest x-ray taken as ordered. Will continue to monitor patient. Patient's left chest elevated as per instructions of Dr. Corral, SpO2 99%, no SOB noted.
--- NOTE | 2020-05-04 13:02 | NUR ---
RADIOLOGY DEPT., CHEST X-RAY DONE.-P.DYE
--- NOTE | 2020-05-04 13:59 | Infectious Diseases Prog Note ---
Assessment/Plan Assessment: Recent COVID19 positive (unknown date of diagnosis) Pneumonia -bacterial superimposed w MRSA (pt bacteremic) Acute hypoxic resp failure - s/p NC, now on NRB -05/03 CXR: Significantly increased complete consolidation throughout the left lung. Probable left pleural effusion as well. Similar right basilar opacity. -04/28 CXR: Bibasilar infiltrates with slight worsening on right side. -04/24 CXR: Slightly improved bilateral infiltrates, over 2 days -04/22 Rapid COVID + CXR: Bilateral infiltrates, likely pneumonia, possibly viral. Correlate with clinical findings MRSA and CONS bacteremia; persistent bacteremia -04/26 2d echo(limited study): no vegetations seen -04/22 Bcx 2/4 S. epi; 04/23 Bcx / MRSA; 04/26 Bcx 1/2 S. hominis; 04/27 Bcx Neg Afebrile- Tm 99.5 Mild leukocytosis; increased, now improving -05/01 u/a eng; ucx Tami sp -04/22 u/a neg Dementia Seizure disorder Dm2 DNR status [place] resident ([facility]) Plan: -Cont IV Vancomycin #11; will need minimum of 14 days from 1st neg Bcx; expected end date 05/11/20 -05/01 SP cefepime #10 -04/27 SP Decadron #5 -04/26 SP Azithromcin #5 -04/23 SP Ceftriaxone #2 -04/22 SP ZOsyn x1 Trend WBC, improving -f/u cx -Monitor CBC/CMP, temperatures -COVID19 isolation -Will not give Remdesevir at this point given unclear date of diagnosis -If improved respiratory status may need AN Thank you for this consultation. Will continue to follow along with you. Discussed with RN. Subjective Allergies: Coded Allergies: No Known Allergies (Unverified , 04/22/20) afebrile remains on NRB latest Bcx NTD leukocytosis increasing Objective Last 24 Hour Vital Signs Date Time Temp Pulse Resp B/P (MAP) Pulse Ox O2 Delivery O2 Flow Rate FiO2 05/04/20 12:00 98 05/04/20 12:00 98.6 98 23 145/67 (93) 95 05/04/20 09:00 Non-Rebreather 15.0 05/04/20 08:00 98.1 99 23 145/75 (98) 100 05/04/20 08:00 103 05/04/20 04:00 97.7 101 20 148/61 (90) 100 05/04/20 04:00 103 05/04/20 00:00 98.1 100 20 146/60 (88) 100 05/04/20 00:00 102 05/03/20 21:00 Non-Rebreather 15.0 05/03/20 20:00 107 05/03/20 20:00 98.2 104 20 140/68 (92) 97 05/03/20 17:00 101 05/03/20 16:00 Non-Rebreather 15.0 05/03/20 15:30 98.7 104 20 129/62 (84) 99 Height (Feet): 5 Height (Inches): 8.00 Weight (Pounds): 120 General Appearance: cachetic, thin HEENT: normocephalic, atraumatic, NRB mask in place Neck: supple Respiratory/Chest: chest wall non-tender, rhonchi - left, rhonchi - right Cardiovascular/Chest: normal peripheral pulses, normal rate Abdomen: normal bowel sounds, non tender Microbiology Date/Time Source Procedure Growth Status 05/01/20 19:30 Urine,Clean Catch Urine Culture - Final Tami Famata Complete Laboratory Tests Test 05/03/20 18:25 05/04/20 04:00 05/04/20 11:38 POC Whole Blood Glucose Pending 145 MG/DL (74-106) H White Blood Count 17.1 K/UL (4.8-10.8) H Red Blood Count 3.50 M/UL (4.70-6.10) L Hemoglobin 11.0 G/DL (14.2-18.0) L Hematocrit 34.3 % (42.0-52.0) L Mean Corpuscular Volume 98 FL (80-99) Mean Corpuscular Hemoglobin 31.4 PG (27.0-31.0) H Mean Corpuscular Hemoglobin Concent 32.1 G/DL (32.0-36.0) Red Cell Distribution Width 13.4 % (11.6-14.8) Platelet Count 324 K/UL (150-450) Mean Platelet Volume 6.9 FL (6.5-10.1) Neutrophils (%) (Auto) % (45.0-75.0) Lymphocytes (%) (Auto) % (20.0-45.0) Monocytes (%) (Auto) % (1.0-10.0) Eosinophils (%) (Auto) % (0.0-3.0) Basophils (%) (Auto) % (0.0-2.0) Differential Total Cells Counted 100 Neutrophils % (Manual) 84 % (45-75) H Lymphocytes % (Manual) 11 % (20-45) L Monocytes % (Manual) 4 % (1-10) Eosinophils % (Manual) 0 % (0-3) Basophils % (Manual) 1 % (0-2) Band Neutrophils 0 % (0-8) Platelet Estimate Adequate Platelet Morphology Normal Hypochromasia 1+ Anisocytosis 1+ Erythrocyte Sedimentation Rate 70 MM/HR (0-20) H Sodium Level 142 MMOL/L (136-145) Potassium Level 4.1 MMOL/L (3.5-5.1) Chloride Level 105 MMOL/L (98-107) Carbon Dioxide Level 36 MMOL/L (21-32) H Anion Gap 1 mmol/L (5-15) L Blood Urea Nitrogen 26 mg/dL (7-18) H Creatinine 0.9 MG/DL (0.55-1.30) Estimat Glomerular Filtration Rate > 60 mL/min (>60) Glucose Level 166 MG/DL (74-106) H Calcium Level 9.1 MG/DL (8.5-10.1) Phosphorus Level 3.1 MG/DL (2.5-4.9) Magnesium Level 1.8 MG/DL (1.8-2.4) Total Bilirubin 0.4 MG/DL (0.2-1.0) Aspartate Amino Transf (AST/SGOT) 21 U/L (15-37) Alanine Aminotransferase (ALT/SGPT) 18 U/L (12-78) Alkaline Phosphatase 89 U/L (46-116) C-Reactive Protein, Quantitative 31.2 mg/dL (0.00-0.90) H Total Protein 7.8 G/DL (6.4-8.2) Albumin 1.5 G/DL (3.4-5.0) L Globulin 6.3 g/dL Albumin/Globulin Ratio 0.2 (1.0-2.7) L Current Medications Medications (Trade) Dose Ordered Sig/Andrade Route PRN Reason Start Time Stop Time Status Last Admin Dose Admin Acetaminophen (Tylenol) 650 mg Q4H PRN ORAL FEVER 05/02/20 13:00 05/22/20 12:59 Albuterol/ Ipratropium (Combivent Respimat) 1 puff Q4H PRN INH Shortness of Breath 05/02/20 13:00 05/22/20 12:59 Ascorbic Acid (Vitamin C) 500 mg DAILY ORAL 05/03/20 09:00 05/28/20 08:59 05/04/20 08:17 Dextrose (Dextrose 50%) 25 ml Q30M PRN IV Hypoglycemia 05/02/20 12:45 07/21/20 16:14 Dextrose (Dextrose 50%) 50 ml Q30M PRN IV Hypoglycemia 05/02/20 12:45 07/21/20 16:14 Heparin Sodium (Porcine) (Heparin 5000 units/ml) 5,000 units EVERY 12 HOURS SUBQ 05/02/20 21:00 06/06/20 20:59 05/04/20 08:18 Insulin Aspart (NovoLOG) Q6HR SUBQ 05/02/20 18:00 07/21/20 16:29 05/04/20 12:06 Levetiracetam (Keppra) 500 mg EVERY 12 HOURS ORAL 05/02/20 21:00 06/06/20 20:59 05/04/20 08:17 Multivitamins (Multivitamins) 1 tab DAILY ORAL 05/03/20 09:00 05/28/20 08:59 05/04/20 08:17 Ondansetron HCl (Zofran) 4 mg Q6H PRN IVP Nausea & Vomiting 05/02/20 13:00 05/22/20 12:59 Polyethylene Glycol (Miralax) 17 gm DAILYPRN PRN ORAL Constipation 05/02/20 13:00 05/24/20 12:59 Promethazine HCl/ Codeine (Phenergan with Codeine) 5 ml Q6H PRN ORAL cough 05/02/20 13:00 05/22/20 12:59 Sodium Chloride 1,000 ml @ 50 mls/hr Q20H IV 05/02/20 12:30 05/26/20 18:21 05/03/20 07:38 Vancomycin HCl (Vanco pharmacy to dose) 1 ea DAILY PRN MISC Per rx protocol 05/03/20 09:00 05/23/20 14:44 Vancomycin HCl 750 mg/Sodium Chloride 275 ml @ 183.333 mls/hr Q12HR@1100,2300 IVPB 05/03/20 11:00 05/08/20 10:59 05/04/20 11:52 Zinc Sulfate (Zinc Sulfate) 220 mg DAILY ORAL 05/03/20 09:00 07/27/20 08:59 05/04/20 08:17 Linsey Barry M.D. May 04, 2020 13:59
--- NOTE | 2020-05-04 15:43 | NUR ---
NURSE NOTES: Called radiology department, 0835, to follow up on chest x-ray results. Spoke with x-ray department personnel, per personnel will follow up with radiology doctor. Noted. Will continue to monitor patient.
[2020-05-04 16:00] VITALS: BP 153/89
--- NOTE | 2020-05-04 16:16 | Diagnostic Imaging Report ---
Indication: Dyspnea Technique: XRAY Chest 1v Comparison: 05/03/2020 Findings: There is improved aeration with decreased atelectasis/consolidation in the left lung. Significant persistent interstitial and patchy bilateral airspace disease. Trace bilateral pleural effusions not excluded. No pneumothorax. There are degenerative changes in the spine. Surgical clips noted in the upper abdomen. Osseous structures are stable. NG tube remains in place with the tip in the proximal stomach. Heart size is stable. IMPRESSION: Extensive interstitial and patchy bilateral airspace disease with slight improved aeration of the left mid and upper lung compared to one day prior. There is worsening of aeration in the right lung compared to one day prior however.
[2020-05-04] MEDS ORDERED: Tubing IV Secondary IV ONE (17:14)
--- NOTE | 2020-05-04 17:33 | NUR ---
NURSE NOTES: Contacted and informed Dr. Corral of new chest x-ray results, Dr. Corral acknowledged and gave now new orders at this time. Will continue to monitor patient. Addendum: 05/04/20 at 1735 by GABE GIL RN NURSE NOTES: Correction: "No new orders at this time".
--- NOTE | 2020-05-04 18:00 | NUR ---
NURSE NOTES: Patient's provided with dalia-care, condom catheter changed. Will continue to monitor patient.
--- NOTE | 2020-05-04 19:10 | NUR ---
NURSE NOTES: Pt report received from KACY Pedro RN Day shift. pt remains stable. pt is obtunded neuro huffman, however no acute abnormalities to mentation. pt is on 15 L non rebreather, sating 98% O2, no acute resp distress noted. pt is on quality assurance monitor body showing NSR, no acute abnormalities cardiac huffman. bed low, locked, armed, bed rails up times 3, call light within reach. will follow plan of care.
--- NOTE | 2020-05-04 19:26 | NUR ---
HAND-OFF: Report given to TAWNYA Leahy.
[2020-05-04 20:00] VITALS: BP 152/87
[2020-05-05] VITALS: BP 147/74
[2020-05-05 04:00] VITALS: BP 102/51
[2020-05-05] MEDS: NovoLOG Insulin Flexpen SUBQ SCH ×3 (05:25→17:51)
--- NOTE | 2020-05-05 07:10 | NUR ---
HAND-OFF: Report given to SALO Riggs RN. Pt remains stable.
--- NOTE | 2020-05-05 07:11 | NUR ---
NURSE NOTES: Received patient from TAWNYA Mckinley. Patient is in bed, aaox 0, vss, on teletypesetter monitor, and no sign of distress. Patient is clean, cooperative and on 15L non-rebreather. NG-tube feeding running Glucerna 1.5 at goal. NG-tube is at 65cm. Skin issues noted. IV site left upper arm 22g running NS at 50ml/hr. Bed is at its lowest position, call light in reach, and x3 bed rails are up. Will continue to monitor patient.
[2020-05-05 08:00] VITALS: BP 92/52
[2020-05-05] MEDS: Heparin 5000 units/ml inj SUBQ SCH ×2 (09:34→21:20)
[2020-05-05] MEDS: Ascorbic Acid 500mg tab ORAL SCH (09:34)
[2020-05-05] MEDS: Zinc Sulfate 220mg ORAL SCH (09:34)
--- NOTE | 2020-05-05 10:51 | NUR ---
NURSE NOTES: Patient is resting with no complications at this time.
--- NOTE | 2020-05-05 11:25 | Pulmonolgy Critical Care Note ---
Critical Care - Asmt/Plan Problems: (1) Acute respiratory failure due to COVID-19 (2) Collapse of left lung Assessment & Plan: resolved (3) Pneumonia due to COVID-19 virus (4) Severe protein-calorie malnutrition (5) At high risk for aspiration (6) History of diabetes mellitus (7) Alzheimer's dementia Respiratory: monitor respiratory rate, adjust FIO2, CXR Cardiac: continue to monitor HR/BP Renal: F/U I&O, keep IV fluid, other - NS bolus for hypotension Infectious Disease: check cultures, continue antibiotics Gastrointestinal: continue feedings/current rate, abdominal imaging Endocrine: monitor blood sugar Hematologic: transfuse if hgb<8.5 Neurologic: PRN Ativan, keep patient comfortable Affect: PRN ativan Prophylaxis: Protonix Disposition: keep in ICU Notes Reviewed: production miner, cardio, renal Discussed with: nurses, consultants, case coordinatorcredit office manager - Objective Last 24 Hour Vital Signs Date Time Temp Pulse Resp B/P (MAP) Pulse Ox O2 Delivery O2 Flow Rate FiO2 05/05/20 09:00 Non-Rebreather 15.0 05/05/20 08:00 98.0 91 26 92/52 (65) 99 05/05/20 08:00 89 05/05/20 04:00 98.1 94 24 102/51 (68) 99 05/05/20 04:00 107 05/05/20 00:00 98.6 103 24 147/74 (98) 100 05/05/20 00:00 102 05/04/20 21:00 Non-Rebreather 15.0 05/04/20 20:00 98.9 112 25 152/87 (108) 99 05/04/20 20:00 110 05/04/20 16:00 113 05/04/20 16:00 98.1 109 23 153/89 (110) 100 05/04/20 12:00 98 05/04/20 12:00 98.6 98 23 145/67 (93) 95 Status: sedated Condition: critical HEENT: atraumatic, normocephalic Neck: full ROM Lungs: rales, rhonchi Heart: HR/BP stable Abdomen: soft, non-tender, active bowel sounds Extremities: no C/C/E Accucheck: 150 Critical Care - Subjective ROS Limited/Unobtainable: Yes Interval Events: episode of hypotension Condition: critical Tube Feeding Amount: 45 I&O: Intake and Output 05/04/20 05/05/20 19:00 07:00 Intake Total 910.000 ml 1320.00 ml Output Total 600 ml 800 ml Balance 310.000 ml 520.00 ml Intake Free Water 200 ml IV Total 325.000 ml 825.00 ml Tube Feeding 385 ml 495 ml Output Urine Total 600 ml 800 ml CXR: increasing LLL infiltrate/ s/p Left lung collapse Labs: Laboratory Tests Test 05/04/20 11:38 05/04/20 16:26 05/04/20 23:42 05/05/20 05:19 POC Whole Blood Glucose 145 MG/DL (74-106) H 156 MG/DL (74-106) H Pending Pending Quincy Corral MD May 05, 2020 11:25
[2020-05-05] MEDS: Vancomycin 750mg/NS 275ml IVPB SCH ×4 (11:27→23:44)
[2020-05-05] MEDS ORDERED: NS 500 ML IVPB ONE (11:30)
--- NOTE | 2020-05-05 11:49 | NUR ---
NURSE NOTES: Patient BP was 59/30 HR 68. Patient repositioned, feeding turned off and Dr Corral ordered 500NS bolus. bp 78/44, HR 92 O2 saturation of 100%. Will continue to monitor.
[2020-05-05 11:54] VITALS: BP 77/42
--- NOTE | 2020-05-05 13:09 | Infectious Diseases Prog Note ---
Assessment/Plan Assessment: Hypotension 05/05 Recent COVID19 positive (unknown date of diagnosis) Pneumonia -bacterial superimposed w MRSA (pt bacteremic) Acute hypoxic resp failure - s/p NC, now on NRB -05/04 CXR: Extensive interstitial and patchy bilateral airspace disease with slight improved aeration of the left mid and upper lung compared to one day prior. There is worsening of aeration in the right lung compared to one day prior however. -05/03 CXR: Significantly increased complete consolidation throughout the left lung. Probable left pleural effusion as well. Similar right basilar opacity. -04/28 CXR: Bibasilar infiltrates with slight worsening on right side. -04/24 CXR: Slightly improved bilateral infiltrates, over 2 days -04/22 Rapid COVID + CXR: Bilateral infiltrates, likely pneumonia, possibly viral. Correlate with clinical findings MRSA and CONS bacteremia; persistent bacteremia -04/26 2d echo(limited study): no vegetations seen -04/22 Bcx 2/ S. epi; 04/23 Bcx / MRSA; 04/26 Bcx 1/2 S. hominis; 04/27 Bcx Neg Afebrile- Tm 99.5 Mild leukocytosis; increased, now improving -05/01 u/a eng; ucx Tami sp -04/22 u/a neg Dementia Seizure disorder Dm2 DNR status [place] resident ([facility]) Plan: -Cont IV Vancomycin #12; will need minimum of 14 days from 1st neg Bcx; expected end date 05/11/20 -Start empiric MEropenem and Micafungin given hypotension and pending repeat cultures -05/01 SP cefepime #10 -04/27 SP Decadron #5 -04/26 SP Azithromcin #5 -04/23 SP Ceftriaxone #2 -04/22 SP ZOsyn x1 Trend WBC, improving -f/u cx -Monitor CBC/CMP, temperatures -COVID19 isolation -Will not give Remdesevir at this point given unclear date of diagnosis -If improved respiratory status may need AN -repeat cultures Thank you for this consultation. Will continue to follow along with you. Discussed with RN. Subjective Allergies: Coded Allergies: No Known Allergies (Unverified , 04/22/20) afebrile remains on NRB 100% now hypotensive to rc 70s SBP wbc improving Objective Last 24 Hour Vital Signs Date Time Temp Pulse Resp B/P (MAP) Pulse Ox O2 Delivery O2 Flow Rate FiO2 05/05/20 11:54 98.1 94 28 77/42 (54) 100 05/05/20 09:00 Non-Rebreather 15.0 05/05/20 08:00 98.0 91 26 92/52 (65) 99 05/05/20 08:00 89 05/05/20 04:00 98.1 94 24 102/51 (68) 99 05/05/20 04:00 107 05/05/20 00:00 98.6 103 24 147/74 (98) 100 05/05/20 00:00 102 05/04/20 21:00 Non-Rebreather 15.0 05/04/20 20:00 98.9 112 25 152/87 (108) 99 05/04/20 20:00 110 05/04/20 16:00 113 05/04/20 16:00 98.1 109 23 153/89 (110) 100 Height (Feet): 5 Height (Inches): 8.00 Weight (Pounds): 120 General Appearance: cachetic, thin HEENT: normocephalic, atraumatic, NRB mask in place Neck: supple Respiratory/Chest: chest wall non-tender, rhonchi - left, rhonchi - right Cardiovascular/Chest: normal peripheral pulses, normal rate Abdomen: normal bowel sounds, non tender Laboratory Tests Test 05/04/20 16:26 05/04/20 23:42 05/05/20 05:19 05/05/20 11:31 POC Whole Blood Glucose 156 MG/DL (74-106) H Pending Pending 150 MG/DL (74-106) H Current Medications Medications (Trade) Dose Ordered Sig/Andrade Route PRN Reason Start Time Stop Time Status Last Admin Dose Admin Acetaminophen (Tylenol) 650 mg Q4H PRN ORAL FEVER 05/02/20 13:00 05/22/20 12:59 Albuterol/ Ipratropium (Combivent Respimat) 1 puff Q4H PRN INH Shortness of Breath 05/02/20 13:00 05/22/20 12:59 Ascorbic Acid (Vitamin C) 500 mg DAILY ORAL 05/03/20 09:00 05/28/20 08:59 05/05/20 09:34 Dextrose (Dextrose 50%) 25 ml Q30M PRN IV Hypoglycemia 05/02/20 12:45 07/21/20 16:14 Dextrose (Dextrose 50%) 50 ml Q30M PRN IV Hypoglycemia 05/02/20 12:45 07/21/20 16:14 Heparin Sodium (Porcine) (Heparin 5000 units/ml) 5,000 units EVERY 12 HOURS SUBQ 05/02/20 21:00 06/06/20 20:59 05/05/20 09:34 Insulin Aspart (NovoLOG) Q6HR SUBQ 05/02/20 18:00 07/21/20 16:29 05/05/20 11:33 Levetiracetam (Keppra) 500 mg EVERY 12 HOURS ORAL 05/02/20 21:00 06/06/20 20:59 05/05/20 09:34 Multivitamins (Multivitamins) 1 tab DAILY ORAL 05/03/20 09:00 05/28/20 08:59 05/05/20 09:34 Ondansetron HCl (Zofran) 4 mg Q6H PRN IVP Nausea & Vomiting 05/02/20 13:00 05/22/20 12:59 Polyethylene Glycol (Miralax) 17 gm DAILYPRN PRN ORAL Constipation 05/02/20 13:00 05/24/20 12:59 Promethazine HCl/ Codeine (Phenergan with Codeine) 5 ml Q6H PRN ORAL cough 05/02/20 13:00 05/22/20 12:59 Sodium Chloride 1,000 ml @ 50 mls/hr Q20H IV 05/02/20 12:30 05/26/20 18:21 05/04/20 15:06 Vancomycin HCl (Vanco pharmacy to dose) 1 ea DAILY PRN MISC Per rx protocol 05/03/20 09:00 05/23/20 14:44 Vancomycin HCl 750 mg/Sodium Chloride 275 ml @ 183.333 mls/hr Q12HR@1100,2300 IVPB 05/03/20 11:00 05/11/20 23:59 05/05/20 11:27 Zinc Sulfate (Zinc Sulfate) 220 mg DAILY ORAL 05/03/20 09:00 07/27/20 08:59 05/05/20 09:34 Linsey Barry M.D. May 05, 2020 13:08
--- NOTE | 2020-05-05 13:30 | NUR ---
NURSE NOTES: Patient too unstable to give bed bath. Patient started aspirating despite tube feeding being turned off then desaturated during bath. Rt was called and bath wash prematurely terminated. Residual checked throughout the day produces no more then 3cc of residue from NG-tube. No previous indication of aspiration or posable aspiration prior to bed bath.
--- NOTE | 2020-05-05 14:14 | Surgery Progress Note ---
Surgery Progress Note Subjective Additional Comments resting ill appearing labs noted imaging reviewed Objective Last 24 Hour Vital Signs Date Time Temp Pulse Resp B/P (MAP) Pulse Ox O2 Delivery O2 Flow Rate FiO2 05/05/20 11:54 98.1 94 28 77/42 (54) 100 05/05/20 09:00 Non-Rebreather 15.0 05/05/20 08:00 98.0 91 26 92/52 (65) 99 05/05/20 08:00 89 05/05/20 04:00 98.1 94 24 102/51 (68) 99 05/05/20 04:00 107 05/05/20 00:00 98.6 103 24 147/74 (98) 100 05/05/20 00:00 102 05/04/20 21:00 Non-Rebreather 15.0 05/04/20 20:00 98.9 112 25 152/87 (108) 99 05/04/20 20:00 110 05/04/20 16:00 113 05/04/20 16:00 98.1 109 23 153/89 (110) 100 I&O Intake and Output 05/04/20 05/05/20 19:00 07:00 Intake Total 910.000 ml 1320.00 ml Output Total 600 ml 800 ml Balance 310.000 ml 520.00 ml Intake Free Water 200 ml IV Total 325.000 ml 825.00 ml Tube Feeding 385 ml 495 ml Output Urine Total 600 ml 800 ml Dressing: other Wound: other Drains: other Cardiovascular: RSR Respiratory: decreased breath sounds Abdomen: soft, non-tender, present bowel sounds Extremities: no cyanosis Laboratory Tests Test 05/04/20 16:26 05/04/20 23:42 05/05/20 05:19 05/05/20 11:31 POC Whole Blood Glucose 156 MG/DL (74-106) H Pending Pending 150 MG/DL (74-106) H Plan Problems: (1) Pneumonia due to COVID-19 virus (2) Severe protein-calorie malnutrition Assessment & Plan: 74-year-old male with significant severe protein calorie malnutrition. BMI is 18. Albumin is low. Skin turgor is poor. On admission identified to have a deep tissue injury and decubitus skin ulcer. Air mattress ordered local wound care plan initiated. Speech therapy evaluation identified. High risk dysphasia aspiration Needs nutritional optimization to allow for wound healing and care plan. We will follow with recommendations thank you for let me participate in patient' s care Turn every 2 hours Offload pressure with pillows Wash sacral wound daily with normal saline apply Thera honey and foam dressing. Bilateral heel protectors DAILY ESTIMATED NEEDS: Needs based on wound, underweight, 54kg 30-35 kcals/kg 1206-6567 total kcals 1.25-2 g protein/kg 68-108 g total protein 25-35ml/kcal mL/kg 2684-8480 total fluid mLs NUTRITION DIAGNOSIS: Swallowing difficulty r/t dysphagia as evidenced by MISSION WORKER marj, pt not safe for oral diet, now on NGT feeds. CURRENT TF:Glucerna 1.5 @45ml/hr ENTERAL NUTRITION RECOMMENDATIONS: Glucerna 1.5 goal of 45ml/hr x 24 hrs to provide 1080ml, 1620kcal, 89g pro, 820ml free H2O - Maintain Glucerna 1.5 @45ml/hr as tolerated - Advance as tolerated 10ml/hr q4-6 hrs to goal. - Flush per MD. HOB over 30 degrees. ADDITIONAL RECOMMENDATIONS: 1) Monitor BG closely w/ TF's; need for increased insulin coverage 2) wound care w/ NGT feeds: add LYNNE in 4oz H2O BID + Vit C500mg qdaily, MVI w/ min qdaily+ ZnSO4 220mg qd x10 days 3) Calibrated bed scale wts 4) Monitor lytes daily w/ TF, replete as needed THE PATIENT WAS POSITIONED UPRIGHT FOR P.O. TRIALS. PATIENT NON/VERBAL, NON/VISUAL TRACKING, NON/RESPONSIVE TO TACTILE/VERBAL CUES. HE IS MOUTH BREATHING, ORAL MUCOSA PRESENTS WITH XEROSTOMIA. HIS DECREASED MENTATION INCLUDED SENSORIMOTOR DEFICITS WHICH RESULTED IN POOR BOLUS ACCEPTANCE, DECREASED AWARENESS OF FOOD IN MOUTH. WHEN PRESENTED WITH 5ML OF NECTAR THICK WATER VIA SPOON, THE PATIENT DEMONSTRATED REPETITIVE LINGUAL PUMPING IN HIS ATTEMPT TO TRIGGER THE PHARYNGEAL PHASE OF THE SWALLOW. HYOLARYNGEAL ELEVATION WAS PALPATED AND DETERMINED TO BE INSUFFICIENT FOR AIRWAY PROTECTION. AFTER THE SECOND P.O. TRIAL WITH THE NTL, THE PATIENT DEMONSTRATED A PROLONGED NON/ CLEARING, NON/PRODUCTIVE COUGH, WITH 3 TRIALS OF PUREE PRESENTED IN 5 ML AMOUNTS , THE PATIENT DEMONSTRATED ORAL STASIS, AND RESIDUE HAD TO BE SUCTIONED TO CLEAR HIS MOUTH. ORAL CARE WAS PROVIDED POST SUCTIONING. PHARYNGEAL PHASE OF SWALLOW SEVERELY DELAYED. CLEARLY, THIS GENTLEMAN PRESENTS WITH SEVERE OROPHARYNGEAL DYSPHAGIA, ALONG WITH A HISTORY OF SUBOPTIMAL P.O. INTAKE/LOSS OF APPETITE RECOMMENDATIONS 1. CONSIDER NON/ORAL FEEDING MANAGEMENT FOR INTERIM NUTRITION/HYDRATION 2. NPO 3. ORAL CARE TID TO REDUCE ORAL PATHOGENS 4. SKILLED ST INTERVENTION DOES NOT APPEAR TO BE NEEDED AT THIS TIME. (3) At high risk for aspiration (4) Respiratory distress (5) COVID-19 Assessment & Plan: + (6) History of diabetes mellitus (7) Alzheimer's dementia (8) Decubitus skin ulcer Assessment & Plan: Pt deconditioned and presents with multiple Pressure injuries on admission. Non-Blanchable erythema without fluctuance or induration noted to R elbow. Open DTPI Sacrum with full thickness Ulcer (L)9.5cm x (W)10.5cm.Wound is irregular shaped and extends to apex of anus. Base of wound is indurated and purpuric surrounding areas at base of wound with full thickness ulcer with scattered areas of soft necrosis (60%), 40% maldonado. Bony prominence is palpable at base of wound.Small amt sanguineous exudate noted . No odor noted . Periwound Skin is blanchable but Bilat trochanteric and iliac areas, including Ischial tuberosities are at high risks for pressure injuries secondary to bony protrusion and poor tissue perfusion. DTPI R Ischium. Base of pressure injury is maroon and indurated(L)3.4cm x (W) 7cm. DTPI R Heel (L)4cm x (W)9cm. Base of Pressure injury is fluctuant, maroon with small purpuric area.No evidence of ski breakdown periwound. L heel is boggy with non-Blanchable erythema. Tx.Plan: Cleanse Sacral wound with Saline. Apply TheraHoney. Apply Moisture Barrier Paste periwound. Cover with Optifoam drsgs. Change Daily and prn. Apply Cavilon Skin Barrier to R ischium. Cover with Optifoam drsg. Change every 3 days and prn. Apply Cavilon Skin Barrier to At Risks Bony Prominences. Cover areas with Optifoam drsgs as needed. Apply Cavilon Skin Barrier to both heels and Malleoli. Cover each site with Optifoam drsg. Change every 7 days and Prn. Reposition at least every 2hours or as tolerated. Off-load heels with Pillow. Air Fluidized Mattress. (9) Dysphagia Assessment & Plan: ng placed unlikey to pass swallow eval low bmi consider peg polst noted Darian Ragsdale May 05, 2020 14:14
[2020-05-05] MEDS: Meropenem 1 GM in NS 55 ML IVPB SCH ×2 (15:29→21:21)
[2020-05-05] MEDS ORDERED: 1/2 NS 1000ml IV ONE (15:42)
[2020-05-05 16:00] VITALS: BP 88/41
--- NOTE | 2020-05-05 16:22 | NUR ---
CASE MANAGEMENT: REVIEW SI: COVID-19 PNA T 98.1 HR 112 RR 28 BP 77/42 SAT 99% NON-REBREATHER FLOW RATE 15.0 WBC 17.1 H/H 11.0/34.3 GLUCOSE 150 IS: MICAFUNGIN IV Q24HR MEROPENEM IV Q8HR VANCOMYCIN IV Q12HR NS IVF @ 50ML/HR NGT FEEDING STEP DOWN UNIT STATUS DCP: PATIENT IS FROM [facility]
--- NOTE | 2020-05-05 16:41 | NUR ---
GEOLOGICAL E LOGGER NOTE SW spoke w/ pt's daughter, Priya Stewart [phone], confirmed the family is in agreement w/ hospice care and PEG placement. SUZY relayed such information to assigned CM.
[2020-05-05] MEDS: Micafungin 100 MG in NS 110 ML IVPB SCH (17:50)
--- NOTE | 2020-05-05 18:00 | NUR ---
NURSE NOTES:Late entry Patient's urine output reduced. Bladder scan results 200ml retained with no bladder distention. Slade needed. Will endorse to cnc machinist 2nd shift.
--- NOTE | 2020-05-05 19:15 | NUR ---
HAND-OFF: Report given to TAWNYA Rose.
--- NOTE | 2020-05-05 19:36 | NUR ---
NURSE NOTES: Received pt from TAWNYA Hernandez. Pt asleep. Bed in lowest position. Call light within reach. Will continue to monitor.
[2020-05-05 20:00] VITALS: BP 98/57
[2020-05-06] VITALS (7 sets, daily range): BP systolic 101–126; BP diastolic 41–55
[2020-05-06 03:15] LABS: APPEARANCE,URINE SLIGHTLY CLOUDY; BILIRUBIN, URINE NEGATIVE (NEGATIVE); GLUCOSE, URINE (UA) NEGATIVE (NEGATIVE); KETONES,URINE NEGATIVE (NEGATIVE); LEUKOCYTE ESTERASE ,URINE NEGATIVE (NEGATIVE); NITRITE,URINE NEGATIVE (NEGATIVE); PH,URINE 5 (4.5-8.0); UROBILINOGEN,URINE NORMAL MG/DL (0.0-1.0)
[2020-05-06 03:32] LABS: COLOR,URINE YELLOW; PROTEIN,URINE NEGATIVE (NEGATIVE)
[2020-05-06 04:48] LABS: HEMATOCRIT 31.9 % (42.0-52.0); HEMOGLOBIN 9.7 G/DL (14.2-18.0); MEAN CORPUSCULAR VOLUME 101 FL (80-99); PLATELET COUNT 280 K/UL (150-450); RED BLOOD COUNT 3.16 M/UL (4.70-6.10); RED CELL DISTRIBUTION WIDTH 13.8 % (11.6-14.8)
--- NOTE | 2020-05-06 04:52 | NUR ---
NURSE NOTES: Called and left a message with Dr. Corral regarding pts low output. Awaiting call back.
[2020-05-06 05:04] LABS: WHITE BLOOD COUNT 31.9 K/UL (4.8-10.8)
[2020-05-06] MEDS: Meropenem 1 GM in NS 55 ML IVPB SCH (05:12)
[2020-05-06 05:18] LABS: ALANINE AMINOTRANSFERASE 25 U/L (12-78); ALBUMIN 1.3 G/DL (3.4-5.0); ALBUMIN/GLOBULIN RATIO 0.2 (1.0-2.7); ALKALINE PHOSPHATASE 138 U/L (46-116); ANION GAP 6 mmol/L (5-15); ASPARTATE AMINO TRANSFERASE 34 U/L (15-37); BILIRUBIN,TOTAL 0.2 MG/DL (0.2-1.0); BLOOD UREA NITROGEN 50 mg/dL (7-18); CALCIUM 9.6 MG/DL (8.5-10.1); CARBON DIOXIDE 31 MMOL/L (21-32); CHLORIDE 103 MMOL/L (98-107); CREATININE 1.7 MG/DL (0.55-1.30); PHOSPHORUS 4.9 MG/DL (2.5-4.9); POTASSIUM 4.6 MMOL/L (3.5-5.1); SODIUM 140 MMOL/L (136-145)
[2020-05-06] MEDS: NovoLOG Insulin Flexpen SUBQ SCH ×5 (05:20→23:15)
--- NOTE | 2020-05-06 06:05 | NUR ---
NURSE NOTES: Called and left a message with Dr. Barry regarding pts wbc. Awaiting call back.
--- NOTE | 2020-05-06 06:34 | NUR ---
NURSE NOTES: Dr. Corral gave orders to put a [place]. Will input orders and will continue to monitor.
--- NOTE | 2020-05-06 07:18 | NUR ---
NURSE NOTES: Received report from TAWNYA Rose. Pt in bed awake, open his eyes spontaneously but responsive to pain stimuli. IV site in left forearm 22G 1/2ns @50m/hr patent and asymptomatic. NG tube feeding running Glucerna 1.5@45ml/hr. 5cc of residual noted. HOB elevated 30 degree. Call light within easy reach. Side railsx3 up for safety. Bed in lowest position and locked. On O2 15LPM via non-rebreather mask and sating 94-96%. Will continue plan of care.
--- NOTE | 2020-05-06 07:18 | NUR ---
HAND-OFF: Report given to TAWNYA Mccloud. Pt stable.
--- NOTE | 2020-05-06 08:00 | NUR ---
NURSE NOTES: F/C 16fr/10cc inserted and drained 150cc yellow colored urine
[2020-05-06] MEDS: Ascorbic Acid 500mg tab ORAL SCH (08:06)
[2020-05-06] MEDS: Zinc Sulfate 220mg ORAL SCH (08:06)
[2020-05-06] MEDS: Heparin 5000 units/ml inj SUBQ SCH ×3 (09:00→21:05)
--- NOTE | 2020-05-06 09:24 | Surgery Progress Note ---
Surgery Progress Note Subjective Additional Comments acute leukocytosis low uop bs 200 plan [place] hospice care plan Objective Last 24 Hour Vital Signs Date Time Temp Pulse Resp B/P (MAP) Pulse Ox O2 Delivery O2 Flow Rate FiO2 05/06/20 08:18 98.5 97 20 111/48 (69) 96 05/06/20 04:00 97.6 90 26 105/51 (69) 96 05/06/20 03:29 90 05/06/20 00:00 94 24 101/48 (65) 100 05/06/20 00:00 81 05/05/20 21:00 Non-Rebreather 15.0 05/05/20 20:00 87 05/05/20 20:00 97.6 89 20 98/57 (71) 100 05/05/20 16:00 98.4 90 22 88/41 (57) 100 05/05/20 15:38 88 05/05/20 12:00 87 05/05/20 11:54 98.1 94 28 77/42 (54) 100 I&O Intake and Output 05/05/20 05/06/20 19:00 07:00 Intake Total 1059.166 ml 450 ml Output Total 25 ml 30 ml Balance 1034.166 ml 420 ml Intake Free Water 100 ml IV Total 464.166 ml Tube Feeding 495 ml 450 ml Output Urine Total 25 ml 30 ml # Voids 1 Dressing: other Wound: other Drains: other Cardiovascular: RSR Respiratory: decreased breath sounds Abdomen: soft, non-tender Extremities: no cyanosis Laboratory Tests Test 05/05/20 11:31 05/05/20 17:48 05/05/20 23:53 05/06/20 02:00 POC Whole Blood Glucose 150 MG/DL (74-106) H 121 MG/DL (74-106) H Pending Urine Color Yellow Urine Appearance Slightly cloudy Urine pH 5 (4.5-8.0) Urine Specific [place] 1.025 (1.005-1.035) Urine Protein Negative (NEGATIVE) Urine Glucose (UA) Negative (NEGATIVE) Urine Ketones Negative (NEGATIVE) Urine Blood Negative (NEGATIVE) Urine Nitrite Negative (NEGATIVE) Urine Bilirubin Negative (NEGATIVE) Urine Urobilinogen Normal MG/DL (0.0-1.0) Urine Leukocyte Esterase Negative (NEGATIVE) Test 05/06/20 04:00 05/06/20 05:08 White Blood Count 31.9 K/UL (4.8-10.8) *H Red Blood Count 3.16 M/UL (4.70-6.10) L Hemoglobin 9.7 G/DL (14.2-18.0) L Hematocrit 31.9 % (42.0-52.0) L Mean Corpuscular Volume 101 FL (80-99) H Mean Corpuscular Hemoglobin 30.8 PG (27.0-31.0) Mean Corpuscular Hemoglobin Concent 30.5 G/DL (32.0-36.0) L Red Cell Distribution Width 13.8 % (11.6-14.8) Platelet Count 280 K/UL (150-450) Mean Platelet Volume 7.1 FL (6.5-10.1) Neutrophils (%) (Auto) % (45.0-75.0) Lymphocytes (%) (Auto) % (20.0-45.0) Monocytes (%) (Auto) % (1.0-10.0) Eosinophils (%) (Auto) % (0.0-3.0) Basophils (%) (Auto) % (0.0-2.0) Differential Total Cells Counted 100 Neutrophils % (Manual) 93 % (45-75) H Lymphocytes % (Manual) 3 % (20-45) L Monocytes % (Manual) 4 % (1-10) Eosinophils % (Manual) 0 % (0-3) Basophils % (Manual) 0 % (0-2) Band Neutrophils 0 % (0-8) Platelet Estimate Adequate Platelet Morphology Normal Hypochromasia 2+ Anisocytosis 1+ Macrocytosis 1+ Erythrocyte Sedimentation Rate 120 MM/HR (0-20) H Sodium Level 140 MMOL/L (136-145) Potassium Level 4.6 MMOL/L (3.5-5.1) Chloride Level 103 MMOL/L (98-107) Carbon Dioxide Level 31 MMOL/L (21-32) Anion Gap 6 mmol/L (5-15) Blood Urea Nitrogen 50 mg/dL (7-18) H Creatinine 1.7 MG/DL (0.55-1.30) H Estimat Glomerular Filtration Rate 39.6 mL/min (>60) Glucose Level 210 MG/DL (74-106) H Calcium Level 9.6 MG/DL (8.5-10.1) Phosphorus Level 4.9 MG/DL (2.5-4.9) Magnesium Level 2.1 MG/DL (1.8-2.4) Total Bilirubin 0.2 MG/DL (0.2-1.0) Aspartate Amino Transf (AST/SGOT) 34 U/L (15-37) Alanine Aminotransferase (ALT/SGPT) 25 U/L (12-78) Alkaline Phosphatase 138 U/L (46-116) H C-Reactive Protein, Quantitative 41.1 mg/dL (0.00-0.90) H Total Protein 6.8 G/DL (6.4-8.2) Albumin 1.3 G/DL (3.4-5.0) L Globulin 5.5 g/dL Albumin/Globulin Ratio 0.2 (1.0-2.7) L POC Whole Blood Glucose Pending Plan Problems: (1) Pneumonia due to COVID-19 virus (2) Severe protein-calorie malnutrition Assessment & Plan: 74-year-old male with significant severe protein calorie malnutrition. BMI is 18. Albumin is low. Skin turgor is poor. On admission identified to have a deep tissue injury and decubitus skin ulcer. Air mattress ordered local wound care plan initiated. Speech therapy evaluation identified. High risk dysphasia aspiration Needs nutritional optimization to allow for wound healing and care plan. We will follow with recommendations thank you for let me participate in patient' s care Turn every 2 hours Offload pressure with pillows Wash sacral wound daily with normal saline apply Thera honey and foam dressing. Bilateral heel protectors DAILY ESTIMATED NEEDS: Needs based on wound, underweight, 54kg 30-35 kcals/kg 4841-5016 total kcals 1.25-2 g protein/kg 68-108 g total protein 25-35ml/kcal mL/kg 3369-0511 total fluid mLs NUTRITION DIAGNOSIS: Swallowing difficulty r/t dysphagia as evidenced by LEAD AUDITOR marj, pt not safe for oral diet, now on NGT feeds. CURRENT TF:Glucerna 1.5 @45ml/hr ENTERAL NUTRITION RECOMMENDATIONS: Glucerna 1.5 goal of 45ml/hr x 24 hrs to provide 1080ml, 1620kcal, 89g pro, 820ml free H2O - Maintain Glucerna 1.5 @45ml/hr as tolerated - Advance as tolerated 10ml/hr q4-6 hrs to goal. - Flush per MD. HOB over 30 degrees. ADDITIONAL RECOMMENDATIONS: 1) Monitor BG closely w/ TF's; need for increased insulin coverage 2) wound care w/ NGT feeds: add LYNNE in 4oz H2O BID + Vit C500mg qdaily, MVI w/ min qdaily+ ZnSO4 220mg qd x10 days 3) Calibrated bed scale wts 4) Monitor lytes daily w/ TF, replete as needed THE PATIENT WAS POSITIONED UPRIGHT FOR P.O. TRIALS. PATIENT NON/VERBAL, NON/VISUAL TRACKING, NON/RESPONSIVE TO TACTILE/VERBAL CUES. HE IS MOUTH BREATHING, ORAL MUCOSA PRESENTS WITH XEROSTOMIA. HIS DECREASED MENTATION INCLUDED SENSORIMOTOR DEFICITS WHICH RESULTED IN POOR BOLUS ACCEPTANCE, DECREASED AWARENESS OF FOOD IN MOUTH. WHEN PRESENTED WITH 5ML OF NECTAR THICK WATER VIA SPOON, THE PATIENT DEMONSTRATED REPETITIVE LINGUAL PUMPING IN HIS ATTEMPT TO TRIGGER THE PHARYNGEAL PHASE OF THE SWALLOW. HYOLARYNGEAL ELEVATION WAS PALPATED AND DETERMINED TO BE INSUFFICIENT FOR AIRWAY PROTECTION. AFTER THE SECOND P.O. TRIAL WITH THE NTL, THE PATIENT DEMONSTRATED A PROLONGED NON/ CLEARING, NON/PRODUCTIVE COUGH, WITH 3 TRIALS OF PUREE PRESENTED IN 5 ML AMOUNTS , THE PATIENT DEMONSTRATED ORAL STASIS, AND RESIDUE HAD TO BE SUCTIONED TO CLEAR HIS MOUTH. ORAL CARE WAS PROVIDED POST SUCTIONING. PHARYNGEAL PHASE OF SWALLOW SEVERELY DELAYED. CLEARLY, THIS GENTLEMAN PRESENTS WITH SEVERE OROPHARYNGEAL DYSPHAGIA, ALONG WITH A HISTORY OF SUBOPTIMAL P.O. INTAKE/LOSS OF APPETITE RECOMMENDATIONS 1. CONSIDER NON/ORAL FEEDING MANAGEMENT FOR INTERIM NUTRITION/HYDRATION 2. NPO 3. ORAL CARE TID TO REDUCE ORAL PATHOGENS 4. SKILLED ST INTERVENTION DOES NOT APPEAR TO BE NEEDED AT THIS TIME. (3) At high risk for aspiration (4) Respiratory distress (5) COVID-19 Assessment & Plan: + (6) History of diabetes mellitus (7) Alzheimer's dementia (8) Decubitus skin ulcer Assessment & Plan: Pt deconditioned and presents with multiple Pressure injuries on admission. Non-Blanchable erythema without fluctuance or induration noted to R elbow. Open DTPI Sacrum with full thickness Ulcer (L)9.5cm x (W)10.5cm.Wound is irregular shaped and extends to apex of anus. Base of wound is indurated and purpuric surrounding areas at base of wound with full thickness ulcer with scattered areas of soft necrosis (60%), 40% maldonado. Bony prominence is palpable at base of wound.Small amt sanguineous exudate noted . No odor noted . Periwound Skin is blanchable but Bilat trochanteric and iliac areas, including Ischial tuberosities are at high risks for pressure injuries secondary to bony protrusion and poor tissue perfusion. DTPI R Ischium. Base of pressure injury is maroon and indurated(L)3.4cm x (W) 7cm. DTPI R Heel (L)4cm x (W)9cm. Base of Pressure injury is fluctuant, maroon with small purpuric area.No evidence of ski breakdown periwound. L heel is boggy with non-Blanchable erythema. Tx.Plan: Cleanse Sacral wound with Saline. Apply TheraHoney. Apply Moisture Barrier Paste periwound. Cover with Optifoam drsgs. Change Daily and prn. Apply Cavilon Skin Barrier to R ischium. Cover with Optifoam drsg. Change every 3 days and prn. Apply Cavilon Skin Barrier to At Risks Bony Prominences. Cover areas with Optifoam drsgs as needed. Apply Cavilon Skin Barrier to both heels and Malleoli. Cover each site with Optifoam drsg. Change every 7 days and Prn. Reposition at least every 2hours or as tolerated. Off-load heels with Pillow. Air Fluidized Mattress. (9) Dysphagia Assessment & Plan: ng placed unlikey to pass swallow eval low bmi consider peg polst noted PEG Hospice Darian Ragsdale May 06, 2020 09:24
--- NOTE | 2020-05-06 11:18 | Pulmonolgy Critical Care Note ---
Critical Care - Asmt/Plan Problems: (1) Acute respiratory failure due to COVID-19 (2) Collapse of left lung Assessment & Plan: resolved (3) Pneumonia due to COVID-19 virus (4) Severe protein-calorie malnutrition (5) At high risk for aspiration (6) History of diabetes mellitus (7) Alzheimer's dementia Respiratory: adjust tidal volume, monitor respiratory rate, adjust FIO2 Cardiac: continue to monitor HR/BP Renal: F/U I&O, keep IV fluid Gastrointestinal: continue feedings/current rate - 45 cc of Gluceran, tolerating well, abdominal imaging Neurologic: PRN Ativan Affect: PRN ativan Prophylaxis: Protonix Disposition: keep in ICU Notes Reviewed: counter help, cardio, renal Discussed with: nurses, consultants, case monitorengineering manager - Objective Last 24 Hour Vital Signs Date Time Temp Pulse Resp B/P (MAP) Pulse Ox O2 Delivery O2 Flow Rate FiO2 05/06/20 11:06 97.7 103 20 109/55 (73) 97 05/06/20 08:18 98.5 97 20 111/48 (69) 96 05/06/20 08:00 97 05/06/20 04:00 97.6 90 26 105/51 (69) 96 05/06/20 03:29 90 05/06/20 00:00 94 24 101/48 (65) 100 05/06/20 00:00 81 05/05/20 21:00 Non-Rebreather 15.0 05/05/20 20:00 87 05/05/20 20:00 97.6 89 20 98/57 (71) 100 05/05/20 16:00 98.4 90 22 88/41 (57) 100 05/05/20 15:38 88 05/05/20 12:00 87 05/05/20 11:54 98.1 94 28 77/42 (54) 100 Status: sedated, obtunded Condition: critical, grave HEENT: atraumatic, normocephalic Neck: full ROM Lungs: rales, rhonchi Heart: HR/BP stable Abdomen: soft, non-tender Extremities: no C/C/E Accucheck: 220 Critical Care - Subjective ROS Limited/Unobtainable: Yes Condition: critical EKG Rhythm: Sinus Rhythm Tube Feeding Amount: 450 I&O: Intake and Output 05/05/20 05/06/20 19:00 07:00 Intake Total 1059.166 ml 450 ml Output Total 25 ml 30 ml Balance 1034.166 ml 420 ml Intake Free Water 100 ml IV Total 464.166 ml Tube Feeding 495 ml 450 ml Output Urine Total 25 ml 30 ml # Voids 1 CXR: no change Labs: Laboratory Tests Test 05/05/20 11:31 05/05/20 17:48 05/05/20 23:53 05/06/20 02:00 POC Whole Blood Glucose 150 MG/DL (74-106) H 121 MG/DL (74-106) H Pending Urine Color Yellow Urine Appearance Slightly cloudy Urine pH 5 (4.5-8.0) Urine Specific [place] 1.025 (1.005-1.035) Urine Protein Negative (NEGATIVE) Urine Glucose (UA) Negative (NEGATIVE) Urine Ketones Negative (NEGATIVE) Urine Blood Negative (NEGATIVE) Urine Nitrite Negative (NEGATIVE) Urine Bilirubin Negative (NEGATIVE) Urine Urobilinogen Normal MG/DL (0.0-1.0) Urine Leukocyte Esterase Negative (NEGATIVE) Test 05/06/20 04:00 05/06/20 05:08 05/06/20 10:56 White Blood Count 31.9 K/UL (4.8-10.8) *H Red Blood Count 3.16 M/UL (4.70-6.10) L Hemoglobin 9.7 G/DL (14.2-18.0) L Hematocrit 31.9 % (42.0-52.0) L Mean Corpuscular Volume 101 FL (80-99) H Mean Corpuscular Hemoglobin 30.8 PG (27.0-31.0) Mean Corpuscular Hemoglobin Concent 30.5 G/DL (32.0-36.0) L Red Cell Distribution Width 13.8 % (11.6-14.8) Platelet Count 280 K/UL (150-450) Mean Platelet Volume 7.1 FL (6.5-10.1) Neutrophils (%) (Auto) % (45.0-75.0) Lymphocytes (%) (Auto) % (20.0-45.0) Monocytes (%) (Auto) % (1.0-10.0) Eosinophils (%) (Auto) % (0.0-3.0) Basophils (%) (Auto) % (0.0-2.0) Differential Total Cells Counted 100 Neutrophils % (Manual) 93 % (45-75) H Lymphocytes % (Manual) 3 % (20-45) L Monocytes % (Manual) 4 % (1-10) Eosinophils % (Manual) 0 % (0-3) Basophils % (Manual) 0 % (0-2) Band Neutrophils 0 % (0-8) Platelet Estimate Adequate Platelet Morphology Normal Hypochromasia 2+ Anisocytosis 1+ Macrocytosis 1+ Erythrocyte Sedimentation Rate 120 MM/HR (0-20) H Sodium Level 140 MMOL/L (136-145) Potassium Level 4.6 MMOL/L (3.5-5.1) Chloride Level 103 MMOL/L (98-107) Carbon Dioxide Level 31 MMOL/L (21-32) Anion Gap 6 mmol/L (5-15) Blood Urea Nitrogen 50 mg/dL (7-18) H Creatinine 1.7 MG/DL (0.55-1.30) H Estimat Glomerular Filtration Rate 39.6 mL/min (>60) Glucose Level 210 MG/DL (74-106) H Calcium Level 9.6 MG/DL (8.5-10.1) Phosphorus Level 4.9 MG/DL (2.5-4.9) Magnesium Level 2.1 MG/DL (1.8-2.4) Total Bilirubin 0.2 MG/DL (0.2-1.0) Aspartate Amino Transf (AST/SGOT) 34 U/L (15-37) Alanine Aminotransferase (ALT/SGPT) 25 U/L (12-78) Alkaline Phosphatase 138 U/L (46-116) H C-Reactive Protein, Quantitative 41.1 mg/dL (0.00-0.90) H Total Protein 6.8 G/DL (6.4-8.2) Albumin 1.3 G/DL (3.4-5.0) L Globulin 5.5 g/dL Albumin/Globulin Ratio 0.2 (1.0-2.7) L POC Whole Blood Glucose Pending 220 MG/DL (74-106) H Quincy Corral MD May 06, 2020 11:18
--- NOTE | 2020-05-06 13:42 | NUR ---
CASE MANAGEMENT: DCP PER ORDER PATIENT REFERRED TO [facility]. WILL FOLLOW UP WITH [facility]I. [phone] FAX [phone] Addendum: 05/06/20 at 1639 by SHIRA HILTON CM CORRECTION: PATIENT REFERRED TO [facility] PER BRITTNEY THEY HAVE CONTACTED THE FAMILY TO SIGN CONSENT
--- NOTE | 2020-05-06 14:42 | Infectious Diseases Prog Note ---
Assessment/Plan Assessment: Hypotension 05/05 Recent COVID19 positive (unknown date of diagnosis) Pneumonia -bacterial superimposed w MRSA (pt bacteremic) Acute hypoxic resp failure - s/p NC, now on NRB -05/04 CXR: Extensive interstitial and patchy bilateral airspace disease with slight improved aeration of the left mid and upper lung compared to one day prior. There is worsening of aeration in the right lung compared to one day prior however. -05/03 CXR: Significantly increased complete consolidation throughout the left lung. Probable left pleural effusion as well. Similar right basilar opacity. -04/28 CXR: Bibasilar infiltrates with slight worsening on right side. -04/24 CXR: Slightly improved bilateral infiltrates, over 2 days -04/22 Rapid COVID + CXR: Bilateral infiltrates, likely pneumonia, possibly viral. Correlate with clinical findings MRSA and CONS bacteremia; persistent bacteremia -04/26 2d echo(limited study): no vegetations seen -04/22 Bcx 2/ S. epi; 04/23 Bcx / MRSA; 04/26 Bcx 1/2 S. hominis; 04/27 Bcx Neg Afebrile- Tm 99.5 Leukocytosis; fluctuating- increased to 30s 05/06 -05/05 u/a neg Bcx, sp cx p -05/01 u/a eng; ucx Tami sp -04/22 u/a neg KENIA- supratherapeutic vanco levels Dementia Seizure disorder Dm2 DNR status [place] resident ([facility]) Plan: -Switch empiric IV Vancomycin #13 to Daptomycin given KENIA and supratherapeutic levles; will need minimum of 14 days from 1st neg Bcx; expected end date 05/11/20 -monitor CPK -Cont empiric MEropenem and Micafungin #2 given hypotension, leukocytosis and pending repeat cultures -05/01 SP cefepime #10 -04/27 SP Decadron #5 -04/26 SP Azithromcin #5 -04/23 SP Ceftriaxone #2 -04/22 SP ZOsyn x1 -f/u cx -Monitor CBC/CMP, temperatures -COVID19 isolation -Will not give Remdesevir at this point given unclear date of diagnosis -If improved respiratory status may need AN -f/u repeat cultures Thank you for this consultation. Will continue to follow along with you. Discussed with RN. Subjective Allergies: Coded Allergies: No Known Allergies (Unverified , 04/22/20) afebrile remains on NRB 100% wbc increased again, now on the 30s Cr increased, supratherapeutic vanco levels Objective Last 24 Hour Vital Signs Date Time Temp Pulse Resp B/P (MAP) Pulse Ox O2 Delivery O2 Flow Rate FiO2 05/06/20 12:00 Non-Rebreather 15.0 05/06/20 12:00 97 05/06/20 11:06 97.7 103 20 109/55 (73) 97 05/06/20 08:18 98.5 97 20 111/48 (69) 96 05/06/20 08:00 97 05/06/20 08:00 Non-Rebreather 15.0 05/06/20 04:00 97.6 90 26 105/51 (69) 96 05/06/20 03:29 90 05/06/20 00:00 94 24 101/48 (65) 100 05/06/20 00:00 81 05/05/20 21:00 Non-Rebreather 15.0 05/05/20 20:00 87 05/05/20 20:00 97.6 89 20 98/57 (71) 100 05/05/20 16:00 98.4 90 22 88/41 (57) 100 05/05/20 15:38 88 Height (Feet): 5 Height (Inches): 8.00 Weight (Pounds): 120 General Appearance: cachetic, thin HEENT: normocephalic, atraumatic, NRB mask in place Neck: supple Respiratory/Chest: chest wall non-tender, rhonchi - left, rhonchi - right Cardiovascular/Chest: normal peripheral pulses, normal rate Abdomen: normal bowel sounds, non tender Laboratory Tests Test 05/05/20 17:48 05/05/20 23:53 05/06/20 02:00 05/06/20 04:00 POC Whole Blood Glucose 121 MG/DL (74-106) H Pending Urine Color Yellow Urine Appearance Slightly cloudy Urine pH 5 (4.5-8.0) Urine Specific [place] 1.025 (1.005-1.035) Urine Protein Negative (NEGATIVE) Urine Glucose (UA) Negative (NEGATIVE) Urine Ketones Negative (NEGATIVE) Urine Blood Negative (NEGATIVE) Urine Nitrite Negative (NEGATIVE) Urine Bilirubin Negative (NEGATIVE) Urine Urobilinogen Normal MG/DL (0.0-1.0) Urine Leukocyte Esterase Negative (NEGATIVE) White Blood Count 31.9 K/UL (4.8-10.8) *H Red Blood Count 3.16 M/UL (4.70-6.10) L Hemoglobin 9.7 G/DL (14.2-18.0) L Hematocrit 31.9 % (42.0-52.0) L Mean Corpuscular Volume 101 FL (80-99) H Mean Corpuscular Hemoglobin 30.8 PG (27.0-31.0) Mean Corpuscular Hemoglobin Concent 30.5 G/DL (32.0-36.0) L Red Cell Distribution Width 13.8 % (11.6-14.8) Platelet Count 280 K/UL (150-450) Mean Platelet Volume 7.1 FL (6.5-10.1) Neutrophils (%) (Auto) % (45.0-75.0) Lymphocytes (%) (Auto) % (20.0-45.0) Monocytes (%) (Auto) % (1.0-10.0) Eosinophils (%) (Auto) % (0.0-3.0) Basophils (%) (Auto) % (0.0-2.0) Differential Total Cells Counted 100 Neutrophils % (Manual) 93 % (45-75) H Lymphocytes % (Manual) 3 % (20-45) L Monocytes % (Manual) 4 % (1-10) Eosinophils % (Manual) 0 % (0-3) Basophils % (Manual) 0 % (0-2) Band Neutrophils 0 % (0-8) Platelet Estimate Adequate Platelet Morphology Normal Hypochromasia 2+ Anisocytosis 1+ Macrocytosis 1+ Erythrocyte Sedimentation Rate 120 MM/HR (0-20) H Sodium Level 140 MMOL/L (136-145) Potassium Level 4.6 MMOL/L (3.5-5.1) Chloride Level 103 MMOL/L (98-107) Carbon Dioxide Level 31 MMOL/L (21-32) Anion Gap 6 mmol/L (5-15) Blood Urea Nitrogen 50 mg/dL (7-18) H Creatinine 1.7 MG/DL (0.55-1.30) H Estimat Glomerular Filtration Rate 39.6 mL/min (>60) Glucose Level 210 MG/DL (74-106) H Calcium Level 9.6 MG/DL (8.5-10.1) Phosphorus Level 4.9 MG/DL (2.5-4.9) Magnesium Level 2.1 MG/DL (1.8-2.4) Total Bilirubin 0.2 MG/DL (0.2-1.0) Aspartate Amino Transf (AST/SGOT) 34 U/L (15-37) Alanine Aminotransferase (ALT/SGPT) 25 U/L (12-78) Alkaline Phosphatase 138 U/L (46-116) H C-Reactive Protein, Quantitative 41.1 mg/dL (0.00-0.90) H Total Protein 6.8 G/DL (6.4-8.2) Albumin 1.3 G/DL (3.4-5.0) L Globulin 5.5 g/dL Albumin/Globulin Ratio 0.2 (1.0-2.7) L Test 05/06/20 05:08 05/06/20 10:56 05/06/20 11:05 POC Whole Blood Glucose Pending 220 MG/DL (74-106) H Vancomycin Level Trough 27.4 ug/mL (5.0-12.0) H Current Medications Medications (Trade) Dose Ordered Sig/Andrade Route PRN Reason Start Time Stop Time Status Last Admin Dose Admin Acetaminophen (Tylenol) 650 mg Q4H PRN ORAL FEVER 05/02/20 13:00 05/22/20 12:59 Albuterol/ Ipratropium (Combivent Respimat) 1 puff Q4H PRN INH Shortness of Breath 05/02/20 13:00 05/22/20 12:59 Ascorbic Acid (Vitamin C) 500 mg DAILY ORAL 05/03/20 09:00 05/28/20 08:59 05/06/20 08:06 Dextrose (Dextrose 50%) 25 ml Q30M PRN IV Hypoglycemia 05/02/20 12:45 07/21/20 16:14 Dextrose (Dextrose 50%) 50 ml Q30M PRN IV Hypoglycemia 05/02/20 12:45 07/21/20 16:14 Heparin Sodium (Porcine) (Heparin 5000 units/ml) 5,000 units EVERY 12 HOURS SUBQ 05/02/20 21:00 06/06/20 20:59 05/06/20 10:25 Insulin Aspart (NovoLOG) Q6HR SUBQ 05/02/20 18:00 07/21/20 16:29 05/06/20 11:41 Levetiracetam (Keppra) 500 mg EVERY 12 HOURS ORAL 05/02/20 21:00 06/06/20 20:59 05/06/20 08:06 Meropenem 1 gm/ Sodium Chloride 55 ml @ 110 mls/hr Q12HR@0600,1800 IVPB 05/06/20 18:00 05/11/20 17:59 Micafungin Sodium 100 mg/Sodium Chloride 110 ml @ 110 mls/hr Q24H IVPB 05/05/20 17:00 05/12/20 16:59 05/05/20 17:50 Multivitamins (Multivitamins) 1 tab DAILY ORAL 05/03/20 09:00 05/28/20 08:59 05/06/20 08:06 Ondansetron HCl (Zofran) 4 mg Q6H PRN IVP Nausea & Vomiting 05/02/20 13:00 05/22/20 12:59 Polyethylene Glycol (Miralax) 17 gm DAILYPRN PRN ORAL Constipation 05/02/20 13:00 05/24/20 12:59 Promethazine HCl/ Codeine (Phenergan with Codeine) 5 ml Q6H PRN ORAL cough 05/02/20 13:00 05/22/20 12:59 Sodium Chloride 1,000 ml @ 50 mls/hr Q20H IV 05/02/20 12:30 05/26/20 18:21 05/06/20 08:06 Vancomycin HCl (Vanco pharmacy to dose) 1 ea DAILY PRN MISC Per rx protocol 05/03/20 09:00 05/23/20 14:44 Zinc Sulfate (Zinc Sulfate) 220 mg DAILY ORAL 05/03/20 09:00 07/27/20 08:59 05/06/20 08:06 Linsey Barry M.D. May 06, 2020 14:42
--- NOTE | 2020-05-06 16:39 | NUR ---
CASE MANAGEMENT: DCP PER MD ORDER PATIENT REFERRED TO [facility] PER BRITTNEY [phone] FAMILY WILL BE CONTACTED TO SIGN CONSENT
--- NOTE | 2020-05-06 16:52 | NUR ---
CASE MANAGEMENT: REVIEW SI: COVID-19 PNA T 97.7 HR 103 RR 26 BP 105/51 SAT 96% NON-REBREATHER FLOW RATE 15.0 WBC 31.9 H/H 9.7/31.9 BUN 50 CR 1.7 GLUCOSE 220 IS: DAPTOMYCIN IV Q48HR MICAFUNGIN IV Q24HR MEROPENEM IV Q8HR NGT FEEDING STEP DOWN UNIT STATUS DCP: PATIENT IS FROM [facility]. PATIENT REFERRED TO [facility]
[2020-05-06] MEDS ORDERED: DAPTOmycin 350 MG in NS 55 ML IV SCH (17:00)
[2020-05-06] MEDS: Micafungin 100 MG in NS 110 ML IVPB SCH (17:24)
--- NOTE | 2020-05-06 18:16 | NUR ---
NURSE NOTES: Noted Asystolic on sonography technician.Made Dr. Javed and charge nurse aware. Kimberli, charge nurse pronounced the time of at 1816. Addendum: 05/07/20 at 0819 by Viviana Blum RN wrong patient
[2020-05-06] MEDS: Meropenem 1gm/NS 55ml IVPB SCH ×2 (18:53)
--- NOTE | 2020-05-06 19:30 | NUR ---
HAND-OFF: Report given to TAWNYA Rose. Pt remains stable.
--- NOTE | 2020-05-06 19:35 | NUR ---
NURSE NOTES: Received patient's report from TAWNYA Mccloud. Pt is on bed, with non breather mask. No s/s of respiratory distress noted. SpO2 100%, HR 90 noted. Pt is obtunded, open eyes but no tracking. Pt is on urinary catheter, yellow urine noted. IV site, clean and patent noted. Pt is on NGT, Glucerna 1.5 at 45mL/hr running. There is 40mL residual. Call-light within reach, bed is low and locked. Will continue to monitor with plan of care.
[2020-05-07 04:00] VITALS: BP 118/57
[2020-05-07 05:26] LABS: ALANINE AMINOTRANSFERASE 21 U/L (12-78); ALBUMIN 1.2 G/DL (3.4-5.0); ALBUMIN/GLOBULIN RATIO 0.2 (1.0-2.7); ALKALINE PHOSPHATASE 146 U/L (46-116); ANION GAP 4 mmol/L (5-15); ASPARTATE AMINO TRANSFERASE 38 U/L (15-37); BILIRUBIN,TOTAL 0.3 MG/DL (0.2-1.0); BLOOD UREA NITROGEN 80 mg/dL (7-18); CALCIUM 10.3 MG/DL (8.5-10.1); CARBON DIOXIDE 33 MMOL/L (21-32); CHLORIDE 104 MMOL/L (98-107); CREATININE 2.7 MG/DL (0.55-1.30); PHOSPHORUS 5.3 MG/DL (2.5-4.9); POTASSIUM 4.9 MMOL/L (3.5-5.1); SODIUM 141 MMOL/L (136-145)
[2020-05-07 05:29] LABS: HEMATOCRIT 34.2 % (42.0-52.0); HEMOGLOBIN 10.5 G/DL (14.2-18.0); MEAN CORPUSCULAR VOLUME 99 FL (80-99); PLATELET COUNT 286 K/UL (150-450); RED BLOOD COUNT 3.47 M/UL (4.70-6.10)
[2020-05-07 05:34] LABS: WHITE BLOOD COUNT 31.2 K/UL (4.8-10.8)
[2020-05-07] MEDS: Meropenem 1gm/NS 55ml IVPB SCH ×4 (05:52→17:37)
[2020-05-07] MEDS: NovoLOG Insulin Flexpen SUBQ SCH ×4 (05:53→23:55)
[2020-05-07 05:55] LABS: CREATINE KINASE 131 U/L (26-308)
--- NOTE | 2020-05-07 07:30 | NUR ---
NURSE NOTES: Report received from Paul Wolfe RN.Pt asleep ,noted no resp distress on 100% NRB Mask 15 l,no signs of pain or discomfort,S-Tach on the monitor,NGT to LT nare with Glucerna 1.5 at 45 ml/hr,no residual noted,in placed per auscultation,Slade cath draining yellow urine,skin warm and dry ,IV site to LFA intact with IVF 1/2 NS at 50 ml/hr,SR up x2 HOB elevated 30 degrees,bed lock in lowest position,will continue with plans of care.
--- NOTE | 2020-05-07 07:35 | NUR ---
HAND-OFF: Report given to TAWNYA Ngo.
[2020-05-07 08:00] VITALS: BP 122/60
[2020-05-07] MEDS: Zinc Sulfate 220mg ORAL SCH (08:59)
[2020-05-07] MEDS: Ascorbic Acid 500mg tab ORAL SCH (09:00)
[2020-05-07] MEDS: Heparin 5000 units/ml inj SUBQ SCH ×2 (09:01→20:26)
--- NOTE | 2020-05-07 10:00 | NUR ---
NURSE NOTES: Pt turned to right side most of the time,,Xray showed Lt Lung collapse.need to elevate LT lung
--- NOTE | 2020-05-07 11:49 | NUR ---
RD ASSESSMENT & RECOMMENDATIONS SEE CARE ACTIVITY FOR COMPLETE ASSESSMENT DAILY ESTIMATED NEEDS: Needs based on wound, underweight, 54kg 30-35 kcals/kg 3687-2238 total kcals 1.25-2 g protein/kg 68-108 g total protein 25-35ml/kcal mL/kg 1900-1245 total fluid mLs NUTRITION DIAGNOSIS: Swallowing difficulty r/t dysphagia as evidenced by SENIOR CATEGORY MANAGER eval, pt not safe for oral diet, now on NGT feeds. ENTERAL NUTRITION RECOMMENDATIONS: Glucerna 1.5 @ 45ml/hr x 24 hrs to provide 1080ml, 1620kcal, 89g pro, 820ml free H2O - Maintain Glucerna 1.5 @45ml/hr as tolerated - Flush per . HOB over 30 degrees. -> (05/07/20) Renal labs trending up, rec TF change at this time to NEPRO w/ goal of 40ml/hr x24 hrs for 1709mg less K and 389mg less Phos per day than Glucerna 1.5. ->Start NEPRO at 20ml/hr advance as tolerated 10ml/hr q4-6 hrs to goal -> TF at goal provides 960ml, 1728 kcal, 78g pro, 698ml free H2O ------ ADDITIONAL RECOMMENDATIONS: 1) Monitor BG closely w/ TF's; need for increased insulin coverage 2) wound care w/ NGT feeds: add LYNNE in 4oz H2O BID continue Vit C, ZnSO4 3) Calibrated bed scale wts 4) Monitor lytes daily w/ TF-> (05/07) rec TF change as above for elev lytes 5) Add Prokinetic agent for improved TF tolerance
[2020-05-07 12:00] VITALS: BP 115/53
--- NOTE | 2020-05-07 12:00 | NUR ---
NURSE NOTES: seen by Dr Corral,updated re pt's status.
--- NOTE | 2020-05-07 12:20 | Pulmonolgy Critical Care Note ---
Critical Care - Asmt/Plan Problems: (1) Acute respiratory failure due to COVID-19 (2) Collapse of left lung Assessment & Plan: resolved (3) Pneumonia due to COVID-19 virus (4) Severe protein-calorie malnutrition (5) At high risk for aspiration (6) History of diabetes mellitus (7) Alzheimer's dementia Respiratory: monitor respiratory rate, adjust FIO2 Cardiac: continue to monitor HR/BP Renal: F/U I&O, keep IV fluid Infectious Disease: check cultures, continue antibiotics Gastrointestinal: hold feedings Endocrine: monitor blood sugar, continue sliding scale insulin Hematologic: transfuse if hgb<8.5 Neurologic: PRN Ativan, keep patient comfortable Prophylaxis: Protonix, Heparin Disposition: keep in ICU Notes Reviewed: jewel flat surfacer - d/w DOPA and pts sister on the phone, they agreed with hospice care. , cardio, renal Discussed with: nurses, consultants Critical Care - Objective Last 24 Hour Vital Signs Date Time Temp Pulse Resp B/P (MAP) Pulse Ox O2 Delivery O2 Flow Rate FiO2 05/07/20 08:00 98.4 107 28 122/60 (80) 99 05/07/20 08:00 107 05/07/20 08:00 Non-Rebreather 15.0 05/07/20 04:00 98.1 103 26 118/57 (77) 100 05/07/20 03:37 103 05/07/20 00:00 Non-Rebreather 15.0 05/06/20 23:54 98.2 100 22 111/55 (73) 100 05/06/20 23:29 102 05/06/20 20:00 Non-Rebreather 15.0 05/06/20 20:00 98.2 81 21 107/41 (63) 100 05/06/20 19:07 100 05/06/20 16:00 Non-Rebreather 15.0 05/06/20 16:00 97.8 99 20 126/53 (77) 97 05/06/20 15:15 96 Status: obtunded Condition: critical, grave HEENT: atraumatic, normocephalic Lungs: rales, rhonchi Heart: HR/BP stable Abdomen: soft, non-tender, feeding tube Extremities: edema Decubiti: location Micro: Microbiology Date/Time Source Procedure Growth Status 05/05/20 17:15 Blood Blood Culture - Preliminary NO GROWTH AFTER 24 HOURS Resulted 05/05/20 17:00 Blood Blood Culture - Preliminary NO GROWTH AFTER 24 HOURS Resulted 05/06/20 02:00 Sputum Expectorated Gram Stain Pending Resulted 05/06/20 02:00 Sputum Culture - Preliminary Staphylococcus Aureus Resulted Accucheck: 161 Critical Care - Subjective ROS Limited/Unobtainable: Yes EKG Rhythm: Sinus Rhythm Tube Feeding Amount: 45 I&O: Intake and Output 05/06/20 05/07/20 19:00 07:00 Intake Total 1325 ml 1045 ml Output Total 150 ml 50 ml Balance 1175 ml 995 ml Intake Free Water 10 ml IV Total 820 ml 505 ml Tube Feeding 495 ml 540 ml Output Urine Total 150 ml 50 ml # Bowel Movements 4 1 Labs: Laboratory Tests Test 05/06/20 18:26 05/07/20 03:40 05/07/20 11:55 POC Whole Blood Glucose 226 MG/DL (74-106) H 137 MG/DL (74-106) H White Blood Count 31.2 K/UL (4.8-10.8) *H Red Blood Count 3.47 M/UL (4.70-6.10) L Hemoglobin 10.5 G/DL (14.2-18.0) L Hematocrit 34.2 % (42.0-52.0) L Mean Corpuscular Volume 99 FL (80-99) Mean Corpuscular Hemoglobin 30.4 PG (27.0-31.0) Mean Corpuscular Hemoglobin Concent 30.8 G/DL (32.0-36.0) L Red Cell Distribution Width 14.0 % (11.6-14.8) Platelet Count 286 K/UL (150-450) Mean Platelet Volume 7.6 FL (6.5-10.1) Neutrophils (%) (Auto) % (45.0-75.0) Lymphocytes (%) (Auto) % (20.0-45.0) Monocytes (%) (Auto) % (1.0-10.0) Eosinophils (%) (Auto) % (0.0-3.0) Basophils (%) (Auto) % (0.0-2.0) Differential Total Cells Counted 100 Neutrophils % (Manual) 96 % (45-75) H Lymphocytes % (Manual) 1 % (20-45) L Monocytes % (Manual) 3 % (1-10) Eosinophils % (Manual) 0 % (0-3) Basophils % (Manual) 0 % (0-2) Band Neutrophils 0 % (0-8) Platelet Estimate Adequate Platelet Morphology Normal Hypochromasia 1+ Anisocytosis 1+ Erythrocyte Sedimentation Rate 114 MM/HR (0-20) H Sodium Level 141 MMOL/L (136-145) Potassium Level 4.9 MMOL/L (3.5-5.1) Chloride Level 104 MMOL/L (98-107) Carbon Dioxide Level 33 MMOL/L (21-32) H Anion Gap 4 mmol/L (5-15) L Blood Urea Nitrogen 80 mg/dL (7-18) H Creatinine 2.7 MG/DL (0.55-1.30) #H Estimat Glomerular Filtration Rate 23.2 mL/min (>60) Glucose Level 145 MG/DL (74-106) H Calcium Level 10.3 MG/DL (8.5-10.1) H Phosphorus Level 5.3 MG/DL (2.5-4.9) H Magnesium Level 2.7 MG/DL (1.8-2.4) H Total Bilirubin 0.3 MG/DL (0.2-1.0) Aspartate Amino Transf (AST/SGOT) 38 U/L (15-37) H Alanine Aminotransferase (ALT/SGPT) 21 U/L (12-78) Alkaline Phosphatase 146 U/L (46-116) H Total Creatine Kinase 131 U/L (26-308) C-Reactive Protein, Quantitative 38.6 mg/dL (0.00-0.90) H Total Protein 6.9 G/DL (6.4-8.2) Albumin 1.2 G/DL (3.4-5.0) L Globulin 5.7 g/dL Albumin/Globulin Ratio 0.2 (1.0-2.7) L Quincy Corral MD May 07, 2020 12:20
--- NOTE | 2020-05-07 12:39 | Infectious Diseases Prog Note ---
Assessment/Plan Assessment: Hypotension 05/05 Recent COVID19 positive (unknown date of diagnosis) Pneumonia -bacterial superimposed w MRSA (pt bacteremic) Acute hypoxic resp failure - s/p NC, now on NRB -05/04 CXR: Extensive interstitial and patchy bilateral airspace disease with slight improved aeration of the left mid and upper lung compared to one day prior. There is worsening of aeration in the right lung compared to one day prior however. -05/03 CXR: Significantly increased complete consolidation throughout the left lung. Probable left pleural effusion as well. Similar right basilar opacity. -04/28 CXR: Bibasilar infiltrates with slight worsening on right side. -04/24 CXR: Slightly improved bilateral infiltrates, over 2 days -04/22 Rapid COVID + CXR: Bilateral infiltrates, likely pneumonia, possibly viral. Correlate with clinical findings MRSA and CONS bacteremia; persistent bacteremia -04/26 2d echo(limited study): no vegetations seen -04/22 Bcx 2/ S. epi; 04/23 Bcx / MRSA; 04/26 Bcx 1/2 S. hominis; 04/27 Bcx Neg Afebrile- Tm 99.5 Leukocytosis; fluctuating- increased to 30s 05/06 -05/06 u/a neg Bcx NTD, sp cx S.a ureus -05/01 u/a eng; ucx Tami sp -04/22 u/a neg KENIA- supratherapeutic vanco levels Dementia Seizure disorder Dm2 DNR status [place] resident ([facility]) Plan: -Daptomycin #2 (abx d #14) given KENIA and supratherapeutic levles; will need minimum of 14 days from 1st neg Bcx; expected end date 05/11/20 -monitor CPK -Cont empiric MEropenem and Micafungin #3 given hypotension, leukocytosis and pending repeat cultures -05/06 SP IV Vancomycin #13 -05/01 SP cefepime #10 -04/27 SP Decadron #5 -04/26 SP Azithromcin #5 -04/23 SP Ceftriaxone #2 -04/22 SP ZOsyn x1 -f/u cx -Monitor CBC/CMP, temperatures -COVID19 isolation -Will not give Remdesevir at this point given unclear date of diagnosis -If improved respiratory status may need AN -f/u repeat cultures Thank you for this consultation. Will continue to follow along with you. Discussed with RN. Subjective Allergies: Coded Allergies: No Known Allergies (Unverified , 04/22/20) afebrile remains on NRB 100% wbc improving but remains on the 30 cr worsening Objective Last 24 Hour Vital Signs Date Time Temp Pulse Resp B/P (MAP) Pulse Ox O2 Delivery O2 Flow Rate FiO2 05/07/20 08:00 98.4 107 28 122/60 (80) 99 05/07/20 08:00 107 05/07/20 08:00 Non-Rebreather 15.0 05/07/20 04:00 98.1 103 26 118/57 (77) 100 05/07/20 03:37 103 05/07/20 00:00 Non-Rebreather 15.0 05/06/20 23:54 98.2 100 22 111/55 (73) 100 05/06/20 23:29 102 05/06/20 20:00 Non-Rebreather 15.0 05/06/20 20:00 98.2 81 21 107/41 (63) 100 05/06/20 19:07 100 05/06/20 16:00 Non-Rebreather 15.0 05/06/20 16:00 97.8 99 20 126/53 (77) 97 05/06/20 15:15 96 Height (Feet): 5 Height (Inches): 8.00 Weight (Pounds): 120 General Appearance: cachetic, thin HEENT: normocephalic, atraumatic, NRB mask in place Neck: supple Respiratory/Chest: chest wall non-tender, rhonchi - left, rhonchi - right Cardiovascular/Chest: normal peripheral pulses, normal rate Abdomen: normal bowel sounds, non tender Microbiology Date/Time Source Procedure Growth Status 05/05/20 17:15 Blood Blood Culture - Preliminary NO GROWTH AFTER 24 HOURS Resulted 05/05/20 17:00 Blood Blood Culture - Preliminary NO GROWTH AFTER 24 HOURS Resulted 05/06/20 02:00 Sputum Expectorated Gram Stain Pending Resulted 05/06/20 02:00 Sputum Culture - Preliminary Staphylococcus Aureus Resulted Laboratory Tests Test 05/06/20 18:26 05/07/20 03:40 05/07/20 11:55 POC Whole Blood Glucose 226 MG/DL (74-106) H 137 MG/DL (74-106) H White Blood Count 31.2 K/UL (4.8-10.8) *H Red Blood Count 3.47 M/UL (4.70-6.10) L Hemoglobin 10.5 G/DL (14.2-18.0) L Hematocrit 34.2 % (42.0-52.0) L Mean Corpuscular Volume 99 FL (80-99) Mean Corpuscular Hemoglobin 30.4 PG (27.0-31.0) Mean Corpuscular Hemoglobin Concent 30.8 G/DL (32.0-36.0) L Red Cell Distribution Width 14.0 % (11.6-14.8) Platelet Count 286 K/UL (150-450) Mean Platelet Volume 7.6 FL (6.5-10.1) Neutrophils (%) (Auto) % (45.0-75.0) Lymphocytes (%) (Auto) % (20.0-45.0) Monocytes (%) (Auto) % (1.0-10.0) Eosinophils (%) (Auto) % (0.0-3.0) Basophils (%) (Auto) % (0.0-2.0) Differential Total Cells Counted 100 Neutrophils % (Manual) 96 % (45-75) H Lymphocytes % (Manual) 1 % (20-45) L Monocytes % (Manual) 3 % (1-10) Eosinophils % (Manual) 0 % (0-3) Basophils % (Manual) 0 % (0-2) Band Neutrophils 0 % (0-8) Platelet Estimate Adequate Platelet Morphology Normal Hypochromasia 1+ Anisocytosis 1+ Erythrocyte Sedimentation Rate 114 MM/HR (0-20) H Sodium Level 141 MMOL/L (136-145) Potassium Level 4.9 MMOL/L (3.5-5.1) Chloride Level 104 MMOL/L (98-107) Carbon Dioxide Level 33 MMOL/L (21-32) H Anion Gap 4 mmol/L (5-15) L Blood Urea Nitrogen 80 mg/dL (7-18) H Creatinine 2.7 MG/DL (0.55-1.30) #H Estimat Glomerular Filtration Rate 23.2 mL/min (>60) Glucose Level 145 MG/DL (74-106) H Calcium Level 10.3 MG/DL (8.5-10.1) H Phosphorus Level 5.3 MG/DL (2.5-4.9) H Magnesium Level 2.7 MG/DL (1.8-2.4) H Total Bilirubin 0.3 MG/DL (0.2-1.0) Aspartate Amino Transf (AST/SGOT) 38 U/L (15-37) H Alanine Aminotransferase (ALT/SGPT) 21 U/L (12-78) Alkaline Phosphatase 146 U/L (46-116) H Total Creatine Kinase 131 U/L (26-308) C-Reactive Protein, Quantitative 38.6 mg/dL (0.00-0.90) H Total Protein 6.9 G/DL (6.4-8.2) Albumin 1.2 G/DL (3.4-5.0) L Globulin 5.7 g/dL Albumin/Globulin Ratio 0.2 (1.0-2.7) L Current Medications Medications (Trade) Dose Ordered Sig/Andrade Route PRN Reason Start Time Stop Time Status Last Admin Dose Admin Acetaminophen (Tylenol) 650 mg Q4H PRN ORAL FEVER 05/02/20 13:00 05/22/20 12:59 Albuterol/ Ipratropium (Combivent Respimat) 1 puff Q4H PRN INH Shortness of Breath 05/02/20 13:00 05/22/20 12:59 Ascorbic Acid (Vitamin C) 500 mg DAILY ORAL 05/03/20 09:00 05/28/20 08:59 05/07/20 09:00 Daptomycin 350 mg/ Sodium Chloride 55 ml @ 100 mls/hr Q48H IV 05/06/20 17:00 05/13/20 16:59 05/06/20 17:24 Dextrose (Dextrose 50%) 25 ml Q30M PRN IV Hypoglycemia 05/02/20 12:45 07/21/20 16:14 Dextrose (Dextrose 50%) 50 ml Q30M PRN IV Hypoglycemia 05/02/20 12:45 07/21/20 16:14 Heparin Sodium (Porcine) (Heparin 5000 units/ml) 5,000 units EVERY 12 HOURS SUBQ 05/02/20 21:00 06/06/20 20:59 05/07/20 09:01 Insulin Aspart (NovoLOG) Q6HR SUBQ 05/02/20 18:00 07/21/20 16:29 05/07/20 05:53 Levetiracetam (Keppra) 500 mg EVERY 12 HOURS ORAL 05/02/20 21:00 06/06/20 20:59 05/07/20 08:59 Meropenem 1 gm/ Sodium Chloride 55 ml @ 110 mls/hr Q12HR@0600,1800 IVPB 05/06/20 18:00 05/11/20 17:59 05/07/20 05:52 Micafungin Sodium 100 mg/Sodium Chloride 110 ml @ 110 mls/hr Q24H IVPB 05/05/20 17:00 05/12/20 16:59 05/06/20 17:24 Multivitamins (Multivitamins) 1 tab DAILY ORAL 05/03/20 09:00 05/28/20 08:59 05/07/20 09:00 Ondansetron HCl (Zofran) 4 mg Q6H PRN IVP Nausea & Vomiting 05/02/20 13:00 05/22/20 12:59 Polyethylene Glycol (Miralax) 17 gm DAILYPRN PRN ORAL Constipation 05/02/20 13:00 05/24/20 12:59 Promethazine HCl/ Codeine (Phenergan with Codeine) 5 ml Q6H PRN ORAL cough 05/02/20 13:00 05/22/20 12:59 Sodium Chloride 1,000 ml @ 50 mls/hr Q20H IV 05/02/20 12:30 05/26/20 18:21 05/06/20 08:06 Zinc Sulfate (Zinc Sulfate) 220 mg DAILY ORAL 05/03/20 09:00 07/27/20 08:59 05/07/20 08:59 Linsey Barry M.D. May 07, 2020 12:39
--- NOTE | 2020-05-07 14:00 | NUR ---
NURSE NOTES: Seen by Dr Barry ,updated re pt's status,no new order for a Covid swab given.
[2020-05-07] MEDS ORDERED: NS 275ml ONE (15:16)
[2020-05-07] MEDS ORDERED: 1/2 NS 1000ml IV ONE (15:16)
[2020-05-07] MEDS ORDERED: Tubing IV Secondary IV ONE (15:16)
[2020-05-07 16:00] VITALS: BP 104/48
--- NOTE | 2020-05-07 16:19 | NUR ---
*-* DISCHARGE PLANNING *-* PATIENT HAS BEEN REFERRED BACK TO: [facility] P: [phone] F: [phone] EMAIL: [email or web address] Addendum: 05/07/20 at 1638 by JOSHUA MCNEIL CM PATIENT HAS BEEN REFERRED BACK TO : [facility] FAX: [phone] Addendum: 05/07/20 at 1708 by ARVIND HOPSON LVN Facility only received half of packet CM will fax again and e-mail
[2020-05-07] MEDS: Micafungin 100 MG in NS 110 ML IVPB SCH (16:20)
--- NOTE | 2020-05-07 17:51 | Surgery Progress Note ---
Surgery Progress Note Subjective Additional Comments nidia cute events comfortable Objective Last 24 Hour Vital Signs Date Time Temp Pulse Resp B/P (MAP) Pulse Ox O2 Delivery O2 Flow Rate FiO2 05/07/20 16:16 Non-Rebreather 15.0 05/07/20 16:00 104 05/07/20 16:00 97.7 103 28 104/48 (66) 97 05/07/20 12:00 Non-Rebreather 15.0 05/07/20 12:00 97.7 112 27 115/53 (73) 96 05/07/20 11:42 106 05/07/20 08:00 98.4 107 28 122/60 (80) 99 05/07/20 08:00 107 05/07/20 08:00 Non-Rebreather 15.0 05/07/20 04:00 98.1 103 26 118/57 (77) 100 05/07/20 03:37 103 05/07/20 00:00 Non-Rebreather 15.0 05/06/20 23:54 98.2 100 22 111/55 (73) 100 05/06/20 23:29 102 05/06/20 20:00 Non-Rebreather 15.0 05/06/20 20:00 98.2 81 21 107/41 (63) 100 05/06/20 19:07 100 I&O Intake and Output 05/06/20 05/07/20 19:00 07:00 Intake Total 1325 ml 1045 ml Output Total 150 ml 50 ml Balance 1175 ml 995 ml Intake Free Water 10 ml IV Total 820 ml 505 ml Tube Feeding 495 ml 540 ml Output Urine Total 150 ml 50 ml # Bowel Movements 4 1 Dressing: saturated Cardiovascular: RSR Respiratory: decreased breath sounds Abdomen: soft, non-tender, present bowel sounds Extremities: no cyanosis Laboratory Tests Test 05/06/20 18:26 05/07/20 03:40 05/07/20 11:55 POC Whole Blood Glucose 226 MG/DL (74-106) H 137 MG/DL (74-106) H White Blood Count 31.2 K/UL (4.8-10.8) *H Red Blood Count 3.47 M/UL (4.70-6.10) L Hemoglobin 10.5 G/DL (14.2-18.0) L Hematocrit 34.2 % (42.0-52.0) L Mean Corpuscular Volume 99 FL (80-99) Mean Corpuscular Hemoglobin 30.4 PG (27.0-31.0) Mean Corpuscular Hemoglobin Concent 30.8 G/DL (32.0-36.0) L Red Cell Distribution Width 14.0 % (11.6-14.8) Platelet Count 286 K/UL (150-450) Mean Platelet Volume 7.6 FL (6.5-10.1) Neutrophils (%) (Auto) % (45.0-75.0) Lymphocytes (%) (Auto) % (20.0-45.0) Monocytes (%) (Auto) % (1.0-10.0) Eosinophils (%) (Auto) % (0.0-3.0) Basophils (%) (Auto) % (0.0-2.0) Differential Total Cells Counted 100 Neutrophils % (Manual) 96 % (45-75) H Lymphocytes % (Manual) 1 % (20-45) L Monocytes % (Manual) 3 % (1-10) Eosinophils % (Manual) 0 % (0-3) Basophils % (Manual) 0 % (0-2) Band Neutrophils 0 % (0-8) Platelet Estimate Adequate Platelet Morphology Normal Hypochromasia 1+ Anisocytosis 1+ Erythrocyte Sedimentation Rate 114 MM/HR (0-20) H Sodium Level 141 MMOL/L (136-145) Potassium Level 4.9 MMOL/L (3.5-5.1) Chloride Level 104 MMOL/L (98-107) Carbon Dioxide Level 33 MMOL/L (21-32) H Anion Gap 4 mmol/L (5-15) L Blood Urea Nitrogen 80 mg/dL (7-18) H Creatinine 2.7 MG/DL (0.55-1.30) #H Estimat Glomerular Filtration Rate 23.2 mL/min (>60) Glucose Level 145 MG/DL (74-106) H Calcium Level 10.3 MG/DL (8.5-10.1) H Phosphorus Level 5.3 MG/DL (2.5-4.9) H Magnesium Level 2.7 MG/DL (1.8-2.4) H Total Bilirubin 0.3 MG/DL (0.2-1.0) Aspartate Amino Transf (AST/SGOT) 38 U/L (15-37) H Alanine Aminotransferase (ALT/SGPT) 21 U/L (12-78) Alkaline Phosphatase 146 U/L (46-116) H Total Creatine Kinase 131 U/L (26-308) C-Reactive Protein, Quantitative 38.6 mg/dL (0.00-0.90) H Total Protein 6.9 G/DL (6.4-8.2) Albumin 1.2 G/DL (3.4-5.0) L Globulin 5.7 g/dL Albumin/Globulin Ratio 0.2 (1.0-2.7) L Plan Problems: (1) Pneumonia due to COVID-19 virus (2) Severe protein-calorie malnutrition Assessment & Plan: 74-year-old male with significant severe protein calorie malnutrition. BMI is 18. Albumin is low. Skin turgor is poor. On admission identified to have a deep tissue injury and decubitus skin ulcer. Air mattress ordered local wound care plan initiated. Speech therapy evaluation identified. High risk dysphasia aspiration Needs nutritional optimization to allow for wound healing and care plan. We will follow with recommendations thank you for let me participate in patient' s care Turn every 2 hours Offload pressure with pillows Wash sacral wound daily with normal saline apply Thera honey and foam dressing. Bilateral heel protectors DAILY ESTIMATED NEEDS: Needs based on wound, underweight, 54kg 30-35 kcals/kg 2161-5379 total kcals 1.25-2 g protein/kg 68-108 g total protein 25-35ml/kcal mL/kg 7183-6151 total fluid mLs NUTRITION DIAGNOSIS: Swallowing difficulty r/t dysphagia as evidenced by TRANSPORTATION PROJECT MANAGER marj pt not safe for oral diet, now on NGT feeds. CURRENT TF:Glucerna 1.5 @45ml/hr ENTERAL NUTRITION RECOMMENDATIONS: Glucerna 1.5 goal of 45ml/hr x 24 hrs to provide 1080ml, 1620kcal, 89g pro, 820ml free H2O - Maintain Glucerna 1.5 @45ml/hr as tolerated - Advance as tolerated 10ml/hr q4-6 hrs to goal. - Flush per MD. HOB over 30 degrees. ADDITIONAL RECOMMENDATIONS: 1) Monitor BG closely w/ TF's; need for increased insulin coverage 2) wound care w/ NGT feeds: add LYNNE in 4oz H2O BID + Vit C500mg qdaily, MVI w/ min qdaily+ ZnSO4 220mg qd x10 days 3) Calibrated bed scale wts 4) Monitor lytes daily w/ TF, replete as needed THE PATIENT WAS POSITIONED UPRIGHT FOR P.O. TRIALS. PATIENT NON/VERBAL, NON/VISUAL TRACKING, NON/RESPONSIVE TO TACTILE/VERBAL CUES. HE IS MOUTH BREATHING, ORAL MUCOSA PRESENTS WITH XEROSTOMIA. HIS DECREASED MENTATION INCLUDED SENSORIMOTOR DEFICITS WHICH RESULTED IN POOR BOLUS ACCEPTANCE, DECREASED AWARENESS OF FOOD IN MOUTH. WHEN PRESENTED WITH 5ML OF NECTAR THICK WATER VIA SPOON, THE PATIENT DEMONSTRATED REPETITIVE LINGUAL PUMPING IN HIS ATTEMPT TO TRIGGER THE PHARYNGEAL PHASE OF THE SWALLOW. HYOLARYNGEAL ELEVATION WAS PALPATED AND DETERMINED TO BE INSUFFICIENT FOR AIRWAY PROTECTION. AFTER THE SECOND P.O. TRIAL WITH THE NTL, THE PATIENT DEMONSTRATED A PROLONGED NON/ CLEARING, NON/PRODUCTIVE COUGH, WITH 3 TRIALS OF PUREE PRESENTED IN 5 ML AMOUNTS , THE PATIENT DEMONSTRATED ORAL STASIS, AND RESIDUE HAD TO BE SUCTIONED TO CLEAR HIS MOUTH. ORAL CARE WAS PROVIDED POST SUCTIONING. PHARYNGEAL PHASE OF SWALLOW SEVERELY DELAYED. CLEARLY, THIS GENTLEMAN PRESENTS WITH SEVERE OROPHARYNGEAL DYSPHAGIA, ALONG WITH A HISTORY OF SUBOPTIMAL P.O. INTAKE/LOSS OF APPETITE RECOMMENDATIONS 1. CONSIDER NON/ORAL FEEDING MANAGEMENT FOR INTERIM NUTRITION/HYDRATION 2. NPO 3. ORAL CARE TID TO REDUCE ORAL PATHOGENS 4. SKILLED ST INTERVENTION DOES NOT APPEAR TO BE NEEDED AT THIS TIME. (3) At high risk for aspiration (4) Respiratory distress (5) COVID-19 Assessment & Plan: + (6) History of diabetes mellitus (7) Alzheimer's dementia (8) Decubitus skin ulcer Assessment & Plan: Pt deconditioned and presents with multiple Pressure injuries on admission. Non-Blanchable erythema without fluctuance or induration noted to R elbow. Open DTPI Sacrum with full thickness Ulcer (L)9.5cm x (W)10.5cm.Wound is irregular shaped and extends to apex of anus. Base of wound is indurated and purpuric surrounding areas at base of wound with full thickness ulcer with scattered areas of soft necrosis (60%), 40% maldonado. Bony prominence is palpable at base of wound.Small amt sanguineous exudate noted . No odor noted . Periwound Skin is blanchable but Bilat trochanteric and iliac areas, including Ischial tuberosities are at high risks for pressure injuries secondary to bony protrusion and poor tissue perfusion. DTPI R Ischium. Base of pressure injury is maroon and indurated(L)3.4cm x (W) 7cm. DTPI R Heel (L)4cm x (W)9cm. Base of Pressure injury is fluctuant, maroon with small purpuric area.No evidence of ski breakdown periwound. L heel is boggy with non-Blanchable erythema. Tx.Plan: Cleanse Sacral wound with Saline. Apply TheraHoney. Apply Moisture Barrier Paste periwound. Cover with Optifoam drsgs. Change Daily and prn. Apply Cavilon Skin Barrier to R ischium. Cover with Optifoam drsg. Change every 3 days and prn. Apply Cavilon Skin Barrier to At Risks Bony Prominences. Cover areas with Optifoam drsgs as needed. Apply Cavilon Skin Barrier to both heels and Malleoli. Cover each site with Optifoam drsg. Change every 7 days and Prn. Reposition at least every 2hours or as tolerated. Off-load heels with Pillow. Air Fluidized Mattress. (9) Dysphagia Assessment & Plan: ng placed unlikey to pass swallow eval low bmi consider peg polst noted PEG [facility] D[facility] Ragsdale May 07, 2020 17:50
--- NOTE | 2020-05-07 18:28 | NUR ---
NURSE HAND-OFF REPORT: Important Events on Shift:[]bed change ,weighing scale not working. Patient Status: []Stable Diet: []Gluerna 1.5 at 45 ml/hr per NGT Lt Nare. Pending Orders: []none Pending Results/Labs:[]N/A Pending MD notification:[]N/A Latest Vital Signs: Temperature 97.7 , Pulse 104 , B/P 104 /48 , Respiratory Rate 28 , O2 SAT 97 , Non-Rebreather, O2 Flow Rate 15.0 . Vital Sign Comment: []Stable EKG Rhythm: Sinus Tachycardia Rhythm change?: NO MD Notified?: - MD Response: Latest Schneider Fall Score: 50 Fall Risk: High Risk Safety Measures: Call light Within Reach, Bed Alarm Zone 1, Side Rails Side Rails x3, Bed position Low and Locked. Fall Precautions: Yellow Socks Yellow Gown Door Sign Patient Fall Education Report given to [].
--- NOTE | 2020-05-07 19:13 | NUR ---
NURSE HAND-OFF REPORT: Important Events on Shift:[] Patient Status: [] Diet: [] Pending Orders: [] Pending Results/Labs:[] Pending MD notification:[] Latest Vital Signs: Temperature 97.7 , Pulse 104 , B/P 104 /48 , Respiratory Rate 28 , O2 SAT 97 , Non-Rebreather, O2 Flow Rate 15.0 . Vital Sign Comment: [] EKG Rhythm: Sinus Tachycardia Rhythm change?: MD Notified?: - MD Response: Latest Schneider Fall Score: 50 Fall Risk: High Risk Safety Measures: Call light Within Reach, Bed Alarm Zone 1, Side Rails Side Rails x3, Bed position Low and Locked. Fall Precautions: yes Yellow Socks Yellow Gown Door Sign Patient Fall Education Report given to [].Bertha Alvarez RN.Pt asleep no resp distress presented,on 100%NRB Mask O2 sat 97%.
--- NOTE | 2020-05-07 19:15 | NUR ---
NURSE NOTES: Received patient and report from TAWNYA Braxton. Patient is observed resting in bed and remains obtunded. No pain noted upon assessment. Pt is on nonrebreather with an O2 saturation of 88% noted. Bilateral lower lobe breath sounds noted to be diminished upon auscultation and rhonchi noted in bilateral upper lobes. Pt noted to be ST on tele monitor with a HR of 109 and no s/sx of acute distress noted. L FA 22g IV catheter noted and changed due to being red, puffy and swollen. 1/2 NS currently infusing at 50mL/hr as prescribed. No adverse effects noted at this time. Bowel sounds noted in all four quadrants, abdomen remains soft, flat and nontender. Diagnostics reviewed at bedside. Skin alterations noted. Pt repositioned for comfort and safety. Fall, Aspiration, Seizure and Skin precautions observed. Pt remains resting in bed; Bed remains in the lowest position with the safety wheels engaged, call light within reach, side rails up x3 and bed alarm activated. Will continue plan of care. Will continue to monitor.
--- NOTE | 2020-05-07 19:58 | NUR ---
NURSE NOTES: Family called to discuss pt condition and current plan for DNR/DNI and hospice. Priya stated that current plan of care was not discussed with them properly and that they do not agree with it. Priya wants plan of care changed and stated that she has been attempting to reach the physician for several days but was only able to speak with [employer] and was only given select information. Spoke with pts other next of kin, Jenny, who acknowledges aforementioned concerns. Spent >20minutes on phone with family.
[2020-05-07 20:00] VITALS: BP 88/35
--- NOTE | 2020-05-07 20:10 | NUR ---
NURSE NOTES: Attempted to reach primary MD regarding hypotension and low O2 saturation as documented in pt chart-no chief supply chain officer on case at this time.
--- NOTE | 2020-05-07 20:32 | NUR ---
NURSE NOTES: Attempted to reach primary MD regarding hypotension and low O2 saturation as documented in pt chart
[2020-05-07] MEDS ORDERED: levETIRAcetam 500mg/5ml Liquid NG SCH (21:00)
--- NOTE | 2020-05-07 21:10 | NUR ---
NURSE NOTES: Informed primary MD Pt O2 saturation on non-rebreather noted to be 80-86% and BP of 88/35. Made primary physician aware family does not agree with plan of care and feels that this was not properly explained to them. Per physician pt. is DNR, no further orders.
--- NOTE | 2020-05-07 22:00 | NUR ---
NURSE NOTES: Pt provided with a bed bath, oral care and linen change. Pt tolerated care well. Bedside assessment performed, assessed pt for pain using FLACC scale with a score of 0 noted. Pt repositioned for comfort and safety. Made Dr Corral aware regarding hypotension and low O2 saturation, no additional orders at this time. Pt remains resting in bed; Bed remains in the lowest position with the safety wheels engaged, call light within reach, side rails up x3 and bed alarm activated. Will continue plan of care. Will continue to monitor.
[2020-05-08] VITALS (55 sets, daily range): BP systolic 70–151; BP diastolic 41–69
--- NOTE | 2020-05-08 | NUR ---
NURSE NOTES: Pt BP remains stable at 102/52 at this time, RR of 24 noted with O2 saturation of 91%
--- NOTE | 2020-05-08 01:00 | NUR ---
NURSE NOTES: Bedside assessment performed. Assessed pt for pain utilizing FLACC scale with a score of 0 noted. O2 saturation of 90% noted and BP 102/42 Pt repositioned for comfort and safety. Pt remains clean and dry at this time. Fall, Aspiration, Seizure and Skin precautions observed. Pt remains resting in bed; Bed remains in the lowest position with the safety wheels engaged, call light within reach, side rails up x3 and bed alarm activated. Will continue plan of care. Will continue to monitor.
--- NOTE | 2020-05-08 01:45 | NUR ---
NURSE NOTES: Change in pt status noted. Pt BP of 80/32 noted with a RR 32 and O2 saturation of 81% noted. Attempted to reach primary MD regarding change in pt condition
--- NOTE | 2020-05-08 01:48 | NUR ---
NURSE NOTES: Spoke with next of kin, Jenny, regarding pt condition. Jenny to speak with family and return call.
--- NOTE | 2020-05-08 02:00 | NUR ---
NURSE NOTES: Consulted with ICU swatch paster regarding pt condition and conversation with family Mat Roller subsequently contacted.
--- NOTE | 2020-05-08 02:25 | NUR ---
NURSE NOTES: Late Entry: Nursing Cafeteria Director Called me at this time about patient being transferred to ICU for intubation. MD Corral will be calling ER MD to intubated the patient.
--- NOTE | 2020-05-08 02:28 | NUR ---
NURSE NOTES: Pt to transfer to ICU for further care; arrived on ICU at 02:30
--- NOTE | 2020-05-08 02:30 | NUR ---
Late Entry: NURSE NOTES: Patient arrived to ICU from SDU 0230. patient intubated 0236, then went bradycardic at 0236. patient given atropine at 0239. Patient went asystole 0242 at which point epinephrine was administered. Carol Zamudio called 0244. patient achieved ROSC 0245, daughter Priya Stewart decided to make patient DNR. Right Femoral TLC inserted and running Levophed 20mcg/hr clean and asymptomatic. patient unresponsive at this time.
[2020-05-08] MEDS ORDERED: Norepinephrine 4mg/NS Premix 250 ML ONE (02:32)
--- NOTE | 2020-05-08 02:34 | NUR ---
NURSE NOTES: Spoke with Jenny regarding pt condition and transfer to ICU. Spoke with Jenny regarding intubation, ventilator use, central line, pressors and code. Jenny to call Priya to make family decision.
--- NOTE | 2020-05-08 02:41 | NUR ---
Window Glazier: Priya called unit to discuss pt condition so family could make a choice. Priya claims that Jenny sometimes gets confused. During conversation informed Priya that pt HR and BP continue to decline and impending code. Priya became frantic. Assisted with calming family down to make a decision as to whether to continue Family decided to stop code and make pt DNR at 02:46 Family choice to stop CPR and continue with DNR code status confirmed by Zan Donis, RN Priya requests to be called when pt passes
[2020-05-08] MEDS ORDERED: Atropine Inj 1mg/10ml Syr IVP SCH (02:45)
--- NOTE | 2020-05-08 02:45 | NUR ---
NURSE NOTES: ATROPINE WAS ORDERED BUT PATIENT CODED SO IT WAS GIVEN DURING CODE BLUE.
--- NOTE | 2020-05-08 03:00 | NUR ---
NURSE NOTES: Called and left message for MD Corral at this time. ROSC was achieved after code blue stopped per patient sister Priya. Awaiting MD Corral's call for further orders.
--- NOTE | 2020-05-08 03:09 | NUR ---
NURSE NOTES: Spoke with Priya and family regarding pt. Informed Priya code stopped and ROSC achieved at 02:45 Priya and family will attempt to come see pt. Informed family limited visiting due to pt COVID positive. Family aware and will discuss.
--- NOTE | 2020-05-08 03:37 | Emergency Room Report ---
Physical Exam Vital Signs Date Time Temp Pulse Resp B/P (MAP) Pulse Ox O2 Delivery O2 Flow Rate FiO2 05/04/20 08:00 103 05/04/20 08:00 98.1 23 145/75 (98) 100 05/04/20 09:00 Non-Rebreather 15.0 Medical Decision Making Diagnostic Impression: Primary Impression: Respiratory distress Additional Impression: COVID-19 ER Course Called to ICU for emergency intubation. On my arrival patient was arriving from [facility] in respiratory distress. He is admitted for COVID-19 pneumonia. Patient was bradycardic and hypotensive with agonal respirations. Peripheral Levophed was ordered by me prior to intubation. The patient was intubated using etomidate and rocuronium for sedation and paralysis. Under glide scope visualization he was intubated successfully on first attempt with 7.5 and a tracheal tube secured at 22 cm at the lip. No complications with intubation. Confirmed by chest x-ray, color change capnography, misting in tube. Shortly after intubation the patient became bradycardic eventually asystole arrest. CODE BLUE activated. Patient received 1 round of CPR and 1 epinephrine and 1 atropine with return of spontaneous circulation. A right femoral line was placed by me. No complications. Patient has been made DNR by family. Remains in critical condition in ICU. Further care per ICU team. Recall as needed. Chest X-Ray Diagnostic Results Chest X-Ray Diagnostic Results : Chest X-Ray Ordered: Yes # of Views/Limited/Complete: 1 View Indication: Other - Post intubation EP Interpretation: Yes Interpretation: other - Satisfactory position of ET tube above the antionette. Bilateral patchy infiltrates, right greater than left Impression: Other - Satisfactory ET tube position. Bilateral infiltrates Electronically Signed by: Electronically signed by Dr. Roscoe Campoverde Last Vital Signs Date Time Temp Pulse Resp B/P (MAP) Pulse Ox O2 Delivery O2 Flow Rate FiO2 05/08/20 02:45 79/36 05/08/20 00:00 98.2 102 26 90 05/08/20 00:00 Non-Rebreather 15.0 Non-Rebreather 15.0 Disposition: ADMITTED INPATIENT Condition: Serious Referrals: NON PHYSICIAN (PCP) Procedures Critical Care Time Critical Care Time Total critical care time: Approximately 45 minutes Due to a high probability of clinically significant, life threatening deterioration, the patient required the highest level of preparedness to intervene emergently and I personally spent this critical care time directly and personally managing the patient. This critical care time included obtaining a history, examining the patient, pulse oximetry, ordering and reviewing studies , ordering treatments, evaluating response to treatment and updating management plan as needed, frequent reassessment and discussion with other providers as well as arranging for ultimate disposition. This critical to care time was performed to assess and manage the high probability of life-threatening deterioration that could result in multiorgan failure. This critical care time is separate from the separately billable procedures and treating other patients. Central Line Central Line : Consent: Emergent Central Line Lumen: triple Maximal Sterile Barrier Tech: yes cap, yes mask, yes sterile gown, yes sterile gloves, yes hand hygiene, yes chlorhexidine prep No Max Barrier Tech Because: emergency insertion Central Line Postion: femoral (R) US Guided Line?: Yes Vessel visualized with U/S: Right Femoral Vein Ultrasound Findings: Collapsible Vessel, Visualize vessel puncture Complications: none Central Line Post Position: sutured, good blood return Attempts: One Patient Tolerated: Well Complications: None CPR/Code Blue CPR/Code Blue Narrative See narrative of CODE BLUE resuscitation under MDM section of this note. Intubation Intubation : Consent: Emergent Intubation Method: orotracheal Tube Size (cm): 7.5 Medications: Etomidate, Rocuronium Breath Sounds after Intubation: equal Intubation Complications: no complications Post Intubation Xray: Yes Progress/Xray Impression: Satisfactory position of endotracheal tube above the antionette Attempts: One Patient Tolerated: Well Complications: None Roscoe Campoverde MD May 08, 2020 03:37
--- NOTE | 2020-05-08 03:59 | Diagnostic Imaging Report ---
EXAM: XR Chest, 1 View CLINICAL HISTORY: S/P INTUB TECHNIQUE: Frontal view of the chest. COMPARISON: 05/04/20 FINDINGS: Lungs: Interval development of dense consolidation in the right upper to midlung. Interval improved aeration of the left mid to lower lung which may represent improving atelectasis and/or effusion. Pleural space: Suspect tiny bilateral pleural effusions. No pneumothorax. Heart: Unremarkable. No cardiomegaly. Mediastinum: Unremarkable. Bones/joints: Unremarkable. Vasculature: Calcified tortuous thoracic aorta again seen. Tubes, lines and devices: Endotracheal tube tip approximately 3-4 centimeters from the antionette. This is satisfactory. NG tube, tip projecting over the mid central chest. NG tube appears coiled back compared to the prior study. Recommend repositioning. Overlying chest leads obscure portion of the chest. Tubing projecting over the visualized left mid to lower abdomen. IMPRESSION: 1. Interval intubation, satisfactory in position. 2. NG tube appears pulled back with the tip in the mid esophagus. Recommend repositioning. 3. Interval development of right upper to midlung airspace disease. 4. Interval improvement of left basilar atelectasis and/or decrease in effusion <MYCVCSECTION> Communications: 05/08/20 04:07 Verify Receipt with Nurse Verified receipt with ICU Charge Nurse Fallon report to Dr. Corral on 05/08 04:07 (-07:00)
--- NOTE | 2020-05-08 04:00 | NUR ---
NURSE NOTES: Patient unresponsive to deep pain with bilateral pupils sluggish and diminished lung sounds in all lobes. patient with 7.5 ETT at 22cm lip on ventilator AC 18 TV 700 PEEP 8 FiO2 100%. BP 51/31 HR 74. right femoral TLC running levophed at 30mcg/min and 1/2 NS @50ml/hr clean and asymptomatic. PIV left forearm #22 SL. left NGT clamped, pending placement verification. sacral unstageable wound dressing changed and photos taken. patient on p200 mattress, patient repositioned and oral care provided.
--- NOTE | 2020-05-08 04:03 | Diagnostic Imaging Report ---
EXAM: XR Abdomen, 2 Views CLINICAL HISTORY: NGT TECHNIQUE: Frontal view of the abdomen/pelvis. COMPARISON: 04/29/20 FINDINGS: Gastrointestinal tract: Nonspecific bowel gas pattern with moderate distended bowel loops, nonspecific. Bones/joints: Degenerative changes in the spine Tubes, lines and devices: NG tube not visualized. Please refer to chest x-ray report for details. Overlying chest leads and tubing limit evaluation. IMPRESSION: 1. NG tube not visualized. 2. Please refer to chest x-ray report for additional details. 3. Overlying tubing and chest leads limit evaluation
--- NOTE | 2020-05-08 04:17 | NUR ---
NURSE NOTES: Spoke with patients daughter Priya at this time. Wanted to Clarify patient Code status and update her on fathers condition. She expressed she does not want more medications added to keep her father alive at this time. She is thinking of withdrawing care but will discuss with her sister and call me back. Will wait for call back. MD Corral had not called back awaiting his call back also.
[2020-05-08] MEDS ORDERED: Levophed 4mg/4mL Inj IV ONE (04:23)
--- NOTE | 2020-05-08 04:40 | NUR ---
NURSE NOTES: Called and left message for MD Corral at this time. Message left in regards to critical value ABG. updated with the latest Vital signs awaiting call back. Addendum: 05/08/20 at 0443 by BAM ROOT RN Current vent settings AC 18, VT 500 peep 8 fio2 100%. post intubation vent settings ordered by BAUTISTA LIVINGSTON. Need MD Corral's ordered vent settings.
--- NOTE | 2020-05-08 04:53 | NUR ---
NURSE NOTES: Daughter Priya called at this time. She does not want to withdraw care at this time. She also does not want to add any more medication to keep him alive. She will call back "in an hour or two" and see what his condition is. She will them make other decisions.
[2020-05-08] MEDS ORDERED: Promethazine/Codeine 5ml UD ORAL PRN (05:00)
[2020-05-08] MEDS ORDERED: Miralax 17gm pkt ORAL PRN (05:00)
--- NOTE | 2020-05-08 05:03 | NUR ---
NURSE NOTES: Entered orders in EMR late in order to prevent delay of care Transfer to ICU order received at 02:27 Full Code order received at 02:27 DNR Order initiated at 02:46
--- NOTE | 2020-05-08 05:09 | NUR ---
NURSE NOTES: Spoke with Nursing process supervisor Isidra Hobbs. MD Corral not answering. She will call herself.
--- NOTE | 2020-05-08 05:13 | NUR ---
NURSE NOTES: Warp Tying Machine Tender called back with MD Order. Increase VT to 700 and give 1L Bolus at this time. ABG in the morning to be ordered.
[2020-05-08] MEDS: Meropenem 1 GM in NS 55 ML IVPB SCH ×2 (06:00→18:09)
[2020-05-08] MEDS ORDERED: Acetaminophen 650mg/20.3ml NG PRN (07:45)
--- NOTE | 2020-05-08 07:49 | NUR ---
NURSE NOTES: Patient unresponsive to deep pain with bilateral pupils sluggish and diminished lung sounds in all lobes. patient with 7.5 ETT at 22cm lip on ventilator AC 18 TV 700 PEEP 8 FiO2 100%. BP 118/73 HR 112 sinus tach on monitor. right femoral TLC running levophed at 30mcg/min and 1/2 NS @50ml/hr clean and asymptomatic, patient received 1L NS bolus per Dr. Corral. PIV left forearm #22 SL. left NGT clamped, pending placement verification. sacral unstageable wound dressing changed and photos taken. patient on p200 mattress, patient repositioned and oral care provided.
--- NOTE | 2020-05-08 07:49 | NUR ---
HAND-OFF: Report given to TAWNYA Celeste. endorsed plan of care.
--- NOTE | 2020-05-08 07:50 | NUR ---
NURSE NOTES: Received patient in bed. Orally intubated, Vent dependent, ET size of 7.5 noted with Vent settings of AC 18, Tidal Volume 700, PEEP of 8, FiO2 of 100%. Oxygent saturation in pulse oximetry noted at 99%. No respiratory distress at this time. Left NGT noted, awaiting for X-ay placement confirmation. Patient appears to be obtunded. No facial grimace. Slade cath inplace. Right Femoral TLC noted with levophed at 30mcg running per order, and 1/2 NS running at 50ml/hour. Contact and Airborne isolation observed. Seizure precautions implemented. Will continue plan of care.
[2020-05-08] MEDS ORDERED: Promethazine/Codeine 5ml UD NG PRN (08:00)
[2020-05-08] MEDS ORDERED: Miralax 17gm pkt NG PRN (08:00)
--- NOTE | 2020-05-08 08:00 | NUR ---
NURSE NOTES: Remains sinus tachy in the diagnostic cardiac sonographer, heart rate 109. On continuous levophed at 30mcg.
[2020-05-08] MEDS: NovoLOG Insulin Flexpen SUBQ SCH ×4 (08:11→23:54)
[2020-05-08] MEDS: Norepinephrine Bitartrate 8 MG in D5W 500ml 492 ML IV SCH ×3 (08:11→20:20)
--- NOTE | 2020-05-08 08:30 | NUR ---
NURSE NOTES: RT at beside. Drawing blood for ABG.
--- NOTE | 2020-05-08 08:35 | NUR ---
NURSE NOTES: RT/Carlos decrease Fio2 to 90% from 100%. ABG drawn with vent Fio2 of 100%.
[2020-05-08] MEDS: levETIRAcetam 500mg/5ml Liquid NG SCH ×2 (09:00→20:58)
[2020-05-08] MEDS: Zinc Sulfate 220mg NG SCH (09:00)
[2020-05-08] MEDS: Ascorbic Acid 500mg tab NG SCH (09:00)
[2020-05-08] MEDS: Multivitamins W/Minerals 15 ML UDC NG SCH (09:00)
[2020-05-08] MEDS ORDERED: Ascorbic Acid 500mg tab ORAL SCH (09:00)
--- NOTE | 2020-05-08 09:06 | NUR ---
RADIOLOGY DEPT., ABDOMEN FOR N/GT X-RAY DONE.-P.DYE
[2020-05-08] MEDS: Heparin 5000 units/ml inj SUBQ SCH ×2 (09:48→20:58)
--- NOTE | 2020-05-08 10:00 | NUR ---
NURSE NOTES: Right soft wrist restraints applied. Noted patient able to reach ET tube.
--- NOTE | 2020-05-08 10:39 | Diagnostic Imaging Report ---
EXAM: XRAY Abdomen 1v HISTORY: NG tube placement COMPARISON: None. TECHNIQUE: Single frontal view of the abdomen obtained. FINDINGS: There is an NG tube with the tip in the stomach. The sidehole is at the GE junction. Recommend slight advancement could There is no mass or mass effect noted. No definite pathologic calcifications identified. There is no sign of free air. Surgical clips noted in the right upper quadrant. Right lung infiltrates noted. IMPRESSION: NG TUBE WITH TIP IN STOMACH BUT SIDEHOLE IS AT THE GE JUNCTION. RECOMMEND SLIGHT ADVANCEMENT.
--- NOTE | 2020-05-08 11:20 | NUR ---
NURSE NOTES: NGT advanced per xray result recommendation.
--- NOTE | 2020-05-08 11:38 | Infectious Diseases Prog Note ---
Assessment/Plan Assessment: Septic shock 05/08 CODE blue x2 05/08 Recent COVID19 positive (unknown date of diagnosis) Pneumonia -bacterial superimposed w MRSA (pt bacteremic) Acute hypoxic resp failure - s/p NC, now on NRB> intubation 05/08 -05/04 CXR: Extensive interstitial and patchy bilateral airspace disease with slight improved aeration of the left mid and upper lung compared to one day prior. There is worsening of aeration in the right lung compared to one day prior however. -05/03 CXR: Significantly increased complete consolidation throughout the left lung. Probable left pleural effusion as well. Similar right basilar opacity. -04/28 CXR: Bibasilar infiltrates with slight worsening on right side. -04/24 CXR: Slightly improved bilateral infiltrates, over 2 days -04/22 Rapid COVID + CXR: Bilateral infiltrates, likely pneumonia, possibly viral. Correlate with clinical findings MRSA and CONS bacteremia; persistent bacteremia -04/26 2d echo(limited study): no vegetations seen -04/22 Bcx 2/4 S. epi; 04/23 Bcx 2/4 MRSA; 04/26 Bcx 1/2 S. hominis; 04/27 Bcx Neg Afebrile- Tm 99.5 Leukocytosis; fluctuating- increased to 30s 05/06 -05/06 u/a neg Bcx NTD, sp cx S.a ureus -05/01 u/a eng; ucx Tami sp -04/22 u/a neg KENIA- supratherapeutic vanco levels Dementia Seizure disorder Dm2 DNR status [place] ([facility]) Plan: -Daptomycin #3 (abx d #15) given KENIA and subtherapeutic levels; will need minimum of 14 days from 1st neg Bcx; expected end date 05/11/20 -monitor CPK -Cont empiric MEropenem and Micafungin #4 given hypotension, leukocytosis and pending repeat cultures -05/06 SP IV Vancomycin #13 -05/01 SP cefepime #10 -04/27 SP Decadron #5 -04/26 SP Azithromcin # -04/23 SP Ceftriaxone #2 -04/22 SP ZOsyn x1 -f/u cx -Monitor CBC/CMP, temperatures -COVID19 isolation -f/u repeat cultures -poor prognosis Thank you for this consultation. Will continue to follow along with you. Discussed with RN. Subjective Allergies: Coded Allergies: No Known Allergies (Unverified , 04/22/20) overnight pt was hypotensive and hypoxioc and was transferred to ICU started on Levophed and intubated- he coded twice. there was confusion by one of pt's daughter as patient was DNR initially and plan for hospice but overnight code status changed to full code by one of the daughter. Patient code status is changed back to DNR on Levophed; was maxed now slowly coming down Objective Last 24 Hour Vital Signs Date Time Temp Pulse Resp B/P (MAP) Pulse Ox O2 Delivery O2 Flow Rate FiO2 05/08/20 11:00 142/58 05/08/20 11:00 75 05/08/20 11:00 93 22 142/58 (86) 100 05/08/20 10:55 86 21 75 05/08/20 10:45 94 20 134/53 (80) 100 05/08/20 10:30 94 21 140/58 (85) 100 05/08/20 10:30 140/58 05/08/20 10:16 138/57 05/08/20 10:15 138/57 05/08/20 10:15 93 20 138/57 (84) 100 05/08/20 10:01 142/56 05/08/20 10:00 142/56 05/08/20 10:00 93 20 142/56 (84) 100 05/08/20 09:45 93 20 143/55 (84) 100 05/08/20 09:30 93 19 134/55 (81) 100 05/08/20 09:15 94 19 121/54 (76) 100 05/08/20 09:00 95 19 128/53 (78) 100 05/08/20 09:00 128/53 05/08/20 08:45 99 20 119/49 (72) 100 05/08/20 08:35 90 05/08/20 08:35 90 05/08/20 08:30 100 17 130/52 (78) 100 05/08/20 08:15 101 19 112/49 (70) 100 05/08/20 08:11 123/44 05/08/20 08:00 Mechanical Ventilator Mechanical Ventilator 05/08/20 08:00 100 05/08/20 08:00 97.2 105 19 123/44 (70) 100 05/08/20 08:00 123/44 05/08/20 07:45 110 19 134/53 (80) 100 05/08/20 07:30 109 17 121/48 (72) 100 05/08/20 07:30 108 19 100 05/08/20 07:24 109 05/08/20 07:15 109 17 106/52 (70) 100 05/08/20 07:00 110 18 111/51 (71) 100 05/08/20 07:00 121/48 05/08/20 06:00 118/73 05/08/20 05:00 80/42 05/08/20 04:43 86/43 05/08/20 04:00 62/30 05/08/20 04:00 100 05/08/20 04:00 Mechanical Ventilator Mechanical Ventilator 05/08/20 04:00 97.0 83 20 70/41 (51) 97 05/08/20 04:00 74 05/08/20 03:30 79 19 100 05/08/20 03:00 92/45 05/08/20 02:45 79/36 05/08/20 00:00 98.2 102 26 102/52 (69) 90 05/08/20 00:00 Non-Rebreather 15.0 Non-Rebreather 15.0 05/07/20 23:43 93 05/07/20 20:00 Non-Rebreather 15.0 Non-Rebreather 15.0 05/07/20 20:00 98.1 105 30 88/35 (52) 80 05/07/20 19:41 101 05/07/20 16:16 Non-Rebreather 15.0 05/07/20 16:00 104 05/07/20 16:00 97.7 103 28 104/48 (66) 97 05/07/20 12:00 Non-Rebreather 15.0 05/07/20 12:00 97.7 112 27 115/53 (73) 96 05/07/20 11:42 106 Height (Feet): 5 Height (Inches): 8.00 Weight (Pounds): 179 General Appearance: cachetic, thin HEENT: normocephalic, atraumatic, NRB mask in place Neck: supple Respiratory/Chest: chest wall non-tender, rhonchi - left, rhonchi - right Cardiovascular/Chest: normal peripheral pulses, normal rate Abdomen: normal bowel sounds, non tender Microbiology Date/Time Source Procedure Growth Status 05/05/20 17:15 Blood Blood Culture - Preliminary NO GROWTH AFTER 48 HOURS Resulted 05/05/20 17:00 Blood Blood Culture - Preliminary NO GROWTH AFTER 48 HOURS Resulted 05/06/20 02:00 Sputum Expectorated Gram Stain - Final Complete 05/06/20 02:00 Sputum Culture - Final Staphylococcus Aureus - Mrsa Usual Respiratory Evette Complete Laboratory Tests Test 05/07/20 11:55 05/07/20 16:24 05/07/20 23:35 05/08/20 04:06 POC Whole Blood Glucose 137 MG/DL (74-106) H Pending 178 MG/DL (74-106) H Arterial Blood pH 7.142 (7.350-7.450) Arterial Blood Partial Pressure CO2 80.1 mmHg (35.0-45.0) *H Arterial Blood Partial Pressure O2 88.3 mmHg (75.0-100.0) Arterial Blood HCO3 26.8 mmol/L (22.0-26.0) H Arterial Blood Oxygen Saturation 96.6 % (95-100) Arterial Blood Base Excess -3.3 (-2-2) L Timmy Test Positive Test 05/08/20 06:10 05/08/20 08:22 POC Whole Blood Glucose Pending Arterial Blood pH 7.340 (7.350-7.450) Arterial Blood Partial Pressure CO2 47.0 mmHg (35.0-45.0) H Arterial Blood Partial Pressure O2 161.8 mmHg (75.0-100.0) H Arterial Blood HCO3 24.8 mmol/L (22.0-26.0) Arterial Blood Oxygen Saturation 98.9 % (95-100) Arterial Blood Base Excess -1.2 (-2-2) Timmy Test Pending Current Medications Medications (Trade) Dose Ordered Sig/Andrade Route PRN Reason Start Time Stop Time Status Last Admin Dose Admin Acetaminophen (Tylenol) 650 mg Q4H PRN NG Temp >100.5 05/08/20 07:45 06/07/20 07:44 Albuterol/ Ipratropium (Combivent Respimat) 1 puff Q4H PRN INH Shortness of Breath 05/08/20 05:00 05/22/20 12:59 Ascorbic Acid (Vitamin C) 500 mg DAILY NG 05/08/20 09:00 05/28/20 08:59 Chlorhexidine Gluconate (Yamel-Hex 2%) 1 applic DAILY@2000 TOPIC 05/08/20 20:00 08/06/20 19:59 Daptomycin 350 mg/ Sodium Chloride 55 ml @ 100 mls/hr Q48H IV 05/08/20 17:00 05/13/20 16:59 Dextrose (Dextrose 50%) 25 ml Q30M PRN IV Hypoglycemia 05/08/20 04:45 07/21/20 16:14 Dextrose (Dextrose 50%) 50 ml Q30M PRN IV Hypoglycemia 05/08/20 04:45 07/21/20 16:14 Heparin Sodium (Porcine) (Heparin 5000 units/ml) 5,000 units EVERY 12 HOURS SUBQ 05/08/20 09:00 06/06/20 20:59 05/08/20 09:48 Insulin Aspart (NovoLOG) Q6HR SUBQ 05/08/20 06:00 07/21/20 16:29 05/08/20 08:11 Levetiracetam (Keppra) 500 mg Q12HR NG 05/08/20 09:00 06/06/20 20:59 Meropenem 1 gm/ Sodium Chloride 55 ml @ 110 mls/hr Q12HR@0600,1800 IVPB 05/08/20 06:00 05/11/20 17:59 05/08/20 06:00 Micafungin Sodium 100 mg/Sodium Chloride 110 ml @ 110 mls/hr Q24H IVPB 05/08/20 17:00 05/12/20 16:59 Multivitamins (Multivitamins W/ Minerals 15ml Liquid) 15 ml DAILY NG 05/08/20 09:00 06/07/20 08:59 Norepinephrine Bitartrate 8 mg/ Dextrose 500 ml @ 0 mls/hr Q24H IV 05/08/20 08:00 06/07/20 07:59 05/08/20 08:11 Ondansetron HCl (Zofran) 4 mg Q6H PRN IVP Nausea & Vomiting 05/08/20 07:00 05/22/20 12:59 Polyethylene Glycol (Miralax) 17 gm DAILYPRN PRN NG Constipation 05/08/20 08:00 05/24/20 04:59 Promethazine HCl/ Codeine (Phenergan with Codeine) 5 ml Q6H PRN NG cough 05/08/20 08:00 05/22/20 04:59 Sodium Chloride 1,000 ml @ 50 mls/hr Q20H IV 05/08/20 04:45 05/26/20 18:21 05/08/20 04:41 Zinc Sulfate (Zinc Sulfate) 220 mg DAILY NG 05/08/20 09:00 07/27/20 08:59 Linsey Barry M.D. May 08, 2020 11:38
--- NOTE | 2020-05-08 12:26 | Pulmonolgy Critical Care Note ---
Critical Care - Asmt/Plan Problems: (1) Acute respiratory failure due to COVID-19 (2) Pneumonia due to COVID-19 virus (3) Severe protein-calorie malnutrition (4) At high risk for aspiration (5) History of diabetes mellitus (6) Alzheimer's dementia Respiratory: monitor respiratory rate, adjust FIO2, CXR, ABG Cardiac: continue to monitor HR/BP Renal: F/U I&O, keep IV fluid, check electrolytes Infectious Disease: check cultures, continue antibiotics Gastrointestinal: continue feedings/current rate Endocrine: monitor blood sugar, continue sliding scale insulin Hematologic: monitor H/H, transfuse if hgb<8.5 Neurologic: PRN Ativan, keep patient comfortable Affect: PRN ativan Prophylaxis: Protonix, Heparin Time Spent (Minutes): 40 Notes Reviewed: piece maker, renal Discussed with: nurses, consultants, gearcase assemblerdelivery manager - Objective Last 24 Hour Vital Signs Date Time Temp Pulse Resp B/P (MAP) Pulse Ox O2 Delivery O2 Flow Rate FiO2 05/08/20 11:30 95 21 144/57 (86) 99 05/08/20 11:16 147/55 05/08/20 11:15 94 22 147/55 (85) 99 05/08/20 11:15 147/55 05/08/20 11:00 142/58 05/08/20 11:00 75 05/08/20 11:00 93 22 142/58 (86) 100 05/08/20 10:55 86 21 75 05/08/20 10:45 94 20 134/53 (80) 100 05/08/20 10:30 94 21 140/58 (85) 100 05/08/20 10:30 140/58 05/08/20 10:16 138/57 05/08/20 10:15 138/57 05/08/20 10:15 93 20 138/57 (84) 100 05/08/20 10:01 142/56 05/08/20 10:00 142/56 05/08/20 10:00 93 20 142/56 (84) 100 05/08/20 09:45 93 20 143/55 (84) 100 05/08/20 09:30 93 19 134/55 (81) 100 05/08/20 09:15 94 19 121/54 (76) 100 05/08/20 09:00 95 19 128/53 (78) 100 05/08/20 09:00 128/53 05/08/20 08:45 99 20 119/49 (72) 100 05/08/20 08:35 90 05/08/20 08:35 90 05/08/20 08:30 100 17 130/52 (78) 100 05/08/20 08:15 101 19 112/49 (70) 100 05/08/20 08:11 123/44 05/08/20 08:00 Mechanical Ventilator Mechanical Ventilator 05/08/20 08:00 100 05/08/20 08:00 97.2 105 19 123/44 (70) 100 05/08/20 08:00 123/44 05/08/20 07:45 110 19 134/53 (80) 100 05/08/20 07:30 109 17 121/48 (72) 100 05/08/20 07:30 108 19 100 05/08/20 07:24 109 05/08/20 07:15 109 17 106/52 (70) 100 05/08/20 07:00 110 18 111/51 (71) 100 05/08/20 07:00 121/48 05/08/20 06:00 118/73 05/08/20 05:00 80/42 05/08/20 04:43 86/43 05/08/20 04:00 62/30 05/08/20 04:00 100 05/08/20 04:00 Mechanical Ventilator Mechanical Ventilator 05/08/20 04:00 97.0 83 20 70/41 (51) 97 05/08/20 04:00 74 05/08/20 03:30 79 19 100 05/08/20 03:00 92/45 05/08/20 02:45 79/36 05/08/20 00:00 98.2 102 26 102/52 (69) 90 05/08/20 00:00 Non-Rebreather 15.0 Non-Rebreather 15.0 05/07/20 23:43 93 05/07/20 20:00 Non-Rebreather 15.0 Non-Rebreather 15.0 05/07/20 20:00 98.1 105 30 88/35 (52) 80 05/07/20 19:41 101 05/07/20 16:16 Non-Rebreather 15.0 05/07/20 16:00 104 05/07/20 16:00 97.7 103 28 104/48 (66) 97 Status: obtunded Condition: critical HEENT: atraumatic Lungs: rales, rhonchi Heart: HR/BP stable Abdomen: soft Extremities: no C/C/E Decubiti: location Micro: Microbiology Date/Time Source Procedure Growth Status 05/05/20 17:15 Blood Blood Culture - Preliminary NO GROWTH AFTER 48 HOURS Resulted 05/05/20 17:00 Blood Blood Culture - Preliminary NO GROWTH AFTER 48 HOURS Resulted 05/06/20 02:00 Sputum Expectorated Gram Stain - Final Complete 05/06/20 02:00 Sputum Culture - Final Staphylococcus Aureus - Mrsa Usual Respiratory Evette Complete Accucheck: 190 Critical Care - Subjective ROS Limited/Unobtainable: Yes Interval Events: one of pt's sisters called last night and stated that she wants full code and doesn't agree with comfort care. Pt was intubated last night and transferred to ICU. FI02: 75 Vent Support Breath Rate: 18 Vent Support Mode: AC Vent Tidal Volume: 700 Sputum Amount: Moderate PEEP: 8.0 PIP: 39 Tube Feeding Amount: 45 I&O: Intake and Output 05/07/20 05/08/20 19:00 07:00 Intake Total 1225 ml 1340.4 ml Output Total 102 ml 0 ml Balance 1123 ml 1340.4 ml Intake Free Water 200 ml 30 ml IV Total 365 ml 1085.4 ml Tube Feeding 540 ml 225 ml Other 120 ml Output Urine Total 101 ml 0 ml Stool Total 1 ml # Bowel Movements 1 1 CXR: extensive infiltrate ET-Tube: 7.5 ET Position: 22 Labs: Laboratory Tests Test 05/07/20 16:24 05/07/20 23:35 05/08/20 04:06 05/08/20 06:10 POC Whole Blood Glucose Pending 178 MG/DL (74-106) H Pending Arterial Blood pH 7.142 (7.350-7.450) Arterial Blood Partial Pressure CO2 80.1 mmHg (35.0-45.0) *H Arterial Blood Partial Pressure O2 88.3 mmHg (75.0-100.0) Arterial Blood HCO3 26.8 mmol/L (22.0-26.0) H Arterial Blood Oxygen Saturation 96.6 % (95-100) Arterial Blood Base Excess -3.3 (-2-2) L Timmy Test Positive Test 05/08/20 08:22 Arterial Blood pH 7.340 (7.350-7.450) Arterial Blood Partial Pressure CO2 47.0 mmHg (35.0-45.0) H Arterial Blood Partial Pressure O2 161.8 mmHg (75.0-100.0) H Arterial Blood HCO3 24.8 mmol/L (22.0-26.0) Arterial Blood Oxygen Saturation 98.9 % (95-100) Arterial Blood Base Excess -1.2 (-2-2) Timmy Test Pending Quincy Corral MD May 08, 2020 12:26
--- NOTE | 2020-05-08 12:26 | NUR ---
RD ASSESSMENT & RECOMMENDATIONS SEE CARE ACTIVITY FOR COMPLETE ASSESSMENT DAILY ESTIMATED NEEDS: Needs based on wound, underweight, 54kg 25-32 kcals/kg 8667-2275 total kcals 1.25-2 g protein/kg 68-108 g total protein 25-35ml/kcal mL/kg 9217-9995 total fluid mLs NUTRITION DIAGNOSIS: Swallowing difficulty r/t dysphagia as evidenced by SCIENTIFIC DATABASE CURATOR eval, pt not safe for oral diet, now on NGT feeds, s/p code blue, now orally intubated, pt not hemodynamically stable, TF held. CURRENT TF:Glucerna 1.5 @45ml/hr - HELD ENTERAL NUTRITION RECOMMENDATIONS: Glucerna 1.5 @ 45ml/hr x 24 hrs to provide 1080ml, 1620kcal, 89g pro, 820ml free H2O FEED WITH HEMODYNAMIC STABILITY: ->resume TF @ 15ml/hr x 6hrs, advance 10ml q 4-6 hrs as tolerated to goal ->Flush per MD. HOB over 30 degrees. WITHOUT HEMODYNAMIC STABILITY: rec trophic feeding of Glucerna 1.5 @ 10ml/hr x 24 hrs Monitor renal labs, w/ trending up renal labs, rec TF change NEPRO w/ goal of 40ml/hr x24 hrs for 1709mg less K and 389mg less Phos per day. -> Start NEPRO at 20ml/hr advance as tolerated 10ml/hr q4-6 hrs to goal -> TF at goal provides 960ml, 1728 kcal, 78g pro, 698ml free H2O ADDITIONAL RECOMMENDATIONS: 1) Monitor hemodynamic stability: NE titrating down (24mcg) 2) wound care w/ NGT feeds: LYNNE in 4oz H2O BID via NGT continue Vit C, ZnSO4 3) Calibrated bed scale wts 4) Monitor renal fxn and lytes, need for TF change to Nepro .
--- NOTE | 2020-05-08 12:30 | NUR ---
NURSE NOTES: Dr. Corral in the unit. Informed that patient has no urine output since this morning. No new order at this time. Will continue to monitor.
--- NOTE | 2020-05-08 14:06 | Diagnostic Imaging Report ---
Indication: Reason For Exam: MALPOSITN Technique: Single AP view of the abdomen. Comparison: Chest radiograph dated 05/08/2020 and abdominal radiograph dated 05/08/2020 at 739 Findings: Bowel gas pattern is nonspecific and unchanged in appearance. Interval slight advancement of enteric tube, with tip in the expected location of the proximal gastric body. Lungs again demonstrate severe right greater than left diffuse bilateral airspace disease Unchanged right femoral approach catheter. IMPRESSION: 1. No significant change in bowel gas pattern. 2. Slight interval advancement of enteric tube, with tip at expected location of the gastric body. However, advancement is recommended given location of the sidehole.
--- NOTE | 2020-05-08 14:30 | NUR ---
NURSE NOTES: Left NGT advanced again per last xray result. Will order another xray to confirm NGT placement.
--- NOTE | 2020-05-08 14:45 | NUR ---
NURSE NOTES: Patient's daughter Jenny Medrano in the unit. Visiting patient, informed visitors that they are not allowed to go inside the room. And they verbalized understanding, and they are aware that patient si DNR.
--- NOTE | 2020-05-08 15:00 | NUR ---
NURSE NOTES: Oral care provided.
--- NOTE | 2020-05-08 15:05 | Surgery Progress Note ---
Surgery Progress Note Subjective Additional Comments KUB noted ill appearing ng okay for now worsening leukocytosis ill appearing Objective Last 24 Hour Vital Signs Date Time Temp Pulse Resp B/P (MAP) Pulse Ox O2 Delivery O2 Flow Rate FiO2 05/08/20 14:30 125/63 05/08/20 14:15 92 19 123/60 (81) 100 05/08/20 14:15 123/60 05/08/20 14:01 125/61 05/08/20 14:00 125/61 05/08/20 14:00 92 20 125/61 (82) 100 92 05/08/20 13:45 91 23 142/69 (93) 100 05/08/20 13:30 88 20 136/58 (84) 100 05/08/20 13:15 88 18 134/59 (84) 100 05/08/20 13:01 127/65 05/08/20 13:00 86 18 127/65 (85) 100 05/08/20 13:00 127/65 05/08/20 12:45 87 18 140/58 (85) 100 05/08/20 12:30 90 18 122/54 (76) 100 05/08/20 12:24 90 05/08/20 12:15 93 19 133/57 (82) 100 05/08/20 12:00 Mechanical Ventilator 05/08/20 12:00 148/61 05/08/20 12:00 96 21 148/61 (90) 100 05/08/20 11:45 95 20 151/61 (91) 99 05/08/20 11:30 95 21 144/57 (86) 99 05/08/20 11:16 147/55 05/08/20 11:15 94 22 147/55 (85) 99 05/08/20 11:15 147/55 05/08/20 11:00 142/58 05/08/20 11:00 75 05/08/20 11:00 93 22 142/58 (86) 100 05/08/20 10:55 86 21 75 05/08/20 10:45 94 20 134/53 (80) 100 05/08/20 10:30 94 21 140/58 (85) 100 05/08/20 10:30 140/58 05/08/20 10:16 138/57 05/08/20 10:15 138/57 05/08/20 10:15 93 20 138/57 (84) 100 05/08/20 10:01 142/56 05/08/20 10:00 142/56 05/08/20 10:00 93 20 142/56 (84) 100 05/08/20 09:45 93 20 143/55 (84) 100 05/08/20 09:30 93 19 134/55 (81) 100 05/08/20 09:15 94 19 121/54 (76) 100 05/08/20 09:00 95 19 128/53 (78) 100 05/08/20 09:00 128/53 05/08/20 08:45 99 20 119/49 (72) 100 05/08/20 08:35 90 05/08/20 08:35 90 05/08/20 08:30 100 17 130/52 (78) 100 05/08/20 08:15 101 19 112/49 (70) 100 05/08/20 08:11 123/44 05/08/20 08:00 Mechanical Ventilator Mechanical Ventilator 05/08/20 08:00 100 05/08/20 08:00 97.2 105 19 123/44 (70) 100 05/08/20 08:00 123/44 05/08/20 07:45 110 19 134/53 (80) 100 05/08/20 07:30 109 17 121/48 (72) 100 05/08/20 07:30 108 19 100 05/08/20 07:24 109 05/08/20 07:15 109 17 106/52 (70) 100 05/08/20 07:00 110 18 111/51 (71) 100 05/08/20 07:00 121/48 05/08/20 06:00 118/73 05/08/20 05:00 80/42 05/08/20 04:43 86/43 05/08/20 04:00 62/30 05/08/20 04:00 100 05/08/20 04:00 Mechanical Ventilator Mechanical Ventilator 05/08/20 04:00 97.0 83 20 70/41 (51) 97 05/08/20 04:00 74 05/08/20 03:30 79 19 100 05/08/20 03:00 92/45 05/08/20 02:45 79/36 05/08/20 00:00 98.2 102 26 102/52 (69) 90 05/08/20 00:00 Non-Rebreather 15.0 Non-Rebreather 15.0 05/07/20 23:43 93 05/07/20 20:00 Non-Rebreather 15.0 Non-Rebreather 15.0 05/07/20 20:00 98.1 105 30 88/35 (52) 80 05/07/20 19:41 101 05/07/20 16:16 Non-Rebreather 15.0 05/07/20 16:00 104 05/07/20 16:00 97.7 103 28 104/48 (66) 97 I&O Intake and Output 05/07/20 05/08/20 19:00 07:00 Intake Total 1225 ml 1340.4 ml Output Total 102 ml 0 ml Balance 1123 ml 1340.4 ml Intake Free Water 200 ml 30 ml IV Total 365 ml 1085.4 ml Tube Feeding 540 ml 225 ml Other 120 ml Output Urine Total 101 ml 0 ml Stool Total 1 ml # Bowel Movements 1 1 Dressing: other Wound: other Drains: other Cardiovascular: RSR Respiratory: decreased breath sounds Abdomen: soft, non-tender, present bowel sounds Extremities: no tenderness, no cyanosis Laboratory Tests Test 05/07/20 16:24 05/07/20 23:35 05/08/20 04:06 05/08/20 06:10 POC Whole Blood Glucose Pending 178 MG/DL (74-106) H Pending Arterial Blood pH 7.142 (7.350-7.450) Arterial Blood Partial Pressure CO2 80.1 mmHg (35.0-45.0) *H Arterial Blood Partial Pressure O2 88.3 mmHg (75.0-100.0) Arterial Blood HCO3 26.8 mmol/L (22.0-26.0) H Arterial Blood Oxygen Saturation 96.6 % (95-100) Arterial Blood Base Excess -3.3 (-2-2) L Timmy Test Positive Test 05/08/20 08:22 Arterial Blood pH 7.340 (7.350-7.450) Arterial Blood Partial Pressure CO2 47.0 mmHg (35.0-45.0) H Arterial Blood Partial Pressure O2 161.8 mmHg (75.0-100.0) H Arterial Blood HCO3 24.8 mmol/L (22.0-26.0) Arterial Blood Oxygen Saturation 98.9 % (95-100) Arterial Blood Base Excess -1.2 (-2-2) Timym Test Pending Plan Problems: (1) Pneumonia due to COVID-19 virus (2) Severe protein-calorie malnutrition Assessment & Plan: 74-year-old male with significant severe protein calorie malnutrition. BMI is 18. Albumin is low. Skin turgor is poor. On admission identified to have a deep tissue injury and decubitus skin ulcer. Air mattress ordered local wound care plan initiated. Speech therapy evaluation identified. High risk dysphasia aspiration Needs nutritional optimization to allow for wound healing and care plan. We will follow with recommendations thank you for let me participate in patient' s care Turn every 2 hours Offload pressure with pillows Wash sacral wound daily with normal saline apply Thera honey and foam dressing. Bilateral heel protectors DAILY ESTIMATED NEEDS: Needs based on wound, underweight, 54kg 30-35 kcals/kg 2287-1730 total kcals 1.25-2 g protein/kg 68-108 g total protein 25-35ml/kcal mL/kg 3007-5261 total fluid mLs NUTRITION DIAGNOSIS: Swallowing difficulty r/t dysphagia as evidenced by DINING CAR CONDUCTOR marj, pt not safe for oral diet, now on NGT feeds. CURRENT TF:Glucerna 1.5 @45ml/hr ENTERAL NUTRITION RECOMMENDATIONS: Glucerna 1.5 goal of 45ml/hr x 24 hrs to provide 1080ml, 1620kcal, 89g pro, 820ml free H2O - Maintain Glucerna 1.5 @45ml/hr as tolerated - Advance as tolerated 10ml/hr q4-6 hrs to goal. - Flush per MD. HOB over 30 degrees. ADDITIONAL RECOMMENDATIONS: 1) Monitor BG closely w/ TF's; need for increased insulin coverage 2) wound care w/ NGT feeds: add LYNNE in 4oz H2O BID + Vit C500mg qdaily, MVI w/ min qdaily+ ZnSO4 220mg qd x10 days 3) Calibrated bed scale wts 4) Monitor lytes daily w/ TF, replete as needed THE PATIENT WAS POSITIONED UPRIGHT FOR P.O. TRIALS. PATIENT NON/VERBAL, NON/VISUAL TRACKING, NON/RESPONSIVE TO TACTILE/VERBAL CUES. HE IS MOUTH BREATHING, ORAL MUCOSA PRESENTS WITH XEROSTOMIA. HIS DECREASED MENTATION INCLUDED SENSORIMOTOR DEFICITS WHICH RESULTED IN POOR BOLUS ACCEPTANCE, DECREASED AWARENESS OF FOOD IN MOUTH. WHEN PRESENTED WITH 5ML OF NECTAR THICK WATER VIA SPOON, THE PATIENT DEMONSTRATED REPETITIVE LINGUAL PUMPING IN HIS ATTEMPT TO TRIGGER THE PHARYNGEAL PHASE OF THE SWALLOW. HYOLARYNGEAL ELEVATION WAS PALPATED AND DETERMINED TO BE INSUFFICIENT FOR AIRWAY PROTECTION. AFTER THE SECOND P.O. TRIAL WITH THE NTL, THE PATIENT DEMONSTRATED A PROLONGED NON/ CLEARING, NON/PRODUCTIVE COUGH, WITH 3 TRIALS OF PUREE PRESENTED IN 5 ML AMOUNTS , THE PATIENT DEMONSTRATED ORAL STASIS, AND RESIDUE HAD TO BE SUCTIONED TO CLEAR HIS MOUTH. ORAL CARE WAS PROVIDED POST SUCTIONING. PHARYNGEAL PHASE OF SWALLOW SEVERELY DELAYED. CLEARLY, THIS GENTLEMAN PRESENTS WITH SEVERE OROPHARYNGEAL DYSPHAGIA, ALONG WITH A HISTORY OF SUBOPTIMAL P.O. INTAKE/LOSS OF APPETITE RECOMMENDATIONS 1. CONSIDER NON/ORAL FEEDING MANAGEMENT FOR INTERIM NUTRITION/HYDRATION 2. NPO 3. ORAL CARE TID TO REDUCE ORAL PATHOGENS 4. SKILLED ST INTERVENTION DOES NOT APPEAR TO BE NEEDED AT THIS TIME. (3) At high risk for aspiration (4) Respiratory distress (5) COVID-19 Assessment & Plan: + (6) History of diabetes mellitus (7) Alzheimer's dementia (8) Decubitus skin ulcer Assessment & Plan: Pt deconditioned and presents with multiple Pressure injuries on admission. Non-Blanchable erythema without fluctuance or induration noted to R elbow. Open DTPI Sacrum with full thickness Ulcer (L)9.5cm x (W)10.5cm.Wound is irregular shaped and extends to apex of anus. Base of wound is indurated and purpuric surrounding areas at base of wound with full thickness ulcer with scattered areas of soft necrosis (60%), 40% maldonado. Bony prominence is palpable at base of wound.Small amt sanguineous exudate noted . No odor noted . Periwound Skin is blanchable but Bilat trochanteric and iliac areas, including Ischial tuberosities are at high risks for pressure injuries secondary to bony protrusion and poor tissue perfusion. DTPI R Ischium. Base of pressure injury is maroon and indurated(L)3.4cm x (W) 7cm. DTPI R Heel (L)4cm x (W)9cm. Base of Pressure injury is fluctuant, maroon with small purpuric area.No evidence of ski breakdown periwound. L heel is boggy with non-Blanchable erythema. Tx.Plan: Cleanse Sacral wound with Saline. Apply TheraHoney. Apply Moisture Barrier Paste periwound. Cover with Optifoam drsgs. Change Daily and prn. Apply Cavilon Skin Barrier to R ischium. Cover with Optifoam drsg. Change every 3 days and prn. Apply Cavilon Skin Barrier to At Risks Bony Prominences. Cover areas with Optifoam drsgs as needed. Apply Cavilon Skin Barrier to both heels and Malleoli. Cover each site with Optifoam drsg. Change every 7 days and Prn. Reposition at least every 2hours or as tolerated. Off-load heels with Pillow. Air Fluidized Mattress. (9) Dysphagia Assessment & Plan: ng placed unlikey to pass swallow eval low bmi consider peg polst noted PEG [facility]ags[facility] May 08, 2020 15:05
--- NOTE | 2020-05-08 16:16 | NUR ---
NURSE NOTES: Decreased levophed to 14mcg. Latest blood pressure is 122/53.
[2020-05-08] MEDS: Micafungin 100 MG in NS 110 ML IVPB SCH (16:20)
[2020-05-08] MEDS ORDERED: DAPTOmycin 350 MG in NS 55 ML IV SCH (17:00)
--- NOTE | 2020-05-08 17:13 | Diagnostic Imaging Report ---
Indication: Reason For Exam: MALPOSITN Technique: Single AP view of the abdomen. Comparison: Chest radiograph dated 05/08/2020 and abdominal radiograph dated 05/08/2020 at 739 Findings: Bowel gas pattern is nonspecific and unchanged in appearance. Interval repositioning of enteric tube, which now points cranially and is in expected location of the gastric bubble is imaging a diaphragmatic hernia. Unchanged appearance of the lungs, with diffuse bilateral airspace disease Unchanged right femoral approach catheter. IMPRESSION: 1. No significant change in bowel gas pattern. 2. Interval advancement of enteric tube, with indeterminate position given unclear evidence of left diaphragmatic herniation. Repositioning is recommended. Findings discussed with ICU nurse at 1700 on 05/08/2020
--- NOTE | 2020-05-08 17:20 | NUR ---
NURSE NOTES: Bedbath provided by 2 staff. 1 soft large bowel movement noted.
--- NOTE | 2020-05-08 17:30 | NUR ---
NURSE NOTES: OJ tube placed. Left NGT removed. Will wait for Xray placement confirmation.
--- NOTE | 2020-05-08 19:10 | NUR ---
HAND-OFF: Report given to Earlene Patel RN. Remains orally intubated, vent dependent. Awaiting for OJ tube Xray placement confirmation for feeding. With levophed at 14mcg and 1/2 NS running at 50ml/hour at patient's right femoral TLC. Slade cath inplace, no urine output. Remains Sinus rhythm in surveillance monitor. Right soft wrist restraints inplace. Multiple wound dressing changed. Kept clean and dry.
--- NOTE | 2020-05-08 19:11 | NUR ---
NURSE NOTES: Patient received from TAWNYA Celeste. patient withdraws to pain. patient with 7.5 ETT at 22cm lip on ventilator AC 18 TV 700 FiO2 60% PEEP 8. BP 126/61 HR92 NSR on monitor, temp 100.4F axillary. right femoral TLC running levophed 14mcg/min and 1/2NS @50ml/hr clean and asymptomatic. PIV left forearm #22 SL. OGT clamped, awaiting placement verification. carrillo catheter in place with scant amount of dark vaishnavi urine noted. sacral unstageable dressing clean and intact. patient on p200 mattress, bed locked lowest position.
[2020-05-08] MEDS ORDERED: NS 275ml ONE (19:14)
[2020-05-08] MEDS ORDERED: Tubing IV Secondary IV ONE (19:14)
[2020-05-08] MEDS ORDERED: 1/2 NS 1000ml IV ONE (19:14)
[2020-05-08] MEDS ORDERED: NS 500ML ONE (19:14)
--- NOTE | 2020-05-08 19:47 | Diagnostic Imaging Report ---
EXAM: XR Abdomen, one view CLINICAL HISTORY: NGT TECHNIQUE: Frontal view of the abdomen/pelvis. COMPARISON: 05/08/2020. FINDINGS: Lower thorax: Interstitial and airspace opacities in the lungs. Bones/joints: Unremarkable. Tubes, lines and devices: Gastric decompression tube terminates within the stomach. IMPRESSION: 1. Gastric decompression tube terminates within the stomach. 2. Interstitial and airspace opacities in the lungs.
[2020-05-08] MEDS: Dyna-Hex 2% Top Sol 2oz TOPIC SCH (20:19)
--- NOTE | 2020-05-08 22:00 | NUR ---
NURSE NOTES: patient withdraws to pain, obtunded, does not open eyes. patient with 7.5 ETT at 22cm lip on ventilator AC 18 TV 700 FiO2 60% PEEP 8. BP 119/58 HR91 NSR on monitor. right femoral TLC running levophed 10mcg/min and 1/2NS @50ml/hr clean and asymptomatic. PIV left forearm #22 SL. OGT in good position, glucerna 1.5 started at 25ml/hr. carrillo catheter in place with no urine noted. patient on p200 mattress, bed locked lowest position. patient repositioned and oral care provided.
[2020-05-09] VITALS (44 sets, daily range): BP systolic 86–130; BP diastolic 44–103
--- NOTE | 2020-05-09 | NUR ---
NURSE NOTES: patient withdraws to pain. patient with 7.5 ETT at 22cm lip on ventilator AC 18 TV 700 FiO2 60% PEEP 8. BP 118/54 HR87 NSR on monitor temp 99.8F axillary. right femoral TLC running levophed 10mcg/min and 1/2NS @50ml/hr, dressing changed. PIV left forearm #22 SL. OGT in good position, glucerna 1.5 @ 25ml/hr, residual 100ml feeding held. carrillo catheter in place with no urine noted. patient on p200 mattress, bed locked lowest position. patient repositioned and oral care provided.
--- NOTE | 2020-05-09 02:00 | NUR ---
NURSE NOTES: patient withdraws to pain. patient with 7.5 ETT at 22cm lip on ventilator AC 18 TV 700 FiO2 60% PEEP 8. BP 88/44 with levo @4mcg/min, levo increased to 6mcg/min, HR87 NSR on monitor. right femoral TLC running levophed 6mcg/min and 1/2NS @50ml/hr. PIV left forearm #22 SL. OGT glucerna 1.5 feeding held. carrillo catheter with scant dark vaishnavi urine noted. patient on p200 mattress, bed locked lowest position. patient repositioned and oral care provided.
--- NOTE | 2020-05-09 04:00 | NUR ---
NURSE NOTES: patient withdraws to pain but does not open eyes and nonverbal with 7.5 ETT at 22cm lip on ventilator AC 18 TV 700 FiO2 60% PEEP 8. BP 104/56 HR88 NSR on monitor. moderate amount of thick rdz secretions noted. right femoral TLC running levophed 6mcg/min and 1/2NS @50ml/hr. PIV left forearm #22 SL. OGT glucerna 1.5 feeding held due to high residual. carrillo catheter with no urine noted. patient on p200 mattress, bed locked lowest position. patient given CHG bath, repositioned and oral care provided.
[2020-05-09] MEDS: Meropenem 1 GM in NS 55 ML IVPB SCH ×2 (05:08→17:24)
[2020-05-09] MEDS: NovoLOG Insulin Flexpen SUBQ SCH ×4 (05:24→23:51)
[2020-05-09 05:38] LABS: HEMATOCRIT 26.8 % (42.0-52.0); HEMOGLOBIN 8.4 G/DL (14.2-18.0); MEAN CORPUSCULAR VOLUME 97 FL (80-99); PLATELET COUNT 263 K/UL (150-450); RED BLOOD COUNT 2.76 M/UL (4.70-6.10); RED CELL DISTRIBUTION WIDTH 13.6 % (11.6-14.8); WHITE BLOOD COUNT 13.8 K/UL (4.8-10.8)
[2020-05-09 06:00] LABS: ALANINE AMINOTRANSFERASE 19 U/L (12-78); ALBUMIN/GLOBULIN RATIO 0.2 (1.0-2.7); ALKALINE PHOSPHATASE 127 U/L (46-116); ANION GAP 11 mmol/L (5-15); ASPARTATE AMINO TRANSFERASE 39 U/L (15-37); BILIRUBIN,TOTAL 0.3 MG/DL (0.2-1.0); BLOOD UREA NITROGEN 114 mg/dL (7-18); CALCIUM 8.3 MG/DL (8.5-10.1); CARBON DIOXIDE 26 MMOL/L (21-32); CHLORIDE 101 MMOL/L (98-107); CREATININE 4.6 MG/DL (0.55-1.30); PHOSPHORUS 4.3 MG/DL (2.5-4.9); POTASSIUM 4.6 MMOL/L (3.5-5.1); SODIUM 138 MMOL/L (136-145)
--- NOTE | 2020-05-09 06:00 | NUR ---
NURSE NOTES: patient withdraws to pain. patient with 7.5 ETT at 22cm lip on ventilator AC 18 TV 700 FiO2 60% PEEP 8. BP 96/49 HR92 NSR on monitor. moderate amount of thick rdz secretions noted. right femoral TLC running levophed 2mcg/min and 1/2NS @50ml/hr. PIV left forearm #22 SL. OGT glucerna 1.5 feeding held due to high residual. carrillo catheter with no urine noted. sacral unstageable dressing clean and intact. patient on p200 mattress, bed locked lowest position. patient repositioned and oral care provided.
--- NOTE | 2020-05-09 07:23 | NUR ---
NURSE HAND-OFF REPORT: Latest Vital Signs: Temperature 99.1 , Pulse 90 , B/P 103 /55 , Respiratory Rate 17 , O2 SAT 100 , Mechanical Ventilator, O2 Flow Rate 15.0 . Vital Sign Comment: levophed titrated down to 2mcg/min EKG Rhythm: Sinus Rhythm Rhythm change?: N MD Notified?: - MD Response: Latest Schneider Fall Score: 50 Fall Risk: High Risk Safety Measures: Call light Within Reach, Bed Alarm Zone 1, Side Rails Side Rails x3, Bed position Low and Locked. Fall Precautions: Yellow Socks Yellow Gown Door Sign Patient Fall Education Report given to TAWNYA Antoine.
--- NOTE | 2020-05-09 07:25 | NUR ---
NURSE NOTES: Patient received from TAWNYA Henao. Patient observed laying in bed with eyes closed, not responding to verbal commands; however, withdraws to pain. Patient is orally intubated 7.5 ETT at 22cm lip on ventilator with following settings: AC 18 TV 700 FiO2 60% PEEP 8. NSR on property assessment monitor. Right femoral TLC, clean and asymptomatic, running Levophed @ 2mcg/min and 1/2NS @50ml/hr. PIV left forearm #[address]- feeds currently on hold d/t high residuals, as endorsed by previous nurse. Slade catheter in place with scant amount of dark vaishnavi urine noted draining to urometer. Sacral unstageable dressing clean and intact. patient on p200 mattress. Bed locked and in lowest position, with call light within reach. Will resume plan of care.
[2020-05-09] MEDS: Multivitamins W/Minerals 15 ML UDC NG SCH (08:33)
[2020-05-09] MEDS: Zinc Sulfate 220mg NG SCH (08:33)
[2020-05-09] MEDS: Ascorbic Acid 500mg tab NG SCH (08:33)
[2020-05-09] MEDS: levETIRAcetam 500mg/5ml Liquid NG SCH ×2 (08:33→20:27)
[2020-05-09] MEDS: Heparin 5000 units/ml inj SUBQ SCH ×2 (08:34→20:28)
[2020-05-09] MEDS ORDERED: NS 275ml ONE (08:45)
--- NOTE | 2020-05-09 08:48 | Diagnostic Imaging Report ---
EXAM: XR Chest, 1 View CLINICAL HISTORY: DYSPNEA TECHNIQUE: Frontal view of the chest. COMPARISON: May 08, 2020. FINDINGS: Stable support lines and tubes. There is slight interval improvement in previously noted extensive consolidative process in the right mid to upper lung. Mild interval worsening of patchy infiltrates in the left lower lobe. Small left pleural effusion. Remainder little changed. IMPRESSION: Slight interval improvement in previously extensive consolidative process in the right mid to upper lung. Worsening left lower lobe infiltrates.
--- NOTE | 2020-05-09 09:02 | NUR ---
RADIOLOGY DEPT., CHEST X-RAY DONE.-P.DYE
--- NOTE | 2020-05-09 10:00 | NUR ---
NURSE NOTES: Pt fully cleaned and linens changed after having a large brown soft BM. Pt turned and repositioned and oral care done.
--- NOTE | 2020-05-09 10:51 | Surgery Progress Note ---
Surgery Progress Note Subjective Additional Comments on support labs noted ill appearing discussed with RN Objective Last 24 Hour Vital Signs Date Time Temp Pulse Resp B/P (MAP) Pulse Ox O2 Delivery O2 Flow Rate FiO2 05/09/20 10:00 114/57 05/09/20 09:00 112/59 05/09/20 09:00 86 19 101/55 (70) 100 05/09/20 08:30 85 18 96/53 (67) 100 05/09/20 08:00 60 05/09/20 08:00 99.1 87 18 93/48 (63) 100 05/09/20 08:00 94/54 05/09/20 08:00 85 05/09/20 08:00 Mechanical Ventilator 05/09/20 07:00 103/55 05/09/20 07:00 93 23 60 05/09/20 07:00 90 17 119/103 (108) 100 05/09/20 06:00 92 22 96/49 (65) 100 05/09/20 06:00 96/49 05/09/20 05:00 125/63 05/09/20 05:00 90 18 125/63 (83) 100 05/09/20 04:00 Mechanical Ventilator 05/09/20 04:00 60 05/09/20 04:00 99.1 88 18 104/56 (72) 100 05/09/20 04:00 104/56 05/09/20 04:00 89 05/09/20 03:00 89 17 115/55 (75) 100 05/09/20 03:00 110/54 05/09/20 02:57 90 22 60 05/09/20 02:04 87 18 91/48 (62) 99 05/09/20 02:04 91/48 05/09/20 02:00 88 18 88/44 (59) 99 05/09/20 02:00 88/44 05/09/20 01:00 115/59 05/09/20 01:00 90 22 115/59 (77) 99 05/09/20 00:00 Mechanical Ventilator 05/09/20 00:00 99.8 87 19 118/54 (75) 100 05/09/20 00:00 118/54 05/09/20 00:00 87 05/08/20 23:04 92 19 60 05/08/20 23:00 89 15 119/68 (85) 100 05/08/20 23:00 119/68 05/08/20 22:00 91 19 119/58 (78) 99 05/08/20 22:00 119/58 05/08/20 21:00 119/58 05/08/20 21:00 89 18 119/58 (78) 100 05/08/20 20:20 94/52 05/08/20 20:00 100.4 95 18 106/49 (68) 100 05/08/20 20:00 Mechanical Ventilator 05/08/20 20:00 93 05/08/20 20:00 106/49 05/08/20 20:00 60 05/08/20 19:28 95 20 60 05/08/20 19:00 126/61 05/08/20 19:00 92 19 126/61 (82) 100 05/08/20 18:45 90 19 119/66 (83) 100 05/08/20 18:30 86 18 113/52 (72) 100 05/08/20 18:15 86 18 123/53 (76) 100 05/08/20 18:00 87 18 116/52 (73) 100 05/08/20 18:00 116/52 05/08/20 17:45 90 18 123/53 (76) 100 05/08/20 17:30 89 18 114/50 (71) 100 05/08/20 17:15 90 17 127/64 (85) 100 05/08/20 17:00 91 19 128/60 (82) 100 05/08/20 17:00 128/80 05/08/20 16:45 91 19 118/57 (77) 100 05/08/20 16:30 90 19 124/54 (77) 100 05/08/20 16:30 124/54 05/08/20 16:15 89 18 122/53 (76) 100 05/08/20 16:15 122/53 05/08/20 16:00 117/53 05/08/20 16:00 Mechanical Ventilator 05/08/20 16:00 60 05/08/20 16:00 90 18 117/53 (74) 100 05/08/20 15:50 60 05/08/20 15:45 92 18 125/58 (80) 100 05/08/20 15:43 94 05/08/20 15:30 88 18 117/53 (74) 100 05/08/20 15:15 90 18 60 05/08/20 15:15 90 18 121/57 (78) 100 05/08/20 15:00 129/61 05/08/20 15:00 92 18 129/61 (83) 100 05/08/20 14:45 92 18 128/63 (84) 100 05/08/20 14:30 125/63 05/08/20 14:30 95 19 125/63 (83) 100 05/08/20 14:15 92 19 123/60 (81) 100 05/08/20 14:15 123/60 05/08/20 14:01 125/61 05/08/20 14:00 125/61 05/08/20 14:00 92 20 125/61 (82) 100 92 05/08/20 13:45 91 23 142/69 (93) 100 05/08/20 13:30 88 20 136/58 (84) 100 05/08/20 13:15 88 18 134/59 (84) 100 05/08/20 13:01 127/65 05/08/20 13:00 86 18 127/65 (85) 100 05/08/20 13:00 127/65 05/08/20 12:45 87 18 140/58 (85) 100 05/08/20 12:30 90 18 122/54 (76) 100 05/08/20 12:24 90 05/08/20 12:15 93 19 133/57 (82) 100 05/08/20 12:00 Mechanical Ventilator 05/08/20 12:00 75 05/08/20 12:00 148/61 05/08/20 12:00 97.2 96 21 148/61 (90) 100 05/08/20 11:45 95 20 151/61 (91) 99 05/08/20 11:30 95 21 144/57 (86) 99 05/08/20 11:16 147/55 05/08/20 11:15 94 22 147/55 (85) 99 05/08/20 11:15 147/55 05/08/20 11:00 142/58 05/08/20 11:00 75 05/08/20 11:00 93 22 142/58 (86) 100 05/08/20 10:55 86 21 75 I&O Intake and Output 05/08/20 05/09/20 19:00 07:00 Intake Total 1792.84 ml 1020.0 ml Output Total 15 ml 40 ml Balance 1777.84 ml 980.0 ml IV Total 1792.84 ml 920.0 ml Tube Feeding 100 ml Output Urine Total 15 ml 40 ml # Bowel Movements 2 1 Dressing: saturated Cardiovascular: RSR Respiratory: decreased breath sounds Abdomen: soft, non-tender, present bowel sounds Extremities: no tenderness, no cyanosis, other Laboratory Tests Test 05/09/20 04:00 05/09/20 07:40 White Blood Count 13.8 K/UL (4.8-10.8) H Red Blood Count 2.76 M/UL (4.70-6.10) L Hemoglobin 8.4 G/DL (14.2-18.0) L Hematocrit 26.8 % (42.0-52.0) L Mean Corpuscular Volume 97 FL (80-99) Mean Corpuscular Hemoglobin 30.5 PG (27.0-31.0) Mean Corpuscular Hemoglobin Concent 31.5 G/DL (32.0-36.0) L Red Cell Distribution Width 13.6 % (11.6-14.8) Platelet Count 263 K/UL (150-450) Mean Platelet Volume 6.6 FL (6.5-10.1) Neutrophils (%) (Auto) % (45.0-75.0) Lymphocytes (%) (Auto) % (20.0-45.0) Monocytes (%) (Auto) % (1.0-10.0) Eosinophils (%) (Auto) % (0.0-3.0) Basophils (%) (Auto) % (0.0-2.0) Differential Total Cells Counted 100 Neutrophils % (Manual) 86 % (45-75) H Lymphocytes % (Manual) 12 % (20-45) L Monocytes % (Manual) 1 % (1-10) Eosinophils % (Manual) 1 % (0-3) Basophils % (Manual) 0 % (0-2) Band Neutrophils 0 % (0-8) Platelet Estimate Adequate Platelet Morphology Normal Polychromasia 1+ Hypochromasia 1+ Sodium Level 138 MMOL/L (136-145) Potassium Level 4.6 MMOL/L (3.5-5.1) Chloride Level 101 MMOL/L (98-107) Carbon Dioxide Level 26 MMOL/L (21-32) Anion Gap 11 mmol/L (5-15) Blood Urea Nitrogen 114 mg/dL (7-18) H Creatinine 4.6 MG/DL (0.55-1.30) H Estimat Glomerular Filtration Rate 12.6 mL/min (>60) Glucose Level 231 MG/DL (74-106) H Calcium Level 8.3 MG/DL (8.5-10.1) L Phosphorus Level 4.3 MG/DL (2.5-4.9) Magnesium Level 2.7 MG/DL (1.8-2.4) H Total Bilirubin 0.3 MG/DL (0.2-1.0) Aspartate Amino Transf (AST/SGOT) 39 U/L (15-37) H Alanine Aminotransferase (ALT/SGPT) 19 U/L (12-78) Alkaline Phosphatase 127 U/L (46-116) H Total Protein 6.0 G/DL (6.4-8.2) L Albumin 1.0 G/DL (3.4-5.0) L Globulin 5.0 g/dL Albumin/Globulin Ratio 0.2 (1.0-2.7) L Arterial Blood pH 7.451 (7.350-7.450) Arterial Blood Partial Pressure CO2 32.5 mmHg (35.0-45.0) L Arterial Blood Partial Pressure O2 149.4 mmHg (75.0-100.0) H Arterial Blood HCO3 22.1 mmol/L (22.0-26.0) Arterial Blood Oxygen Saturation 98.7 % (95-100) Arterial Blood Base Excess -1.4 (-2-2) Timmy Test Positive Plan Problems: (1) Pneumonia due to COVID-19 virus (2) Severe protein-calorie malnutrition Assessment & Plan: 74-year-old male with significant severe protein calorie malnutrition. BMI is 18. Albumin is low. Skin turgor is poor. On admission identified to have a deep tissue injury and decubitus skin ulcer. Air mattress ordered local wound care plan initiated. Speech therapy evaluation identified. High risk dysphasia aspiration Needs nutritional optimization to allow for wound healing and care plan. We will follow with recommendations thank you for let me participate in patient' s care Turn every 2 hours Offload pressure with pillows Wash sacral wound daily with normal saline apply Thera honey and foam dressing. Bilateral heel protectors DAILY ESTIMATED NEEDS: Needs based on wound, underweight, 54kg 30-35 kcals/kg 5153-1263 total kcals 1.25-2 g protein/kg 68-108 g total protein 25-35ml/kcal mL/kg 3461-5237 total fluid mLs NUTRITION DIAGNOSIS: Swallowing difficulty r/t dysphagia as evidenced by POWERHOUSE ELECTRICIAN APPRENTICE marj, pt not safe for oral diet, now on NGT feeds. CURRENT TF:Glucerna 1.5 @45ml/hr ENTERAL NUTRITION RECOMMENDATIONS: Glucerna 1.5 goal of 45ml/hr x 24 hrs to provide 1080ml, 1620kcal, 89g pro, 820ml free H2O - Maintain Glucerna 1.5 @45ml/hr as tolerated - Advance as tolerated 10ml/hr q4-6 hrs to goal. - Flush per MD. HOB over 30 degrees. ADDITIONAL RECOMMENDATIONS: 1) Monitor BG closely w/ TF's; need for increased insulin coverage 2) wound care w/ NGT feeds: add LYNNE in 4oz H2O BID + Vit C500mg qdaily, MVI w/ min qdaily+ ZnSO4 220mg qd x10 days 3) Calibrated bed scale wts 4) Monitor lytes daily w/ TF, replete as needed THE PATIENT WAS POSITIONED UPRIGHT FOR P.O. TRIALS. PATIENT NON/VERBAL, NON/VISUAL TRACKING, NON/RESPONSIVE TO TACTILE/VERBAL CUES. HE IS MOUTH BREATHING, ORAL MUCOSA PRESENTS WITH XEROSTOMIA. HIS DECREASED MENTATION INCLUDED SENSORIMOTOR DEFICITS WHICH RESULTED IN POOR BOLUS ACCEPTANCE, DECREASED AWARENESS OF FOOD IN MOUTH. WHEN PRESENTED WITH 5ML OF NECTAR THICK WATER VIA SPOON, THE PATIENT DEMONSTRATED REPETITIVE LINGUAL PUMPING IN HIS ATTEMPT TO TRIGGER THE PHARYNGEAL PHASE OF THE SWALLOW. HYOLARYNGEAL ELEVATION WAS PALPATED AND DETERMINED TO BE INSUFFICIENT FOR AIRWAY PROTECTION. AFTER THE SECOND P.O. TRIAL WITH THE NTL, THE PATIENT DEMONSTRATED A PROLONGED NON/ CLEARING, NON/PRODUCTIVE COUGH, WITH 3 TRIALS OF PUREE PRESENTED IN 5 ML AMOUNTS , THE PATIENT DEMONSTRATED ORAL STASIS, AND RESIDUE HAD TO BE SUCTIONED TO CLEAR HIS MOUTH. ORAL CARE WAS PROVIDED POST SUCTIONING. PHARYNGEAL PHASE OF SWALLOW SEVERELY DELAYED. CLEARLY, THIS GENTLEMAN PRESENTS WITH SEVERE OROPHARYNGEAL DYSPHAGIA, ALONG WITH A HISTORY OF SUBOPTIMAL P.O. INTAKE/LOSS OF APPETITE RECOMMENDATIONS 1. CONSIDER NON/ORAL FEEDING MANAGEMENT FOR INTERIM NUTRITION/HYDRATION 2. NPO 3. ORAL CARE TID TO REDUCE ORAL PATHOGENS 4. SKILLED ST INTERVENTION DOES NOT APPEAR TO BE NEEDED AT THIS TIME. (3) At high risk for aspiration (4) Respiratory distress (5) COVID-19 Assessment & Plan: + (6) History of diabetes mellitus (7) Alzheimer's dementia (8) Decubitus skin ulcer Assessment & Plan: Pt deconditioned and presents with multiple Pressure injuries on admission. Non-Blanchable erythema without fluctuance or induration noted to R elbow. Open DTPI Sacrum with full thickness Ulcer (L)9.5cm x (W)10.5cm.Wound is irregular shaped and extends to apex of anus. Base of wound is indurated and purpuric surrounding areas at base of wound with full thickness ulcer with scattered areas of soft necrosis (60%), 40% maldonado. Bony prominence is palpable at base of wound.Small amt sanguineous exudate noted . No odor noted . Periwound Skin is blanchable but Bilat trochanteric and iliac areas, including Ischial tuberosities are at high risks for pressure injuries secondary to bony protrusion and poor tissue perfusion. DTPI R Ischium. Base of pressure injury is maroon and indurated(L)3.4cm x (W) 7cm. DTPI R Heel (L)4cm x (W)9cm. Base of Pressure injury is fluctuant, maroon with small purpuric area.No evidence of ski breakdown periwound. L heel is boggy with non-Blanchable erythema. Tx.Plan: Cleanse Sacral wound with Saline. Apply TheraHoney. Apply Moisture Barrier Paste periwound. Cover with Optifoam drsgs. Change Daily and prn. Apply Cavilon Skin Barrier to R ischium. Cover with Optifoam drsg. Change every 3 days and prn. Apply Cavilon Skin Barrier to At Risks Bony Prominences. Cover areas with Optifoam drsgs as needed. Apply Cavilon Skin Barrier to both heels and Malleoli. Cover each site with Optifoam drsg. Change every 7 days and Prn. Reposition at least every 2hours or as tolerated. Off-load heels with Pillow. Air Fluidized Mattress. (9) Dysphagia Assessment & Plan: ng placed unlikey to pass swallow eval low bmi consider peg polst noted PEG [facility] May 09, 2020 10:51
--- NOTE | 2020-05-09 12:00 | NUR ---
NURSE NOTES: Assessment performed. Pt withdraws from pain, unable to follow commands but appears to try; when asked to open eyes, pt's eyes can be observed moving but put unable to open. Pt turned and repositioned.
--- NOTE | 2020-05-09 12:15 | NUR ---
NURSE NOTES: Sacral and BL heel DTI wound photos taken and uploaded.
[2020-05-09] MEDS ORDERED: Metoclopramide 10mg/2ml Inj IVP PRN (12:45)
--- NOTE | 2020-05-09 13:15 | NUR ---
NURSE NOTES: Family came to visit patient specifically two son's. Family was here because patient was transferred after [place] overnight. rolling mill operator spoke to both son's to answer questions. Jr Jonathan advised that both sisters have very good intentions however, family is in agreement that patient did not want to continue with life sustaining measures. rolling mill operator explained that patient is with both a pressor and ventilator and both are life sustaining at this time. Son acknowledged his understanding. Son advised that he once had the DPOA however he no longer has, his niece the daughter giancarlo Olivares has. rolling mill operator requested a copy of the DPOA. All decisions would need to be made by her because she is the legal decision maker. Will update Dr. Corral
--- NOTE | 2020-05-09 14:15 | NUR ---
NURSE NOTES: Pt turned and repositioned. Oral care done.
--- NOTE | 2020-05-09 14:40 | NUR ---
NURSE NOTES: Reglan given d/t history of residuals. 0 residual when checked before restarting tube feeding- Glucerna 1.5 @ 20ml/hr (goal is 45ml/hr).
--- NOTE | 2020-05-09 16:00 | NUR ---
NURSE NOTES: Assessment done at this time. Pt remains in the same condition. Opens eyes spontaneously but is not tracking and/or following simple commands. Pt remains on Levophed at 2mcg/min to maintain SBP >90. Pt is afebrile at this time. No evidence of pain noted. Will continue to monitor.
[2020-05-09] MEDS: Micafungin 100 MG in NS 110 ML IVPB SCH (17:24)
--- NOTE | 2020-05-09 17:45 | NUR ---
NURSE NOTES: 10mL residual noted from OGT. Increased feeds to 30mL/hr (Goal remains 45mL/hr)
--- NOTE | 2020-05-09 17:53 | NUR ---
NURSE NOTES: Spoke to both Elise and Priya. BOTH have agreed to compassionately extubate their father and place him on comfort care only. The Power of [employer]et [employer] form will be brought in (original only) to confirm who has legal decision making in the afternoon of [id number]. Dr. Corral has been updated. Family wants patient to be comfortable in this process with Morphine and patient not to suffer while extubated per their request. Family may or may not be present at time of extubation.
--- NOTE | 2020-05-09 17:55 | Pulmonolgy Critical Care Note ---
Critical Care - Asmt/Plan Problems: (1) Acute respiratory failure due to COVID-19 (2) Pneumonia due to COVID-19 virus (3) Severe protein-calorie malnutrition (4) At high risk for aspiration (5) History of diabetes mellitus (6) Alzheimer's dementia Respiratory: monitor respiratory rate, adjust FIO2, CXR Cardiac: continue pressors, continue to monitor HR/BP Renal: F/U I&O, check electrolytes Infectious Disease: check cultures Gastrointestinal: continue feedings/current rate Endocrine: monitor blood sugar Hematologic: monitor H/H, transfuse if hgb<8.5 Time Spent (Minutes): 40 Notes Reviewed: customer relations assistant, cardio, renal Discussed with: nurses, consultants, behavioral health case managercivil engineering project manager - Objective Last 24 Hour Vital Signs Date Time Temp Pulse Resp B/P (MAP) Pulse Ox O2 Delivery O2 Flow Rate FiO2 05/09/20 16:00 Mechanical Ventilator 05/09/20 16:00 40 05/09/20 15:00 105/52 05/09/20 15:00 91 25 105/52 (69) 99 05/09/20 14:47 90 20 40 05/09/20 14:30 91 27 128/65 (86) 99 05/09/20 14:00 91 24 124/64 (84) 99 05/09/20 14:00 124/65 05/09/20 13:30 89 23 128/63 (84) 99 05/09/20 13:00 90 25 122/60 (80) 99 05/09/20 13:00 117/63 05/09/20 12:30 88 22 124/63 (83) 99 05/09/20 12:00 89 05/09/20 12:00 103/56 05/09/20 12:00 99.0 87 15 99/61 (74) 98 05/09/20 12:00 Mechanical Ventilator 05/09/20 12:00 40 05/09/20 11:45 89 11 109/51 (70) 99 05/09/20 11:33 92 16 103/54 (70) 99 05/09/20 11:30 92 14 86/54 (65) 98 05/09/20 11:15 88 18 97/46 (63) 99 05/09/20 11:05 98 19 40 05/09/20 11:00 91 22 108/57 (74) 100 05/09/20 11:00 97/46 05/09/20 10:30 88 19 114/55 (74) 100 05/09/20 10:00 114/57 05/09/20 10:00 85 20 101/52 (68) 100 05/09/20 09:30 87 19 109/51 (70) 100 05/09/20 09:00 112/59 05/09/20 09:00 86 19 101/55 (70) 100 05/09/20 08:30 85 18 96/53 (67) 100 05/09/20 08:00 60 05/09/20 08:00 99.1 87 18 93/48 (63) 100 05/09/20 08:00 94/54 05/09/20 08:00 85 05/09/20 08:00 Mechanical Ventilator 05/09/20 07:00 103/55 05/09/20 07:00 93 23 60 05/09/20 07:00 90 17 119/103 (108) 100 05/09/20 06:00 92 22 96/49 (65) 100 05/09/20 06:00 96/49 05/09/20 05:00 125/63 05/09/20 05:00 90 18 125/63 (83) 100 05/09/20 04:00 Mechanical Ventilator 05/09/20 04:00 60 05/09/20 04:00 99.1 88 18 104/56 (72) 100 05/09/20 04:00 104/56 05/09/20 04:00 89 05/09/20 03:00 89 17 115/55 (75) 100 05/09/20 03:00 110/54 05/09/20 02:57 90 22 60 05/09/20 02:04 87 18 91/48 (62) 99 05/09/20 02:04 91/48 05/09/20 02:00 88 18 88/44 (59) 99 05/09/20 02:00 88/44 05/09/20 01:00 115/59 05/09/20 01:00 90 22 115/59 (77) 99 05/09/20 00:00 Mechanical Ventilator 05/09/20 00:00 99.8 87 19 118/54 (75) 100 05/09/20 00:00 118/54 05/09/20 00:00 87 8/7/20 23:04 92 19 60 05/08/20 23:00 89 15 119/68 (85) 100 05/08/20 23:00 119/68 05/08/20 22:00 91 19 119/58 (78) 99 05/08/20 22:00 119/58 05/08/20 21:00 119/58 05/08/20 21:00 89 18 119/58 (78) 100 05/08/20 20:20 94/52 05/08/20 20:00 100.4 95 18 106/49 (68) 100 05/08/20 20:00 Mechanical Ventilator 05/08/20 20:00 93 05/08/20 20:00 106/49 05/08/20 20:00 60 05/08/20 19:28 95 20 60 05/08/20 19:00 126/61 05/08/20 19:00 92 19 126/61 (82) 100 05/08/20 18:45 90 19 119/66 (83) 100 05/08/20 18:30 86 18 113/52 (72) 100 05/08/20 18:15 86 18 123/53 (76) 100 05/08/20 18:00 87 18 116/52 (73) 100 05/08/20 18:00 116/52 Status: obtunded Condition: critical, grave Neck: full ROM Heart: HR/BP stable, regular Abdomen: soft Accucheck: 229 Critical Care - Subjective ROS Limited/Unobtainable: Yes Condition: grave FI02: 40 Vent Support Breath Rate: 18 Vent Support Mode: AC Vent Tidal Volume: 700 Sputum Amount: Small PEEP: 8.0 PIP: 29 Tube Feeding Amount: 20 I&O: Intake and Output 05/08/20 05/09/20 19:00 07:00 Intake Total 1792.84 ml 1020.0 ml Output Total 15 ml 40 ml Balance 1777.84 ml 980.0 ml IV Total 1792.84 ml 920.0 ml Tube Feeding 100 ml Output Urine Total 15 ml 40 ml # Bowel Movements 2 1 ET-Tube: 7.5 ET Position: 22 Labs: Laboratory Tests Test 05/09/20 04:00 05/09/20 07:40 05/09/20 11:38 White Blood Count 13.8 K/UL (4.8-10.8) H Red Blood Count 2.76 M/UL (4.70-6.10) L Hemoglobin 8.4 G/DL (14.2-18.0) L Hematocrit 26.8 % (42.0-52.0) L Mean Corpuscular Volume 97 FL (80-99) Mean Corpuscular Hemoglobin 30.5 PG (27.0-31.0) Mean Corpuscular Hemoglobin Concent 31.5 G/DL (32.0-36.0) L Red Cell Distribution Width 13.6 % (11.6-14.8) Platelet Count 263 K/UL (150-450) Mean Platelet Volume 6.6 FL (6.5-10.1) Neutrophils (%) (Auto) % (45.0-75.0) Lymphocytes (%) (Auto) % (20.0-45.0) Monocytes (%) (Auto) % (1.0-10.0) Eosinophils (%) (Auto) % (0.0-3.0) Basophils (%) (Auto) % (0.0-2.0) Differential Total Cells Counted 100 Neutrophils % (Manual) 86 % (45-75) H Lymphocytes % (Manual) 12 % (20-45) L Monocytes % (Manual) 1 % (1-10) Eosinophils % (Manual) 1 % (0-3) Basophils % (Manual) 0 % (0-2) Band Neutrophils 0 % (0-8) Platelet Estimate Adequate Platelet Morphology Normal Polychromasia 1+ Hypochromasia 1+ Sodium Level 138 MMOL/L (136-145) Potassium Level 4.6 MMOL/L (3.5-5.1) Chloride Level 101 MMOL/L (98-107) Carbon Dioxide Level 26 MMOL/L (21-32) Anion Gap 11 mmol/L (5-15) Blood Urea Nitrogen 114 mg/dL (7-18) H Creatinine 4.6 MG/DL (0.55-1.30) H Estimat Glomerular Filtration Rate 12.6 mL/min (>60) Glucose Level 231 MG/DL (74-106) H Calcium Level 8.3 MG/DL (8.5-10.1) L Phosphorus Level 4.3 MG/DL (2.5-4.9) Magnesium Level 2.7 MG/DL (1.8-2.4) H Total Bilirubin 0.3 MG/DL (0.2-1.0) Aspartate Amino Transf (AST/SGOT) 39 U/L (15-37) H Alanine Aminotransferase (ALT/SGPT) 19 U/L (12-78) Alkaline Phosphatase 127 U/L (46-116) H Total Protein 6.0 G/DL (6.4-8.2) L Albumin 1.0 G/DL (3.4-5.0) L Globulin 5.0 g/dL Albumin/Globulin Ratio 0.2 (1.0-2.7) L Arterial Blood pH 7.451 (7.350-7.450) Arterial Blood Partial Pressure CO2 32.5 mmHg (35.0-45.0) L Arterial Blood Partial Pressure O2 149.4 mmHg (75.0-100.0) H Arterial Blood HCO3 22.1 mmol/L (22.0-26.0) Arterial Blood Oxygen Saturation 98.7 % (95-100) Arterial Blood Base Excess -1.4 (-2-2) Timmy Test Positive POC Whole Blood Glucose 229 MG/DL (74-106) H Quincy Corral MD May 09, 2020 17:55
--- NOTE | 2020-05-09 18:00 | NUR ---
NURSE NOTES: B/S=206, 4 units Novolog insulin given, per MD order. Pt repositioned and oral care done. Pt remains on Levophed at 2mcg/min.
--- NOTE | 2020-05-09 19:16 | NUR ---
NURSE HAND-OFF REPORT: Latest Vital Signs: Temperature 98.7 , Pulse 88 , B/P 130 /69 , Respiratory Rate 20 , O2 SAT 100 , Mechanical Ventilator, O2 Flow Rate 15.0 . Vital Sign Comment: Pt remains on Levophed 2mcg/min to maintain SBP >90. EKG Rhythm: Sinus Rhythm Rhythm change?: N MD Notified?: - MD Response: Latest Schneider Fall Score: 50 Fall Risk: High Risk Safety Measures: Call light Within Reach, Bed Alarm Zone 1, Side Rails Side Rails x3, Bed position Low and Locked. Fall Precautions: Yellow Socks Yellow Gown Door Sign Patient Fall Education Report given to TAWNYA Miguel.
--- NOTE | 2020-05-09 19:30 | NUR ---
NURSE NOTES: Received report from TAWNYA Curry. Pt is resting on the bed and able to open the eye with pain stimuli but he did not follow command. Pt has ETT and orally intubated and Vent dependent and setting with AC: 18, T:700, P:8, FiO2 40% and SaO2 99% noted. No sign of pain FLACC scale. Pt has OGT and on running with Glucerna 1.5 @ 30cc/hr and noted 5cc residual. On Slade cath and patent and noted oliguria. Pt has Rt. femoral TLC and dressing is clean and dry and running with 1/2NS @ 50cc/hr and Levophed drip @ 2mcg/min as titrate. No fever. Dressing is clean and dry on wound area. On P-200 mattress for wound management. Pr has Rt. wrist soft wrist restraint. Checked comfort and circulation. Proper isolation for COVID-19.Placed fall and seizure precaution. Will continue to care plan.
[2020-05-09] MEDS: Dyna-Hex 2% Top Sol 2oz TOPIC SCH (20:21)
[2020-05-09] MEDS: Pantoprazole Inj IVP SCH (20:27)
--- NOTE | 2020-05-09 22:00 | NUR ---
NURSE NOTES: On running with Levophed drip @ 2mcg/min and BP is 113/54mmHg. On silk screen frame assembler with SR. SaO2 99-100% with current Vent setting. Given suction and oral care. Turn and reposition. Pt has plan to extubation tomorrow. Will continue to monitor any change of condition.
[2020-05-10] VITALS (52 sets, daily range): BP systolic 94–134; BP diastolic 47–72
--- NOTE | 2020-05-10 | NUR ---
NURSE NOTES: No sign of acute distress noted. On running with Levophed drip @ 2mcg/min and 1/2NS @ 50cc/hr. SaO2 100% with current Vent setting. Repositioned and suction and oral care was done. Will continue to monitor.
--- NOTE | 2020-05-10 02:00 | NUR ---
NURSE NOTES: Pt is sleeping on the bed and no sign of acute distress noted. SaO2 100% with current Vent setting and Tolerated well with current OGT feeding. Suction and oral care was done. Changed position. Will continue to care plan.
[2020-05-10] MEDS: Norepinephrine Bitartrate 8 MG in D5W 500ml 492 ML IV SCH (02:06)
--- NOTE | 2020-05-10 04:00 | NUR ---
NURSE NOTES: Morning care was done. Given bed bath. Noted large amount loose BM. Cleaned Pt and applied lotion and cream. Decrease Levophed drip @ 1mcg/min. No fever. Changed wound dressing. turn and reposition. Will continue to monitor any change of condition.
[2020-05-10] MEDS: Meropenem 1 GM in NS 55 ML IVPB SCH (05:59)
--- NOTE | 2020-05-10 06:00 | NUR ---
NURSE NOTES: Pt is resting on the bed and SaO2 100% with current Vent setting. No residual noted. Increased tube feeding @ 45cc/hr. changed position. Suction was done. Will continue to monitor any change of condition.
[2020-05-10] MEDS: NovoLOG Insulin Flexpen SUBQ SCH ×2 (06:12→12:04)
[2020-05-10 06:18] LABS: HEMATOCRIT 26.5 % (42.0-52.0); HEMOGLOBIN 8.6 G/DL (14.2-18.0); MEAN CORPUSCULAR VOLUME 95 FL (80-99); PLATELET COUNT 261 K/UL (150-450); RED BLOOD COUNT 2.79 M/UL (4.70-6.10); RED CELL DISTRIBUTION WIDTH 13.3 % (11.6-14.8); WHITE BLOOD COUNT 9.8 K/UL (4.8-10.8)
[2020-05-10 06:54] LABS: ALANINE AMINOTRANSFERASE 15 U/L (12-78); ALBUMIN/GLOBULIN RATIO 0.2 (1.0-2.7); ALKALINE PHOSPHATASE 136 U/L (46-116); ANION GAP 11 mmol/L (5-15); ASPARTATE AMINO TRANSFERASE 26 U/L (15-37); BILIRUBIN,TOTAL 0.3 MG/DL (0.2-1.0); BLOOD UREA NITROGEN 123 mg/dL (7-18); CALCIUM 8.2 MG/DL (8.5-10.1); CARBON DIOXIDE 23 MMOL/L (21-32); CHLORIDE 102 MMOL/L (98-107); CREATININE 5.3 MG/DL (0.55-1.30); PHOSPHORUS 3.1 MG/DL (2.5-4.9); POTASSIUM 4.4 MMOL/L (3.5-5.1); SODIUM 136 MMOL/L (136-145)
--- NOTE | 2020-05-10 07:13 | NUR ---
NURSE HAND-OFF REPORT: Pt is resting on the bed and no sign of acute distress noted. Latest Vital Signs: BP: 116/55, HR: 99, R: 22, SaO2 100% with current Vent setting, Mechanical Ventilator, EKG Rhythm: Sinus Rhythm Rhythm change?: N Latest Schneider Fall Score: 50 Fall Risk: High Risk Safety Measures: Call light Within Reach, Bed Alarm Zone 1, Side Rails Side Rails x3, Bed position Low and Locked. Fall Precautions: Yellow Socks Yellow Gown Door Sign, side rails up Pt plan to extubation today. Report given to TAWNYA Curry.
--- NOTE | 2020-05-10 07:30 | NUR ---
NURSE NOTES: Patient received from TAWNYA Miguel. Patient observed laying in bed with eyes closed, opens eyes spontaneously, not tracking, not responding to verbal commands; however, withdraws to pain. Patient is orally intubated 7.5 ETT at 22cm lip on ventilator with following settings: AC 18 TV 700 FiO2 0% PEEP 8. NSR on gambling monitor. Right femoral TLC, clean and asymptomatic, running Levophed @ 2mcg/min and 1/2NS @50ml/hr. PIV left forearm #[address]- feeds currently on hold d/t high residuals, as endorsed by previous nurse. Slade catheter in place with scant amount of dark vaishnavi urine noted draining to urometer. Sacral unstageable dressing clean and intact. patient on p200 mattress. Bed locked and in lowest position, with call light within reach. Will resume plan of care. Addendum: 05/10/20 at 0740 by Antoinette Rubio RN CORRECT NOTE NURSE NOTES: Patient received from TAWNYA Miguel. Patient observed laying in bed with eyes closed, opens eyes spontaneously, not tracking, not responding to verbal commands; however, withdraws to pain. Patient is orally intubated 7.5 ETT at 22cm lip on ventilator with following settings: AC 18 TV 700 FiO2 40% PEEP 8. NSR on gambling monitor. Right femoral TLC, clean and asymptomatic, running Levophed @ 1mcg/min and 1/2NS @50ml/hr. PIV left forearm #[address], running tube feeding Glucerna 1.5 @ 45mL/hr. Slade catheter in place with dark vaishnavi urine noted draining to urometer. Sacral dressing clean and intact. patient on p200 mattress. Bed locked and in lowest position, with call light within reach. Will resume plan of care.
[2020-05-10] MEDS: levETIRAcetam 500mg/5ml Liquid NG SCH (08:01)
[2020-05-10] MEDS: Ascorbic Acid 500mg tab NG SCH (08:01)
[2020-05-10] MEDS: Zinc Sulfate 220mg NG SCH (08:01)
[2020-05-10] MEDS: Pantoprazole Inj IVP SCH (08:01)
[2020-05-10] MEDS: Multivitamins W/Minerals 15 ML UDC NG SCH (08:01)
[2020-05-10] MEDS: Heparin 5000 units/ml inj SUBQ SCH (08:02)
--- NOTE | 2020-05-10 08:16 | Diagnostic Imaging Report ---
EXAM: XR Chest, 1 View CLINICAL HISTORY: DYSPNEA TECHNIQUE: Frontal view of the chest. COMPARISON: Chest x-ray 05/09/20 745 FINDINGS: Lungs: Slightly worsening bilateral lower lobe airspace opacities. Similar right upper lobe airspace opacities. Pleural space: Small left pleural effusion similar. No pneumothorax. Heart: Unremarkable. No cardiomegaly. Mediastinum: Unremarkable. Bones/joints: Unremarkable. Tubes, lines and devices: Endotracheal tube 5.3 cm above the antionette. Stable NG tube. IMPRESSION: 1. Slightly worsening bilateral lower lobe airspace opacities. Similar right upper lobe airspace opacities. 2. Small left pleural effusion similar.
--- NOTE | 2020-05-10 08:32 | NUR ---
RADIOLOGY: PCXR COMPLETED 0810HRS. NF
[2020-05-10] MEDS ORDERED: NS 275ml ONE (08:34)
[2020-05-10] MEDS ORDERED: 1/2 NS 1000ml IV ONE ×2 (08:34→16:49)
--- NOTE | 2020-05-10 09:00 | NUR ---
NURSE NOTES: AM medication given as ordered. Oral care done. Pt clean and dry. Turned and repositioned for comfort.
--- NOTE | 2020-05-10 09:26 | NUR ---
RESPIRATORY NOTE: Pt received on AC 18,700,40%, +8. SpO2 100% with a HR of 99 bps. ETT secure and patent. Ambu bag at the bedside. Alarms are on and audible. B/S bilateral rhonchi, suctioned small amount of white thick secretions. Will continue to monitor
--- NOTE | 2020-05-10 10:15 | Infectious Diseases Prog Note ---
Assessment/Plan Assessment: Septic shock 05/08 CODE blue x2 05/08 Recent COVID19 positive (unknown date of diagnosis) Pneumonia -bacterial superimposed w MRSA (pt bacteremic) Acute hypoxic resp failure - s/p NC, now on NRB> intubation 05/08 -05/04 CXR: Extensive interstitial and patchy bilateral airspace disease with slight improved aeration of the left mid and upper lung compared to one day prior. There is worsening of aeration in the right lung compared to one day prior however. -05/03 CXR: Significantly increased complete consolidation throughout the left lung. Probable left pleural effusion as well. Similar right basilar opacity. -04/28 CXR: Bibasilar infiltrates with slight worsening on right side. -04/24 CXR: Slightly improved bilateral infiltrates, over 2 days -04/22 Rapid COVID + CXR: Bilateral infiltrates, likely pneumonia, possibly viral. Correlate with clinical findings MRSA and CONS bacteremia; persistent bacteremia -04/26 2d echo(limited study): no vegetations seen -04/22 Bcx 2/4 S. epi; 04/23 Bcx 2/4 MRSA; 04/26 Bcx 1/2 S. hominis; 04/27 Bcx Neg Afebrile- Tm 99.5 Leukocytosis; fluctuating- increased to 30s 05/06 -05/06 u/a neg Bcx NTD, sp cx S.a ureus -05/01 u/a eng; ucx Tami sp -04/22 u/a neg KENIA- supratherapeutic vanco levels Dementia Seizure disorder Dm2 DNR status [place] resident ([facility]) Plan: Start Linezolid #1 -Cont empiric MEropenem and Micafungin #6 given hypotension, leukocytosis and pending repeat cultures -05/10/20 SP Daptomycin #3 -05/06 SP IV Vancomycin #13 -05/01 SP cefepime #10 -04/27 SP Decadron #5 -04/26 SP Azithromcin #5 -04/23 SP Ceftriaxone #2 -04/22 SP ZOsyn x1 -f/u cx -Monitor CBC/CMP, temperatures -COVID19 isolation -f/u repeat cultures -poor prognosis Thank you for this consultation. Will continue to follow along with you. Discussed with RN. Subjective Allergies: Coded Allergies: No Known Allergies (Unverified , 04/22/20) On Vent 40% O2 Low grade fevers Sputum Cx gowing MRSA Objective Last 24 Hour Vital Signs Date Time Temp Pulse Resp B/P (MAP) Pulse Ox O2 Delivery O2 Flow Rate FiO2 05/10/20 09:30 90 23 119/56 (77) 100 05/10/20 09:00 89 19 105/53 (70) 100 05/10/20 09:00 105/53 05/10/20 08:30 90 18 94/52 (66) 100 05/10/20 08:00 99.6 100 25 133/70 (91) 100 05/10/20 08:00 Mechanical Ventilator 05/10/20 08:00 133/70 05/10/20 08:00 40 05/10/20 07:30 96 26 106/56 (73) 100 05/10/20 07:17 99 22 40 05/10/20 07:00 99 22 116/55 (75) 100 05/10/20 07:00 116/55 05/10/20 06:00 111/61 05/10/20 06:00 93 22 111/61 (78) 100 05/10/20 05:30 94 24 111/54 (73) 100 05/10/20 05:15 92 24 114/57 (76) 100 05/10/20 05:00 93 22 115/60 (78) 100 05/10/20 05:00 115/60 05/10/20 04:45 91 21 114/57 (76) 100 05/10/20 04:30 99.1 95 27 115/53 (73) 99 05/10/20 04:15 90 19 99/72 (81) 100 05/10/20 04:00 40 05/10/20 04:00 93 22 120/62 (81) 100 05/10/20 04:00 Mechanical Ventilator 05/10/20 04:00 99/72 05/10/20 04:00 92 05/10/20 03:45 89 20 120/54 (76) 100 05/10/20 03:39 87 19 40 05/10/20 03:30 92 21 134/64 (87) 100 05/10/20 03:15 86 18 117/59 (78) 100 05/10/20 03:00 117/59 05/10/20 03:00 87 18 111/64 (80) 100 05/10/20 02:45 89 19 118/59 (78) 100 05/10/20 02:30 87 19 113/55 (74) 100 05/10/20 02:15 89 20 113/65 (81) 100 05/10/20 02:06 117/68 05/10/20 02:00 90 21 117/68 (84) 100 05/10/20 01:30 85 20 127/65 (85) 100 05/10/20 01:00 90 20 125/60 (81) 100 05/10/20 01:00 122/59 05/10/20 00:30 85 18 103/56 (72) 100 05/10/20 00:00 Mechanical Ventilator 05/10/20 00:00 75 05/10/20 00:00 98.3 85 18 104/54 (71) 100 05/10/20 00:00 40 05/10/20 00:00 109/57 05/09/20 23:30 88 18 102/55 (71) 100 05/09/20 23:23 93 19 40 05/09/20 23:00 87 19 117/63 (81) 100 05/09/20 23:00 130/66 05/09/20 22:30 89 19 117/57 (77) 100 05/09/20 22:00 113/54 05/09/20 22:00 86 18 113/54 (73) 100 05/09/20 21:30 83 18 109/51 (70) 100 05/09/20 21:00 81 18 104/58 (73) 100 05/09/20 21:00 104/58 05/09/20 20:30 79 18 100/48 (65) 100 05/09/20 20:00 40 05/09/20 20:00 98.8 81 18 98/57 (71) 100 05/09/20 20:00 Mechanical Ventilator 05/09/20 20:00 98/57 05/09/20 20:00 80 05/09/20 19:30 82 18 108/52 (70) 100 05/09/20 19:27 79 20 40 05/09/20 19:00 88 20 130/69 (89) 100 05/09/20 19:00 130/69 05/09/20 18:30 80 18 98/53 (68) 100 05/09/20 18:00 85 19 121/58 (79) 100 05/09/20 18:00 121/58 05/09/20 17:30 80 18 109/53 (71) 100 05/09/20 17:00 86 18 105/55 (72) 100 05/09/20 17:00 105/55 05/09/20 16:30 85 19 105/55 (72) 100 05/09/20 16:00 90 05/09/20 16:00 109/53 05/09/20 16:00 98.7 90 22 113/56 (75) 100 05/09/20 16:00 Mechanical Ventilator 05/09/20 16:00 40 05/09/20 15:30 90 23 109/51 (70) 100 05/09/20 15:00 105/52 05/09/20 15:00 91 25 105/52 (69) 99 05/09/20 14:47 90 20 40 05/09/20 14:30 91 27 128/65 (86) 99 05/09/20 14:00 91 24 124/64 (84) 99 05/09/20 14:00 124/65 05/09/20 13:30 89 23 128/63 (84) 99 05/09/20 13:00 90 25 122/60 (80) 99 05/09/20 13:00 117/63 05/09/20 12:30 88 22 124/63 (83) 99 05/09/20 12:00 89 05/09/20 12:00 103/56 05/09/20 12:00 99.0 87 15 99/61 (74) 98 05/09/20 12:00 Mechanical Ventilator 05/09/20 12:00 40 05/09/20 11:45 89 11 109/51 (70) 99 05/09/20 11:33 92 16 103/54 (70) 99 05/09/20 11:30 92 14 86/54 (65) 98 05/09/20 11:15 88 18 97/46 (63) 99 05/09/20 11:05 98 19 40 05/09/20 11:00 91 22 108/57 (74) 100 05/09/20 11:00 97/46 05/09/20 10:30 88 19 114/55 (74) 100 Height (Feet): 5 Height (Inches): 8.00 Weight (Pounds): 157 Gen: NAD, On Vent 40% O2 HEENT; NCAT, Intubated Respiratory: Equal rise and fall, RRR Gastrointestinal: Soft ND Skin: No rash on exposed skin Laboratory Tests Test 05/09/20 11:38 05/09/20 17:39 05/09/20 23:43 05/10/20 05:15 POC Whole Blood Glucose 229 MG/DL (74-106) H 206 MG/DL (74-106) H 220 MG/DL (74-106) H White Blood Count 9.8 K/UL (4.8-10.8) Red Blood Count 2.79 M/UL (4.70-6.10) L Hemoglobin 8.6 G/DL (14.2-18.0) L Hematocrit 26.5 % (42.0-52.0) L Mean Corpuscular Volume 95 FL (80-99) Mean Corpuscular Hemoglobin 30.7 PG (27.0-31.0) Mean Corpuscular Hemoglobin Concent 32.4 G/DL (32.0-36.0) Red Cell Distribution Width 13.3 % (11.6-14.8) Platelet Count 261 K/UL (150-450) Mean Platelet Volume 6.5 FL (6.5-10.1) Neutrophils (%) (Auto) % (45.0-75.0) Lymphocytes (%) (Auto) % (20.0-45.0) Monocytes (%) (Auto) % (1.0-10.0) Eosinophils (%) (Auto) % (0.0-3.0) Basophils (%) (Auto) % (0.0-2.0) Differential Total Cells Counted 100 Neutrophils % (Manual) 80 % (45-75) H Lymphocytes % (Manual) 15 % (20-45) L Monocytes % (Manual) 5 % (1-10) Eosinophils % (Manual) 0 % (0-3) Basophils % (Manual) 0 % (0-2) Band Neutrophils 0 % (0-8) Platelet Estimate Adequate Platelet Morphology Normal Polychromasia 1+ Hypochromasia 1+ Sodium Level 136 MMOL/L (136-145) Potassium Level 4.4 MMOL/L (3.5-5.1) Chloride Level 102 MMOL/L (98-107) Carbon Dioxide Level 23 MMOL/L (21-32) Anion Gap 11 mmol/L (5-15) Blood Urea Nitrogen 123 mg/dL (7-18) H Creatinine 5.3 MG/DL (0.55-1.30) H Estimat Glomerular Filtration Rate 10.7 mL/min (>60) Glucose Level 252 MG/DL (74-106) H Calcium Level 8.2 MG/DL (8.5-10.1) L Phosphorus Level 3.1 MG/DL (2.5-4.9) Magnesium Level 2.7 MG/DL (1.8-2.4) H Total Bilirubin 0.3 MG/DL (0.2-1.0) Aspartate Amino Transf (AST/SGOT) 26 U/L (15-37) Alanine Aminotransferase (ALT/SGPT) 15 U/L (12-78) Alkaline Phosphatase 136 U/L (46-116) H Total Protein 6.0 G/DL (6.4-8.2) L Albumin 1.0 G/DL (3.4-5.0) L Globulin 5.0 g/dL Albumin/Globulin Ratio 0.2 (1.0-2.7) L Test 05/10/20 07:56 Arterial Blood pH 7.460 (7.350-7.450) Arterial Blood Partial Pressure CO2 27.9 mmHg (35.0-45.0) L Arterial Blood Partial Pressure O2 98.3 mmHg (75.0-100.0) Arterial Blood HCO3 19.4 mmol/L (22.0-26.0) L Arterial Blood Oxygen Saturation 97.2 % (95-100) Arterial Blood Base Excess -3.6 (-2-2) L Timmy Test Positive Current Medications Medications (Trade) Dose Ordered Sig/Andrade Route PRN Reason Start Time Stop Time Status Last Admin Dose Admin Acetaminophen (Tylenol) 650 mg Q4H PRN NG Temp >100.5 05/08/20 07:45 06/07/20 07:44 Albuterol/ Ipratropium (Combivent Respimat) 1 puff Q4H PRN INH Shortness of Breath 05/08/20 05:00 05/22/20 12:59 Ascorbic Acid (Vitamin C) 500 mg DAILY NG 05/08/20 09:00 05/28/20 08:59 05/10/20 08:01 Chlorhexidine Gluconate (Yamel-Hex 2%) 1 applic DAILY@2000 TOPIC 05/08/20 20:00 08/06/20 19:59 05/09/20 20:21 Daptomycin 350 mg/ Sodium Chloride 55 ml @ 100 mls/hr Q48H IV 05/08/20 17:00 05/13/20 16:59 05/08/20 17:02 Dextrose (Dextrose 50%) 25 ml Q30M PRN IV Hypoglycemia 05/08/20 04:45 07/21/20 16:14 Dextrose (Dextrose 50%) 50 ml Q30M PRN IV Hypoglycemia 05/08/20 04:45 07/21/20 16:14 Heparin Sodium (Porcine) (Heparin 5000 units/ml) 5,000 units EVERY 12 HOURS SUBQ 05/08/20 09:00 06/06/20 20:59 05/10/20 08:02 Insulin Aspart (NovoLOG) Q6HR SUBQ 05/08/20 06:00 07/21/20 16:29 05/10/20 06:12 Levetiracetam (Keppra) 500 mg Q12HR NG 05/08/20 09:00 06/06/20 20:59 05/10/20 08:01 Meropenem 1 gm/ Sodium Chloride 55 ml @ 110 mls/hr Q12HR@0600,1800 IVPB 05/08/20 06:00 05/11/20 17:59 05/10/20 05:59 Metoclopramide HCl (Reglan) 10 mg Q6H PRN IVP Nausea & Vomiting 05/09/20 12:45 06/08/20 12:44 05/09/20 14:32 Micafungin Sodium 100 mg/Sodium Chloride 110 ml @ 110 mls/hr Q24H IVPB 05/08/20 17:00 05/12/20 16:59 05/09/20 17:24 Multivitamins (Multivitamins W/ Minerals 15ml Liquid) 15 ml DAILY NG 05/08/20 09:00 06/07/20 08:59 05/10/20 08:01 Norepinephrine Bitartrate 8 mg/ Dextrose 500 ml @ 0 mls/hr Q24H IV 05/08/20 08:00 06/07/20 07:59 05/10/20 02:06 Ondansetron HCl (Zofran) 4 mg Q6H PRN IVP Nausea & Vomiting 05/08/20 07:00 05/22/20 12:59 Pantoprazole (Protonix) 40 mg EVERY 12 HOURS IVP 05/09/20 21:00 06/08/20 20:59 05/10/20 08:01 Polyethylene Glycol (Miralax) 17 gm DAILYPRN PRN NG Constipation 05/08/20 08:00 05/24/20 04:59 Promethazine HCl/ Codeine (Phenergan with Codeine) 5 ml Q6H PRN NG cough 05/08/20 08:00 05/22/20 04:59 Sodium Chloride 1,000 ml @ 50 mls/hr Q20H IV 05/08/20 04:45 05/26/20 18:21 05/09/20 18:24 Zinc Sulfate (Zinc Sulfate) 220 mg DAILY NG 05/08/20 09:00 07/27/20 08:59 05/10/20 08:01 Pito Vallejo MD May 10, 2020 10:15
--- NOTE | 2020-05-10 11:00 | NUR ---
NURSE NOTES: Pt observed in bed, laying with his eyes closed, with no sign of acute distress. SaO2 100% with current Vent setting and Tolerating OGT feeding well. Suction and oral care was done. Changed position. Will continue to care plan.
--- NOTE | 2020-05-10 13:00 | NUR ---
NURSE NOTES: Dr Corral at bedside. Updated him on pt's current condition. New orders given
--- NOTE | 2020-05-10 13:07 | Surgery Progress Note ---
Surgery Progress Note Subjective Symptoms: worse Additional Comments prognosis guarded Objective Last 24 Hour Vital Signs Date Time Temp Pulse Resp B/P (MAP) Pulse Ox O2 Delivery O2 Flow Rate FiO2 05/10/20 12:00 99.8 92 16 121/59 (79) 100 05/10/20 12:00 121/61 05/10/20 12:00 Mechanical Ventilator 05/10/20 12:00 40 05/10/20 11:30 90 18 106/57 (73) 100 05/10/20 11:00 103/52 05/10/20 11:00 90 18 103/52 (69) 100 05/10/20 10:43 90 18 40 05/10/20 10:30 91 17 118/61 (80) 100 05/10/20 10:00 112/59 05/10/20 10:00 88 24 112/59 (76) 100 05/10/20 09:30 90 23 119/56 (77) 100 05/10/20 09:00 89 19 105/53 (70) 100 05/10/20 09:00 105/53 05/10/20 08:30 90 18 94/52 (66) 100 05/10/20 08:00 99.6 100 25 133/70 (91) 100 05/10/20 08:00 Mechanical Ventilator 05/10/20 08:00 133/70 05/10/20 08:00 40 05/10/20 07:30 96 26 106/56 (73) 100 05/10/20 07:17 99 22 40 05/10/20 07:00 99 22 116/55 (75) 100 05/10/20 07:00 116/55 05/10/20 06:00 111/61 05/10/20 06:00 93 22 111/61 (78) 100 05/10/20 05:30 94 24 111/54 (73) 100 05/10/20 05:15 92 24 114/57 (76) 100 05/10/20 05:00 93 22 115/60 (78) 100 05/10/20 05:00 115/60 05/10/20 04:45 91 21 114/57 (76) 100 05/10/20 04:30 99.1 95 27 115/53 (73) 99 05/10/20 04:15 90 19 99/72 (81) 100 05/10/20 04:00 40 05/10/20 04:00 93 22 120/62 (81) 100 05/10/20 04:00 Mechanical Ventilator 05/10/20 04:00 99/72 05/10/20 04:00 92 05/10/20 03:45 89 20 120/54 (76) 100 05/10/20 03:39 87 19 40 05/10/20 03:30 92 21 134/64 (87) 100 05/10/20 03:15 86 18 117/59 (78) 100 05/10/20 03:00 117/59 05/10/20 03:00 87 18 111/64 (80) 100 05/10/20 02:45 89 19 118/59 (78) 100 05/10/20 02:30 87 19 113/55 (74) 100 05/10/20 02:15 89 20 113/65 (81) 100 05/10/20 02:06 117/68 05/10/20 02:00 90 21 117/68 (84) 100 05/10/20 01:30 85 20 127/65 (85) 100 05/10/20 01:00 90 20 125/60 (81) 100 05/10/20 01:00 122/59 05/10/20 00:30 85 18 103/56 (72) 100 05/10/20 00:00 Mechanical Ventilator 05/10/20 00:00 75 05/10/20 00:00 98.3 85 18 104/54 (71) 100 05/10/20 00:00 40 05/10/20 00:00 109/57 05/09/20 23:30 88 18 102/55 (71) 100 05/09/20 23:23 93 19 40 05/09/20 23:00 87 19 117/63 (81) 100 05/09/20 23:00 130/66 05/09/20 22:30 89 19 117/57 (77) 100 05/09/20 22:00 113/54 05/09/20 22:00 86 18 113/54 (73) 100 05/09/20 21:30 83 18 109/51 (70) 100 05/09/20 21:00 81 18 104/58 (73) 100 05/09/20 21:00 104/58 05/09/20 20:30 79 18 100/48 (65) 100 05/09/20 20:00 40 05/09/20 20:00 98.8 81 18 98/57 (71) 100 05/09/20 20:00 Mechanical Ventilator 05/09/20 20:00 98/57 05/09/20 20:00 80 05/09/20 19:30 82 18 108/52 (70) 100 05/09/20 19:27 79 20 40 05/09/20 19:00 88 20 130/69 (89) 100 05/09/20 19:00 130/69 05/09/20 18:30 80 18 98/53 (68) 100 05/09/20 18:00 85 19 121/58 (79) 100 05/09/20 18:00 121/58 05/09/20 17:30 80 18 109/53 (71) 100 05/09/20 17:00 86 18 105/55 (72) 100 05/09/20 17:00 105/55 05/09/20 16:30 85 19 105/55 (72) 100 05/09/20 16:00 90 05/09/20 16:00 109/53 05/09/20 16:00 98.7 90 22 113/56 (75) 100 05/09/20 16:00 Mechanical Ventilator 05/09/20 16:00 40 05/09/20 15:30 90 23 109/51 (70) 100 05/09/20 15:00 105/52 05/09/20 15:00 91 25 105/52 (69) 99 05/09/20 14:47 90 20 40 05/09/20 14:30 91 27 128/65 (86) 99 05/09/20 14:00 91 24 124/64 (84) 99 05/09/20 14:00 124/65 05/09/20 13:30 89 23 128/63 (84) 99 I&O Intake and Output 05/09/20 05/10/20 19:00 07:00 Intake Total 1046.66 ml 1122.50 ml Output Total 60 ml 60 ml Balance 986.66 ml 1062.50 ml IV Total 826.66 ml 672.50 ml Tube Feeding 120 ml 450 ml Other 100 ml Output Urine Total 60 ml 60 ml # Bowel Movements 4 1 Dressing: saturated Cardiovascular: RSR Respiratory: decreased breath sounds Abdomen: soft, non-tender, present bowel sounds Extremities: edema, no cyanosis Laboratory Tests Test 05/09/20 17:39 05/09/20 23:43 05/10/20 05:15 05/10/20 06:03 POC Whole Blood Glucose 206 MG/DL (74-106) H 220 MG/DL (74-106) H Pending White Blood Count 9.8 K/UL (4.8-10.8) Red Blood Count 2.79 M/UL (4.70-6.10) L Hemoglobin 8.6 G/DL (14.2-18.0) L Hematocrit 26.5 % (42.0-52.0) L Mean Corpuscular Volume 95 FL (80-99) Mean Corpuscular Hemoglobin 30.7 PG (27.0-31.0) Mean Corpuscular Hemoglobin Concent 32.4 G/DL (32.0-36.0) Red Cell Distribution Width 13.3 % (11.6-14.8) Platelet Count 261 K/UL (150-450) Mean Platelet Volume 6.5 FL (6.5-10.1) Neutrophils (%) (Auto) % (45.0-75.0) Lymphocytes (%) (Auto) % (20.0-45.0) Monocytes (%) (Auto) % (1.0-10.0) Eosinophils (%) (Auto) % (0.0-3.0) Basophils (%) (Auto) % (0.0-2.0) Differential Total Cells Counted 100 Neutrophils % (Manual) 80 % (45-75) H Lymphocytes % (Manual) 15 % (20-45) L Monocytes % (Manual) 5 % (1-10) Eosinophils % (Manual) 0 % (0-3) Basophils % (Manual) 0 % (0-2) Band Neutrophils 0 % (0-8) Platelet Estimate Adequate Platelet Morphology Normal Polychromasia 1+ Hypochromasia 1+ Sodium Level 136 MMOL/L (136-145) Potassium Level 4.4 MMOL/L (3.5-5.1) Chloride Level 102 MMOL/L (98-107) Carbon Dioxide Level 23 MMOL/L (21-32) Anion Gap 11 mmol/L (5-15) Blood Urea Nitrogen 123 mg/dL (7-18) H Creatinine 5.3 MG/DL (0.55-1.30) H Estimat Glomerular Filtration Rate 10.7 mL/min (>60) Glucose Level 252 MG/DL (74-106) H Calcium Level 8.2 MG/DL (8.5-10.1) L Phosphorus Level 3.1 MG/DL (2.5-4.9) Magnesium Level 2.7 MG/DL (1.8-2.4) H Total Bilirubin 0.3 MG/DL (0.2-1.0) Aspartate Amino Transf (AST/SGOT) 26 U/L (15-37) Alanine Aminotransferase (ALT/SGPT) 15 U/L (12-78) Alkaline Phosphatase 136 U/L (46-116) H Total Protein 6.0 G/DL (6.4-8.2) L Albumin 1.0 G/DL (3.4-5.0) L Globulin 5.0 g/dL Albumin/Globulin Ratio 0.2 (1.0-2.7) L Test 05/10/20 07:56 Arterial Blood pH 7.460 (7.350-7.450) Arterial Blood Partial Pressure CO2 27.9 mmHg (35.0-45.0) L Arterial Blood Partial Pressure O2 98.3 mmHg (75.0-100.0) Arterial Blood HCO3 19.4 mmol/L (22.0-26.0) L Arterial Blood Oxygen Saturation 97.2 % (95-100) Arterial Blood Base Excess -3.6 (-2-2) L Timmy Test Positive Plan Problems: (1) Pneumonia due to COVID-19 virus (2) Severe protein-calorie malnutrition Assessment & Plan: 74-year-old male with significant severe protein calorie malnutrition. BMI is 18. Albumin is low. Skin turgor is poor. On admission identified to have a deep tissue injury and decubitus skin ulcer. Air mattress ordered local wound care plan initiated. Speech therapy evaluation identified. High risk dysphasia aspiration Needs nutritional optimization to allow for wound healing and care plan. We will follow with recommendations thank you for let me participate in patient' s care Turn every 2 hours Offload pressure with pillows Wash sacral wound daily with normal saline apply Thera honey and foam dressing. Bilateral heel protectors DAILY ESTIMATED NEEDS: Needs based on wound, underweight, 54kg 30-35 kcals/kg 9066-7719 total kcals 1.25-2 g protein/kg 68-108 g total protein 25-35ml/kcal mL/kg 3809-0950 total fluid mLs NUTRITION DIAGNOSIS: Swallowing difficulty r/t dysphagia as evidenced by [employer] marj, pt not safe for oral diet, now on NGT feeds. CURRENT TF:Glucerna 1.5 @45ml/hr ENTERAL NUTRITION RECOMMENDATIONS: Glucerna 1.5 goal of 45ml/hr x 24 hrs to provide 1080ml, 1620kcal, 89g pro, 820ml free H2O - Maintain Glucerna 1.5 @45ml/hr as tolerated - Advance as tolerated 10ml/hr q4-6 hrs to goal. - Flush per . HOB over 30 degrees. ADDITIONAL RECOMMENDATIONS: 1) Monitor BG closely w/ TF's; need for increased insulin coverage 2) wound care w/ NGT feeds: add LYNNE in 4oz H2O BID + Vit C500mg qdaily, MVI w/ min qdaily+ ZnSO4 220mg qd x10 days 3) Calibrated bed scale wts 4) Monitor lytes daily w/ TF, replete as needed THE PATIENT WAS POSITIONED UPRIGHT FOR P.O. TRIALS. PATIENT NON/VERBAL, NON/VISUAL TRACKING, NON/RESPONSIVE TO TACTILE/VERBAL CUES. HE IS MOUTH BREATHING, ORAL MUCOSA PRESENTS WITH XEROSTOMIA. HIS DECREASED MENTATION INCLUDED SENSORIMOTOR DEFICITS WHICH RESULTED IN POOR BOLUS ACCEPTANCE, DECREASED AWARENESS OF FOOD IN MOUTH. WHEN PRESENTED WITH 5ML OF NECTAR THICK WATER VIA SPOON, THE PATIENT DEMONSTRATED REPETITIVE LINGUAL PUMPING IN HIS ATTEMPT TO TRIGGER THE PHARYNGEAL PHASE OF THE SWALLOW. HYOLARYNGEAL ELEVATION WAS PALPATED AND DETERMINED TO BE INSUFFICIENT FOR AIRWAY PROTECTION. AFTER THE SECOND P.O. TRIAL WITH THE NTL, THE PATIENT DEMONSTRATED A PROLONGED NON/ CLEARING, NON/PRODUCTIVE COUGH, WITH 3 TRIALS OF PUREE PRESENTED IN 5 ML AMOUNTS , THE PATIENT DEMONSTRATED ORAL STASIS, AND RESIDUE HAD TO BE SUCTIONED TO CLEAR HIS MOUTH. ORAL CARE WAS PROVIDED POST SUCTIONING. PHARYNGEAL PHASE OF SWALLOW SEVERELY DELAYED. CLEARLY, THIS GENTLEMAN PRESENTS WITH SEVERE OROPHARYNGEAL DYSPHAGIA, ALONG WITH A HISTORY OF SUBOPTIMAL P.O. INTAKE/LOSS OF APPETITE RECOMMENDATIONS 1. CONSIDER NON/ORAL FEEDING MANAGEMENT FOR INTERIM NUTRITION/HYDRATION 2. NPO 3. ORAL CARE TID TO REDUCE ORAL PATHOGENS 4. SKILLED ST INTERVENTION DOES NOT APPEAR TO BE NEEDED AT THIS TIME. (3) At high risk for aspiration (4) Respiratory distress (5) COVID-19 Assessment & Plan: + (6) History of diabetes mellitus (7) Alzheimer's dementia (8) Decubitus skin ulcer Assessment & Plan: Pt deconditioned and presents with multiple Pressure injuries on admission. Non-Blanchable erythema without fluctuance or induration noted to R elbow. Open DTPI Sacrum with full thickness Ulcer (L)9.5cm x (W)10.5cm.Wound is irregular shaped and extends to apex of anus. Base of wound is indurated and purpuric surrounding areas at base of wound with full thickness ulcer with scattered areas of soft necrosis (60%), 40% maldonado. Bony prominence is palpable at base of wound.Small amt sanguineous exudate noted . No odor noted . Periwound Skin is blanchable but Bilat trochanteric and iliac areas, including Ischial tuberosities are at high risks for pressure injuries secondary to bony protrusion and poor tissue perfusion. DTPI R Ischium. Base of pressure injury is maroon and indurated(L)3.4cm x (W) 7cm. DTPI R Heel (L)4cm x (W)9cm. Base of Pressure injury is fluctuant, maroon with small purpuric area.No evidence of ski breakdown periwound. L heel is boggy with non-Blanchable erythema. Tx.Plan: Cleanse Sacral wound with Saline. Apply TheraHoney. Apply Moisture Barrier Paste periwound. Cover with Optifoam drsgs. Change Daily and prn. Apply Cavilon Skin Barrier to R ischium. Cover with Optifoam drsg. Change every 3 days and prn. Apply Cavilon Skin Barrier to At Risks Bony Prominences. Cover areas with Optifoam drsgs as needed. Apply Cavilon Skin Barrier to both heels and Malleoli. Cover each site with Optifoam drsg. Change every 7 days and Prn. Reposition at least every 2hours or as tolerated. Off-load heels with Pillow. Air Fluidized Mattress. (9) Dysphagia Assessment & Plan: ng placed unlikey to pass swallow eval low bmi consider peg polst noted PEG [facility] May 10, 2020 13:07
--- NOTE | 2020-05-10 13:21 | Pulmonolgy Critical Care Note ---
Critical Care - Asmt/Plan Problems: (1) Acute respiratory failure due to COVID-19 (2) Pneumonia due to COVID-19 virus (3) Severe protein-calorie malnutrition (4) At high risk for aspiration (5) History of diabetes mellitus (6) Alzheimer's dementia Respiratory: monitor respiratory rate, adjust FIO2, CXR Cardiac: continue to monitor HR/BP Renal: F/U I&O, keep IV fluid, check electrolytes Infectious Disease: check cultures, continue antibiotics Gastrointestinal: continue feedings/current rate Endocrine: monitor blood sugar, check HgA1C, continue sliding scale insulin Hematologic: monitor H/H, transfuse if hgb<8.5 Neurologic: PRN Ativan, keep patient comfortable Prophylaxis: Heparin Time Spent (Minutes): 40 Notes Reviewed: osteopathic physician Discussed with: nurses, consultants, high risk case managermanager recruitment - Objective Last 24 Hour Vital Signs Date Time Temp Pulse Resp B/P (MAP) Pulse Ox O2 Delivery O2 Flow Rate FiO2 05/10/20 12:00 99.8 92 16 121/59 (79) 100 05/10/20 12:00 121/61 05/10/20 12:00 Mechanical Ventilator 05/10/20 12:00 40 05/10/20 11:30 90 18 106/57 (73) 100 05/10/20 11:00 103/52 05/10/20 11:00 90 18 103/52 (69) 100 05/10/20 10:43 90 18 40 05/10/20 10:30 91 17 118/61 (80) 100 05/10/20 10:00 112/59 05/10/20 10:00 88 24 112/59 (76) 100 05/10/20 09:30 90 23 119/56 (77) 100 05/10/20 09:00 89 19 105/53 (70) 100 05/10/20 09:00 105/53 05/10/20 08:30 90 18 94/52 (66) 100 05/10/20 08:00 99.6 100 25 133/70 (91) 100 05/10/20 08:00 Mechanical Ventilator 05/10/20 08:00 133/70 05/10/20 08:00 40 05/10/20 07:30 96 26 106/56 (73) 100 05/10/20 07:17 99 22 40 05/10/20 07:00 99 22 116/55 (75) 100 05/10/20 07:00 116/55 05/10/20 06:00 111/61 05/10/20 06:00 93 22 111/61 (78) 100 05/10/20 05:30 94 24 111/54 (73) 100 05/10/20 05:15 92 24 114/57 (76) 100 05/10/20 05:00 93 22 115/60 (78) 100 05/10/20 05:00 115/60 05/10/20 04:45 91 21 114/57 (76) 100 05/10/20 04:30 99.1 95 27 115/53 (73) 99 05/10/20 04:15 90 19 99/72 (81) 100 05/10/20 04:00 40 05/10/20 04:00 93 22 120/62 (81) 100 05/10/20 04:00 Mechanical Ventilator 05/10/20 04:00 99/72 05/10/20 04:00 92 05/10/20 03:45 89 20 120/54 (76) 100 05/10/20 03:39 87 19 40 05/10/20 03:30 92 21 134/64 (87) 100 05/10/20 03:15 86 18 117/59 (78) 100 05/10/20 03:00 117/59 05/10/20 03:00 87 18 111/64 (80) 100 05/10/20 02:45 89 19 118/59 (78) 100 05/10/20 02:30 87 19 113/55 (74) 100 05/10/20 02:15 89 20 113/65 (81) 100 05/10/20 02:06 117/68 05/10/20 02:00 90 21 117/68 (84) 100 05/10/20 01:30 85 20 127/65 (85) 100 05/10/20 01:00 90 20 125/60 (81) 100 05/10/20 01:00 122/59 05/10/20 00:30 85 18 103/56 (72) 100 05/10/20 00:00 Mechanical Ventilator 05/10/20 00:00 75 05/10/20 00:00 98.3 85 18 104/54 (71) 100 05/10/20 00:00 40 05/10/20 00:00 109/57 05/09/20 23:30 88 18 102/55 (71) 100 05/09/20 23:23 93 19 40 05/09/20 23:00 87 19 117/63 (81) 100 05/09/20 23:00 130/66 05/09/20 22:30 89 19 117/57 (77) 100 05/09/20 22:00 113/54 05/09/20 22:00 86 18 113/54 (73) 100 05/09/20 21:30 83 18 109/51 (70) 100 05/09/20 21:00 81 18 104/58 (73) 100 05/09/20 21:00 104/58 05/09/20 20:30 79 18 100/48 (65) 100 05/09/20 20:00 40 05/09/20 20:00 98.8 81 18 98/57 (71) 100 05/09/20 20:00 Mechanical Ventilator 05/09/20 20:00 98/57 05/09/20 20:00 80 05/09/20 19:30 82 18 108/52 (70) 100 05/09/20 19:27 79 20 40 05/09/20 19:00 88 20 130/69 (89) 100 05/09/20 19:00 130/69 05/09/20 18:30 80 18 98/53 (68) 100 05/09/20 18:00 85 19 121/58 (79) 100 05/09/20 18:00 121/58 05/09/20 17:30 80 18 109/53 (71) 100 05/09/20 17:00 86 18 105/55 (72) 100 05/09/20 17:00 105/55 05/09/20 16:30 85 19 105/55 (72) 100 05/09/20 16:00 90 05/09/20 16:00 109/53 05/09/20 16:00 98.7 90 22 113/56 (75) 100 05/09/20 16:00 Mechanical Ventilator 05/09/20 16:00 40 05/09/20 15:30 90 23 109/51 (70) 100 05/09/20 15:00 105/52 05/09/20 15:00 91 25 105/52 (69) 99 05/09/20 14:47 90 20 40 05/09/20 14:30 91 27 128/65 (86) 99 05/09/20 14:00 91 24 124/64 (84) 99 05/09/20 14:00 124/65 05/09/20 13:30 89 23 128/63 (84) 99 Status: obtunded Condition: critical HEENT: atraumatic Heart: HR/BP stable, regular Abdomen: non-tender, feeding tube Extremities: edema Decubiti: stage Accucheck: 244 Critical Care - Subjective ROS Limited/Unobtainable: Yes Condition: critical, grave EKG Rhythm: Sinus Rhythm FI02: 40 Vent Support Breath Rate: 18 Vent Support Mode: AC Vent Tidal Volume: 700 Sputum Amount: Small PEEP: 8.0 PIP: 31 Tube Feeding Amount: 45 I&O: Intake and Output 05/09/20 05/10/20 19:00 07:00 Intake Total 1046.66 ml 1122.50 ml Output Total 60 ml 60 ml Balance 986.66 ml 1062.50 ml IV Total 826.66 ml 672.50 ml Tube Feeding 120 ml 450 ml Other 100 ml Output Urine Total 60 ml 60 ml # Bowel Movements 4 1 CXR: ET in good position ET-Tube: 7.5 ET Position: 22 Labs: Laboratory Tests Test 05/09/20 17:39 05/09/20 23:43 05/10/20 05:15 05/10/20 06:03 POC Whole Blood Glucose 206 MG/DL (74-106) H 220 MG/DL (74-106) H Pending White Blood Count 9.8 K/UL (4.8-10.8) Red Blood Count 2.79 M/UL (4.70-6.10) L Hemoglobin 8.6 G/DL (14.2-18.0) L Hematocrit 26.5 % (42.0-52.0) L Mean Corpuscular Volume 95 FL (80-99) Mean Corpuscular Hemoglobin 30.7 PG (27.0-31.0) Mean Corpuscular Hemoglobin Concent 32.4 G/DL (32.0-36.0) Red Cell Distribution Width 13.3 % (11.6-14.8) Platelet Count 261 K/UL (150-450) Mean Platelet Volume 6.5 FL (6.5-10.1) Neutrophils (%) (Auto) % (45.0-75.0) Lymphocytes (%) (Auto) % (20.0-45.0) Monocytes (%) (Auto) % (1.0-10.0) Eosinophils (%) (Auto) % (0.0-3.0) Basophils (%) (Auto) % (0.0-2.0) Differential Total Cells Counted 100 Neutrophils % (Manual) 80 % (45-75) H Lymphocytes % (Manual) 15 % (20-45) L Monocytes % (Manual) 5 % (1-10) Eosinophils % (Manual) 0 % (0-3) Basophils % (Manual) 0 % (0-2) Band Neutrophils 0 % (0-8) Platelet Estimate Adequate Platelet Morphology Normal Polychromasia 1+ Hypochromasia 1+ Sodium Level 136 MMOL/L (136-145) Potassium Level 4.4 MMOL/L (3.5-5.1) Chloride Level 102 MMOL/L (98-107) Carbon Dioxide Level 23 MMOL/L (21-32) Anion Gap 11 mmol/L (5-15) Blood Urea Nitrogen 123 mg/dL (7-18) H Creatinine 5.3 MG/DL (0.55-1.30) H Estimat Glomerular Filtration Rate 10.7 mL/min (>60) Glucose Level 252 MG/DL (74-106) H Calcium Level 8.2 MG/DL (8.5-10.1) L Phosphorus Level 3.1 MG/DL (2.5-4.9) Magnesium Level 2.7 MG/DL (1.8-2.4) H Total Bilirubin 0.3 MG/DL (0.2-1.0) Aspartate Amino Transf (AST/SGOT) 26 U/L (15-37) Alanine Aminotransferase (ALT/SGPT) 15 U/L (12-78) Alkaline Phosphatase 136 U/L (46-116) H Total Protein 6.0 G/DL (6.4-8.2) L Albumin 1.0 G/DL (3.4-5.0) L Globulin 5.0 g/dL Albumin/Globulin Ratio 0.2 (1.0-2.7) L Test 05/10/20 07:56 Arterial Blood pH 7.460 (7.350-7.450) Arterial Blood Partial Pressure CO2 27.9 mmHg (35.0-45.0) L Arterial Blood Partial Pressure O2 98.3 mmHg (75.0-100.0) Arterial Blood HCO3 19.4 mmol/L (22.0-26.0) L Arterial Blood Oxygen Saturation 97.2 % (95-100) Arterial Blood Base Excess -3.6 (-2-2) L Timmy Test Positive Quincy Corral MD May 10, 2020 13:21
[2020-05-10] MEDS ORDERED: Glycopyrrolate 0.2mg/ml 1ml Vial IV PRN (13:30)
[2020-05-10] MEDS ORDERED: Haloperidol 5mg/ml Inj IM PRN (13:30)
[2020-05-10] MEDS ORDERED: Prochlorperazine 10mg tab ORAL PRN (13:30)
[2020-05-10] MEDS ORDERED: Morphine Sulfate 10mg/ml Inj IVP SCH (13:30)
--- NOTE | 2020-05-10 13:46 | General Progress Note ---
Progress Note Progress Note Charge nurse talked to both sisters and DPOA, they are all in agreement for compassionate extubation. Pt has extremely poor poor prognosis with COVID multilobar pneumonia. on ventilator. Will extubate the patient and put him on prn morphine for comfort. Quincy Corral MD May 10, 2020 13:46
--- NOTE | 2020-05-10 14:03 | NUR ---
NURSE NOTES: Dr. Corral assessed patient bedside. Confirmed that compassionate extubation will occur today. While was here, spoke to both Elise and Priya and confirmed their wishes to compassionately extubate their father. Both expressed their understanding of the process that father will be extubated today, comfort medications have been ordered by Dr. Corral at their request. Family does not wish to be present at the time of extubation. DPOA will be delivered to [facility] [place] by son in law. All are in agreement of this process. Will proceed with the compassionate extubation.
--- NOTE | 2020-05-10 15:00 | NUR ---
NURSE NOTES: All drips stopped as ordered by Dr Corral. Pt turned and repositioned. No distress noted at this time- pt resting comfortably in bed.
--- NOTE | 2020-05-10 16:23 | NUR ---
NURSE NOTES: Son in law brought DPOA and it is confirmed that Elise Medrano, daughter is the DPOA for patient. Dr. Corral has been notified. A copy of the DPOA has been made and placed in hard copy chart. Will proceed with compassionate extubation as per both collective family wishes. Family does not want to be present however wants to be notified when father has . Will honor their wishes. Comfort measures are in place per Dr. Corral. Will carry out MD orders.
--- NOTE | 2020-05-10 16:50 | NUR ---
NURSE NOTES: RT notified to begin process of terminal extubation.
--- NOTE | 2020-05-10 17:00 | NUR ---
NURSE NOTES: Pt given Morphine 10mg IVP and Haldol 1MG injection for comfort during upcoming extubation.
[2020-05-10] MEDS: PCA Morphine 1mg/ml 30 ML IV PRN ×2 (17:23→22:51)
--- NOTE | 2020-05-10 17:35 | NUR ---
NURSE NOTES: Pt terminally extubated. Pt started on GUITAR MAKER pump, as ordered.
--- NOTE | 2020-05-10 17:36 | NUR ---
NURSE NOTES: Pt was put on 2L NC for comfort.
--- NOTE | 2020-05-10 17:47 | NUR ---
NURSE NOTES: Patient observed post compassionate extubation. Patient is not gasping for air. Patient does not appear in any acute distress, free from grimacing and gasping for breaths. SKEIN DRIER pump has been instituted with Morphine running at 5 mg/hr. Will continue to monitor for any s/sx of increase respiratory distress. RR 24.
--- NOTE | 2020-05-10 19:04 | NUR ---
NURSE HAND-OFF REPORT: Latest Vital Signs: Temperature 99.7 , Pulse 101 , B/P 110 /49 , Respiratory Rate 21 , O2 SAT 81 , 2L O2 via NC. Vital Sign Comment: EKG Rhythm: Sinus Rhythm Rhythm change?: N MD Notified?: - MD Response: Latest Schneider Fall Score: 50 Fall Risk: High Risk Safety Measures: Call light Within Reach, Bed Alarm Zone 1, Side Rails Side Rails x3, Bed position Low and Locked. Fall Precautions: Yellow Socks Yellow Gown Door Sign Patient Fall Education Report given to TAWNYA Kamara.
--- NOTE | 2020-05-10 19:10 | NUR ---
NURSE NOTES: Report received from TAWNYA Curry. Observed pt lying in the bed, open eyes, but non-verbal. Comfort care noted, pt on BOOSTER STATION OPERATOR pain med, continuously. ST on surveillance monitor. BP of 110/50 noted. Labored breathing on 2L NC, RR of 15 noted, sat at 80%. R femoral TLC, running morphine at 5mg/hr. Will continue to monitor.
--- NOTE | 2020-05-10 23:00 | NUR ---
NURSE NOTES: PT on INSIGHT LEADER continuous for comfort care. No acute change at this time. Still on 2L NC, sat between 80-86%. INSIGHT LEADER syringe changed and residual wasted with coding clerks supervisor. Will continue to monitor.
[2020-05-11] VITALS (10 sets, daily range): BP systolic 54–109; BP diastolic 30–51
--- NOTE | 2020-05-11 | NUR ---
NURSE NOTES: Spoke with family member and update pt condition. BP 107/51, HR 102, RR 14, sat on 87%. On 2L NC, labored breathing. On continuous VIRTUAL ASSISTANT FOR ADVERTISERS. Will continue to monitor.
--- NOTE | 2020-05-11 02:00 | NUR ---
NURSE NOTES: VS noted, BP 102/45, HR 97, RR 15, sat at 89%. ON 2L NC, labored breathing. On continuous MOVING WORKER for comfort care. Will continue to monitor.
--- NOTE | 2020-05-11 03:30 | NUR ---
NURSE NOTES: Noted pt bp dropping, 79/39 at this time. saturation at 61%, pt having labored breathing. On continuous MONTESSORI PRESCHOOL TEACHER. Will continue to monitor.
--- NOTE | 2020-05-11 03:50 | NUR ---
PRONOUNCEMENT: No Code. Called to pronounce patient. Absence of spontaneous respirations, no cardiac or breath sounds on auscultation. Pupils fixed and dilated. No carotid pulse or chest movement. Patient at 0350. DR Corral will be notified by Corby Green,Jenny was notified by Corby Kamara. All Covid isolation precautions taken.
--- NOTE | 2020-05-11 04:42 | NUR ---
NURSE NOTES: Called and left message for MD Corral at this time. Informed him patient at 0350.
--- NOTE | 2020-05-11 04:45 | NUR ---
NURSE NOTES: Postmortem care done. COVID precaution taken.
[2020-05-11] MEDS ORDERED: PCA shift volume MISC SCH (07:00)
--- NOTE | 2020-05-12 12:51 | Discharge Summary ---
Discharge Summary Discharge Summary _ DATE OF ADMISSION: 04/22/2020 DATE OF DISCHARGE: 05/11/2020 DISCHARGED BY: REASON FOR ADMISSION: [] 74 years old male with past medical history of diabetes mellitus, dementia, chronic cachexia, brought by third hand CODE STATUS DNR with selective intervention. Patient apparently tested positive at the [facility] facility. Laboratory work-up revealed low tachycardia with heart rate 108 blood pressure 168/87 pulse oximetry patient was hypoxic requiring supplemental oxygen of 5 L. Laboratory work-up revealed no leukocytosis stable hemoglobin hematocrit urinalysis revealed +2 protein +3 blood no pyuria occasional bacteria. Electrolytes were stable BUN 16, creatinine 0.9 glucose 142 lactic acid 1.8- stable LFT and lipase. EKG revealed sinus tachycardia no acute ischemic changes. Chest x-ray stated bilateral infiltrates likely pneumonia possibly viral. Patient subsequently admitted for further management CONSULTANTS: breaker up machine operator neurologist pulmonary ID specialist Dr. Barry GI specialist acetylene gas compressor salon receptionist/oncologist surgery Dr. Ragsdale psychiatrist HOSPITAL COURSE: [] Patient admitted to isolation room albuterol via MDI provided. Patient received steroids. Letter provided as per ID recommendation. Blood culture showed persistent MRSA and initiated: Blood culture 726 revealed staph revealed Crohn's again blood culture 720 784 were negative urine culture and 8 5 showed MRSA urine culture 731 showed per ID patient will need was a limited study but showed no evidence of vegetation. Patient was follow-up with a chest x-ray and inflammatory markers. Antitussive provided as needed. Patient had repeated rapid call COVID on 722 which was positive. Vitamin C zinc supportive care gentle IV fluids provided DVT prophylaxis provided. Support provided via NG tube. Seizure precaution maintain Keppra continued blood sugar was managed with sliding scale of insulin. Patient condition was discussed with patient's daughter Priya on 728 all the questions were answered onset and possible hospice services were explained. Patient developed acute kidney injury vancomycin on 8 5 creatinine up to 1.7. Vancomycin was changed to daptomycin. [place] unfortunately [place] [id number] patient was bradycardic hypotensive with agonal respiration patient started fed to be treated x-ray confirmed placement of ET tube bilateral patchy infiltrates. Patient continue on Levophed right femoral line was placed shortly after intubation patient became bradycardic CODE BLUE activated patient regained return of spontaneous circulation. Patient was made DNR per family rapidly deteriorated patient was pronounced on 3:50 AM 810 because of this cardiopulmonary arrest Patient presented on admission with a multiply pressure injury. Wound care provided per surgeon recommendation. Strict aspiration precaution maintained. Tube feeding with tube feeding formula goal rate and protein supplements provided per registered dietitian recommendation. Patient was follow-up with a chest x-ray FINAL DIAGNOSES: Acute hypoxemic respiratory failure due to call with 19 Status post intubation pneumonia due to COVID infection Superimposed bacterial with MRSA pneumonia C confirmed COVID infection Persistent MRSA and cons bacteremia Acute kidney injury due to supratherapeutic Vanco level Seizure disorder Diabetes mellitus Dementia Severe protein calorie malnutrition Aspiration risk Decubitus skin ulcers present on admission DNR status DISCHARGE MEDICATIONS: See Medication Reconciliation list. DISCHARGE INSTRUCTIONS: [] I have been assigned to dictate discharge summary for this account. I was not involved in the patient's management. Sarai Rod NP May 12, 2020 12:51
== END 2020-05-11 03:50 | disposition expired | DRG 208 ==
LOC: EDBD 12:43 → EMR 14:35 → 2E 14:38 → EDBEDREQSVC 15:11 → EDBEDREQ 15:16 → 2E 04-24 07:05 → 4E 04-24 17:59 → 2W 05-02 11:37 → ICU 05-08 02:34
PROC: 5A1945Z Respiratory Ventilation, 24-96 Consecutive Hours (ICD-10-PCS; principal; 2020-05-08)
PROC: 06HM33Z Insertion of Infusion Device into Right Femoral Vein, Percutaneous Approach (ICD-10-PCS; principal; 2020-05-08)
PROC: 0BH17EZ Insertion of Endotracheal Airway into Trachea, Via Natural or Artificial Opening (ICD-10-PCS; principal; 2020-05-08)
DX: U07.1 COVID-19 (principal); J96.01 Acute respiratory failure with hypoxia; E43 Unspecified severe protein-calorie malnutrition; J12.89 Other viral pneumonia; J15.212 Pneumonia due to Methicillin resistant Staphylococcus aureus; G40.919 Epilepsy, unspecified, intractable, without status epilepticus; R78.81 Bacteremia; Z68.1 Body mass index [BMI] 19.9 or less, adult; N17.9 Acute kidney failure, unspecified; G30.9 Alzheimer's disease, unspecified; F02.80 Dementia in other diseases classified elsewhere, unspecified severity, without behavioral disturbance, psychotic disturbance, mood disturbance, and anxiety; L89.159 Pressure ulcer of sacral region, unspecified stage; Z66 Do not resuscitate; R13.10 Dysphagia, unspecified; R00.0 Tachycardia, unspecified
CPT/HCPCS: 36415; 36600; 71045; 74018; 80048; 80053; 80069; 80202; 81003; 82550; 82728; 82803; 82962; 83605; 83615; 83690; 83735; 84100; 84484; 85007; 85025; 85379; 85384; 85651; 86140; 87040; 87070; 87081; 87086; 87181; 87205; 93005; 93306; 94002; 94003; 96365; 99291; J1815; J2765; U0002